=== PATIENT | male | born 1965 | race Caucasian/White ===

== ENCOUNTER 2020-10-09 08:16 | Outpatient (CLI) | payer OTHER, SELFPAY ==
--- NOTE | ~2020-10-09 | CT_ITS ---
EXAMINATION: CT chest w con DATE: 10/09/2020 08:52 INDICATION: Pulmonary nodule TECHNIQUE: Computed tomography (CT) of the chest was performed with 75 cc Omnipaque 350 intravenous c ontrast. Automated exposure control and iterative reconstruction technique were employed. Exam dose: 146.05 mGy-cm total exam DLP. COMPARISON: None FINDINGS: No pulmonary infiltrate or consolidation or pulmonary mass lesion is detected. Normal size and homogeneous enhancement of the thyroid gland. No thoracic aortic aneurysm or dissection. No hilar or mediastinal mass lesion or lymphadenopathy. No pericardial or pleural effusion. Adrenal glands and included upper abdominal structures are unremarkable. Included skeletal structures are unremarkable. IMPRESSION: No significant abnormality Reviewed, dictated and finalized at [facility]. Reviewed, dictated and finalized at [facility]. [facility] [employer]ISU[employer] IMPA[employer] IMPRESSION: No significant abnormality
[2020-10-09 08:44] LABS: Estimated Glomerular Filt Rate > 60
[2020-10-09 09:12] LABS: Basophils Absolute Auto 0.1 K/mm3 (0.0-0.1); Basophils Percent Auto 1.2 % (0.2-1.2); Eosinophils Absolute Auto 0.2 K/mm3 (0-0.3); Eosinophils Percent Auto 1.8 % (0-4.4); Hematocrit 43.4 % (42.0-52.0); Hemoglobin 14.4 g/dL (14.0-18.0); Immature Granulocyte Absolute 0.03 K/mm3 (0.00-0.031); Immature Granulocyte Percent A 0.3 % (0-0.5); Lymphocytes Absolute Auto 1.69 K/mm3 (0.9-3.2); Lymphocytes Percent Auto 19.5 % (18.3-44.2); Mean Corpuscular HGB Conc 33.2 g/dl (32-36); Mean Corpuscular Hemoglobin 30.4 pg (26-34); Mean Corpuscular Volume 91.8 fl (80-100); Mean Platelet Volume 10.2 fl (7.4-10.4); Monocytes Absolute Auto 0.5 K/mm3 (0.1-0.6); Neutrophils Absolute Auto 6.2 K/mm3 (1.3-6.7); Neutrophils Percent Auto 71.2 % (45.5-73.1); Platelet Count Result 247 k/mm3 (150-375); Red Blood Count 4.73 M/mm3 (4.6-6.20); White Blood Count 8.7 K/mm3 (4.5-10.0)
[2020-10-09 09:25] LABS: Alanine Aminotransferase 13 U/L (4-50); Albumin Level 3.7 g/dL (3.5-5.1); Alkaline Phosphatase 59 U/L (38-126); Anion Gap 3 mmol/L (8-16); Aspartate Amino Transferase 20 U/L (17-59); Bilirubin,Total 0.5 mg/dL (0.2-1.3); Blood Urea Nitrogen 13 mg/dL (9-20); Carbon Dioxide 34 mmol/L (22-30); Chloride 101 mmol/L (98-107); Cholesterol 146 mg/dL (0-200); Estimated Glomerular Filt Rate > 60; Glucose 100 mg/dL (75-110); HDL Direct 33 mg/dL; Potassium 4.1 mmol/L (3.4-5.0); Sodium 138 mmol/L (137-145); Triglycerides 109 mg/dL (<150)
[2020-10-09 09:36] LABS: LDL Cholesterol Direct 83 mg/dL
[2020-10-09 09:56] LABS: Prostate Specific Antigen 0.4 ng/mL (< OR = 4.0); Total Triiodothyronine (T3) 1.07 NG/ML (0.97-1.69)
[2020-10-09 10:19] LABS: Vitamin D 25 Hydroxy 53.4 ng/mL
== END 2020-10-09 08:17 | disposition home or self-care (01) ==
LOC: ANHIMG 08:25
PROVIDERS: PCP Nurse Practitioner; Visit Provider Nurse Practitioner
DX: Z00.01 Encounter for general adult medical examination with abnormal findings (principal); R91.1 Solitary pulmonary nodule; R07.9 Chest pain, unspecified; F17.200 Nicotine dependence, unspecified, uncomplicated; I10 Essential (primary) hypertension; G47.00 Insomnia, unspecified
CPT/HCPCS: 71260; 80053; 80061; 82306; 84153; 84439; 84443; 84480; 85025; G0103; Q9967

== ENCOUNTER 2020-10-14 12:21 | Observation (INO) | payer OTHER, SELFPAY ==
[2020-10-14] VITALS (37 sets, daily range): BP systolic 106–173; BP diastolic 66–116; PULSE 45–91; RESP 12–122; TEMP 36.6–37.8; O2SAT 95–99; BMI 17.4
--- NOTE | ~2020-10-14 | XR_ITS ---
EXAMINATION: XR chest 2V EXAM DATE: 10/14/2020 12:50 INDICATION: Left-sided chest pain radiating down left arm. TECHNIQUE: Frontal and lateral projections of the chest obtained and reviewed. There is no prior hugh dy for comparison. FINDINGS: The lungs are clear. There are no pleural effusions. The cardiomediastinal silhouette is within normal limits. There is no pneumothorax suspected. The bones and soft tissues are unremarkab le. IMPRESSION: No acute cardiopulmonary findings. Reviewed, dictated and finalized at location [facility]. [employer]
--- NOTE | 2020-10-14 12:30 | ECG_ITS ---
Measurements Intervals [place] Rate: 54 P: 29 IN: 130 QRS: -53 QRSD: 119 T: -5 QT: 410 QTc: 390 Interpretive Statements SINUS BRADYCARDIA INCOMPLETE RIGHT BUNDLE BRANCH BLOCK LEFT ANTERIOR FASCICULAR BLOCK BORDERLINE T WAVE ABNORMALITY- INFERIOR LEADS BASELINE ARTIFACT- I ,II, AVR, V3 ABNORMAL ECG Electronically Signed On 10-14-2020 12:59:57 [employer] by Luis Fernando Fletcher D.O.
[2020-10-14 12:43] LABS: Basophils Absolute Auto 0.1 K/mm3 (0.0-0.1); Basophils Percent Auto 0.7 % (0.2-1.2); Eosinophils Percent Auto 0.3 % (0-4.4); Hematocrit 46.1 % (42.0-52.0); Hemoglobin 15.5 g/dL (14.0-18.0); Immature Granulocyte Absolute 0.05 K/mm3 (0.00-0.031); Immature Granulocyte Percent A 0.4 % (0-0.5); Lymphocytes Absolute Auto 1.37 K/mm3 (0.9-3.2); Lymphocytes Percent Auto 12.1 % (18.3-44.2); Mean Corpuscular HGB Conc 33.6 g/dl (32-36); Mean Corpuscular Hemoglobin 30.6 pg (26-34); Mean Corpuscular Volume 90.9 fl (80-100); Mean Platelet Volume 10.1 fl (7.4-10.4); Monocytes Absolute Auto 0.4 K/mm3 (0.1-0.6); Monocytes Percent Auto 3.8 % (2.6-8.5); Neutrophils Absolute Auto 9.4 K/mm3 (1.3-6.7); Neutrophils Percent Auto 82.7 % (45.5-73.1); Platelet Count Result 237 k/mm3 (150-375); Red Blood Count 5.07 M/mm3 (4.6-6.20); Red Cell Distribution Width 13.2 % (11.5-14.5); White Blood Count 11.3 K/mm3 (4.5-10.0)
--- NOTE | 2020-10-14 12:48 | ED.CHESTPAIN ---
HPI - Chest Pain General Chief Complaint: Chest Pain Stated Complaint: chest hurting Time Seen by Provider: 10/14/20 12:34 Source: patient Mode of arrival: ambulatory Limitations: no limitations History of Present Illness HPI narrative: Patient is a 52-year-old male complaining of chest pain, left chest, radiating to left arm and jaw, 8 out of 10, pressure, started approximately 2 days ago. Patient states that he has a cardiac stress test scheduled today but was able to make it due to the chest pain. Patient denies any shortness of breath, nausea, vomiting, diaphoresis, fever or chills. Related Data Allergies Allergy/AdvReac Type Severity Reaction Status Date / Time No Known Allergies Allergy Verified 03/10/17 08:47 Review of Systems Review of Systems: All systems reviewed & are unremarkable except as noted in HPI and below Constitutional: Constitutional: Denies body ache(s), Denies chills, Denies excessive sweating, Denies fatigue, Denies fever(s), Denies headache(s), Denies lethargy, Denies malaise, Denies weakness and Denies weight loss Eyes: Eyes: Denies blurry vision, Denies change in vision and Denies loss of vision ENT: Denies dizziness, Denies ear discharge, Denies headache(s), Denies lip swelling, Denies epistaxis, Denies nasal congestion, Denies neck pain, Denies throat swelling and Denies tongue swelling Cardiovascular: Cardiovascular: Denies diaphoresis, Denies rapid heart rate, Denies edema, Denies irregular heart rhythm, Denies lightheadedness, Denies palpitations, Denies dyspnea and Denies dyspnea on exertion Respiratory: Respiratory: Denies chest congestion, Denies cough, Denies hemoptysis, Denies dyspnea and Denies dyspnea on exertion Gastrointestinal: Gastrointestinal: Denies abdominal pain, Denies melena, Denies hematochezia, Denies diarrhea, Denies nausea, Denies vomiting and Denies hematemesis Musculoskeletal: Musculoskeletal: Denies abnormal gait, Denies deformity, Denies joint swelling, Denies limited range of motion, Denies neck pain and Denies numbness Neurologic: Denies Abnormal speech present, Denies abnormal gait, Denies confusion, Denies dizziness, Denies headache(s), Denies focal weakness, Denies loss of vision, Denies numbness, Denies Other visual disturbances, Denies Sensory deficit (Neuro) and Denies weakness Psychiatric: Psychiatric: Denies confusion, Denies depression, Denies auditory hallucinations, Denies homicidal ideation and Denies suicidal ideation Endocrine: Endocrine: Denies cold intolerance, Denies excessive sweating, Denies fatigue, Denies heat intolerance and Denies palpitations Hematologic/Lymphatic: Hematologic/Lymphatic: Denies easy bleeding and Denies easy bruising Allergic/Immunologic: Allergic/Immunologic: Denies lip swelling, Denies throat swelling and Denies tongue swelling Exam Const: General: cooperative, healthy appearing, comfortable, no acute distress, well developed, alert and awake; No confusion Orientation/consciousness: oriented to person, oriented to place, oriented to time, patient oriented x3 and No confusion Limitations: no limitations HENMT: Head: normal to inspection, normocephalic and atraumatic Ears: hearing grossly normal bilaterally, TM normal on the right and TM normal on the left General nose exam: Normal external nose present, Normal nares present and No nasal discharge present Face and sinus: normal facial exam Mouth: Yes Normal oral and palatal mucosa present, Yes lip normal, Yes tongue normal and Yes oropharynx normal Throat: posterior oropharynx normal, tonsils normal and uvula midline Eyes: General: appearance normal, both eyes and all related structures Pupils: Equal, round and reactive pupils present EOM: EOMs intact bilaterally Neck: Neck: normal visual inspection, full ROM, no lymphadenopathy and no meningeal signs Chest: Chest palpation & inspection: normal inspection of the chest Resp: Effort & Inspection: normal respiratory effort, able
[2020-10-14 12:55] LABS: Anion Gap 3 mmol/L (8-16); Blood Urea Nitrogen 10 mg/dL (9-20); Calcium 9.2 mg/dL (8.4-10.2); Carbon Dioxide 32 mmol/L (22-30); Chloride 103 mmol/L (98-107); Estimated CRCL calculation 80 ml/min; Estimated Glomerular Filt Rate > 60; Glucose 158 mg/dL (75-110); Potassium 4.6 mmol/L (3.4-5.0); Prothrombin Time 13.5 Seconds (11.1-14.7); Sodium 138 mmol/L (137-145)
[2020-10-14 12:58] LABS: Partial Thromboplastin Time 28.3 SECONDS (22.3-36.8)
[2020-10-14 13:06] LABS: Troponin I < 0.012 ng/mL (0.000-0.034)
[2020-10-14] MEDS: ASPIRIN 81 MG CHEWABLE TABLET 324 MG PO (13:41)
[2020-10-14] MEDS: NITROGLYCERIN SL 0.4 MG TABLET SUBLINGUAL (14:09)
[2020-10-14] MEDS: PROMETHAZINE HCL 25 MG/ML AMPUL (14:09)
[2020-10-14] MEDS: SODIUM CHLORIDE 0.9% IV 1,000 ML 999 ML IV CONT (14:09)
--- NOTE | 2020-10-14 14:40 | PC.NURSE ---
Addendum entered by Taye Guo RN 10/14/20 15:00: 1inch of nitro paste* per verbal order readback Original Note: After 3 nitro SL tablets approx 5mins apart, Pt. chest pain went from 7 to a 4. BP sustaining. ERP notified. ERP wants 0.5 inch of nitro paste.
[2020-10-14] MEDS: NITROGLYCERIN OINTMENT 1 INCH DOSE TRANSDERM (14:47)
[2020-10-14 15:44] LABS: Troponin I < 0.012 ng/mL (0.000-0.034)
--- NOTE | 2020-10-14 17:45 | PM.IMHP ---
H&P: HPI History of Present Illness Date/Time: 10/14/20 17:45 Chief Complaint: Chest pain. Narrative: This is a 55-year-old male smoker with hypertension who presented to the emergency department earlier today via private vehicle from home with complaints of left-sided chest pain. He was scheduled for cardiac stress test today however he had recurrent chest pain and presented to the emergency department instead. He describes a pressure-like sensation, occasionally sharp, that was present in his far left lateral chest and axillary region, radiating to the left upper arm and jaw when he woke this morning. The pain was rated 8/10 on arrival but did improve with nitroglycerin x3. With further questioning he does admit that he will sometimes lay on that side and that it seems to be worse with palpation of the area. He also reports feeling unwell for the past couple of days with generalized malaise, fatigue, and decrease in energy. He has occasional lightheadedness and nausea and began to have a decreased in taste yesterday with hot flashes, sweats, and chills over the last 12 hours. He also has mild shortness of breath and dry cough the last 24 hours. No known exposure to those positive for COVID-19. No vomiting or diarrhea. No significant sinus congestion, rhinorrhea, otalgia, or odynophagia. Review of Systems Review of Systems: Narrative: 12 systems were reviewed with pertinent positives and negatives as per HPI. Weight has remained stable. He has chronic right knee pain and was on narcotics for sometime but is now on Suboxone. Suffers from anxiety and he was on Ativan for quite some time but is Dr. recently switched him to buspirone. Except as documented, all other systems were reviewed and are negative. COUNT INCLUDES THE [facility] Past Medical History Medical History (Updated 10/15/20 @ 14:32 by Pushpa Franco PA-C) Benign prostatic hyperplasia Chronic pain syndrome History of kidney stones Hypertension Tobacco dependence Surgical History Surgical History (Updated 10/15/20 @ 14:30 by Pushpa Franco PA-C) History of lithotripsy Family History Family History Father H/O heart artery stent Hypertension Leukemia Lung cancer Mother Hypertension Multiple sclerosis Mother No problems noted. Social History Social History (Updated 10/15/20 @ 14:31 by Pushpa Franco PA-C) Social History: The patient lives in [place] with his . They have 3 adult children. 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 Smokes about a pack of cigarettes per day and has for 25 years or so. He denies alcohol abuse. Occasional marijuana use. he designates his Paola as his surrogate decision makers and she wishes to be a full code. Smoking packs per day: 1 Smoking cigarettes per day: 20.0 Years smoked: 25 Smoking pack-years: 25.00 Smoking status: Heavy tobacco smoker Tobacco type: cigarettes Second hand tobacco smoke exposure: No Alcohol intake: never Substance use: never Gender identity (if verbalized by the patient): Male Spiritual care concerns: No Meds Home Medications and Allergies Home Medications Medication Instructions Recorded Confirmed Type buprenorphine-naloxone 1 film SUBLINGUAL BID 10/14/20 10/14/20 History buspirone 15 mg PO DAILY 10/14/20 10/14/20 History lisinopril 10 mg PO DAILY 10/14/20 10/14/20 History famotidine 20 mg PO Q12HR #30 tablet 10/15/20 Rx Allergies Allergy/AdvReac Type Severity Reaction Status Date / Time No Known Allergies Allergy Verified 03/10/17 08:47 Vital Signs Vital Signs - 24 hr 10/14/20 12:30 10/14/20 12:31 10/14/20 12:40 Temperature 98.1 F Pulse Rate 78 Respiratory Rate 12 Blood Pressure 173/102 H 173/105 H Pulse Oximetry 98 97 99 10/14/20 12:42 10/14/20 12:49 10/14/20 12:50 Temperature Pulse Rate 78 56 L 56 L Respiratory Rate 13 19 Blood Pressure 142/92 H Pulse Oximetry 96 98 0
[2020-10-14 18:50] LABS: Hemoglobin A1C 5.3 % (<5.7)
[2020-10-14 18:51] LABS: Alanine Aminotransferase 12 U/L (4-50); Albumin Level 3.7 g/dL (3.5-5.1); Alkaline Phosphatase 66 U/L (38-126); Aspartate Amino Transferase 19 U/L (17-59); Bilirubin,Total 0.4 mg/dL (0.2-1.3); Magnesium 1.7 mg/dL (1.6-2.3)
[2020-10-14 19:03] LABS: Troponin I < 0.012 ng/mL (0.000-0.034)
--- NOTE | 2020-10-14 20:35 | PM.CNCAR ---
Assessment and Plan Assessment and plan (1) Chest pain: Qualifiers: Chest pain type: unspecified Qualified Code(s): R07.9 - Chest pain, unspecified Code(s): R07.9 - Chest pain, unspecified Status: Acute Assessment and Plan: 3 sets of CE negative no acute EKG changes symptoms appear atypical will arrange for stress test in AM to r/o ischemia. cont meds (2) Hypertension: Code(s): I10 - Essential (primary) hypertension Status: Acute Assessment and Plan: initiallty elevated in ER (173/105) now well controlled cont meds (3) Tobacco dependence: Code(s): F17.200 - Nicotine dependence, unspecified, uncomplicated Status: Acute Assessment and Plan: Cessation recommended. Thank you for consult. Fortino cortez. History of Present Illness History of Present Illness Consult date/time: 10/14/20 Mr. Smart is a pleasant 55 y/o WM with PMH of HTN who presented today to [facility] complaining for chest discomfort. Pt states that he does have episodes of sharp L side of chest and arm discomfort. He states that when he presses his arm he feels pain. Sometimes when he is in bed and sleeps on L or R side then he has numbness and pain of arm which is similar. Symptoms are not related to physical activity. He states that was supposed to have stress test done today on outpatient basis but was not able to have it completed due to N/V. Pt denies cardiac problems. He does have hx of smoking. Pt was seen and examined, chart was reviewed, case was d/w pt's nurse. Reason For Visit: CHEST PAIN Review of Systems Review of Systems: All systems reviewed & are unremarkable except as noted in HPI and below Constitutional: Constitutional: Reports as per HPI Eyes: Eyes: Reports as per HPI ENT: Reports system reviewed and no additional complaints, except as documented and Reports as per HPI Cardiovascular: Cardiovascular: Reports as per HPI Respiratory: Respiratory: Reports as per HPI Gastrointestinal: Gastrointestinal: Reports as per HPI Genitourinary: Genitourinary: Reports as per HPI Musculoskeletal: Musculoskeletal: Reports as per HPI [facility] Past Medical History Medical History (Updated 10/14/20 @ 17:56 by Pushpa Franco PA-C) Benign prostatic hyperplasia Hypertension Tobacco dependence Family History Family History (Updated 10/14/20 @ 20:34 by Yamileth Estrada RN) Father H/O heart artery stent Hypertension Leukemia Lung cancer Mother Hypertension Multiple sclerosis Mother No problems noted. Social History Social History (Updated 10/14/20 @ 17:42 by Pushpa Franco PA-C) Social History: The patient lives in [place]. Smoking packs per day: 1 Smoking cigarettes per day: 20.0 Years smoked: 25 Smoking pack-years: 25.00 Smoking status: Heavy tobacco smoker Tobacco type: cigarettes Second hand tobacco smoke exposure: No Alcohol intake: never Substance use: never Gender identity (if verbalized by the patient): Male Spiritual care concerns: No Meds Home Medications and Allergies Home Medications Medication Instructions Recorded Confirmed Type buprenorphine-naloxone 1 film SUBLINGUAL BID 10/14/20 10/14/20 History buspirone 15 mg PO DAILY 10/14/20 10/14/20 History lisinopril 10 mg PO DAILY 10/14/20 10/14/20 History Allergies Allergy/AdvReac Type Severity Reaction Status Date / Time No Known Allergies Allergy Verified 03/10/17 08:47 Vital Signs Vital Signs - 24 hr 10/14/20 12:30 10/14/20 12:31 10/14/20 12:40 Temperature 36.7 C Pulse Rate 78 Respiratory Rate 12 Blood Pressure 173/102 H 173/105 H Pulse Oximetry 98 97 99 10/14/20 12:42 10/14/20 12:49 10/14/20 12:50 Temperature Pulse Rate 78 56 L 56 L Respiratory Rate 13 19 Blood Pressure 142/92 H Pulse Oximetry 96 98 10/14/20 13:00 10/14/20 13:01 10/14/20 13:15 Temperature Pulse Rate 55
[2020-10-14 22:36] LABS: Troponin I < 0.012 ng/mL (0.000-0.034)
[2020-10-14] MEDS: NICOTINE (*PBKC) 21 MG PATCH 1 PATCH TRANSDERM (23:25)
[2020-10-15] VITALS (9 sets, daily range): BP systolic 110–155; BP diastolic 45–92; PULSE 46–85; RESP 17–22; TEMP 36.6–37.4; O2SAT 97–99
--- NOTE | 2020-10-15 00:56 | PC.NURSE ---
Pt. transferred to IMU 202 for pending COVID-19 test. Report given to MAYDA Loco. Pt. transported to IMU in bed with monitor worker in place. Pt. in no apparent distress upon transport. Pt. transported with one bag of belongings.
[2020-10-15] MEDS: ONDANSETRON INJ 4 MG/2 ML VIAL IV PUSH ×2 (04:59→11:03)
[2020-10-15 05:09] LABS: Hemoglobin 14.5 g/dL (14.0-18.0); Mean Corpuscular HGB Conc 33.7 g/dl (32-36); Mean Platelet Volume 10.5 fl (7.4-10.4); Platelet Count Result 233 k/mm3 (150-375); Red Blood Count 4.83 M/mm3 (4.6-6.20); White Blood Count 11.3 K/mm3 (4.5-10.0)
[2020-10-15] MEDS: NITROGLYCERIN SL 0.4 MG TABLET SUBLINGUAL ×3 (05:18→05:30)
[2020-10-15 05:22] LABS: Anion Gap 1 mmol/L (8-16); Blood Urea Nitrogen 10 mg/dL (9-20); Calcium 8.8 mg/dL (8.4-10.2); Carbon Dioxide 30 mmol/L (22-30); Chloride 107 mmol/L (98-107); Cholesterol 145 mg/dL (0-200); Estimated CRCL calculation 72 ml/min; Estimated Glomerular Filt Rate > 60; Glucose 106 mg/dL (75-110); HDL Direct 31 mg/dL; Potassium 4.2 mmol/L (3.4-5.0); Sodium 138 mmol/L (137-145); Triglycerides 130 mg/dL (<150)
[2020-10-15] MEDS: busPIRone HCL 5 MG TABLET 15 MG PO (05:22)
[2020-10-15 05:33] LABS: LDL Cholesterol Direct 86 mg/dL
--- NOTE | 2020-10-15 08:06 | PC.NURSE ---
0518 c/o chest pain 10/10 - nitro SL administered 0524 c/o chest pain 8/10 - nitro SL administered 0530 c/o chest pain 4/10 - nitro SL administered, reports continues to improve 0545 decreased HR 32 bpm - quickly resolved 0550 decreased HR 39 bpm - quickly resolved. Denies increased SOB, chest pain, lightheadedness, nausea/vomiting.
[2020-10-15] MEDS: ASPIRIN 81 MG ENTERIC TABLET PO (08:40)
[2020-10-15] MEDS: lisinopriL 10 MG TABLET PO (08:40)
--- NOTE | 2020-10-15 08:47 | ECG_ITS ---
Measurements Intervals [place] Rate: 28 P: 66 WI: 137 QRS: -49 QRSD: 121 T: -7 QT: 445 QTc: 304 Interpretive Statements SINUS BRADYCARDIA INCOMPLETE RIGHT BUNDLE BRANCH BLOCK LEFT ANTERIOR FASCICULAR BLOCK BORDERLINE T WAVE ABNORMALITY- INFERIOR LEADS BASELINE ARTIFACT- I, II, III, AVR, AVL, AVF ABNORMAL ECG Electronically Signed On 10-15-2020 9:18:38 [employer] by Luis Fernando Fletcher D.O.
--- NOTE | 2020-10-15 08:57 | PC.NURSE ---
0045 received report from MAYDA Carson
--- NOTE | 2020-10-15 09:11 | PM.PNCARD ---
Progress Note: A&P Assessment and Plan (1) Chest pain: Qualifiers: Chest pain type: unspecified Qualified Code(s): R07.9 - Chest pain, unspecified Code(s): R07.9 - Chest pain, unspecified Status: Acute Assessment and Plan: Symptoms mostly driven by anxiety 3 sets of CE negative EKG with non specific ST changes COVID test is pending hence can't do stress echo this am. Will discharge patient and he may scheduled stress echo in outpatient settings. I discussed that with patient and he is agreeable Smoking cessation counseling Continue antihypertensives as at home (2) Hypertension: Code(s): I10 - Essential (primary) hypertension Status: Acute Assessment and Plan: initiallty elevated in ER (173/105) now well controlled cont meds (3) Tobacco dependence: Code(s): F17.200 - Nicotine dependence, unspecified, uncomplicated Status: Acute Assessment and Plan: Cessation recommended. Subjective Date/time seen: 10/15/20 09:11 He denies chest pain this am. He contributes his symptoms to anxiety. Since Vicodin and Xanax stopped his symptoms started Review of Systems Review of Systems: All systems reviewed & are unremarkable except as noted in HPI and below Constitutional: Constitutional: Reports as per HPI Eyes: Eyes: Reports as per HPI ENT: Reports system reviewed and no additional complaints, except as documented and Reports as per HPI Cardiovascular: Cardiovascular: Reports as per HPI Respiratory: Respiratory: Reports as per HPI Gastrointestinal: Gastrointestinal: Reports as per HPI Genitourinary: Genitourinary: Reports as per HPI Musculoskeletal: Musculoskeletal: Reports as per HPI Exam Const: General: alert and awake; No acute distress HENMT: Head: normal to inspection and atraumatic Ears: hearing grossly normal bilaterally Face and sinus: normal facial exam Eyes: General: appearance normal, both eyes and all related structures Pupils: Equal, round and reactive pupils present EOM: EOMs intact bilaterally Neck: Neck: normal visual inspection and no JVD Chest: Chest palpation & inspection: normal inspection of the chest Resp: Effort & Inspection: normal respiratory effort and no respiratory distress Auscultation: clear to auscultation bilaterally Cardio: Jugular venous distension: no JVD Rate: regular rate Heart sounds: S1 normal heart sound present, S2 normal heart sound present and no murmurs GI: Inspection: normal to inspection Auscultation: normal bowel sounds Skin: General skin exam: normal color Neuro: Cranial nerves: Yes Equal, round and reactive pupils present Extrem: General: normal to inspection and no clubbing, cyanosis or edema Objective Data Vital Signs Vital Signs: Vital Signs - 24 hr 10/14/20 12:30 10/14/20 12:31 10/14/20 12:40 Temperature 36.7 C Pulse Rate 78 Respiratory Rate 12 Blood Pressure 173/102 H 173/105 H Pulse Oximetry 98 97 99 10/14/20 12:42 10/14/20 12:49 10/14/20 12:50 Temperature Pulse Rate 78 56 L 56 L Respiratory Rate 13 19 Blood Pressure 142/92 H Pulse Oximetry 96 98 10/14/20 13:00 10/14/20 13:01 10/14/20 13:15 Temperature Pulse Rate 55 L 57 L 52 L Respiratory Rate 15 18 17 Blood Pressure 144/96 H Pulse Oximetry 96 96 97 10/14/20 13:16 10/14/20 13:30 10/14/20 13:31 Temperature Pulse Rate 52 L 53 L 51 L Respiratory Rate 15 Blood Pressure 142/96 H 140/96 H Pulse Oximetry 97 97 97 10/14/20 13:45 10/14/20 13:46 10/14/20 14:00 Temperature Pulse Rate 61 61 91 Respiratory Rate Blood Pressure 155/116 H Pulse Oximetry 97 98 10/14/20 14:09 10/14/20 14:15 10/14/20 14:16 Temperature Pulse Rate 53 L 66 60 Respiratory Rate Blood Pressure 143/88 H 130/87 Pulse Oximetry 97 96 96 10/14/20 14:17 10/14/20 14:30 10/14/20 14:31 Temperature Pulse Rate 55 L 53 L 56 L Respiratory Rate 122 H 12 12 Blo
--- NOTE | 2020-10-15 09:44 | PM.DS ---
DS: Admitting Diagnosis Admitting Diagnosis Admitting Diagnosis: Acute chest pain DS: Discharge Diagnosis Discharge Diagnosis (1) Chronic pain syndrome: Code(s): G89.4 - Chronic pain syndrome Status: Acute Assessment and Plan: follow-up with PCP for medication adjustment (2) Person under investigation for COVID-19: Code(s): Z20.822 - Contact with and (suspected) exposure to COVID-19 Status: Acute Assessment and Plan: pending COVID-19 testing monitor temperature monitor shortness of breath follow-up on the results of COVID-19 (3) Benign prostatic hyperplasia: Code(s): N40.0 - Benign prostatic hyperplasia without lower urinary tract symptoms Status: Acute Assessment and Plan: follow-up with PCP (4) Hypertension: Code(s): I10 - Essential (primary) hypertension Status: Acute Assessment and Plan: continue lisinopril (5) Hyperglycemia: Code(s): R73.9 - Hyperglycemia, unspecified Status: Acute Assessment and Plan: diet and exercise hemoglobin A1c as outpatient follow-up with PCP (6) Tobacco dependence: Code(s): F17.200 - Nicotine dependence, unspecified, uncomplicated Status: Acute Assessment and Plan: counseling (7) Chest pain: Qualifiers: Chest pain type: unspecified Qualified Code(s): R07.9 - Chest pain, unspecified Code(s): R07.9 - Chest pain, unspecified Status: Acute Assessment and Plan: discussed with cardiology plan to follow-up with established emg technician continue with plan for outpatient stress test patient also has epigastric pain most likely gastritis give Pepcid and follow-up with PCP DS: Summary Hospital Course Hospital Course: patient was admitted to the hospital with chest pain epigastric pain cardiology was consulted no evidence of NSTEMI chest pain has resolved probably patient has gastritis patient will be discharged on PPI follow-up with cardiology as outpatient Time Spent with Patient Time attestation: Total time spent providing and/or coordinating discharge services: Exam Narrative: Exam Narrative: Alert Chest no wheeze crackles Abdomen nontender nondistended CVS S1 + S2 Lower extremity edema DS: Data Data Completed and Pending Labs on day of discharge: Labs from last 24 hours 10/15/20 10/15/20 10/14/20 04:25 04:25 23:21 WBC 11.3 H RBC 4.83 Hgb 14.5 Hct 43.0 MCV 89.0 MCH 30.0 MCHC 33.7 RDW 13.0 Plt Count 233 MPV 10.5 H Immature Gran % (Auto) Neut % (Auto) Lymph % (Auto) Donley % (Auto) Eos % (Auto) Baso % (Auto) Lymph # (Auto) [place]ley # (Auto) Eos # (Auto) Baso # (Auto) Abs Immat Gran (auto) Absolute Neuts (auto) Absolute Nucleated RBC Nucleated RBC % PT INR APTT Sodium 138 Potassium 4.2 Chloride 107 Carbon Dioxide 30 Anion Gap 1 L BUN 10 Creatinine 0.80 Estim Creat Clear Calc 72 Estimated GFR > 60 Glucose 106 Hemoglobin A1c Calcium 8.8 Magnesium Total Bilirubin Direct Bilirubin AST ALT Alkaline Phosphatase Troponin I Total Protein Albumin Triglycerides 130 Cholesterol 145 LDL Cholesterol Direct 86 HDL Direct 31 TSH (Reflex) SARS-CoV-2 RNA (RT-PCR) Pending 10/14/20 10/14/20 10/14/20 22:01 18:34 18:33 WBC RBC Hgb Hct MCV MCH MCHC RDW Plt Count MPV Immature Gran % (Auto) Neut % (Auto) Lymph % (Auto) Donley % (Auto) Eos % (Auto) Baso % (Auto) Lymph # (Auto) Donley # (Auto) Eos # (Auto) Baso # (Auto) Abs Immat Gran (auto) Absolute Neuts (auto) Absolute Nucleated RBC Nucleated RBC % PT INR APTT Sodium Potassium Chloride Carbon Dioxide Anion Gap BUN Creatinine Estim Creat Clear Calc Estimated GFR Glucose Hemog
[2020-10-15 18:18] LABS: SARS-CoV-2 RNA PCR Negative
== END 2020-10-15 11:44 | disposition home or self-care (01) ==
LOC: ANHED 15:26 → ANHCPC 17:51 → ANHIMU 10-15 09:44 → ANHCPC 10-17 10:57 → ANHIMU 10-17 10:57
PROVIDERS: Emergency Medicine; Physician Assistant; Admitting Provider Family Medicine; Emergency Provider Emergency Medicine; PCP Nurse Practitioner; Visit Provider Internal Medicine
DX: R07.9 Chest pain, unspecified (principal); Z20.822 Contact with and (suspected) exposure to COVID-19; I10 Essential (primary) hypertension; F17.210 Nicotine dependence, cigarettes, uncomplicated; N40.0 Benign prostatic hyperplasia without lower urinary tract symptoms; G89.4 Chronic pain syndrome; R73.9 Hyperglycemia, unspecified
CPT/HCPCS: 36415; 71046; 80048; 80061; 80076; 83036; 83735; 84443; 84484; 85025; 85027; 85610; 85730; 93005; 96361; 96374; 96376; 99285; A9270; C9803; G0378; G0379; J2405; J2550; J7030; U0003; U0005

== ENCOUNTER 2025-02-06 15:10 | Inpatient (IN) | payer OTHER, SELFPAY ==
--- NOTE | ~2025-02-06 | CT_ITS ---
CT abdomen pelvis wo con Ordering provider: Reginaldo Orozco MD History: 60 years Male with . flank pain hx stones . Comparison: December 02 2005. Technique: CT abdomen and pelvis without IV and without oral contrast. Automated exposure control and iterative reconstruction technique were employed. The dose-length product was 366.22 mGy-cm. Findings: VISUALIZED LOWER CHEST: Normal. UPPER ABDOMINAL ORGANS: Liver: Normal. Gallbladder: Normal. Spleen: Normal. Stomach/duodenum: Normal. Pancreas: Normal. Adrenals: Left adrenal adenomas are seen measuring 1.6 x 1.2 cm which are larger than the previous st udy.. Kidneys: Large stones seen in the right renal pelvis which measures 1.4 cm and 0.9 cm. Right hydronep hrotic changes noted. Tiny stone in the right kidney upper pole. Tiny stone in the left kidney upper pole. Stone in the left kidney lower pole is seen measuring 9 mm. Stone in the left renal pelvis is also noted which measures 9 mm. Left hydronephrotic changes are al so noted PELVIC ORGANS: The bladder is underfilled with thickened wall. Evaluation for cystitis advised. BOWEL AND MESENTERY: Colon: Severe sigmoid diverticulosis without diverticulitis. Fecal Normal appendix. Small Bowel: Normal. No obstruction. Peritoneum/mesentery: No free air or free fluid. No mesenteric lymphadenopathy. RETROPERITONEUM: Mild atheromatous disease of the abdominal aorta. No retroperitoneal lymphadenopat hy. MUSCULOSKELETAL: Superficial soft tissues: The superficial soft tissues are normal. Bones: Age appropriate degenerative changes of the spine. IMPRESSION: 1. Bilateral renal stones with bilateral hydronephrotic changes more on the right side. 2. No evidence of appendicitis, diverticulitis or intestinal obstruction. Reviewed, dictated and finalized at location A. IMPRESSION: 1. Bilateral renal stones with bilateral hydronephrotic changes more on the ri ght side. 2. No evidence of appendicitis, diverticulitis or intestinal obstruction.
--- NOTE | ~2025-02-06 | XR_ITS ---
EXAMINATION: XR retrograde pyelo w/stent BI DATE: 02/07/2025 11:25 INDICATION: Bilateral ureteral stent placement TECHNIQUE: 61 fluoroscopic images of the abdomen and pelvis were obtained during procedure performed by Dr. Hull. Radiologist was not present for the imaging or procedure. The amount of fluoroscopy ti me used during this procedure was 0.5 minutes. Total DAP was 0.474 mGym^2. COMPARISON: CT dated 02/06/2025 FINDINGS: Glove Tagger image demonstrates bilateral calcified renal stones. Subsequent images demonstrate cannulation and retrograde contrast injections first into the right ureter and renal collecting system and subseq uently into the left ureter and renal collecting system. No filling defects or stricture is identifie d in either ureter. Final images demonstrate placement of bilateral internal ureteral stents with loo ps formed in the bilateral renal pelvises. IMPRESSION: 1. Bilateral nephrolithiasis. 2. Placement of bilateral internal ureteral stents with proximal loop was formed in the renal pelvise s. Reviewed, dictated and finalized at location A. IMPRESSION: 1. Bilateral nephrolithiasis. 2. Placement of bilateral internal ureteral stents with proximal loop was forme d in the renal pelvises.
--- OUTSIDE RECORDS SUMMARY | 2025-02-06 15:13 | XMS_ITS | Patient Health Record ---
Author Organization [facility] Address [address] [place] [address] Care Team Providers Care Flat Finisher Name Role Phone Regan Ely Primary Care Provider Jose Neal Unavailable [phone] Wesley Wallace Unavailable [phone] Ophelia Coy Unavailable [phone] Ramesh Kristin Unavailable [phone] Emiliana Xie Unavailable [phone] Allergies No Known Allergies Results Component Value Reference Range Notes Hemoglobin A1c* Reviewed date:12/20/2024 12:22:51 PM Interpretation: Performing Lab: Notes/Report: CBC With Differential/Platel et* Reviewed date:12/20/2024 12:23:44 PM Interpretation: Performing Lab: Notes/Report: CMP 14 Comprehensive Metabol ic Panel* Reviewed date:12/20/2024 12:24:18 PM Interpretation: Performing Lab: Notes/Report: PDF Report Reviewed date:11/26/2024 04:54:50 PM Interpretation: Performing Lab:[facility], [address] [facility], Phone - [phone], Director - Fabrice Notes/Report: ToxAssure, ToxAssure FLEX or MAT drug testing: -Technical component - Data analysis performed at [facility], [address] [place] [address], [address]. [phone]. Park Interpretive Ranger Cristina Garza MD PDF Report1 LCLS Comprehensive Drug Analysis, Urine Reviewed date:11/26/2024 08:59:37 AM Interpretation: Performing Lab:[facility], [address] [facility], Phone - [phone], Director - Fabrice Notes/Report: ToxAssure, ToxAssure FLEX or MAT drug testing: -Technical component - Data analysis performed at [facility], [address] [place] [address], [address]. [phone]. Park Interpretive Ranger Cristina Garza MD Summary Report (Summary) FINAL COMPREHENSIVE DRUG ANALYSIS,UR Test Result Flag Units Drug Present Desmethyldiazepam 32 ng/mg creat Oxazepam 242 ng/mg creat Temazepam 116 ng/mg creat Desmethyldiazepam, oxazepam, and temazepam are benzodiazepine drugs, but may also be present as common metabolites of other benzodiazepine drugs, including diazepam. Buprenorphine >386 ng/mg creat Norbuprenorphine >386 ng/mg creat Source of buprenorphine is a scheduled prescription medication. Norbuprenorphine is an expected metabolite of buprenorphine. Bupropion PRESENT Hydroxybupropion PRESENT Hydroxybupropion is an expected metabolite of bupropion. Paroxetine PRESENT Propranolol PRESENT Test Result Flag Units Ref Range Creatinine 259 mg/dL >=20 For clinical consultation, please call . PDF . 12 Panel Urine Drug Screen Reviewed date:01/15/2025 02:24:45 PM Interpretation: Performing Lab: Notes/Report: THC neg LILLI neg MOP (OPI) neg AMP neg MET neg BAR neg BZO POS MDMA neg MTD neg OXY neg PCP neg BUP POS CMP 14 Comprehensive Metabol ic Panel* Reviewed date:12/11/2024 02:29:04 PM Interpretation: Performing Lab:[facility] [address] [facility], Phone - [phone], Director - Faith Notes/Report: Glucose 128 70-99 mg/dL BUN 11 6-24 mg/dL Creatinine 0.97 0.76-1.27 mg/dL eGFR 91 >59 mL/min/1.73 BUN/Creatinine Ratio 11 9-20 Sodium 136 134-144 mmol/L Potassium 4.6 3.5-5.2 mmol/L Specimen received hemolyzed. Value may be increased by hemolysis. Clinical correlation indicated. Chloride 101 96-106 mmol/L Carbon Dioxide, Total 20 20-29 mmol/L Calcium 9.4 8.7-10.2 mg/dL Protein, Total 6.6 6.0-8.5 g/dL Albumin 4.0 3.8-4.9 g/dL Globulin, Total 2.6 1.5-4.5 g/dL Bilirubin, Total 0.3 0.0-1.2 mg/dL Alkaline Phosphatase 174 44-121 IU/L AST (SGOT) 21 0-40 IU/L ALT (SGPT) 18 0-44 IU/L Lipid Panel* Reviewed date:12/11/2024 02:27:34 PM Interpretation: Performing Lab:[facility] [address] [facility], Phone - [phone], Director - [facility] Notes/Report: Cholesterol, Total 237 100-199 mg/dL Triglycerides 344 0-149 mg/dL HDL Cholesterol 23 >39 mg/dL VLDL Cholesterol Ayden 64 5-40 mg/dL LDL Chol Calc (NIH) 150 0-99 mg/dL TSH+Free T4* Reviewed date:12/11/2024 02:26:46 PM Interpretation: Performing Lab:[facility] [address] [place] [address], Phone - [phone], Director - [facility] Notes/Report: TSH 2.080 0.450-4.500 uIU/mL T4,Free(Direct) 1.28 0.82-1.77 ng/dL Vitamin D, 25-Hydroxy* Reviewed date:12/11/2024 02:26:18 PM Interpretation: Performing Lab:[facility], Phone - [phone], Director - [facility] Notes/Report: Vitamin D, 25-Hydroxy 7.8 30.0-100.0 ng/mL Vitamin D deficiency has been defined by the [place] of Medicine and an Endocrine Society practice guideline as a level of serum 25-OH vitamin D less than 20 ng/mL (1,2). The Endocrine Society went on to further define vitamin D insufficiency as a level between 21 and 29 ng/mL (2). 1. IOM ([place] of Medicine). 2010. Dietary reference intakes for calcium and D. [place]: The National Academies Press. 2. Juaquin MF, Laura [place], Caryn ROMERO, et al. Evaluation, treatment, and prevention of vitamin D deficiency: an Endocrine Society clinical practice guideline. JCEM. 2010; 96(7):1911-30. CBC With Differential/Platel et* Reviewed date:12/11/2024 02:32:21 PM Interpretation: Performing Lab:[address], Phone - [phone], Director - [facility] Notes/Report: WBC TNP Test not performed. Whole blood specimen partially or completely clotted. A common cause is insufficient mixing upon collection. RBC TNP Test not perfor med Hemoglobin TNP Test not perfor med Hematocrit TNP Test not perfor med Platelets TNP Test not perfor med Neutrophils TNP Test not perfor med Lymphs TNP Test not perfor med Monocytes TNP Test not perfor med Eos TNP Test not perfor med Lymphs (Absolute) TNP Test not p erformed Eos (Absolute) TNP Test not perf ormed Baso (Absolute) TNP Test not per formed Folate (Folic Acid), Serum* Reviewed date:12/11/2024 02:28:20 PM Interpretation: Performing Lab:[facility], [address] [place] [address], Phone - [phone], Director - [facility] Notes/Report: Folate (Folic Acid), Serum 15.0 >3.0 ng/mL A serum folate concentration of less than 3.1 ng/mL is considered to represent clinical deficiency. Vitamin B12* Reviewed date:12/11/2024 02:26:32 PM Interpretation: Performing Lab:[facility], [address] [place] [address], Phone - [phone], Director - [facility] Notes/Report: Vitamin B12 390 099-5265 pg/mL Specimen Status Report TNP Test not performed. Whole blood specimen partially or completely clotted. A common cause is insufficient mixing upon collection. TEST: [id number] CBC With Differential/Platelet [id number] Hemoglobin A1c Hemoglobin A1c* Reviewed date:12/11/2024 02:28:07 PM Interpretation: Performing Lab:[facility], [address] [place] [address], Phone - [phone], Director - [facility] Notes/Report: Hemoglobin A1c TNP Test not performed. Whole blood specimen partially or completely clotted. A common cause is insufficient mixing upon collection. . Prediabetes: 5.7 - 6.4 Diabetes: >6.4 Glycemic control for adults with diabetes: <7.0 12 Panel Urine Drug Screen Reviewed date:11/15/2024 01:35:24 PM Interpretation: Performing Lab: Notes/Report: THC neg LILLI neg MOP (OPI) neg AMP neg MET neg BAR neg BZO POS MDMA neg MTD neg OXY POS PCP neg BUP POS 12 Panel Urine Drug Screen Reviewed date:09/11/2024 01:14:14 PM Interpretation: Performing Lab: Notes/Report: THC neg LILLI neg MOP (OPI) neg AMP neg MET neg BAR neg BZO POS MDMA neg MTD neg OXY neg PCP neg BUP POS 12 Panel Urine Drug Screen Reviewed date:12/13/2024 01:25:53 PM Interpretation: Performing Lab: Notes/Report: THC neg LILLI neg MOP (OPI) neg AMP neg MET neg BAR neg BZO POS MDMA neg MTD neg OXY neg PCP neg BUP POS 12 Panel Urine Drug Screen Reviewed date:08/09/2024 02:04:41 PM Interpretation: Performing Lab: Notes/Report: THC neg LILLI neg MOP (OPI) neg AMP neg MET neg BAR neg BZO POS MDMA neg MTD neg OXY neg PCP neg BUP POS 12 Panel Urine Drug Screen Reviewed date:02/29/2024 01:11:54 PM Interpretation: Performing Lab: Notes/Report: THC neg LILLI neg MOP (OPI) neg AMP neg MET neg BAR neg BZO POS MDMA neg MTD neg OXY neg PCP neg BUP POS CMP 14 Comprehensive Metabol ic Panel* Reviewed date:12/25/2024 10:35:38 AM Interpretation: Performing Lab:[facility], [address] [facility], Phone - [phone], Director - Faith Notes/Report: Glucose 118 70-99 mg/dL BUN 9 6-24 mg/dL Creatinine 0.90 0.76-1.27 mg/dL eGFR 100 >59 mL/min/1.73 BUN/Creatinine Ratio 10 9-20 Sodium 141 134-144 mmol/L Potassium 3.8 3.5-5.2 mmol/L Chloride 102 96-106 mmol/L Carbon Dioxide, Total 18 20-29 mmol/L Calcium 9.5 8.7-10.2 mg/dL Protein, Total 6.5 6.0-8.5 g/dL Albumin 4.1 3.8-4.9 g/dL Globulin, Total 2.4 1.5-4.5 g/dL Bilirubin, Total 0.2 0.0-1.2 mg/dL Alkaline Phosphatase 162 44-121 IU/L AST (SGOT) 14 0-40 IU/L ALT (SGPT) 16 0-44 IU/L CBC With Differential/Platel et* Reviewed date:12/25/2024 10:36:08 AM Interpretation: Performing Lab:[facility], [address] [facility], Phone - [phone], Director - Faith Notes/Report: WBC 8.9 3.4-10.8 x10E3/uL RBC 5.28 4.14-5.80 x10E6/uL Hemoglobin 15.0 13.0-17.7 g/dL Hematocrit 45.2 37.5-51.0 % MCV 86 79-97 fL MCH 28.4 26.6-33.0 pg MCHC 33.2 31.5-35.7 g/dL RDW 13.3 11.6-15.4 % Platelets 263 150-450 x10E3/uL Neutrophils 60 Not Estab. % Lymphs 29 Not Estab. % Monocytes 6 Not Estab. % Eos 2 Not Estab. % Basos 2 Not Estab. % Neutrophils (Absolute) 5.4 1.4-7.0 x10E3/uL Lymphs (Absolute) 2.6 0.7-3.1 x10E3/uL Monocytes(Absolute) 0.5 0.1-0.9 x10E3/uL Eos (Absolute) 0.2 0.0-0.4 x10E3/uL Baso (Absolute) 0.1 0.0-0.2 x10E3/uL Immature Granulocytes 1 Not Estab. % Immature Grans (Abs) 0.1 0.0-0.1 x10E3/uL Hemoglobin A1c* Reviewed date:12/25/2024 10:35:08 AM Interpretation: Performing Lab:[facility], [address] [facility], [facility] - [phone], Director - Ricbessie Notes/Report: Hemoglobin A1c 5.8 4.8-5.6 % . Prediabetes: 5.7 - 6.4 Diabetes: >6.4 Glycemic control for adults with diabetes: <7.0 12 Panel Urine Drug Screen Reviewed date:10/15/2024 02:23:22 PM Interpretation: Performing Lab: Notes/Report: THC neg LILLI neg MOP (OPI) neg AMP neg MET neg BAR neg BZO POS MDMA neg MTD neg OXY neg PCP neg BUP POS 12 Panel Urine Drug Screen Reviewed date:07/06/2024 10:13:57 AM Interpretation: Performing Lab: Notes/Report: THC neg LILLI neg MOP (OPI) neg AMP neg MET neg BAR neg BZO POS MDMA neg MTD neg OXY neg PCP neg BUP POS 12 Panel Urine Drug Screen Reviewed date:04/27/2024 01:28:57 PM Interpretation: Performing Lab: Notes/Report: THC neg LILLI neg MOP (OPI) neg AMP neg MET neg BAR neg BZO POS MDMA neg MTD neg OXY neg PCP neg BUP POS Medication Assisted Treatmen t (MAT) Buprenorphine, Norbuprenorphine, and Naloxone MS Confirmation, Urine Reviewed date:06/11/2024 12:58:08 PM Interpretation: Performing Lab:[facility], [address] [facility], Phone - [phone], Director - Fabrice Notes/Report: ToxAssure, ToxAssure FLEX or MAT drug testing: -Technical component - Result certification performed at [facility], [address] [place] [address] [address], [place] [address]. [phone] Park Interpretive Ranger Atul Davies MD. Creatinine 161 Testing Threshold: buprenorphine, 1.0 ng/mL norbuprenorphine, 5.0 ng/mL naloxone, 10 ng/mL This test was developed and its performance characteristics determined by [facility]. It has not been cleared or approved by the Food and Drug Administration. REFERENCE RANGE: Ref Range>=20 BUPRENORPHINE ++POSITIVE++ Buprenorphine 288 Norbuprenorphine >621 N/B Ratio >2.16 >=0.3 OPIATE ANTAGONIST ++POSITIVE++ Naloxone >621 12 Panel Urine Drug Screen Reviewed date:06/05/2024 01:25:48 PM Interpretation: Performing Lab: Notes/Report: THC neg LILLI neg MOP (OPI) neg AMP neg MET neg BAR neg BZO POS MDMA neg MTD neg OXY neg PCP neg BUP POS 12 Panel Urine Drug Screen Reviewed date:03/30/2024 10:10:25 AM Interpretation: Performing Lab: Notes/Report: THC neg LILLI neg MOP (OPI) neg AMP neg MET neg BAR neg BZO POS MDMA neg MTD neg OXY neg PCP neg BUP POS Reason For Referral No Information Medications Medication SIG (Take, Route, Frequency, Duration) Notes Start Date End Date Status buPROPion HCl ER (XL) 150 MG 1 tablet in the morning Orally Once a day - take with bupropion 300mg for TOTAL 450mg daily for 30 days Active Lisinopril 10 MG 1 tablet Orally once daily for 30 days Active Zubsolv 8.6-2.1 MG 1 tablet under the tongue and allow to dissolve Sublingual three times daily 01/15/2025 Active Ergocalciferol 1.25 MG (38244 UT) 1 capsule Orally once weekly for 30 days Active diazePAM 10 mg TAKE 1 TABLET BY KORY TH DAILY IF NEEDED FOR ANXIETY for 30 days 01/15/2025 Active Wellbutrin XL 300 MG 1 tablet in the mor lianet Orally Once a day - take with bupropion 150mg for TOTAL 450mg daily for 30 days Active Prazosin HCl 5 MG 2 capsules Orally on ce daily at bedtime for 30 days Active Propranolol HCl ER 160 MG 1 capsule Oral ly Once a day for 30 days Active PARoxetine HCl 40 mg Take 2 tablets (80m g) once daily by oral route for 30 days Active Prazosin HCl 2 MG 2 capsules once camilla y in the MORNING Orally for 30 days Active OLANZapine 10 mg 1 tablet twice daily for 30 days Active Immunizations Vaccine Route Administration Date Status Comme nts Influenza, virus vaccine, trivalent, preservative free IM Intramuscular 10/15/2024 Administered Imelda Piedad OHARA 10/15/2024 02:36:01 PM HOME HEALTH CARE COORDINATOR >pt tolerated well. Social History Tobacco Use: Social History Observation Description Date Details (start date - stop date) Current Smoker NA - NA Sex Assigned At : Social History Observation Description Sex Assigned At Male Alcohol Screen (Audit-C) Question Answer Notes Did you have a drink containing alcohol in the p ast year? No Points 0 Interpretation Negative PRAPARE Question Answer Notes Date Completed/Updated: 04/27/2024 What is your current housing situation? I have h ousing Are you worried about losing your housing? No What is the highest level of school that you have finished? 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 Check all that apply Medicine or any health care (medical, dental, mental health or vision) Has lack of transportation k ept you from medical appointments, meetings, work or from getting things needed for daily living? No How often do you see or talk to people that you care about and feel close to? (For example: talking to friends on the phone, visiting friends or family, going to alevism or club meetings) More than 5 times a week How stressed are you? Stress is when someone feels tense, nervous, anxious, or can\\t sleep at night because their mind is troubled Very much In the past year have you sp ent more than 2 nights in a row in a prison, senior care, fci center, or juvenile correctional facility? No Are you a refugee? No What country are you from? [place] Do you feel physically and e motionally safe where you currently live? Yes In the past year, have you b een afraid of your partner or ex-partner? No PRAPARE Score: 6 Tobacco Control (Standard) Question Answer Notes Tobacco use: Current smoker Section Notes: [id number] 07/22/2021 07/22/2021 Zubsolv 60 30 8.6 MG-2.1 MG NA Heavemigue, Regan Hair - [id number] [facility] [id number] 07/22/2021 07/22/2021 Zubsolv 30 30 5.7-1.4 MG NA Heavemigue, Regan Hair - [id number] [facility] 1 [id number] 07/08/2021 06/09/2021 diazePAM 30 30 10MG NA Tahmina Rudd L, Msn, [facility] - [id number] [facility] 1 [id number] 06/17/2021 06/17/2021 Zubsolv 30 30 5.7-1.4 MG NA Heavemigue, Regan Hair - [id number] [facility] 1 [id number] 06/17/2021 06/17/2021 Zubsolv 60 30 8.6 MG-2.1 MG NA Heavemigue, Regan Hair - [id number] [facility] 1 [id number] 06/09/2021 06/09/2021 diazePAM 30 30 10MG NA Tahmina Rudd L, Msn, [facility] - [id number] [facility] 1 [id number] 05/05/2021 05/05/2021 Zubsolv 60 30 8.6 MG-2.1 MG NA [id number] 07/22/2021 07/22/2021 Zubsolv 60 30 8.6 MG-2.1 MG NA Heavens, Regan Hair - [id number] [employer] [place], [place] 1 [id number] 07/22/2021 07/22/2021 Zubsolv 30 30 5.7-1.4 MG NA Heavens, Regan Hair - [id number] [employer] [place], [place] 1 [id number] 07/08/2021 06/09/2021 diazePAM 30 30 10MG NA Tahmina Rudd L, Msn, [facility] - [id number] [employer] [place], [place] 1 [id number] 06/17/2021 06/17/2021 Zubsolv 30 30 5.7-1.4 MG NA Heavens, Regan Hair - [id number] [employer] [place], [place] 1 [id number] 06/17/2021 06/17/2021 Zubsolv 60 30 8.6 MG-2.1 MG NA Heavens, Regan Hair - [id number] [employer] [place], [place] 1 [id number] 06/09/2021 06/09/2021 diazePAM 30 30 10MG NA Tahmina Rudd L, Msn, [facility] - [id number] [employer] [place], [place] 1 [id number] 05/05/2021 05/05/2021 Zubsolv 60 30 8.6 MG-2.1 MG NA [id number] 07/22/2021 07/22/2021 Zubsolv 60 30 8.6 MG-2.1 MG NA Heavens, Regan Hair - [id number] [employer] [place], [place] 1 [id number] 07/22/2021 07/22/2021 Zubsolv 30 30 5.7-1.4 MG NA Heavens, Regan Hair - [id number] [employer] [place], [place] 1 [id number] 07/08/2021 06/09/2021 diazePAM 30 30 10MG NA Tahmina Rudd L, Msn, [facility] - [id number] [employer] [place], [place] 1 [id number] 06/17/2021 06/17/2021 Zubsolv 30 30 5.7-1.4 MG NA Heavens, Regan Hair - [id number] [facility], [place] [id number] 06/17/2021 06/17/2021 Zubsolv 60 30 8.6 MG-2.1 MG NA Heavens, Regan Hair - [id number] [employer] [place], [place] 1 [id number] 06/09/2021 06/09/2021 diazePAM 30 30 10MG NA Tahmina Rudd L, Msn, [facility] - [id number] [employer] [place], [place] 1 [id number] 05/05/2021 05/05/2021 Zubsolv 60 30 8.6 MG-2.1 MG NA [id number] 07/22/2021 07/22/2021 Zubsolv 60 30 8.6 MG-2.1 MG NA Heavens, Regan Hair - [id number] [employer] [place], [place] 1 [id number] 07/22/2021 07/22/2021 Zubsolv 30 30 5.7-1.4 MG NA Heavens, Regan Hair - [id number] [employer] [place], [place] 1 [id number] 07/08/2021 06/09/2021 diazePAM 30 30 10MG NA Tahmina Rudd L, Msn, [facility] - [id number] [employer] [place], [place] 1 [id number] 06/17/2021 06/17/2021 Zubsolv 30 30 5.7-1.4 MG NA Heavens, Regan Hair - [id number] [employer] [place], [place] 1 [id number] 06/17/2021 06/17/2021 Zubsolv 60 30 8.6 MG-2.1 MG NA Heavens, Regan Cuenca [id number] [employer] [place], [place] 1 [id number] 06/09/2021 06/09/2021 diazePAM 30 30 10MG NA Tahmina Rudd L, Msn, [facility] - [id number] [employer] [place], [place] 1 [id number] 05/05/2021 05/05/2021 Zubsolv 60 30 8.6 MG-2.1 MG NA [id number] 07/22/2021 07/22/2021 Zubsolv 60 30 8.6 MG-2.1 MG NA Heavens, Regan Hair - [id number] [employer] [place], [place] 1 [id number] 07/22/2021 07/22/2021 Zubsolv 30 30 5.7-1.4 MG NA Heavens, Regan Hair - [id number] [employer] [place], [place] 1 [id number] 07/08/2021 06/09/2021 diazePAM 30 30 10MG NA Tahmina Rudd L, Msn, [facility] - [id number] [employer] [place], [place] 1 [id number] 06/17/2021 06/17/2021 Zubsolv 30 30 5.7-1.4 MG NA Heavens, Regan Hair - [id number] [employer] [place], [place] 1 [id number] 06/17/2021 06/17/2021 Zubsolv 60 30 8.6 MG-2.1 MG NA Heavens, Regan Hair - [id number] [employer] [place], [place] 1 [id number] 06/09/2021 06/09/2021 diazePAM 30 30 10MG NA Tahmina Rudd L, Msn, [facility] - [id number] [employer] [place], [place] 1 [id number] 05/05/2021 05/05/2021 Zubsolv 60 30 8.6 MG-2.1 MG NA [id number] 09/02/2021 09/02/2021 Zubsolv 60 30 8.6 MG-2.1 MG NA Heavens, Regan Hair - [id number] [place], [place] 1 [id number] 09/02/2021 09/02/2021 Zubsolv 30 30 5.7-1.4 MG NA Regan Ely [id number] [facility] [place], [place] 1 [id number] 08/26/2021 08/26/2021 Zubsolv 7 7 5.7-1.4 MG NA Fredrick Martinez Md [id number] [employer] [place], [place] 2 [id number] 08/26/2021 08/26/2021 Zubsolv 14 7 8.6 MG-2.1 MG NA Fredrick Martinez Md [id number] [place] [address] [id number] 08/25/2021 08/25/2021 Zubsolv 3 3 8.6 MG-2.1 MG NA Fredrick Martinez Md [id number] [facility] [place], [place] 2 [id number] 08/25/2021 08/25/2021 Zubsolv 1 1 5.7-1.4 MG Fredrick Montelongo Md [id number] [facility] [place], [place] 2 [id number] 08/21/2021 08/21/2021 HYDROcodone BITARTRATE-ACETAMINOPHEN 30 5 325 MG-5 MG 30 Pamela Zamudio B () - [id number] [place], [place] 1 [id number] 08/20/2021 08/10/2021 diazePAM 30 30 [id number] 07/22/2021 07/22/2021 Zubsolv 60 30 8.6 MG-2.1 MG NA Regan Ely [id number] [employer] [place], [place] 1 [id number] 07/22/2021 07/22/2021 Zubsolv 30 30 5.7-1.4 MG NA Regan Ely [id number] [place] 1 [id number] 07/08/2021 06/09/2021 diazePAM 30 30 10MG NA Tahmina Rudd L, Msn, [employer] - [id number] [place] 1 [id number] 06/17/2021 06/17/2021 Zubsolv 30 30 5.7-1.4 MG NA MartellRegan douglas [id number] [facility] [id number] 06/17/2021 06/17/2021 Zubsolv 60 30 8.6 MG-2.1 MG NA Regan Ely - [id number] [facility] [id number] 06/09/2021 06/09/2021 diazePAM 30 30 10MG NA Tahmina Rudd L, Msn, [employer] - [id number] [facility] 1 [id number] 05/05/2021 05/05/2021 Zubsolv 60 30 8.6 MG-2.1 MG NA Problems Problem Type SNOMED Code ICD Code Onset Dates Problem Status W/U Status Risk Notes Problem Tobacco user (284631780) Nicotine dependence, unspecified, uncomplicated (F17.200) Active confirmed Problem Depression (927368448) Depression (F32.9) 2 Active confirmed Problem Mood disorder (97629166) Mood disorder (F39) Active confirmed Problem 63196599 Anxiety (F41.9) Active confirmed Problem Vitamin D deficiency (18199776) Vitamin D deficiency (E55.9) Active confirmed Problem Generalized anxiety disorder (16489325) ROM (generalized anxiety disorder) (F41.1) 2 Active confirmed Problem Alkaline phosphatase raised (780382870) Elevated alkaline phosphatase level (R74.8) Active confirmed Problem Elevated blood pressure (59320705) Elevated blood pressure (I10) Active confirmed Problem Prediabetes (900053679) Prediabetes (R73.09) Active confirmed Problem Colon cancer screening (641550882) Colon cancer screening (Z12.11) Active confirmed Problem Overweight (466776914) Over weight (E66.3) Active confirmed Problem Major depressive disorder (162574267) MDD (major depressive disorder) (F32.9) 2 Active confirmed Problem Malignant tumor of colon (884213385) Colon cancer (C18.9) Active confirmed Problem Drug monitoring done (174268345) Therapeutic drug monitoring (Z51.81) Active confirmed Problem Essential hypertension (63296831) Essential hypertension (I10) Active confirmed Problem Opioid dependence (68505477) Opioid use disorder, severe (F11.20) Active confirmed Problem Tobacco use (319162846) Tobacco use disorder (F17.200) Active confirmed Problem Opioid use disorder (5301089920) Opioid use disorder (F11.99) Active confirmed Problem Sleep dysfunction with arousal disturbance (999302163) Night terror (F51.4) Active confirmed Vital Signs Heart Rate 105 /min 01/15/2025 Temperature 98.6 degrees Fahrenheit 09/11/2024 Respiratory Rate 16 /min 01/15/2025 Oximetry 94 % 01/15/2025 Blood pressure diastolic 102 mm Hg 01/15/2025 Height 70 in 01/15/2025 Blood pressure systolic 150 mm Hg 01/15/2025 Weight 190 lb 0 oz lbs 01/15/2025 BMI 27.26 kg/m2 01/15/2025 Encounters Encounter Location Date Provider Diagnosis [address] [address] 12/21/2024 Neal Garcia ROM (generalized anxiety disorder) F41.1 ; MDD (major depressive disorder) F32.9 ; Therapeutic drug monitoring Z51.81 ; Mood disorder F39 and Essential hypertension I10 [address] [address] 02/29/2024 Ophelia Sheamartita [address] [address] 02/29/2024 Wesley Wallace Opioid use disorder F11.99 and Nicotine dependence, unspecified, uncomplicated F17.[address] [address] 03/30/2024 Regan Ely Opioid use disorder F11.99 ; Overweight (BMI 25.0-29.9) E66.3 and Tobacco use disorder F17.[address] [address] 03/30/[address] [facility] [address] [address] 04/27/2024 Jenia Heavens Opioid use disorder F11.99 ; Overweight (BMI 25.0-29.9) E66.3 and Tobacco use disorder F17.200 [address] [address] 04/27/2024 [address]e [address] [place] [address] 05/04/2024 Kristin Ramesh Nicotine dependence, unspecified, uncomplicated F17.200 ; ROM (generalized anxiety disorder) F41.1 ; MDD (major depressive disorder) F32.9 ; Night terror F51.4 and Opioid use disorder F11.[address] [address] 06/05/2024 Emiliana Xie Opioid use disorder F11.99 ; Overweight (BMI 25.0-29.9) E66.3 ; Nicotine dependence, unspecified, uncomplicated F17.200 and Nutritional counseling Z71.[address] [address] 07/06/2024 Jenia Heavens Opioid use disorder F11.99 ; Overweight (BMI 25.0-29.9) E66.3 and Tobacco use disorder F17.[address] [address] 07/17/2024 Neal Garcia Mood disorder F39 ; ROM (generalized anxiety disorder) F41.1 ; MDD (major depressive disorder) F32.9 ; Night terror F51.4 and Nicotine dependence, unspecified, uncomplicated F17.[address] [address] 08/09/2024 Wesley Wallace Opioid use disorder F11.99 ; Overweight (BMI 25.0-29.9) E66.3 ; Nutritional counseling Z71.3 and Nicotine dependence, unspecified, uncomplicated F17.[address] [place] [address] 08/23/2024 Neal Garcia Mood disorder F39 ; ROM (generalized anxiety disorder) F41.1 ; MDD (major depressive disorder) F32.9 ; Night terror F51.4 and Nicotine dependence, unspecified, uncomplicated F17.200 [facility] [address] [place] [address] 09/11/2024 Regan Ely Opioid use disorder F11.99 ; Elevated blood pressure I10 ; Overweight (BMI 25.0-29.9) E66.3 and Tobacco use disorder F17.[address] [address] 09/13/2024 Neal Garcia Mood disorder F39 ; ROM (generalized anxiety disorder) F41.1 ; MDD (major depressive disorder) F32.9 ; Night terror F51.4 ; Essential hypertension I10 and Nicotine dependence, unspecified, uncomplicated F17.[address] [address] 10/12/2024 Neal Garcia Mood disorder F39 ; ROM (generalized anxiety disorder) F41.1 ; MDD (major depressive disorder) F32.9 ; Night terror F51.4 ; Essential hypertension I10 and Nicotine dependence, unspecified, uncomplicated F17.[address] [address] 10/15/2024 Emiliana Xie Opioid use disorder F11.99 ; Encounter for immunization Z23 and Nutritional counseling Z71.[address] [address] 11/08/2024 Neal Garcia Mood disorder F39 ; ROM (generalized anxiety disorder) F41.1 ; MDD (major depressive disorder) F32.9 ; Night terror F51.4 ; Essential hypertension I10 and Nicotine dependence, unspecified, uncomplicated F17.[address] [address] 11/15/2024 Emiliana Aguilarfik Opioid use disorder F11.99 [facility] [address] [address] 12/07/2024 Neal Garcia Mood disorder F39 ; ROM (generalized anxiety disorder) F41.1 ; MDD (major depressive disorder) F32.9 ; Essential hypertension I10 ; Nicotine dependence, unspecified, uncomplicated F17.200 ; Opioid use disorder F11.99 and Therapeutic drug monitoring Z51.[address] [address] 12/11/2024 Neal Garcia Mood disorder F39 ; ROM (generalized anxiety disorder) F41.1 ; MDD (major depressive disorder) F32.9 ; Night terror F51.4 ; Essential hypertension I10 ; Vitamin D deficiency E55.9 ; Nicotine dependence, unspecified, uncomplicated F17.200 ; Opioid use disorder F11.99 ; Elevated alkaline phosphatase level R74.8 and Therapeutic drug monitoring Z51.[address] [address] 12/13/2024 Emiliana Aguilarfimaurilio Opioid use disorder F11.[address] [address] 01/15/2025 Neal Garcia Mood disorder F39 ; ROM (generalized anxiety disorder) F41.1 ; MDD (major depressive disorder) F32.9 ; Night terror F51.4 ; Essential hypertension I10 ; Vitamin D deficiency E55.9 ; Nicotine dependence, unspecified, uncomplicated F17.200 ; Opioid use disorder F11.99 ; Elevated alkaline phosphatase level R74.8 and Therapeutic drug monitoring Z51.[address] [address] 01/15/2025 Emiliana Justinlufimaurilio Opioid use disorder F11.99 and Over weight E66.[address] [address] 06/05/2024 Regan Ely Contact with and (suspected) exposure to other communicable diseases Z20.[address] [address] 07/03/2024 Neal Garcia ROM (generalized anxiety disorder) F41.[address] [address] 07/06/2024 Neal Garcia MDD (major depressive disorder) F32.9 ; ROM (generalized anxiety disorder) F41.1 and Night terror F51.[address] [address] 08/17/2024 Neal Garcia Mood disorder F39 [facility] [address] [place] [address] 08/23/2024 Neal Garcia [address] [address] 08/24/2024 Neal Garcia [address] [address] 08/24/2024 Neal Garcia [address] [address] 11/08/2024 Neal Garcia [facility] [address] [place] [address] 11/21/2024 Neal Garcia ROM (generalized anxiety disorder) F41.1 ; Mood disorder F39 ; MDD (major depressive disorder) F32.9 ; Essential hypertension I10 ; Nicotine dependence, unspecified, uncomplicated F17.200 ; Opioid use disorder F11.99 and Therapeutic drug monitoring Z51.81 [facility] [address] [place] [address] 11/28/2024 Neal Garcia [address] [address] 12/11/2024 Neal Garcia [address] [address] 12/11/2024 Neal Garcia [address] [address] 12/20/2024 Neal Garcia ROM (generalized anxiety disorder) F41.1 ; MDD (major depressive disorder) F32.9 ; Therapeutic drug monitoring Z51.81 ; Mood disorder F39 and Essential hypertension I10 [facility] [address] [place] [address] 12/25/2024 Neal Garcia [facility] [address] [place] [address] 01/04/2025 Neal Garcia Assessments Encounter Date Diagnosis (ICD Code) Assessment Notes Treatment Notes Treatment Clinical Notes Section Notes 02/29/2024 Nicotine dependence, unspecified, uncomplicated (ICD-10 - F17.200) 02/29/2024 Opioid use disorder (ICD-10 - F11.99) 03/30/2024 Overweight (BMI 25.0-29.9) (ICD-10 - E66.3) [id number]|2025-02-06 15:13:00|2025-02-06 15:13:00|XMS_ITS|BKG DASRION|External Medical Summaries|[id number]|" Clinical Summary Created on: February 06, 2025 Jose Smart : 1965 Sex: Male Author Organization [facility] Address [address] [place] [address] Phone Care Team Providers Care Flat Finisher Name Role Phone Unavailable Primary Care Provider Unavailabl e Allergies No known active allergies Medications oxybutynin chloride (DITROPAN) 5 mg tabletIndicatio ns:Nephrolithia sis Take 1 Tablet (5 mg) by mouth 3 times daily as needed for Spasm. 30 Tablet 08/21/2021 Active ondansetron (Zofran) 4 mg TabletIndicatio ns:Nephrolithia sis Take 1 Tablet (4 mg) by mouth every 8 hours as needed for Nausea or Nausea/Emesi s. 30 Tablet 08/21/2021 Active HYDROcodone-fitz taminophen (NORCO) 5-325 mg tabletIndicatio ns:Nephrolithia sis Take 1 Tablet by mouth every 4 hours as needed for Pain, Moderate. Max Daily Amount: 6 Tablets 30 Tablet 08/21/2021 Active Active Problems No known active problems Social History Tobacco Use Types Packs/Day Years Used Date Smoking Tobacco: Every Day Cigarettes 1 20 Smokeless Tobacco: Never Tobacco Cessation:Counseling Given: Yes Alcohol Use Standard Drinks/Week Comments Never 0 (1 standard drink = 0.6 oz pur e alcohol) Sex and Gender Information Value Date Recorded Sex Assigned at Not on file Legal Sex Male 2:57 PM HOME HEALTH CARE COORDINATOR Gender Identity Not on file Sexual Orientation Not on file Last Filed Vital Signs Vital Sign Reading Time Taken Comments Blood Pressure 140/82 08/25/2021 8:01 PM HOME HEALTH CARE COORDINATOR Pulse 78 08/25/2021 8:01 PM HOME HEALTH CARE COORDINATOR Temperature 36.5 C (97.7 F) 08/25/2021 8:01 PM HOME HEALTH CARE COORDINATOR Respiratory Rate 18 09/09/2021 9:34 AM HOME HEALTH CARE COORDINATOR Oxygen Saturation 95% 08/25/2021 8:01 PM HOME HEALTH CARE COORDINATOR Inhaled Oxygen Concentration - - Weight 65.8 kg (145 lb) 09/09/2021 9:34 AM HOME HEALTH CARE COORDINATOR Height 177.8 cm (5' 10 ) 09/09/2021 9:34 AM HOME HEALTH CARE COORDINATOR Body Mass Index 20.81 09/09/2021 9:34 AM HOME HEALTH CARE COORDINATOR Plan of Treatment Health Maintenance Due Date Last Done Comments DTAP/TDAP/TD VACCINES (1 - Tdap) 1986 HEPATITIS B VACCINES (1 of 3 - 19+ 3-dose series) 03/1986 COLORECTAL SCREENING 01/07/2012 Colorectal Cancer Screening 01/07/2012 FIT-DNA Q 3 years 01/07/2012 FIT/FOBT Q 1 year 01/07/2012 Flex Sig/CT Colonography Q 5 years 01/07/2012 ZOSTER VACCINE (1 of 2) 2017 INFLUENZA VACCINE (#1) 2024 Medical Devices Implanted Type Area Wood Preserving Plant Laborer Device Identifier Shelf Expiration Date Model / Serial / Lot Stent Polaris Ultra 6fr 26cm [id number] - [id number] Implanted:Qty : 1 on 08/25/2021 by Pamela Zamudio MD at [facility] Stent Left: Ureter [employer]UT[employer] INSPECTOR [id number] 06/10/2024 [id number] Insurance "
--- OUTSIDE RECORDS SUMMARY | 2025-02-06 15:13 | XMS_ITS ---
Author Organization [facility] Address [address] [place] [address] Care Team Providers Care Studio Musician Name Role Phone Regan Ely Primary Care Provider Neal Garcia [phone] REASON FOR VISIT 4 week F/U Social History Sex Assigned At : Social History Observation Description Sex Assigned At Male Encounters Encounter Location Date Provider Diagnosis [address] [address] 01/11/2025 Neal Garcia Plan Of Treatment No Information Progress Notes * Jose AGUILERA NDOB: [birth year] (60 yo M)Acc No.[id number]:01/11/2025 UNLOCKED PROGRESS NOTE Patient: Jose DIXON Provider: Pankaj Garcia APN :1965 A ge:60 Y S ex:Male Date:01/11/2025 Address:[facility] Pcp:Regan Ely Subjective: * Chief Complaints: * 1 . 4 week F/U. * Medical History: Objective: * Vitals: Assessment: Plan: * Treatment: * * Electronic signature of Neal Garcia on 02/06/2025 at 03:13 PM CDT Sign off status: Pending * Provider: Pankaj Garcia APN Date: 0 01/11/2025 Generated for Aamir allison/Lexus/Loli on: 0 02/06/2025 03:13 PM CDT
--- OUTSIDE RECORDS SUMMARY | 2025-02-06 15:13 | XMS_ITS | Clinical Summary ---
Author Organization [facility] Address [address], [address] [address] Phone Care Team Providers Care Liner Man Name Role Phone Provider, None Primary Care Provider Unavailabl e Allergies No known active allergies Medications cyclobenzaprine (FLEXERIL) 10 MG Tablet TAKE 1 TABLET BY MOUTH 3 TIMES DAILY NEEDED FOR MUSCLE SPASMS. 90 Tab 3 01/15/2019 Active lisinopril (PRINIVIL, ZESTRIL) 10 MG Tablet TAKE 1 TAB BY MOUTH DAILY. 30 Tab 5 03/13/2019 Active tamsulosin (FLOMAX) 0.4 MG Capsule Take 1 Cap by mouth daily. 10 Cap 07/02/2019 Active ondansetron (ZOFRAN) 4 MG Tablet Take 1-2 Tabs by mouth every 8 hours as needed for Nausea - 1st line. 10 Tab 07/02/2019 Active famotidine (PEPCID) 20 MG Tablet Take 1 Tab by mouth 2 times daily as needed for Heartburn. 30 Tab 08/26/2019 Active naproxen (NAPROSYN) 500 MG Tablet Take 1 Tab by mouth 2 times daily as needed for Moderate or more severe pain. 20 Tab 12/17/2019 Active HYDROcodone-fitz taminophen (NORCO) 5-325 MG Tablet Take 1 Tab by mouth every 6 hours as needed for Moderate or more severe pain. 10 Tab 01/11/2020 Active oxyCODONE-aceta minophen (PERCOCET) 5-325 MG Tablet Take 1 Tab by mouth every 6 hours as needed for Moderate or more severe pain. 15 Tab 03/13/2020 Active Active Problems Problem Noted Date Diagnosed Date Chronic narcotic use 11/10/2018 Hypertension 08/03/2018 Left ureteral stone 11/02/2017 Anxiety Depression Carpal tunnel syndrome Overview (08/17/2016): bilateral hands Chronic back pain Knee dislocation Overview (08/17/2016): right knee Family History Medical History Relation Name Comments Kidney Stones Mother Relation Name Status Comments Father Mother Alive Social History Tobacco Use Types Packs/Day Years Used Date Smoking Tobacco: Every Day Cigarettes Smokeless Tobacco: Never Tobacco Cessation:Ready to Q uit: No Alcohol Use Standard Drinks/Week Comments No 0 (1 standard drink = 0.6 oz pur e alcohol) PHQ-2 Answer Date Recorded PHQ-2 Score 7 06/18/2019 Sexually Active Control Partners Comments Yes Female Sex and Gender Information Value Date Recorded Sex Assigned at Not on file Legal Sex Male 7:58 PM CDT Gender Identity Not on file Sexual Orientation Not on file Last Filed Vital Signs Vital Sign Reading Time Taken Comments Blood Pressure 135/84 06/06/2020 3:45 PM CDT Pulse 86 06/06/2020 3:45 PM CDT Temperature 36.5 C (97.7 F) 06/06/2020 2:13 PM CDT Respiratory Rate 22 06/06/2020 3:45 PM CDT Oxygen Saturation 97% 06/06/2020 3:45 PM CDT Inhaled Oxygen Concentration - - Weight 63.5 kg (140 lb) 06/06/2020 2:04 PM CDT Height 177.8 cm (5' 10 ) 06/06/2020 2:04 PM CDT Body Mass Index 20.09 06/06/2020 2:04 PM CDT Plan of Treatment Health Maintenance Due Date Last Done Comments Hepatitis C Virus (HCV) Screening 1965 TdaP Immunization 1965 Hepatitis B Immunization (1 of 3 - 19+ 3-dose series) 1986 Colonoscopy 01/07/2012 Colorectal Cancer Screening 01/07/2012 Cologuard 2017 Immunochemical Fecal Occult Blood 2017 Pneumococcal Immunization (5 0+ years) (1 of 1 - PCV) 2017 Zoster Immunization (1 of 2) 2017 PSA Discussion 2022 Influenza Immunization (#1) 2024 SARS-COV-2 Immunization ( season) 2024 03/11/2021, 02/11/2021 Respiratory Syncytial Virus (RSV) Immunization (Adult) (1 - 1-dose 75+ series) 2042 Meningococcal Immunization (ACWY) Aged Out No longer eligible b ased on patient's age to complete this topic Rotavirus Immunization Aged Out No lo nger eligible based on patient's age to complete this topic Medical Devices Implanted Type Area Patient Services Manager Device Identifier Shelf Expiration Date Model / Serial / Lot Stent Ureteral 6fr 2.1fr 26cm 2 Pigtail Curve 2 Durometer Taper Tip Loprfl Graduated Polaris Ultra - [id number] Implanted:Qty : 1 on 04/19/2019 by Pamela Zamudio MD at [facility] IMPLANT Right: Ureter [email or web address] 01/21/2022 [id number] / [id number] / [id number] [employer] Ureteral Stent Implanted:Qty : 1 on 11/02/2017 by Pamela Zamudio MD at [facility] Left: Ureter [employer] 06/08/2021 [id number] / [id number] Additional Health Concerns Infection Onset Date Last Indicated Other 06/06/2020 06/06/2020 Insurance MEDICAID [employer] Care Teams Liner Man Relationship Specialty Start Date End Date Provider, None [place] PCP - General 03/13/20
--- OUTSIDE RECORDS SUMMARY | 2025-02-06 15:13 | XMS_ITS | Clinical Summary ---
Author Organization [facility] Address [address] [address] Care Team Providers Care Java Swing Developer Name Role Phone Gurvinder Lin Md, MD Primary Care Provider Unavailable Source Comments [facility],non-owned Affiliates and Associated Physician Practices is amultiple site organization consisting of ambulatory clinics and hospital sitesin [place], [place] and [place]. This disclosure is being madepursuant to the Care Everywhere program and may not contain all information available regarding this patient. Last updated 18.[facility] Allergies No known active allergies Medications * Be aware that medications may not be up to date on this document. Alwaysverify current medications with the patient. escitalopram (LEXAPRO) 10 MG tablet Take 10 mg by mouth at bedtime Active oxyCODONE-aceta minophen (PERCOCET) 10-325 MG tablet Take 1 Tab by mouth every 4 hours as needed for Pain Active phenazopyridine (PYRIDIUM) 100 MG tablet Take 1 Tab by mouth 3 times daily with meals 6 Tab 0 6 Active Additional Information Patient not taking.Reported on 12/22/2015 hydrocodone-fitz taminophen (NORCO) 5-325 MG tablet Take 1 Tab by mouth every 6 hours as needed for Pain 15 Tab 0 6 Active traMADol (ULTRAM) 50 MG tablet Take 0.5 Tabs by mouth every 6 hours as needed for Pain 15 Tab 0 6 Active Social History Tobacco Use Types Packs/Day Years Used Date Smoking Tobacco: Every Day Cigarettes 1 30 Alcohol Use Standard Drinks/Week Comments No 0 (1 standard drink = 0.6 oz pur e alcohol) Sex and Gender Information Value Date Recorded Sex Assigned at Not on file Legal Sex Male 6:01 AM RETAIL ASSISTANT Gender Identity Not on file Sexual Orientation Not on file Last Filed Vital Signs Vital Sign Reading Time Taken Comments Blood Pressure 115/81 12/22/2015 1:53 PM CDT Pulse 94 12/22/2015 1:53 PM CDT Temperature 36.4 C (97.6 F) 12/12/2015 3:55 PM RETAIL ASSISTANT Respiratory Rate 16 12/12/2015 3:55 PM RETAIL ASSISTANT Oxygen Saturation 100% 12/12/2015 3:55 PM RETAIL ASSISTANT Inhaled Oxygen Concentration - - Weight 65.8 kg (145 lb) 01/12/2017 11:10 AM CDT Height 177.8 cm (5' 10 ) 01/12/2017 11:10 AM CDT Body Mass Index 20.81 01/12/2017 11:10 AM CDT Plan of Treatment Health Maintenance Due Date Last Done Comments COLOGUARD (AGES 45-75) - COL ON CA SCREENING 1965 COLON MONITORING 1967 COLONOSCOPY - COLON CA SCREENING 1967 CT COLONOGRAPHY - COLON CA SCREENING 1965 Colorectal Cancer Screening 1965 FIT - COLON CA SCREENING 1967 FLEX SIG - COLON CA SCREENING 1965 LIPID TESTING 1967 HIV SCREENING 1982 HEPATITIS C SCREENING 01/01/1985 DTAP/TDAP/TD VACCINES (1 - Tdap) 1986 HEPATITIS B VACCINE (1 of 3 - 19+ 3-dose series) 1986 PNEUMOCOCCAL VACCINE 50+ (1 of 2 - PCV) 1986 ZOSTER VACCINE (1 of 2) 2017 COVID-19 VACCINE ( - 2023-2 5 season) 2024 DEPRESSION SCREENING 10/03/2024 INFLUENZA VACCINE (Season Ended) 2025 HIB VACCINE Aged Out No longer eligi ble based on patient's age to complete this topic HPV VACCINE Aged Out No longer eligi ble based on patient's age to complete this topic MENINGOCOCCAL (Group B) VACC INE SHARED DECISION-MAKING Aged Out No longer eligibl e based on patient's age to complete this topic MENINGOCOCCAL GROUPS A/C/Y/W VACCINE Aged Out No longer eligible b ased on patient's age to complete this topic Medical Devices Implanted Type Area Ex Chef Device Identifier Shelf Expiration Date Model / Serial / Lot 5fr X 24cm Polaris Ureteral Stent Implanted:Qty: 1 on 10/31/2015 by Mani Dunbar MD at [facility] Left: Ureter [employer] 06/08/2018 [id number] / / [id number] Polaris 5fr X 24cm Implanted:Qty: 1 on 12/12/2015 by Mani Dunbar MD at [facility] Right: Ureter [id number] / / [id number] Insurance [facility] SELF PAY NO INSURANCE Member Subscriber Plan / Payer (Ef fective 2015-Present) Name:Jose Aguilera Relation to Subscriber:Self Name:Jose Aguilera Payer ID:Not on file Group ID:Not on file Type:Self Pay Address: [place], [place] Care Teams Java Swing Developer Relationship Specialty Start Date End Date Gurvinder Lin MD, MD PCP - General 09/29/18
[2025-02-06 15:17] VITALS: BP 143/100; PULSE 82; RESP 16; TEMP 36.6; O2SAT 100
--- NOTE | 2025-02-06 15:40 | ED_ITS ---
HPI - Male Genitourinary General Chief complaint: Urogenital-Male <Aliyah Meng PA-C - Last Filed: 02/08/25 09:34> Stated complaint: Left side kidney stone-flank pain <Aliyah Meng PA-C - Last Filed: 02/08/25 09:34> Time Seen by Provider: 02/06/25 15:40 <Aliyah Meng PA-C - Last Filed: 02/08/25 09:34> Focused HPI: This is a 60 year old male that presents to the ER for left sided flank pain. Reports ongoing over the last couple of weeks. Reports history of kidney stones. He does not currently have a urologist. Reports vomiting, dysuria, hematuria. Denies fever GENERAL: Well-appearing, well-nourished, and in no acute distress. HEAD: Normocephalic, atraumatic. CHEST: Clear to auscultation. No respiratory distress. HEART: Regular rate and rhythm. NEURO: Alert and oriented x3. Patient screened in triage and initial orders placed. Additional care and disposition to be based upon diagnostic testing and treatment. <Aliyah Meng PA-C - Last Filed: 02/08/25 09:34> History of Present Illness HPI Narrative: Agree with the HPI above <Reginaldo Orozco MD - Last Filed: 02/06/25 19:43> Related Data Home medications: Home Medications Medication Instructions Recorded Confirmed Last Taken Type lisinopril 10 mg tablet 10 mg PO DAILY 10/14/20 02/07/25 02/06/25 History <Aliyah Meng PA-C - Last Filed: 02/08/25 09:34> Allergies/Adverse reactions: Allergies Allergy/AdvReac Type Severity Reaction Status Date / Time No Known Allergies Allergy Verified 02/07/25 09:52 <Aliyah Meng PA-C - Last Filed: 02/08/25 09:34> Review of Systems 2 Review of Systems: as reviewed above in HPI <Reginaldo Orozco MD - Last Filed: 02/06/25 19:43> PMFSH Past Medical History Medical History: Medical History History of kidney stones Chronic pain syndrome Benign prostatic hyperplasia Hypertension Tobacco dependence <Aliyah Meng PA-C - Last Filed: 02/08/25 09:34> Surgical History Surgical History: Surgical History History of lithotripsy <Aliyah Meng PA-C - Last Filed: 02/08/25 09:34> Family History Family History: Family History Father H/O heart artery stent Hypertension Leukemia Mesothelioma of lung Mother Hypertension Multiple sclerosis <Aliyah Meng PA-C - Last Filed: 02/08/25 09:34> Social History Social History: Social History Social History: The patient lives in [place]. He has been 4 times. They have 3 adult children. 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 Smokes about a pack of cigarettes per day and has for 30 years or so. He denies alcohol abuse. Occasional marijuana use. Code status: Full code Surrogate decision maker: Keeley Smart (mother) Smoking packs per day: 1 Smoking cigarettes per day: 20.0 Years smoked: 30 Smoking pack-years: 30.00 Smoking status: Current every day smoker Tobacco type: cigarettes Second hand tobacco smoke exposure: No Alcohol intake: former Substance use: former Substance use type: marijuana Do You Feel Safe in your Home?: Yes Lack of Transportation: YES Lack of Food: Never True Current Housing: I Have Housing Concerned About Future Housing: No Difficulty Paying Gas/Electric Bills: No Difficulty Paying for Meds: No Currently Unemployed: No Education: High School Diploma/GED Difficulty w/ Childcare or Family Care: No Gender identity (if verbalized by the patient): Male Spiritual care concerns: No <Aliyah Meng PA-C - Last Filed: 02/08/25 09:34> Exam 2 Narrative: GENERAL: uncomfortable appearing but not any distress, answering questions appropriately. Awake and alert. HEAD: [Normocephalic, atraumatic.] EYES: [PERRLA and EOMI.] ENT: Nares clear, no rhinorrhea or epistaxis. Mucous membranes moist. NECK: Supple. CHEST: [Clear to auscultation. No respiratory distress.] HEART: [Regular rate and rhythm]. No murmur heard. [Normal peripheral pulses.] ABDOMEN: [Soft, nondistended], [nontender], [No rigidity or guarding] Testicular examination shows no masses or enlargement, no overlying skin changes or tenderness. No epididymal tenderness. No hernias. EXTREMITIES: Normal range of motion. [No edema.] SKIN: Warm, dry, no rash. NEURO: [No focal deficits]. Alert and oriented [x3.] PSYCH: [Normal mood and affect.] <Reginaldo Orozco MD - Last Filed: 02/06/25 19:43> Course Vital Signs Vital signs: Vital Signs Temperature 98 F 02/06/25 15:17 Pulse Rate 82 02/06/25 15:17 Respiratory Rate 16 02/06/25 15:17 Blood Pressure 143/100 H 02/06/25 15:17 Pulse Oximetry 100 02/06/25 15:17 Oxygen Delivery Room Air 02/06/25 15:17 Temperature 98.1 F 02/08/25 06:22 Pulse Rate 76 02/08/25 06:22 Respiratory Rate 16 02/08/25 06:22 Blood Pressure 136/78 02/08/25 06:22 Pulse Oximetry 95 02/08/25 06:22 Oxygen Delivery Room Air 02/07/25 12:25 Oxygen Flow Rate 8 02/07/25 11:55 Fraction of Inspired Oxygen 21 02/06/25 21:48 <Aliyah Meng PA-C - Last Filed: 02/08/25 09:34> Vital Signs Temperature 98 F 02/06/25 15:17 Pulse Rate 82 02/06/25 15:17 Respiratory Rate 16 02/06/25 15:17 Blood Pressure 143/100 H 02/06/25 15:17 Pulse Oximetry 100 02/06/25 15:17 Oxygen Delivery Room Air 02/06/25 15:17 Temperature 98.1 F 02/08/25 06:22 Pulse Rate 76 02/08/25 06:22 Respiratory Rate 16 02/08/25 06:22 Blood Pressure 136/78 02/08/25 06:22 Pulse Oximetry 95 02/08/25 06:22 Oxygen Delivery Room Air 02/07/25 12:25 Oxygen Flow Rate 8 02/07/25 11:55 Fraction of Inspired Oxygen 21 02/06/25 21:48 <Reginaldo Orozco MD - Last Filed: 02/06/25 19:43> MDM - Male Genitourinary MDM Narrative Medical decision making narrative: 60-year-old male with a history of kidney stones presenting to the emergency department for left-sided flank pain that feels very similar to a kidney stone he had recently. Symptoms going on for 2 weeks intermittent in nature and worsening over last few days. Associated fever and chills/ back pain. No urinary complaints. His tested the examination is unremarkable, he is overall uncomfortable but not in any acute distress. Soft nontender nondistended abdomen with no CVA tenderness. Suspicion presently is for a kidney stone, obstructing stone, renal colic, urinary tract infection, pyelonephritis, low suspicion other intra-abdominal process such as diverticulitis or obstruction. CBC, CMP, lipase, urinalysis was ordered he was given Dilaudid and fluids as well as Flomax. CT of the abdomen pelvis without contrast ordered. Workup shows a leukocytosis of 12.7, normal hemoglobin, normal platelet. electrolytes are unremarkable. Normal renal function, normal LFTs and glucose. Urinalysis shows urinary tract infection. CT scan shows bilateral renal stones with hydronephrotic changes worse on the right compared to left but no other intra-abdominal process. Patient was re-evaluated and doing better states his pain is 50% improved but still looks uncomfortable. He was provided additional Dilaudid and rocephin for UTI. Spoke to the on-call urologist Dr. Hull who reviewed the imaging and laboratory studies as well and recommended admission to the hospital service for urinary tract infection and will stent him tomorrow if he is still in pain. Plan for NPO at midnight. Discussed this with the patient and the hospitalist currently being covered by the midlevel provider Melinda Rome who accepted the patient to a med/surg bed. <Reginaldo Orozco MD - Last Filed: 02/06/25 19:43> Medical Records Attestation: I reviewed the patient's medical records. <Reginaldo Orozco MD - Last Filed: 02/06/25 19:43> Lab Data Attestation: I reviewed the patient's lab results. <Reginaldo Orozco MD - Last Filed: 02/06/25 19:43> Result diagrams: 02/06/25 17:20 02/06/25 17:20 <Aliyah Meng PA-C - Last Filed: 02/08/25 09:34> Labs: Lab Results 02/06/25 02/06/25 Range/Units 15:59 17:20 WBC 12.7 H (4.5-10.0) K/mm3 RBC 5.24 (4.6-6.20) M/mm3 Hgb 14.9 (14.0-18.0) g/dL Hct 46.2 (42.0-52.0) % MCV 88.2 (80-100) fl MCH 28.4 (26-34) pg MCHC 32.3 (32-36) g/dl RDW 13.5 (11.5-14.5) % Plt Count 314 (150-375) k/mm3 MPV 10.6 H (7.4-10.4) fl Immature Gran % (Auto) 0.7 H (0-0.5) % Neut % (Auto) 72.9 (45.5-73.1) % Lymph % (Auto) 20.4 (18.3-44.2) % [place] % (Auto) 5.0 (2.6-8.5) % Eos % (Auto) 0.4 (0-4.4) % Baso % (Auto) 0.6 (0.2-1.2) % Lymph # (Auto) 2.59 (0.9-3.2) K/mm3 [place] # (Auto) 0.6 (0.1-0.6) K/mm3 Eos # (Auto) 0.1 (0-0.3) K/mm3 Baso # (Auto) 0.1 (0.0-0.1) K/mm3 Abs Immat Gran (auto) 0.09 H (0.00-0.031) K/mm3 Absolute Neuts (auto) 9.2 H (1.3-6.7) K/mm3 Absolute Nucleated RBC 0.000 (0.0-0.012) K/mm3 Nucleated RBC % 0.0 (0.0-0.2) % Sodium 138 (137-145) mmol/L Potassium 4.4 (3.4-5.0) mmol/L Chloride 106 (98-107) mmol/L Carbon Dioxide 23 (22-30) mmol/L Anion Gap 9 (4-12) mmol/L BUN 21 H D (9-20) mg/dL Creatinine 1.14 (0.7-1.3) mg/dL Estim Creat Clear Calc 65 ml/min Estimated GFR > 60 (59 - ) Glucose 104 (65-110) mg/dL Calcium 9.4 (8.4-10.2) mg/dL Total Bilirubin 0.5 (0.2-1.3) mg/dL AST 17 (17-59) U/L ALT 14 (6-50) U/L Alkaline Phosphatase 112 (38-126) U/L Total Protein 7.0 (6.3-8.2) g/dL Albumin 4.2 (3.5-5.1) g/dL Lipase 240 (23-300) U/L Urine Color Dark yellow (Yellow) Urine Appearance Cloudy H (Clear) Urine pH 5.5 (5.0-9.0) Ur Specific [place] 1.019 (1.001-1.035) Urine Protein 3+ H (Negative) mg/dL Urine Glucose (UA) Negative (Negative) mg/dL Urine Ketones 2+ H (Negative) mg/dL Ur Blood (Man) 3+ H (Negative) Urine Nitrate Negative (Negative) Urine Bilirubin Negative (Negative) Urine Urobilinogen 1.0 (<2.0) mg/dL Leukocyte Esterase Rfl 2+ H (Negative) MOI/UL Urine RBC >100 H (0-2) /hpf Urine WBC >100 H (0-3) /hpf Ur Squamous Epith Cells None seen (Few) /hpf Urine Bacteria None seen /hpf Urine Casts 3-5 <Aliyah Meng PA-C - Last Filed: 02/08/25 09:34> Lab Results 02/06/25 02/06/25 Range/Units 15:59 17:20 WBC 12.7 H (4.5-10.0) K/mm3 RBC 5.24 (4.6-6.20) M/mm3 Hgb 14.9 (14.0-18.0) g/dL Hct 46.2 (42.0-52.0) % MCV 88.2 (80-100) fl MCH 28.4 (26-34) pg MCHC 32.3 (32-36) g/dl RDW 13.5 (11.5-14.5) % Plt Count 314 (150-375) k/mm3 MPV 10.6 H (7.4-10.4) fl Immature Gran % (Auto) 0.7 H (0-0.5) % Neut % (Auto) 72.9 (45.5-73.1) % Lymph % (Auto) 20.4 (18.3-44.2) % [place] % (Auto) 5.0 (2.6-8.5) % Eos % (Auto) 0.4 (0-4.4) % Baso % (Auto) 0.6 (0.2-1.2) % Lymph # (Auto) 2.59 (0.9-3.2) K/mm3 [place] # (Auto) 0.6 (0.1-0.6) K/mm3 Eos # (Auto) 0.1 (0-0.3) K/mm3 Baso # (Auto) 0.1 (0.0-0.1) K/mm3 Abs Immat Gran (auto) 0.09 H (0.00-0.031) K/mm3 Absolute Neuts (auto) 9.2 H (1.3-6.7) K/mm3 Absolute Nucleated RBC 0.000 (0.0-0.012) K/mm3 Nucleated RBC % 0.0 (0.0-0.2) % Sodium 138 (137-145) mmol/L Potassium 4.4 (3.4-5.0) mmol/L Chloride 106 (98-107) mmol/L Carbon Dioxide 23 (22-30) mmol/L Anion Gap 9 (4-12) mmol/L BUN 21 H D (9-20) mg/dL Creatinine 1.14 (0.7-1.3) mg/dL Estim Creat Clear Calc 65 ml/min Estimated GFR > 60 (59 - ) Glucose 104 (65-110) mg/dL Calcium 9.4 (8.4-10.2) mg/dL Total Bilirubin 0.5 (0.2-1.3) mg/dL AST 17 (17-59) U/L ALT 14 (6-50) U/L Alkaline Phosphatase 112 (38-126) U/L Total Protein 7.0 (6.3-8.2) g/dL Albumin 4.2 (3.5-5.1) g/dL Lipase 240 (23-300) U/L Urine Color Dark yellow (Yellow) Urine Appearance Cloudy H (Clear) Urine pH 5.5 (5.0-9.0) Ur Specific [place] 1.019 (1.001-1.035) Urine Protein 3+ H (Negative) mg/dL Urine Glucose (UA) Negative (Negative) mg/dL Urine Ketones 2+ H (Negative) mg/dL Ur Blood (Man) 3+ H (Negative) Urine Nitrate Negative (Negative) Urine Bilirubin Negative (Negative) Urine Urobilinogen 1.0 (<2.0) mg/dL Leukocyte Esterase Rfl 2+ H (Negative) MOI/UL Urine RBC >100 H (0-2) /hpf Urine WBC >100 H (0-3) /hpf Ur Squamous Epith Cells None seen (Few) /hpf Urine Bacteria None seen /hpf Urine Casts 3-5 <Reginaldo Orozco MD - Last Filed: 02/06/25 19:43> Imaging Data Attestation: I personally reviewed and interpreted this imaging study as follows: < Reginaldo Orozco MD - Last Filed: 02/06/25 19:43> My impression: Impressions Abdomen/Pelvis CT 02/06/25 16:35 IMPRESSION: 1. Bilateral renal stones with bilateral hydronephrotic changes more on the right side. 2. No evidence of appendicitis, diverticulitis or intestinal obstruction. <Reginaldo Orozco MD - Last Filed: 02/06/25 19:43> Critical Care Time Critical Care Time Critical Care Time: Yes <Reginaldo Orozco MD - Last Filed: 02/06/25 19:43> Total Critical Care Time: 35 <Reginaldo Orozco MD - Last Filed: 02/06/25 19:43> Discharge Plan Discharge Clinical Impression: Bilateral kidney stones, Acute flank pain Urinary tract infection Qualifiers: Urinary tract infection type: site unspecified Hematuria presence: with hematuria Qualified Code(s): N39.0 - Urinary tract infection, site not specified <Aliyah Meng PA-C - Last Filed: 02/08/25 09:34> Patient Disposition: Still a Patient <Aliyah Meng PA-C - Last Filed: 02/08/25 09:34> Condition: Stable <Aliyah Meng PA-C - Last Filed: 02/08/25 09:34> Time of Disposition: 19:43 <Aliyah Meng PA-C - Last Filed: 02/08/25 09:34> 19:43 <Reginaldo Orozco MD - Last Filed: 02/06/25 19:43>
[2025-02-06 15:52] VITALS: BP 128/103; PULSE 94; RESP 16; O2SAT 98
[2025-02-06 16:17] LABS: Add Urine Microscopic? YES; Appearance Urine Cloudy (Clear); Bacteria Urine None Seen /hpf; Bilirubin Urine Negative (Negative); Blood Urine 3+ (Negative); Color Urine Dark Yellow (Yellow); Glucose Urine UA Negative (Negative); Ketones Urine 2+ mg/dL (Negative); Leukocyte Esterase Ur 2+ LEU/UL (Negative); Nitrate Urine Negative (Negative); Protein Urine 3+ mg/dL (Negative); RBC Urine >100 /hpf (0-2); Specific Grav Ur 1.019 (1.001-1.035); Squamous Epithelial Cell Urine None Seen /hpf (Few); WBC Urine >100 /hpf (0-3); pH Urine 5.5 (5.0-9.0)
--- OUTSIDE RECORDS SUMMARY | 2025-02-06 16:42 | XMS_ITS | Clinical Summary ---
Author Organization [facility] Address [address] [place] [address] Phone Care Team Providers Care Buffer Inflated Pad Name Role Phone Unavailable Primary Care Provider [...] on file Legal Sex Male 2:57 PM MANAGER CODING Gender Identity Not on file Sexual Orientation Not on file Last Filed Vital Signs Vital Sign Reading Time Taken Comments Blood Pressure 140/82 08/25/2021 8:01 PM MANAGER CODING Pulse 78 08/25/2021 8:01 PM MANAGER CODING Temperature 36.5 C (97.7 F) 08/25/2021 8:01 PM MANAGER CODING Respiratory Rate 18 09/09/2021 9:34 AM MANAGER CODING Oxygen Saturation 95% 08/25/2021 8:01 PM MANAGER CODING Inhaled Oxygen Concentration - - Weight 65.8 kg (145 lb) 09/09/2021 9:34 AM MANAGER CODING Height 177.8 cm (5' 10 ) 09/09/2021 9:34 AM MANAGER CODING Body Mass Index 20.81 09/09/2021 9:34 AM MANAGER CODING Plan of Treatment Health Maintenance Due Date [...] (#1) 2024 Medical Devices Implanted Type Area Finance Clerk Device Identifier Shelf Expiration Date Model / Serial / Lot Stent Polaris Ultra 6fr 26cm [id number] - [id number] Implanted:Qty : 1 on 08/25/2021 by Pamela Zamudio MD at [facility] Stent Left: Ureter [employer] L[employer] 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
--- OUTSIDE RECORDS SUMMARY | 2025-02-06 16:42 | XMS_ITS | Clinical Summary ---
Author Organization [facility] Address [address], [address] [address] Phone Care Team Providers Care Luncheonette Manager Name Role Phone Provider, None Primary Care [...] this topic Medical Devices Implanted Type Area Program Director Substance Abuse Device Identifier Shelf Expiration Date Model / Serial / Lot Stent Ureteral 6fr 2.1fr 26cm 2 Pigtail Curve 2 Durometer Taper Tip Loprfl Graduated Polaris Ultra - [id number] Implanted:Qty : 1 on 04/19/2019 by Pamela Zamudio MD at [facility] IMPLANT Right: Ureter [employer] 01/21/2022 [id number] / [id number] / [id number] [employer] In[employer] Ureteral Stent Implanted:Qty : 1 on 11/02/2017 by Pamela Zamudio MD at [facility] Left: Ureter [employer] 06/08/2021 [id number] / [id number] / [id number] Additional Health Concerns Infection Onset Date Last Indicated Other 06/06/2020 06/06/2020 Insurance MEDICAID [facility] [employer] Care Teams Luncheonette Manager Relationship Specialty Start Date End Date Provider, None [place] PCP - General 03/13/20
--- OUTSIDE RECORDS SUMMARY | 2025-02-06 16:42 | XMS_ITS | Clinical Summary ---
Author Organization [facility] Address [address] [place] [address] Care Team Providers Care Mechanic Marine Engine Name Role Phone Gurvinder Lin Md, MD Primary Care Provider Unavailable Source Comments [facility],non-owned Affiliates and Associated Physician Practices is amultiple site organization consisting of ambulatory clinics and hospital sitesin [place], [place], [place] and [place]. This disclosure is being madepursuant to the Care Everywhere program and may not contain all information available regarding this patient. Last updated 18.[employer] [facility] Allergies No known active allergies Medications * [...] on file Legal Sex Male 6:01 AM PROGRAMMER BUSINESS Gender Identity Not on file Sexual Orientation Not on file Last Filed Vital Signs Vital Sign Reading Time Taken Comments Blood Pressure 115/81 12/22/2015 1:53 PM CDT Pulse 94 12/22/2015 1:53 PM CDT Temperature 36.4 C (97.6 F) 12/12/2015 3:55 PM PROGRAMMER BUSINESS Respiratory Rate 16 12/12/2015 3:55 PM PROGRAMMER BUSINESS Oxygen Saturation 100% 12/12/2015 3:55 PM PROGRAMMER BUSINESS Inhaled Oxygen Concentration - - Weight 65.8 [...] this topic Medical Devices Implanted Type Area Shoe Designer Device Identifier Shelf Expiration Date Model / Serial / Lot 5fr X 24cm Polaris Ureteral Stent Implanted:Qty: 1 on 10/31/2015 by Mani Dunbar MD at [facility] Left: Ureter [employer]ly [employer] 06/08/2018 [id number] / / [id number] Polaris 5fr X 24cm Implanted:Qty: 1 on 12/12/2015 by Mani Dunbar MD at [facility] Right: Ureter [id number] / / [id number] Insurance [employer] [facility] SELF PAY NO INSURANCE Member Subscriber Plan / Payer (Ef fective 2015-Present) Name:Jose Aguilera Relation to Subscriber:Self Name:Jose Aguilera Payer ID:Not on file Group ID:Not on file Type:Self Pay Address: [place], [place] Care Teams Mechanic Marine Engine Relationship Specialty Start Date End Date Gurvinder Lin MD, MD PCP - General 09/29/18
[2025-02-06] MEDS: LACTATED RINGERS 1,000 ML 999 ML IV CONT (17:02)
[2025-02-06] MEDS: HYDROmorphone HCL INJ (*CRX) 2 MG/ML VIAL 1 MG IV PUSH (17:02)
[2025-02-06 17:03] VITALS: BP 123/94; PULSE 84; RESP 18; O2SAT 97
[2025-02-06 17:35] LABS: Basophils Absolute Auto 0.1 K/mm3 (0.0-0.1); Basophils Percent Auto 0.6 % (0.2-1.2); Eosinophils Absolute Auto 0.1 K/mm3 (0-0.3); Eosinophils Percent Auto 0.4 % (0-4.4); Hematocrit 46.2 % (42.0-52.0); Hemoglobin 14.9 g/dL (14.0-18.0); Immature Granulocyte Absolute 0.09 K/mm3 (0.00-0.031); Immature Granulocyte Percent A 0.7 % (0-0.5); Lymphocytes Absolute Auto 2.59 K/mm3 (0.9-3.2); Lymphocytes Percent Auto 20.4 % (18.3-44.2); Mean Corpuscular HGB Conc 32.3 g/dl (32-36); Mean Corpuscular Hemoglobin 28.4 pg (26-34); Mean Corpuscular Volume 88.2 fl (80-100); Mean Platelet Volume 10.6 fl (7.4-10.4); Monocytes Absolute Auto 0.6 K/mm3 (0.1-0.6); Neutrophils Absolute Auto 9.2 K/mm3 (1.3-6.7); Neutrophils Percent Auto 72.9 % (45.5-73.1); Platelet Count Result 314 k/mm3 (150-375); Red Blood Count 5.24 M/mm3 (4.6-6.20); Red Cell Distribution Width 13.5 % (11.5-14.5); White Blood Count 12.7 K/mm3 (4.5-10.0)
[2025-02-06 17:47] LABS: Alanine Aminotransferase 14 U/L (6-50); Albumin Level 4.2 g/dL (3.5-5.1); Alkaline Phosphatase 112 U/L (38-126); Anion Gap 9 mmol/L (4-12); Aspartate Amino Transferase 17 U/L (17-59); Bilirubin,Total 0.5 mg/dL (0.2-1.3); Blood Urea Nitrogen 21 mg/dL (9-20); Calcium 9.4 mg/dL (8.4-10.2); Carbon Dioxide 23 mmol/L (22-30); Chloride 106 mmol/L (98-107); Estimated CRCL calculation 65 ml/min; Estimated Glomerular Filt Rate > 60; Glucose 104 mg/dL (65-110); Lipase 240 U/L (23-300); Potassium 4.4 mmol/L (3.4-5.0); Sodium 138 mmol/L (137-145)
--- NOTE | 2025-02-06 18:27 | PC.NURSE ---
per EDP, no blood cultures are needed
[2025-02-06] MEDS: HYDROmorphone HCL INJ (*CRX) 2 MG/ML VIAL 0.5 MG IV PUSH ×2 (18:29→22:18)
[2025-02-06] MEDS: ONDANSETRON INJ 4 MG/2 ML VIAL IV PUSH (18:29)
[2025-02-06 19:25] VITALS: BP 127/83; PULSE 90; RESP 18; O2SAT 96
[2025-02-06 20:00] VITALS: BMI 25.7
[2025-02-06] MEDS: LACTATED RINGERS 1,000 ML 125 ML IV CONT (20:01)
[2025-02-06 20:03] VITALS: BP 134/83; PULSE 95; RESP 16; TEMP 36.6; O2SAT 97
--- NOTE | 2025-02-06 20:03 | ADMGEN ---
This patient, Jose Smart, was admitted to Medical Room 253-01. Patient/family oriented to hospital policies and general routines including ID bracelet, bed and alarms, visiting hours, pain management, procedures, bathroom and other care routines, personal items, smoking policy, room service/diet, and visiting hours. Information on how to activate the Rapid Response Team has been discussed. Patient/Family are encouraged to report perceived risks to care and to ask questions if they do not understand what they are told or what they should do.
[2025-02-06] MEDS: HYDROcodone/acetaminophen (*CRX) 5-325 MG TABLET 1 TAB PO (20:23)
[2025-02-06 21:48] VITALS: PULSE 82; RESP 18; O2SAT 95
--- NOTE | 2025-02-06 22:44 | P.HP_ITS ---
H&P: HPI History of Present Illness Date/Time: 02/06/25 22:44 Chief Complaint: Left flank pain/groin pain for 2 weeks Narrative: 60-year-old male with a past medical history of essential hypertension, anxiety, depression, BPH and kidney stones who presented to the ER with complaints of left flank/groin pain that started 2 weeks ago. Patient reports that his pain initially started in the left lower back he thought he had strained his back at work. But after about 5-7 days of symptoms of pain centered more in the left flank and over the last several days has now proceeded to go down into the left groin. He also developed hematuria about 7 days ago with some mild dysuria. He also developed diaphoresis followed by generalized chills. He thinks he has had a fever but he has not checked his temperature. He did have some associated nausea with a couple of episodes of vomiting. He he reports that his last kidney stone was about 3 years ago. He states that he has had multiple cystoscopies and ureteral stents. He does have a history of BPH but takes an [id number] supplement which is helped him have stronger urine streams. He denies sensation of incomplete bladder emptying. He has not followed up with his urologist since his last stent because his urologist no longer takes his insurance. He reports having normal bowel movements. Review of Systems 2 Review of Systems: 12 systems were reviewed with pertinent positives and negatives per HPI. Except as documented in the HPI, all other systems were reviewed and are negative. [facility] Past Medical History Medical History History of kidney stones Chronic pain syndrome Benign prostatic hyperplasia Hypertension Tobacco dependence Surgical History Surgical History History of lithotripsy Family History Family History (Updated 02/07/25 @ 02:31 by Tati Barlow DO) Father H/O heart artery stent Hypertension Leukemia Mesothelioma of lung Mother Hypertension Multiple sclerosis Social History Social History (Updated 02/07/25 @ 02:32 by Tati Barlow DO) Social History: The patient lives in [place]. He has been 4 times. They have 3 adult children. 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 Smokes about a pack of cigarettes per day and has for 30 years or so. He denies alcohol abuse. Occasional marijuana use. Code status: Full code Surrogate decision maker: Keeley Smart (mother) Smoking packs per day: 1 Smoking cigarettes per day: 20.0 Years smoked: 30 Smoking pack-years: 30.00 Smoking status: Current every day smoker Tobacco type: cigarettes Second hand tobacco smoke exposure: No Alcohol intake: former Substance use: former Substance use type: marijuana Do You Feel Safe in your Home?: Yes Lack of Transportation: YES Lack of Food: Never True Current Housing: I Have Housing Concerned About Future Housing: No Difficulty Paying Gas/Electric Bills: No Difficulty Paying for Meds: No Currently Unemployed: No Education: High School Diploma/GED Difficulty w/ Childcare or Family Care: No Gender identity (if verbalized by the patient): Male Spiritual care concerns: No Meds Home Medications and Allergies Home Medications Medication Instructions Recorded Confirmed Type lisinopril 10 mg tablet 10 mg PO DAILY 10/14/20 02/06/25 History Allergies Allergy/AdvReac Type Severity Reaction Status Date / Time No Known Allergies Allergy Verified 02/06/25 15:52 Vital Signs Vital Signs - 24 hr 02/06/25 15:17 02/06/25 15:52 02/06/25 17:03 Temperature 98 F Pulse Rate 82 94 84 Respiratory Rate 16 16 18 Blood Pressure 143/100 H 128/103 H 123/94 H Pulse Oximetry 100 98 97 Oxygen Delivery Room Air Fraction of Inspired Oxygen 02/06/25 19:25 02/06/25 20:03 02/06/25 21:48 Temperature 97.8 F Pulse Rate 90 95 82 Respiratory Rate 18 16 18 Blood Pressure 127/83 134/83 Pulse Oximetry 96 97 95 Oxygen Delivery Room Air Fraction of Inspired Oxygen 21 Exam 2 Narrative: Weight 81.2 kg BMI 25.7 Const: Other: No acute distress, well-developed well-nourished, appears older than stated age HENMT: Other: Mucous membranes are tacky, no oral pharyngeal erythema, upper dentures in place, poor dentition lower jaw Eyes: Other: Pupils are equal and reactive, no scleral icterus, no conjunctival pallor Neck: Other: No JVD, no lymphadenopathy Resp: Other: Clear to auscultation bilaterally, no increased work of breathing Cardio: Other: Regular rate, regular rhythm, 2+ bilateral radial pedal pulses GI: Other: Soft, nontender, nondistended, positive bowel sounds Back/Spine/Pelvis: Other: Mild CVA tenderness on the left Skin: Other: No jaundice, no pallor, numerous tattoos Neuro: Other: Alert oriented, speech is clear, no facial asymmetry Extrem: Other: No clubbing, cyanosis or edema, moves all extremities equally Psych: Other: Anxious, cooperative, appropriate mood and affect, judgment and insight intact H&P: Results Labs Labs: Laboratory Tests 02/06/25 17:20 02/06/25 17:20 02/06/25 02/06/25 15:59 17:20 WBC 12.7 H RBC 5.24 Hgb 14.9 Hct 46.2 MCV 88.2 MCH 28.4 MCHC 32.3 RDW 13.5 Plt Count 314 MPV 10.6 H Immature Gran % (Auto) 0.7 H Neut % (Auto) 72.9 Lymph % (Auto) 20.4 [place] % (Auto) 5.0 Eos % (Auto) 0.4 Baso % (Auto) 0.6 Lymph # (Auto) 2.59 [place] # (Auto) 0.6 Eos # (Auto) 0.1 Baso # (Auto) 0.1 Abs Immat Gran (auto) 0.09 H Absolute Neuts (auto) 9.2 H Absolute Nucleated RBC 0.000 Nucleated RBC % 0.0 Sodium 138 Potassium 4.4 Chloride 106 Carbon Dioxide 23 Anion Gap 9 BUN 21 H D Creatinine 1.14 Estim Creat Clear Calc 65 Estimated GFR > 60 Glucose 104 Calcium 9.4 Total Bilirubin 0.5 AST 17 ALT 14 Alkaline Phosphatase 112 Total Protein 7.0 Albumin 4.2 Lipase 240 Urine Color Dark yellow Urine Appearance Cloudy H Urine pH 5.5 Ur Specific [place] 1.019 Urine Protein 3+ H Urine Glucose (UA) Negative Urine Ketones 2+ H Ur Blood (Man) 3+ H Urine Nitrate Negative Urine Bilirubin Negative Urine Urobilinogen 1.0 Leukocyte Esterase Rfl 2+ H Urine RBC >100 H Urine WBC >100 H Ur Squamous Epith Cells None seen Urine Bacteria None seen Urine Casts 3-5 Impressions Abdomen/Pelvis CT 02/06/25 16:35 IMPRESSION: 1. Bilateral renal stones with bilateral hydronephrotic changes more on the right side. 2. No evidence of appendicitis, diverticulitis or intestinal obstruction. Assessment and Plan Assessment and plan (1) Acute flank pain: Code(s): R10.9 - Unspecified abdominal pain Status: Acute (2) Bilateral kidney stones: Code(s): N20.0 - Calculus of kidney Status: Acute (3) Urinary tract infection: Qualifiers: Hematuria presence: with hematuria Urinary tract infection type: site unspecified Qualified Code(s): N39.0 - Urinary tract infection, site not specified; R31.9 - Hematuria, unspecified Code(s): N39.0 - Urinary tract infection, site not specified Status: Acute (4) Hypertension: Qualifiers: Hypertension type: primary hypertension Qualified Code(s): I10 - Essential (primary) hypertension Code(s): I10 - Essential (primary) hypertension Status: Acute (5) Tobacco dependence: Code(s): F17.200 - Nicotine dependence, unspecified, uncomplicated Status: Acute Plan Patient has left flank pain and UA suggestive of possible UTI. Urine cultures have been obtained and are pending. Patient also has bilateral nephrolithiasis with bilateral hydronephrosis but no evidence of frankly obstructing ureteral stone. Urology has been consulted and the patient is NPO possible cystoscopy in a.m.. Patient does not have any evidence of a septic stone at this time and remains hemodynamically stable. Will resume patient's home lisinopril. Urine cultures have been obtained and are pending. The patient has been started empiric antibiotic therapy with Rocephin. Will continue IV fluid hydration and monitor strict I&O's. Will monitor for evidence of incomplete bladder emptying given the patient's history of BPH and bilateral hydronephrosis obstructive uropathy from BPH could be a possibility. P.r.n. pain medications have been ordered based on pain intensity. P.r.n. nausea and her pain medications have also been ordered Will provide nicotine patch as needed for symptoms of nicotine withdrawal. Smoking cessation education has been provided. The patient states he has tried to quit several times using nicotine patch without success. He is not motivated to quit smoking at this time. 5 minute spent in smoking cessation education Patient has been admitted as observation status. Quality VTE Prophylaxis VTE prophylaxis: mechanical ordered (SCDs) Hospitalist MIPS Advance Care Plan I have confirmed that the patient's Advanced Care Plan is present, code status is documented, or surrogate decision maker is listed in patient medical record.: Yes Medication Reconciliation I have utilized all available resources to obtain, update and review the patients current medications (includes all prescriptions, OTC, herbals, cannabis, and nutritional supplements).: Yes
[2025-02-07] VITALS (10 sets, daily range): BP systolic 89–136; BP diastolic 68–99; PULSE 78–87; RESP 7–18; TEMP 36.2–37.4; O2SAT 93–98
[2025-02-07] MEDS: HYDROcodone/acetaminophen (*CRX) 5-325 MG TABLET 1 TAB PO ×2 (01:27→18:07)
[2025-02-07] MEDS: LACTATED RINGERS 1,000 ML 125 ML IV CONT ×3 (04:11→23:53)
[2025-02-07] MEDS: HYDROmorphone HCL INJ (*CRX) 2 MG/ML VIAL 0.5 MG IV PUSH ×4 (04:13→20:16)
--- NOTE | 2025-02-07 06:28 | P.CONUR_ITS ---
Assessment and Plan Assessment and plan (1) Bilateral kidney stones: Code(s): N20.0 - Calculus of kidney Status: Acute Assessment and Plan: * Bilateral ureteral stent placement today * Definitive stone management once urinary tract infection has been treated Urology Consult Note HPI Date Seen: 02/07/25 Requesting Physician: Ronald Garrett MD Primary Care Provider: [facility] PHYSICIAN Consult Narrative Narrative: Jose Smart is a 60 year old male who has been seen in the distant past in our practice (December 2015 for orchalgia but reports having had 20+ procedures for kidney stones in the past. For proximally 2 weeks he has had intermittent left flank pain with nausea. He denies fever chills but has noted some scant gross hematuria. Imaging in the ER demonstrates bilateral extrarenal pelves without obvious obstruction. He does, however, have a 9 mm stone in his left renal pelvis with similar size stone in his left lower pole and a smaller stone in his left upper pole. On the right side he has a 1.4 cm stone in his right renal pelvis and a smaller stone also in renal pelvis. Additionally, he has evidence on urinalysis of urinary tract infection although he has been afebrile. Review of Systems 2 Review of Systems: All systems reviewed & are unremarkable except as noted in HPI and below PMFSH Past Medical History Medical History History of kidney stones Chronic pain syndrome Benign prostatic hyperplasia Hypertension Tobacco dependence Surgical History Surgical History History of lithotripsy Family History Family History (Updated 02/07/25 @ 02:31 by Tati Barlow DO) Father H/O heart artery stent Hypertension Leukemia Mesothelioma of lung Mother Hypertension Multiple sclerosis Social History Social History (Updated 02/07/25 @ 02:32 by Tati Barlow DO) Social History: The patient lives in [place]. He has been 4 times. They have 3 adult children. 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 Smokes about a pack of cigarettes per day and has for 30 years or so. He denies alcohol abuse. Occasional marijuana use. Code status: Full code Surrogate decision maker: Keeley Smart (mother) Smoking packs per day: 1 Smoking cigarettes per day: 20.0 Years smoked: 30 Smoking pack-years: 30.00 Smoking status: Current every day smoker Tobacco type: cigarettes Second hand tobacco smoke exposure: No Alcohol intake: former Substance use: former Substance use type: marijuana Do You Feel Safe in your Home?: Yes Lack of Transportation: YES Lack of Food: Never True Current Housing: I Have Housing Concerned About Future Housing: No Difficulty Paying Gas/Electric Bills: No Difficulty Paying for Meds: No Currently Unemployed: No Education: High School Diploma/GED Difficulty w/ Childcare or Family Care: No Gender identity (if verbalized by the patient): Male Spiritual care concerns: No Meds Home Medications and Allergies Home Medications Medication Instructions Recorded Confirmed Type lisinopril 10 mg tablet 10 mg PO DAILY 10/14/20 02/06/25 History Allergies Allergy/AdvReac Type Severity Reaction Status Date / Time No Known Allergies Allergy Verified 02/06/25 15:52 Vital Signs Vital Signs - 24 hr 02/06/25 15:17 02/06/25 15:52 02/06/25 17:03 Temperature 98 F Pulse Rate 82 94 84 Respiratory Rate 16 16 18 Blood Pressure 143/100 H 128/103 H 123/94 H Pulse Oximetry 100 98 97 Oxygen Delivery Room Air Fraction of Inspired Oxygen 02/06/25 19:25 02/06/25 20:03 02/06/25 21:48 Temperature 97.8 F Pulse Rate 90 95 82 Respiratory Rate 18 16 18 Blood Pressure 127/83 134/83 Pulse Oximetry 96 97 95 Oxygen Delivery Room Air Fraction of Inspired Oxygen 21 02/07/25 00:10 02/07/25 05:49 Temperature 97.1 F L 98.6 F Pulse Rate 78 Respiratory Rate 16 Blood Pressure 131/90 Pulse Oximetry 97 Oxygen Delivery Fraction of Inspired Oxygen Exam 2 Const: General: no acute distress Resp: Effort & Inspection: normal respiratory effort GI: Inspection: non-distended GI Palp: No abdominal tenderness and No Guarding due to palpation present (GI) Auscultation: normal bowel sounds Results Labs 02/06/25 17:20 02/06/25 17:20 Labs: Short CBC 02/06/25 Range/Units 17:20 WBC 12.7 H (4.5-10.0) K/mm3 Hgb 14.9 (14.0-18.0) g/dL Hct 46.2 (42.0-52.0) % Plt Count 314 (150-375) k/mm3 BMP 02/06/25 17:20 Sodium 138 Potassium 4.4 Chloride 106 Carbon Dioxide 23 BUN 21 H D Creatinine 1.14 Glucose 104 Calcium 9.4 Liver Function 02/06/25 Range/Units 17:20 Total Bilirubin 0.5 (0.2-1.3) mg/dL AST 17 (17-59) U/L ALT 14 (6-50) U/L Alkaline Phosphatase 112 (38-126) U/L Albumin 4.2 (3.5-5.1) g/dL Urine 02/06/25 Range/Units 15:59 Urine Color Dark yellow (Yellow) Urine Appearance Cloudy H (Clear) Urine pH 5.5 (5.0-9.0) Ur Specific [place] 1.019 (1.001-1.035) Urine Protein 3+ H (Negative) mg/dL Urine Glucose (UA) Negative (Negative) mg/dL
--- NOTE | 2025-02-07 06:33 | WPDHPUPDATE1 ---
History and Physical Update Update Date/Time: 02/07/25 06:33 History and Physical has been reviewed, including an updated exam of the patient. There are NO changes in the patient's condition. Risks, benefits, and alternatives have been discussed and questions answered. Patient agrees to proceed with procedure.
[2025-02-07] MEDS: lisinopriL 10 MG TABLET PO (08:37)
--- NOTE | 2025-02-07 08:58 | P.PNIM_ITS ---
Progress Note: A&P Assessment and Plan (1) Acute flank pain: Code(s): R10.9 - Unspecified abdominal pain Status: Acute (2) Bilateral kidney stones: Code(s): N20.0 - Calculus of kidney Status: Acute (3) Urinary tract infection: Qualifiers: Hematuria presence: with hematuria Urinary tract infection type: site unspecified Qualified Code(s): N39.0 - Urinary tract infection, site not specified; R31.9 - Hematuria, unspecified Code(s): N39.0 - Urinary tract infection, site not specified Status: Acute (4) Hypertension: Qualifiers: Hypertension type: primary hypertension Qualified Code(s): I10 - Essential (primary) hypertension Code(s): I10 - Essential (primary) hypertension Status: Acute (5) Tobacco dependence: Code(s): F17.200 - Nicotine dependence, unspecified, uncomplicated Status: Acute Plan Patient has left flank pain and UA suggestive of possible UTI. Urine cultures have been obtained and are pending. Patient also has bilateral nephrolithiasis with bilateral hydronephrosis but no evidence of frankly obstructing ureteral stone. Urology has been consulted and the patient is NPO possible cystoscopy in a.m.. Patient does not have any evidence of a septic stone at this time and remains hemodynamically stable. Urine cultures have been obtained and are pending. The patient has been started empiric antibiotic therapy with Rocephin. Will continue IV fluid hydration and monitor strict I&O's. 02/07 Urology was consulted-DR Hull saw pt- plan for Bilateral ureteral stent placement today. Stone management once urinary tract infection has been treated - pain and nausea med prn - nicotine patch as needed for symptoms of nicotine withdrawal. - Smoking cessation education completed. The patient states he has tried to quit several times using nicotine patch without success. He is not motivated to quit smoking at this time. - 5 minute spent in smoking cessation education HTN-resume home med Time Spent With Patient Time with patient: 25 - 35 minutes Subjective Date/time seen: 02/07/25 08:58 Interval history: 60-year-old male with a past medical history of essential hypertension, anxiety, depression, BPH and kidney stones who presented to the ER with complaints of left flank/groin pain that started 2 weeks ago. He denies fever chills but reports scant gross hematuria. Imaging in the ER demonstrates bilateral extrarenal pelves without obvious obstruction. He has a 9 mm stone in his left renal pelvis with similar size stone in his left lower pole and a smaller stone in his left upper pole. On the right side - 1.4 cm stone in his right renal pelvis and a smaller stone also in renal pelvis. Evidence of UTI on UA although he has been afebrile. Urology was consulted-DR Hull saw pt- plan for Bilateral ureteral stent placement today. Stone management once urinary tract infection has been treated. Continue ceftriaxone. Review of Systems Review of Systems: 12 systems were reviewed with pertinent positives and negatives per HPI. Except as documented in the HPI, all other systems were reviewed and are negative. Exam Narrative: Weight 81.2 kg BMI 25.7 Const: Other: No acute distress, well-developed well-nourished, appears older than stated age HENMT: Other: Mucous membranes are tacky, no oral pharyngeal erythema, upper dentures in place, poor dentition lower jaw Eyes: Other: Pupils are equal and reactive, no scleral icterus, no conjunctival pallor Neck: Other: No JVD, no lymphadenopathy Resp: Other: Clear to auscultation bilaterally, no increased work of breathing Cardio: Other: Regular rate, regular rhythm, 2+ bilateral radial pedal pulses GI: Other: Soft, nontender, nondistended, positive bowel sounds Back/Spine/Pelvis: Other: Mild CVA tenderness on the left Skin: Other: No jaundice, no pallor, numerous tattoos Neuro: Other: Alert oriented, speech is clear, no facial asymmetry Extrem: Other: No clubbing, cyanosis or edema, moves all extremities equally Psych: Other: Anxious, cooperative, appropriate mood and affect, judgment and insight intact Objective Data Vital Signs Vital Signs: Vital Signs - 24 hr 02/06/25 15:17 02/06/25 15:52 02/06/25 17:03 Temperature 98 F Pulse Rate 82 94 84 Respiratory Rate 16 16 18 Blood Pressure 143/100 H 128/103 H 123/94 H Pulse Oximetry 100 98 97 Oxygen Delivery Room Air Fraction of Inspired Oxygen 02/06/25 19:25 02/06/25 20:03 02/06/25 21:48 Temperature 97.8 F Pulse Rate 90 95 82 Respiratory Rate 18 16 18 Blood Pressure 127/83 134/83 Pulse Oximetry 96 97 95 Oxygen Delivery Room Air Fraction of Inspired Oxygen 21 02/07/25 00:10 02/07/25 05:49 Temperature 97.1 F L 98.6 F Pulse Rate 78 Respiratory Rate 16 Blood Pressure 131/90 Pulse Oximetry 97 Oxygen Delivery Fraction of Inspired Oxygen Intake/Output Intake/Output: Intake & Output 02/04/25 02/05/25 02/06/25 02/07/25 23:59 23:59 23:59 23:59 Intake Total 1050 1240 Balance 1050 1240 Meds/Results Medications: Active Medications Generic Name Dose Route Start Last Admin Trade Name Freq PRN Reason Stop Dose Admin Acetaminophen 650 mg 02/06/25 18:35 Acetaminophen 325 Mg Tablet PO Q4H PRN Mild Pain (1-3) or Fever Hydrocodone Bitart/Acetaminophen 1 tab 02/06/25 18:35 02/07/25 01:27 Hydrocodone/Acetaminophen (*Crx) 5-325 Mg Tablet PO 1 tab Q4H PRN Administration Pain Rated 4-6 Calcium Carbonate 200 mg 02/06/25 22:50 Calcium Carbonate (Tums) 500 Mg (200 Mg Elemental) PO Q6H PRN Indigestion Hydromorphone HCl 0.5 mg 02/06/25 18:35 02/07/25 08:36 Hydromorphone Hcl Inj (*Crx) 2 Mg/Ml Vial IV PUSH 0.5 mg Q4H PRN Administration Pain Rated 7-10 Lactated Ringer's 1,000 mls @ 125 mls/hr 02/06/25 18:35 02/07/25 04:11 Lr - Lactated Ringers Iv IV CONT 125 mls/hr .Q8H YULI Administration Ceftriaxone Sodium 1 gm in 50 mls @ 100 mls/hr 02/07/25 19:00 Rocephin 1 Gm/Ns 50 Ml IVPB Q24H YULI Lisinopril 10 mg 02/07/25 09:00 02/07/25 08:37 Lisinopril 10 Mg Tablet PO 10 mg DAILY YULI Administration Nicotine 1 patch 02/06/25 22:49 Nicotine (*Pbkc) 21 Mg Patch TRANSDERM DAILY PRN Nicotine withdrawal Ondansetron HCl 4 mg 02/06/25 18:35 Ondansetron Inj 4 Mg/2 Ml Vial IV PUSH Q4H PRN Nausea Radiology Results: ITS Impressions Abdomen/Pelvis CT 02/06/25 16:35 IMPRESSION: 1. Bilateral renal stones with bilateral hydronephrotic changes more on the right side. 2. No evidence of appendicitis, diverticulitis or intestinal obstruction. Labs Labs: Laboratory Results - last 24 hr 02/06/25 02/06/25 15:59 17:20 WBC 12.7 H RBC 5.24 Hgb 14.9 Hct 46.2 MCV 88.2 MCH 28.4 MCHC 32.3 RDW 13.5 Plt Count 314 MPV 10.6 H Immature Gran % (Auto) 0.7 H Neut % (Auto) 72.9 Lymph % (Auto) 20.4 [place] % (Auto) 5.0 Eos % (Auto) 0.4 Baso % (Auto) 0.6 Lymph # (Auto) 2.59 [place] # (Auto) 0.6 Eos # (Auto) 0.1 Baso # (Auto) 0.1 Abs Immat Gran (auto) 0.09 H Absolute Neuts (auto) 9.2 H Absolute Nucleated RBC 0.000 Nucleated RBC % 0.0 Sodium 138 Potassium 4.4 Chloride 106 Carbon Dioxide 23 Anion Gap 9 BUN 21 H D Creatinine 1.14 Estim Creat Clear Calc 65 Estimated GFR > 60 Glucose 104 Calcium 9.4 Total Bilirubin 0.5 AST 17 ALT 14 Alkaline Phosphatase 112 Total Protein 7.0 Albumin 4.2 Lipase 240 Urine Color Dark yellow Urine Appearance Cloudy H Urine pH 5.5 Ur Specific [place] 1.019 Urine Protein 3+ H Urine Glucose (UA) Negative Urine Ketones 2+ H Ur Blood (Man) 3+ H Urine Nitrate Negative Urine Bilirubin Negative Urine Urobilinogen 1.0 Leukocyte Esterase Rfl 2+ H Urine RBC >100 H Urine WBC >100 H Ur Squamous Epith Cells None seen Urine Bacteria None seen Urine Casts 3-5 Quality VTE Prophylaxis VTE prophylaxis: mechanical ordered (SCDs)
--- NOTE | 2025-02-07 10:53 | WPDANESEPPF ---
Anes - Initial Pre Proc Eval Procedure: Operation Date: 02/07/25 13:00 Proposed Procedures p Cystoscopy, Left Stent Placement, Possible Retrograde Pyleogram(Left) - Luis Miguel Hull MD Date/Time: 02/07/25 10:53 Surgeon: Ronald Garrett MD Pre Op Diagnosis: Kidney stones, Urinary tract infection Patient Data Age: 60 Gender: M Height: 1.78 m Weight: 81.2 kg Last Vital Signs Temp 97.7 F 02/07/25 09:54 Pulse 81 02/07/25 09:54 Resp 16 02/07/25 05:49 BP 135/86 02/07/25 09:54 Pulse Ox 94 02/07/25 09:54 O2 Del Method Room Air 02/07/25 09:54 FiO2 21 02/06/25 21:48 Allergies Allergy/AdvReac Type Severity Reaction Status Date / Time No Known Allergies Allergy Verified 02/07/25 09:52 Home Medications Medication Instructions Recorded Confirmed Type lisinopril 10 mg tablet 10 mg PO DAILY 10/14/20 02/07/25 History Laboratory Tests 02/06/25 02/06/25 15:59 17:20 WBC 12.7 H K/mm3 (4.5-10.0) RBC 5.24 M/mm3 (4.6-6.20) Hgb 14.9 g/dL (14.0-18.0) Hct 46.2 % (42.0-52.0) MCV 88.2 fl (80-100) MCH 28.4 pg (26-34) MCHC 32.3 g/dl (32-36) RDW 13.5 % (11.5-14.5) Plt Count 314 k/mm3 (150-375) MPV 10.6 H fl (7.4-10.4) Immature Gran % (Auto) 0.7 H % (0-0.5) Neut % (Auto) 72.9 % (45.5-73.1) Lymph % (Auto) 20.4 % (18.3-44.2) [place] % (Auto) 5.0 % (2.6-8.5) Eos % (Auto) 0.4 % (0-4.4) Baso % (Auto) 0.6 % (0.2-1.2) Lymph # (Auto) 2.59 K/mm3 (0.9-3.2) [place] # (Auto) 0.6 K/mm3 (0.1-0.6) Eos # (Auto) 0.1 K/mm3 (0-0.3) Baso # (Auto) 0.1 K/mm3 (0.0-0.1) Abs Immat Gran (auto) 0.09 H K/mm3 (0.00-0.031) Absolute Neuts (auto) 9.2 H K/mm3 (1.3-6.7) Absolute Nucleated RBC 0.000 K/mm3 (0.0-0.012) Nucleated RBC % 0.0 % (0.0-0.2) Sodium 138 mmol/L (137-145) Potassium 4.4 mmol/L (3.4-5.0) Chloride 106 mmol/L (98-107) Carbon Dioxide 23 mmol/L (22-30) Anion Gap 9 mmol/L (4-12) BUN 21 H D mg/dL (9-20) Creatinine 1.14 mg/dL (0.7-1.3) Estim Creat Clear Calc 65 ml/min Estimated GFR > 60 (59 - ) Glucose 104 mg/dL (65-110) Calcium 9.4 mg/dL (8.4-10.2) Total Bilirubin 0.5 mg/dL (0.2-1.3) AST 17 U/L (17-59) ALT 14 U/L (6-50) Alkaline Phosphatase 112 U/L (38-126) Total Protein 7.0 g/dL (6.3-8.2) Albumin 4.2 g/dL (3.5-5.1) Lipase 240 U/L (23-300) Urine Color Dark yellow (Yellow) Urine Appearance Cloudy H (Clear) Urine pH 5.5 (5.0-9.0) Ur Specific [place] 1.019 (1.001-1.035) Urine Protein 3+ H mg/dL (Negative) Urine Glucose (UA) Negative mg/dL (Negative) Urine Ketones 2+ H mg/dL (Negative) Ur Blood (Man) 3+ H (Negative) Urine Nitrate Negative (Negative) Urine Bilirubin Negative (Negative) Urine Urobilinogen 1.0 mg/dL (<2.0) Leukocyte Esterase Rfl 2+ H MOI/UL (Negative) Urine RBC >100 H /hpf (0-2) Urine WBC >100 H /hpf (0-3) Ur Squamous Epith Cells None seen /hpf (Few) Urine Bacteria None seen /hpf Urine Casts 3-5 Patient hx anesthesia problems: none Family hx anesthesia problems: none Results Review: All pre-operative results and documents have been reviewed as part of the pre-operative evaluation. [facility] Past Medical History Medical History History of kidney stones Chronic pain syndrome Benign prostatic hyperplasia Hypertension Tobacco dependence Surgical History Surgical History History of lithotripsy Family History Family History Father H/O heart artery stent Hypertension Leukemia Mesothelioma of lung Mother Hypertension Multiple sclerosis Social History Social History Social History: The patient lives in [place]. He has been 4 times. They have 3 adult children. 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 Smokes about a pack of cigarettes per day and has for 30 years or so. He denies alcohol abuse. Occasional marijuana use. Code status: Full code Surrogate decision maker: Keeley Smart (mother) Smoking packs per day: 1 Smoking cigarettes per day: 20.0 Years smoked: 30 Smoking pack-years: 30.00 Smoking status: Current every day smoker Tobacco type: cigarettes Second hand tobacco smoke exposure: No Alcohol intake: former Substance use: former Substance use type: marijuana Do You Feel Safe in your Home?: Yes Lack of Transportation: YES Lack of Food: Never True Current Housing: I Have Housing Concerned About Future Housing: No Difficulty Paying Gas/Electric Bills: No Difficulty Paying for Meds: No Currently Unemployed: No Education: High School Diploma/GED Difficulty w/ Childcare or Family Care: No Gender identity (if verbalized by the patient): Male Spiritual care concerns: No Anes - Eval Final PreProcedure Day of Procedure 02/07/25 10:53 Patient weight: normal Lungs: normal air movement Airway: Mallampati scale class II and special considerations (Upper dentures, lower teeth in poor condition, none loose. ) Neurological: alert and oriented Last oral intake: >/= 8 hours ASA classification: II Emergent: no Anesthetic plan: proceed Anesthesia type and monitoring: general LMA and standard monitoring Results Review: All pre-operative results and documents have been reviewed as part of the pre-operative evaluation. HTN. Informed Consent: The patient's anesthetic plan and its attendant risks and benefits were discussed with the patient/family/POA. Questions were solicited and answers provided to the satisfaction of the patient/family/POA.
[2025-02-07] MEDS: LIDOCAINE 2% GEL UROJET 10 ML PKG MUCOUS MEM (11:15)
[2025-02-07] MEDS: LACTATED RINGERS 1,000 ML 30 ML IV CONT (11:25)
--- NOTE | 2025-02-07 11:35 | W.PM.PROC2 ---
Procedure Note - Detailed Date of Procedure 02/07/25 Pre-op Diagnosis Bilateral kidney stones, Urinary tract infection Post-op Diagnosis Same Procedure Performed Cystoscopy, bilateral retrograde pyelography, bilateral ureteral stent placement Surgeon Luis Miguel Hull MD Anesthesia General Description of Procedure Patient is brought the operative suite was prepped draped in routine sterile fashion while in a dorsal lithotomy position after the uneventful induction of a general LMA anesthetic. Cystoscopy was undertaken with a 21 F rigid cystoscope. Urethra is without strictures and there was very modest lateral lobe hyperplasia of the prostate without a median lobe. The bladder shows slight trabeculation. There was no intravesical foreign body or neoplasm. He has a single orthotopic ureteral orifice bilaterally. Bilateral retrograde pyelograms were obtained with a 8 F bulb-tipped catheter. Bilateral 4.8 F variable length ureteral stents were appropriately positioned over a 0.035 in glidewire. Scopes wires removed and he was taken to the recovery room good condition. Once his infection has been thoroughly treated we can turn our attention to treating these calcified stones. Drains Yes Packing No Pathology None sent Complications No immediate complications Condition Stable
[2025-02-07] MEDS: PHENAZOPYRIDINE HCL 100 MG TABLET 200 MG PO ×2 (12:42→16:35)
[2025-02-07] MEDS: TAMSULOSIN HCL 0.4 MG CAPSULE PO (12:42)
[2025-02-07] MEDS: NICOTINE (*PBKC) 21 MG PATCH 1 PATCH TRANSDERM (14:17)
[2025-02-07] MEDS: HYOSCYAMINE SULFATE 0.125 MG TABLET SUBLINGUAL (15:42)
[2025-02-07] MEDS: ONDANSETRON INJ 4 MG/2 ML VIAL IV PUSH (20:29)
[2025-02-08] MEDS: HYDROmorphone HCL INJ (*CRX) 2 MG/ML VIAL 0.5 MG IV PUSH ×5 (00:13→21:20)
[2025-02-08 01:36] VITALS: BP 133/82; PULSE 77; RESP 16; TEMP 36.8; O2SAT 95
[2025-02-08 06:22] VITALS: BP 136/78; PULSE 76; RESP 16; TEMP 36.7; O2SAT 95
--- NOTE | 2025-02-08 06:55 | P.PNUR_ITS ---
Progress Note: A&P Assessment and Plan (1) Bilateral kidney stones: Code(s): N20.0 - Calculus of kidney Status: Acute (2) Urinary tract infection: Qualifiers: Hematuria presence: with hematuria Urinary tract infection type: site unspecified Qualified Code(s): N39.0 - Urinary tract infection, site not specified; R31.9 - Hematuria, unspecified Code(s): N39.0 - Urinary tract infection, site not specified Status: Acute Assessment and Plan: * As expected, patient is having stent irritation. Actually it is not quite is debilitating as I had anticipated based on his prior experience * I am doing all I can to minimize his stent irritation. He is Flomax, Levsin for bladder spasms and hydrocodone. Will add hydroxyzine to help sleep at night and put Levsin on a regular schedule (as opposed to p.r.n.) * Ultimately he will need bilateral ESWL for his kidney stone. We have to wait for his urinary tract infection to be treated first. I will go ahead and get ESWL scheduled. He is aware that we cannot treat both sides simultaneously Subjective Subjective Date/Time Seen: 02/08/25 06:55 Interval history: Slept poorly due to mild/moderate stent irritation -as expected based on previous experience Review of Systems Review of Systems: All systems reviewed & are unremarkable except as noted in HPI and below Cardiovascular: Cardiovascular: Denies chest pain, Denies lightheadedness, Denies palpitations and Denies dyspnea Respiratory: Respiratory: Denies dyspnea Gastrointestinal: Gastrointestinal: Denies diarrhea, Denies nausea and Denies vomiting Genitourinary: Genitourinary: Denies hematuria and Denies dysuria Endocrine: Endocrine: Denies palpitations Exam Const: General: no acute distress Resp: Effort & Inspection: normal respiratory effort GI: Inspection: non-distended GI Palp: No abdominal tenderness and No Guarding due to palpation present (GI) Auscultation: normal bowel sounds Objective Data Vital Signs Vital Signs: Vital Signs - 24 hr 02/07/25 09:54 02/07/25 11:25 02/07/25 11:40 Temperature 97.7 F 99.3 F Pulse Rate 81 81 79 Respiratory Rate 7 L 14 Blood Pressure 135/86 89/68 L 100/74 Pulse Oximetry 94 96 98 Oxygen Delivery Room Air Simple Face Mask Simple Face Mask Oxygen Flow Rate 8 8 02/07/25 11:55 02/07/25 12:10 02/07/25 12:25 Temperature Pulse Rate 80 86 78 Respiratory Rate 12 18 14 Blood Pressure 112/87 109/99 H 132/90 Pulse Oximetry 98 95 94 Oxygen Delivery Simple Face Mask Room Air Room Air Oxygen Flow Rate 8 02/07/25 13:59 02/07/25 20:47 02/08/25 01:36 Temperature 97.1 F L 98.3 F 98.3 F Pulse Rate 87 86 77 Respiratory Rate 16 16 16 Blood Pressure 136/85 117/73 133/82 Pulse Oximetry 93 93 95 Oxygen Delivery Oxygen Flow Rate 02/08/25 06:22 Temperature 98.1 F Pulse Rate 76 Respiratory Rate 16 Blood Pressure 136/78 Pulse Oximetry 95 Oxygen Delivery Oxygen Flow Rate Intake/Output Intake/Output: Intake & Output 02/05/25 02/06/25 02/07/25 02/08/25 23:59 23:59 23:59 23:59 Intake Total 1050 3680 Output Total 600 600 Balance 1050 3080 -600 Meds/Results Medications: Active Medications Generic Name Dose Route Start Last Admin Trade Name Freq PRN Reason Stop Dose Admin Acetaminophen 650 mg 02/06/25 18:35 Acetaminophen 325 Mg Tablet PO Q4H PRN Mild Pain (1-3) or Fever Hydrocodone Bitart/Acetaminophen 1 tab 02/06/25 18:35 02/07/25 18:07 Hydrocodone/Acetaminophen (*Crx) 5-325 Mg Tablet PO 1 tab Q4H PRN Administration Pain Rated 4-6 Calcium Carbonate 200 mg 02/06/25 22:50 Calcium Carbonate (Tums) 500 Mg (200 Mg Elemental) PO Q6H PRN Indigestion Hydromorphone HCl 0.5 mg 02/06/25 18:35 02/08/25 06:15 Hydromorphone Hcl Inj (*Crx) 2 Mg/Ml Vial IV PUSH 0.5 mg Q4H PRN Administration Pain Rated 7-10 Hydroxyzine HCl 25 mg 02/08/25 21:00 Hydroxyzine Hcl 25 Mg Tablet PO HS YULI Hyoscyamine 0.125 mg 02/08/25 06:30 Hyoscyamine Sulfate 0.125 Mg Tablet SUBLINGUAL Q6HR YULI Lactated Ringer's 1,000 mls @ 125 mls/hr 02/06/25 18:35 02/07/25 23:53 Lr - Lactated Ringers Iv IV CONT 125 mls/hr .Q8H YULI Administration Ceftriaxone Sodium 1 gm in 50 mls @ 100 mls/hr 02/07/25 19:00 02/07/25 18:08 Rocephin 1 Gm/Ns 50 Ml IVPB 100 mls/hr Q24H YULI Administration Lisinopril 10 mg 02/07/25 09:00 02/07/25 08:37 Lisinopril 10 Mg Tablet PO 10 mg DAILY YULI Administration Nicotine 1 patch 02/06/25 22:49 02/07/25 14:17 Nicotine (*Pbkc) 21 Mg Patch TRANSDERM 1 patch DAILY PRN Administration Nicotine withdrawal Ondansetron HCl 4 mg 02/06/25 18:35 02/07/25 20:29 Ondansetron Inj 4 Mg/2 Ml Vial IV PUSH 4 mg Q4H PRN Administration Nausea Phenazopyridine HCl 200 mg 02/07/25 12:00 02/07/25 16:35 Phenazopyridine Hcl 100 Mg Tablet PO 200 mg TIDWM [facility] Administration Tamsulosin HCl 0.4 mg 02/08/25 09:00 Tamsulosin Hcl 0.4 Mg Capsule PO QAM [facility] Radiology Results: ITS Impressions Abdomen/Pelvis CT 02/06/25 16:35 IMPRESSION: 1. Bilateral renal stones with bilateral hydronephrotic changes more on the right side. 2. No evidence of appendicitis, diverticulitis or intestinal obstruction. Retrograde Pyelogram 02/07/25 12:14 IMPRESSION: 1. Bilateral nephrolithiasis. 2. Placement of bilateral internal ureteral stents with proximal loop was formed in the renal pelvises.
[2025-02-08] MEDS: PHENAZOPYRIDINE HCL 100 MG TABLET 200 MG PO ×3 (08:08→16:04)
[2025-02-08] MEDS: TAMSULOSIN HCL 0.4 MG CAPSULE PO (08:08)
[2025-02-08] MEDS: lisinopriL 10 MG TABLET PO (08:09)
[2025-02-08] MEDS: LACTATED RINGERS 1,000 ML 125 ML IV CONT ×2 (08:09→16:03)
[2025-02-08] MEDS: HYOSCYAMINE SULFATE 0.125 MG TABLET SUBLINGUAL ×4 (08:09→23:45)
--- NOTE | 2025-02-08 09:34 | PM.IMPN ---
Progress Note: A&P Assessment and Plan (1) Acute flank pain: Code(s): R10.9 - Unspecified abdominal pain Status: Acute (2) Bilateral kidney stones: Code(s): N20.0 - Calculus of kidney Status: Acute (3) Urinary tract infection: Qualifiers: Hematuria presence: with hematuria Urinary tract infection type: site unspecified Qualified Code(s): N39.0 - Urinary tract infection, site not specified; R31.9 - Hematuria, unspecified Code(s): N39.0 - Urinary tract infection, site not specified Status: Acute (4) Hypertension: Qualifiers: Hypertension type: primary hypertension Qualified Code(s): I10 - Essential (primary) hypertension Code(s): I10 - Essential (primary) hypertension Status: Acute (5) Tobacco dependence: Code(s): F17.200 - Nicotine dependence, unspecified, uncomplicated Status: Acute Plan Patient has left flank pain and UA suggestive of possible UTI. Urine cultures have been obtained and are pending. Patient also has bilateral nephrolithiasis with bilateral hydronephrosis but no evidence of frankly obstructing ureteral stone. Urology has been consulted and the patient is NPO possible cystoscopy in a.m.. Patient does not have any evidence of a septic stone at this time and remains hemodynamically stable. Urine cultures have been obtained and are pending. The patient has been started empiric antibiotic therapy with Rocephin. Will continue IV fluid hydration and monitor strict I&O's. 02/07 Urology was consulted-DR Hull saw pt- plan for Bilateral ureteral stent placement today. Stone management once urinary tract infection has been treated - pain and nausea med prn - nicotine patch as needed for symptoms of nicotine withdrawal. - Smoking cessation education completed. The patient states he has tried to quit several times using nicotine patch without success. He is not motivated to quit smoking at this time. - 5 minute spent in smoking cessation education HTN-resume home med 02/08 notes from urology reviewed: He is Flomax, Levsin for bladder spasms and hydrocodone. Will add hydroxyzine to help sleep at night and put Levsin on a regular schedule (as opposed to p.r.n.). Ultimately he will need bilateral ESWL for his kidney stone. We have to wait for his urinary tract infection to be treated first. I will go ahead and get ESWL scheduled. Time Spent With Patient Time with patient: 25 - 35 minutes Subjective Date/time seen: 02/08/25 09:34 Interval history: Pain is an issue. no nausea. continue with iv antibiotics. Review of Systems Review of Systems: 12 systems were reviewed with pertinent positives and negatives per HPI. Except as documented in the HPI, all other systems were reviewed and are negative. Exam Narrative: Weight 81.2 kg BMI 25.7 Const: General: comfortable Other: No acute distress, well-developed well-nourished, appears older than stated age HENMT: Other: Mucous membranes are tacky, no oral pharyngeal erythema, upper dentures in place, poor dentition lower jaw Eyes: Other: Pupils are equal and reactive, no scleral icterus, no conjunctival pallor Neck: Other: No JVD, no lymphadenopathy Resp: Other: Clear to auscultation bilaterally, no increased work of breathing Cardio: Other: Regular rate, regular rhythm, 2+ bilateral radial pedal pulses GI: Other: Soft, nontender, nondistended, positive bowel sounds Back/Spine/Pelvis: Other: Mild CVA tenderness on the left Skin: Other: No jaundice, no pallor, numerous tattoos Neuro: Other: Alert oriented, speech is clear, no facial asymmetry Extrem: Other: No clubbing, cyanosis or edema, moves all extremities equally Psych: Other: Anxious, cooperative, appropriate mood and affect, judgment and insight intact Objective Data Vital Signs Vital Signs: Vital Signs - 24 hr 02/07/25 09:54 02/07/25 11:25 02/07/25 11:40 Temperature 97.7 F 99.3 F Pulse Rate 81 81 79 Respiratory Rate 7 L 14 Blood Pressure 135/86 89/68 L 100/74 Pulse Oximetry 94 96 98 Oxygen Delivery Room Air Simple Face Mask Simple Face Mask Oxygen Flow Rate 8 8 02/07/25 11:55 02/07/25 12:10 02/07/25 12:25 Temperature Pulse Rate 80 86 78 Respiratory Rate 12 18 14 Blood Pressure 112/87 109/99 H 132/90 Pulse Oximetry 98 95 94 Oxygen Delivery Simple Face Mask Room Air Room Air Oxygen Flow Rate 8 02/07/25 13:59 02/07/25 20:47 02/08/25 01:36 Temperature 97.1 F L 98.3 F 98.3 F Pulse Rate 87 86 77 Respiratory Rate 16 16 16 Blood Pressure 136/85 117/73 133/82 Pulse Oximetry 93 93 95 Oxygen Delivery Oxygen Flow Rate 02/08/25 06:22 Temperature 98.1 F Pulse Rate 76 Respiratory Rate 16 Blood Pressure 136/78 Pulse Oximetry 95 Oxygen Delivery Oxygen Flow Rate Intake/Output Intake/Output: Intake & Output 02/05/25 02/06/25 02/07/25 02/08/25 23:59 23:59 23:59 23:59 Intake Total 1050 3730 1240 Output Total 600 600 Balance 1050 3130 640 Meds/Results Medications: Active Medications Generic Name Dose Route Start Last Admin Trade Name Freq PRN Reason Stop Dose Admin Acetaminophen 650 mg 02/06/25 18:35 Acetaminophen 325 Mg Tablet PO Q4H PRN Mild Pain (1-3) or Fever Hydrocodone Bitart/Acetaminophen 1 tab 02/06/25 18:35 02/07/25 18:07 Hydrocodone/Acetaminophen (*Crx) 5-325 Mg Tablet PO 1 tab Q4H PRN Administration Pain Rated 4-6 Calcium Carbonate 200 mg 02/06/25 22:50 Calcium Carbonate (Tums) 500 Mg (200 Mg Elemental) PO Q6H PRN Indigestion Hydromorphone HCl 0.5 mg 02/06/25 18:35 02/08/25 06:15 Hydromorphone Hcl Inj (*Crx) 2 Mg/Ml Vial IV PUSH 0.5 mg Q4H PRN Administration Pain Rated 7-10 Hydroxyzine HCl 25 mg 02/08/25 21:00 Hydroxyzine Hcl 25 Mg Tablet PO HS YULI Hyoscyamine 0.125 mg 02/08/25 06:30 02/08/25 08:09 Hyoscyamine Sulfate 0.125 Mg Tablet SUBLINGUAL 0.125 mg Q6HR YULI Administration Lactated Ringer's 1,000 mls @ 125 mls/hr 02/06/25 18:35 02/08/25 08:09 Lr - Lactated Ringers Iv IV CONT 125 mls/hr .Q8H YULI Administration Ceftriaxone Sodium 1 gm in 50 mls @ 100 mls/hr 02/07/25 19:00 02/07/25 18:38 Rocephin 1 Gm/Ns 50 Ml IVPB Infused Q24H YULI Infusion Lisinopril 10 mg 02/07/25 09:00 02/08/25 08:09 Lisinopril 10 Mg Tablet PO 10 mg DAILY YULI Administration Nicotine 1 patch 02/06/25 22:49 02/07/25 14:17 Nicotine (*Pbkc) 21 Mg Patch TRANSDERM 1 patch DAILY PRN Administration Nicotine withdrawal Ondansetron HCl 4 mg 02/06/25 18:35 02/07/25 20:29 Ondansetron Inj 4 Mg/2 Ml Vial IV PUSH 4 mg Q4H PRN Administration Nausea Phenazopyridine HCl 200 mg 02/07/25 12:00 02/08/25 08:08 Phenazopyridine Hcl 100 Mg Tablet PO 200 mg TIDWM YULI Administration Tamsulosin HCl 0.4 mg 02/08/25 09:00 02/08/25 08:08 Tamsulosin Hcl 0.4 Mg Capsule PO 0.4 mg QAM YULI Administration Radiology Results: ITS Impressions Abdomen/Pelvis CT 02/06/25 16:35 IMPRESSION: 1. Bilateral renal stones with bilateral hydronephrotic changes more on the right side. 2. No evidence of appendicitis, diverticulitis or intestinal obstruction. Retrograde Pyelogram 02/07/25 12:14 IMPRESSION: 1. Bilateral nephrolithiasis. 2. Placement of bilateral internal ureteral stents with proximal loop was formed in the renal pelvises. Quality VTE Prophylaxis VTE prophylaxis: mechanical ordered (SCDs)
[2025-02-08] MEDS: HYDROcodone/acetaminophen (*CRX) 5-325 MG TABLET 1 TAB PO (10:25)
[2025-02-08 14:05] VITALS: BP 140/89; PULSE 99; RESP 18; O2SAT 99
[2025-02-08 20:00] VITALS: PULSE 80; RESP 16; O2SAT 94
[2025-02-08 20:59] VITALS: BP 149/88; PULSE 80; RESP 16; TEMP 36.4; O2SAT 94
[2025-02-08] MEDS: hydrOXYzine HCL 25 MG TABLET PO (21:14)
[2025-02-09] MEDS: LACTATED RINGERS 1,000 ML 125 ML IV CONT ×2 (01:05→09:11)
[2025-02-09] MEDS: HYDROmorphone HCL INJ (*CRX) 2 MG/ML VIAL 0.5 MG IV PUSH ×4 (02:00→17:49)
[2025-02-09] MEDS: HYOSCYAMINE SULFATE 0.125 MG TABLET SUBLINGUAL ×4 (05:44→23:57)
[2025-02-09 06:29] VITALS: BP 146/87; PULSE 64; RESP 16; TEMP 36.4; O2SAT 93
[2025-02-09] MEDS: lisinopriL 10 MG TABLET PO (08:19)
[2025-02-09 08:20] VITALS: RESP 16; O2SAT 93
[2025-02-09] MEDS: PHENAZOPYRIDINE HCL 100 MG TABLET 200 MG PO ×3 (08:20→16:30)
[2025-02-09] MEDS: TAMSULOSIN HCL 0.4 MG CAPSULE PO (08:20)
--- NOTE | 2025-02-09 08:30 | P.PNIM_ITS ---
Progress Note: A&P Assessment and Plan (1) Acute flank pain: Code(s): R10.9 - Unspecified abdominal pain Status: Acute (2) Bilateral kidney stones: Code(s): N20.0 - Calculus of kidney Status: Acute (3) Urinary tract infection: Qualifiers: Hematuria presence: with hematuria Urinary tract infection type: site unspecified Qualified Code(s): N39.0 - Urinary tract infection, site not specified; R31.9 - Hematuria, unspecified Code(s): N39.0 - Urinary tract infection, site not specified Status: Acute (4) Hypertension: Qualifiers: Hypertension type: primary hypertension Qualified Code(s): I10 - Essential (primary) hypertension Code(s): I10 - Essential (primary) hypertension Status: Acute (5) Tobacco dependence: Code(s): F17.200 - Nicotine dependence, unspecified, uncomplicated Status: Acute Plan Patient has left flank pain and UA suggestive of possible UTI. Urine cultures have been obtained and are pending. Patient also has bilateral nephrolithiasis with bilateral hydronephrosis but no evidence of frankly obstructing ureteral stone. Urology has been consulted and the patient is NPO possible cystoscopy in a.m.. Patient does not have any evidence of a septic stone at this time and remains hemodynamically stable. Urine cultures have been obtained and are pending. The patient has been started empiric antibiotic therapy with Rocephin. Will continue IV fluid hydration and monitor strict I&O's. 02/07 Urology was consulted-DR Hull saw pt- plan for Bilateral ureteral stent placement today. Stone management once urinary tract infection has been treated - pain and nausea med prn - nicotine patch as needed for symptoms of nicotine withdrawal. - Smoking cessation education completed. The patient states he has tried to quit several times using nicotine patch without success. He is not motivated to quit smoking at this time. - 5 minute spent in smoking cessation education HTN-resume home med 02/08 notes from urology reviewed: He is Flomax, Levsin for bladder spasms and hydrocodone. Will add hydroxyzine to help sleep at night and put Levsin on a regular schedule (as opposed to p.r.n.). Ultimately he will need bilateral ESWL for his kidney stone. We have to wait for his urinary tract infection to be treated first. I will go ahead and get ESWL scheduled. 02/09 labs ordered. continue with iv ceftriaxone. pain control with po meds today and if does ok- anticipate discharge with cefdinir 300 mg bid x 10 days Time Spent With Patient Time with patient: 25 - 35 minutes Subjective Date/time seen: 02/09/25 08:30 Interval history: 60-year-old male with a past medical history of essential hypertension, anxiety, depression, BPH and kidney stones who admitted with complaints of left flank/ groin pain that started 2 weeks ago. Imaging in the ER demonstrates bilateral extrarenal pelves without obvious obstruction. He has a 9 mm stone in his left renal pelvis with similar size stone in his left lower pole and a smaller stone in his left upper pole. On the right side - 1.4 cm stone in his right renal pelvis and a smaller stone also in renal pelvis. Evidence of UTI on UA although he has been afebrile. Urology was consulted-DR Hull saw pt- plan for Bilateral ureteral stent placement on 02/07. Stone management once urinary tract infection has been treated. ON IV ceftriaxone. pt is seen and examined today during morning rounds. pain still an issue but somewhat better. If we can control his pain with po pain meds, DR Hull ok with him going home- will monitor pain level today and if stable over night- possible discharge in am. NO bm in couple of days, does not complain of abd pain or bloating, passing gas, eating and drinking ok. Review of Systems Review of Systems: 12 systems were reviewed with pertinent positives and negatives per HPI. Except as documented in the HPI, all other systems were reviewed and are negative. Exam Narrative: Weight 81.2 kg BMI 25.7 Const: General: comfortable Other: No acute distress, well-developed well-nourished, appears older than stated age HENMT: Other: Mucous membranes are tacky, no oral pharyngeal erythema, upper dentures in place, poor dentition lower jaw Eyes: Other: Pupils are equal and reactive, no scleral icterus, no conjunctival pallor Neck: Other: No JVD, no lymphadenopathy Resp: Other: Clear to auscultation bilaterally, no increased work of breathing Cardio: Other: Regular rate, regular rhythm, 2+ bilateral radial pedal pulses GI: Other: Soft, nontender, nondistended, positive bowel sounds Back/Spine/Pelvis: Other: Mild CVA tenderness on the left Skin: Other: No jaundice, no pallor, numerous tattoos Neuro: Other: Alert oriented, speech is clear, no facial asymmetry Extrem: Other: No clubbing, cyanosis or edema, moves all extremities equally Psych: Other: Anxious, cooperative, appropriate mood and affect, judgment and insight intact Objective Data Vital Signs Vital Signs: Vital Signs - 24 hr 02/08/25 14:05 02/08/25 20:00 02/08/25 20:59 Temperature 97.6 F Pulse Rate 99 80 80 Respiratory Rate 18 16 16 Blood Pressure 140/89 149/88 H Pulse Oximetry 99 94 94 Oxygen Delivery Room Air Fraction of Inspired Oxygen 21 02/09/25 06:29 Temperature 97.6 F Pulse Rate 64 Respiratory Rate 16 Blood Pressure 146/87 H Pulse Oximetry 93 Oxygen Delivery Fraction of Inspired Oxygen Intake/Output Intake/Output: Intake & Output 02/06/25 02/07/25 02/08/25 02/09/25 23:59 23:59 23:59 23:59 Intake Total 1050 3730 2937.5 1590 Output Total 650 616 9669 Balance 1050 3130 1987.5 -460 Meds/Results Medications: Active Medications Generic Name Dose Route Start Last Admin Trade Name Freq PRN Reason Stop Dose Admin Acetaminophen 650 mg 02/06/25 18:35 Acetaminophen 325 Mg Tablet PO Q4H PRN Mild Pain (1-3) or Fever Hydrocodone Bitart/Acetaminophen 1 tab 02/06/25 18:35 02/08/25 10:25 Hydrocodone/Acetaminophen (*Crx) 5-325 Mg Tablet PO 1 tab Q4H PRN Administration Pain Rated 4-6 Calcium Carbonate 200 mg 02/06/25 22:50 Calcium Carbonate (Tums) 500 Mg (200 Mg Elemental) PO Q6H PRN Indigestion Hydromorphone HCl 0.5 mg 02/06/25 18:35 02/09/25 06:25 Hydromorphone Hcl Inj (*Crx) 2 Mg/Ml Vial IV PUSH 0.5 mg Q4H PRN Administration Pain Rated 7-10 Hydroxyzine HCl 25 mg 02/08/25 21:00 02/08/25 21:14 Hydroxyzine Hcl 25 Mg Tablet PO 25 mg HS YULI Administration Hyoscyamine 0.125 mg 02/08/25 06:30 02/09/25 05:44 Hyoscyamine Sulfate 0.125 Mg Tablet SUBLINGUAL 0.125 mg Q6HR YULI Administration Lactated Ringer's 1,000 mls @ 125 mls/hr 02/06/25 18:35 02/09/25 01:05 Lr - Lactated Ringers Iv IV CONT 125 mls/hr .Q8H YULI Administration Ceftriaxone Sodium 1 gm in 50 mls @ 100 mls/hr 02/07/25 19:00 02/08/25 19:18 Rocephin 1 Gm/Ns 50 Ml IVPB Infused Q24H YULI Infusion Lisinopril 10 mg 02/07/25 09:00 02/09/25 08:19 Lisinopril 10 Mg Tablet PO 10 mg DAILY YULI Administration Nicotine 1 patch 02/06/25 22:49 02/07/25 14:17 Nicotine (*Pbkc) 21 Mg Patch TRANSDERM 1 patch DAILY PRN Administration Nicotine withdrawal Ondansetron HCl 4 mg 02/06/25 18:35 02/07/25 20:29 Ondansetron Inj 4 Mg/2 Ml Vial IV PUSH 4 mg Q4H PRN Administration Nausea Phenazopyridine HCl 200 mg 02/07/25 12:00 02/09/25 08:20 Phenazopyridine Hcl 100 Mg Tablet PO 200 mg TIDWM YULI Administration Tamsulosin HCl 0.4 mg 02/08/25 09:00 02/09/25 08:20 Tamsulosin Hcl 0.4 Mg Capsule PO 0.4 mg QAM YULI Administration Radiology Results: ITS Impressions Abdomen/Pelvis CT 02/06/25 16:35 IMPRESSION: 1. Bilateral renal stones with bilateral hydronephrotic changes more on the right side. 2. No evidence of appendicitis, diverticulitis or intestinal obstruction. Retrograde Pyelogram 02/07/25 12:14 IMPRESSION: 1. Bilateral nephrolithiasis. 2. Placement of bilateral internal ureteral stents with proximal loop was formed in the renal pelvises. Quality VTE Prophylaxis VTE prophylaxis: mechanical ordered (SCDs)
[2025-02-09 08:54] LABS: Hematocrit 38.8 % (42.0-52.0); Hemoglobin 12.5 g/dL (14.0-18.0); Mean Corpuscular HGB Conc 32.2 g/dl (32-36); Mean Corpuscular Hemoglobin 28.9 pg (26-34); Mean Corpuscular Volume 89.8 fl (80-100); Mean Platelet Volume 10.3 fl (7.4-10.4); Platelet Count Result 293 k/mm3 (150-375); Red Blood Count 4.32 M/mm3 (4.6-6.20); Red Cell Distribution Width 13.3 % (11.5-14.5); White Blood Count 13.2 K/mm3 (4.5-10.0)
[2025-02-09] MEDS: NICOTINE (*PBKC) 21 MG PATCH 1 PATCH TRANSDERM (09:18)
[2025-02-09 09:21] LABS: Anion Gap 3 mmol/L (4-12); Blood Urea Nitrogen 10 mg/dL (9-20); Calcium 8.6 mg/dL (8.4-10.2); Carbon Dioxide 30 mmol/L (22-30); Chloride 106 mmol/L (98-107); Estimated CRCL calculation 98 ml/min; Estimated Glomerular Filt Rate > 60; Glucose 114 mg/dL (65-110); Potassium 3.3 mmol/L (3.4-5.0); Sodium 139 mmol/L (137-145)
[2025-02-09] MEDS: POTASSIUM CHLORIDE 20 MEQ PACKET (FOR LIQUID) 40 MEQ PO (09:55)
--- NOTE | 2025-02-09 10:06 | P.PNUR_ITS ---
Progress Note: A&P Assessment and Plan (1) Bilateral kidney stones: Code(s): N20.0 - Calculus of kidney Status: Acute Assessment and Plan: * Moderate stent pain persist. Will make an attempt to control stent pain with oral analgesics (oxycodone) * Urine culture on admission was negative. * If stent main can be controlled with oral analgesics I am comfortable with him being discharged on cefdinir 300 mg b.i.d. for 10 days * Will make arrangements for outpatient ESWL Subjective Subjective Date/Time Seen: 02/09/25 10:06 Interval history: Moderate stent pain persist Review of Systems Review of Systems: All systems reviewed & are unremarkable except as noted in HPI and below Exam Const: General: no acute distress Resp: Effort & Inspection: normal respiratory effort GI: Inspection: non-distended GI Palp: No abdominal tenderness and No Guarding due to palpation present (GI) Auscultation: normal bowel sounds Objective Data Vital Signs Vital Signs: Vital Signs - 24 hr 02/08/25 14:05 02/08/25 20:00 02/08/25 20:59 Temperature 97.6 F Pulse Rate 99 80 80 Respiratory Rate 18 16 16 Blood Pressure 140/89 149/88 H Pulse Oximetry 99 94 94 Oxygen Delivery Room Air Fraction of Inspired Oxygen 21 02/09/25 06:29 Temperature 97.6 F Pulse Rate 64 Respiratory Rate 16 Blood Pressure 146/87 H Pulse Oximetry 93 Oxygen Delivery Fraction of Inspired Oxygen Intake/Output Intake/Output: Intake & Output 02/06/25 02/07/25 02/08/25 02/09/25 23:59 23:59 23:59 23:59 Intake Total 1050 3730 2937.5 2590 Output Total 016 644 0893 Balance 1050 3130 1987.5 -60 Meds/Results Medications: Active Medications Generic Name Dose Route Start Last Admin Trade Name Freq PRN Reason Stop Dose Admin Acetaminophen 650 mg 02/06/25 18:35 Acetaminophen 325 Mg Tablet PO Q4H PRN Mild Pain (1-3) or Fever Hydrocodone Bitart/Acetaminophen 1 tab 02/06/25 18:35 02/08/25 10:25 Hydrocodone/Acetaminophen (*Crx) 5-325 Mg Tablet PO 1 tab Q4H PRN Administration Pain Rated 4-6 Calcium Carbonate 200 mg 02/06/25 22:50 Calcium Carbonate (Tums) 500 Mg (200 Mg Elemental) PO Q6H PRN Indigestion Hydromorphone HCl 0.5 mg 02/06/25 18:35 02/09/25 06:25 Hydromorphone Hcl Inj (*Crx) 2 Mg/Ml Vial IV PUSH 0.5 mg Q4H PRN Administration Pain Rated 7-10 Hydroxyzine HCl 25 mg 02/08/25 21:00 02/08/25 21:14 Hydroxyzine Hcl 25 Mg Tablet PO 25 mg HS YULI Administration Hyoscyamine 0.125 mg 02/08/25 06:30 02/09/25 05:44 Hyoscyamine Sulfate 0.125 Mg Tablet SUBLINGUAL 0.125 mg Q6HR YULI Administration Lactated Ringer's 1,000 mls @ 125 mls/hr 02/06/25 18:35 02/09/25 09:11 Lr - Lactated Ringers Iv IV CONT 125 mls/hr .Q8H YULI Administration Ceftriaxone Sodium 1 gm in 50 mls @ 100 mls/hr 02/07/25 19:00 02/08/25 19:18 Rocephin 1 Gm/Ns 50 Ml IVPB Infused Q24H YULI Infusion Lisinopril 10 mg 02/07/25 09:00 02/09/25 08:19 Lisinopril 10 Mg Tablet PO 10 mg DAILY YULI Administration Nicotine 1 patch 02/06/25 22:49 02/09/25 09:18 Nicotine (*Pbkc) 21 Mg Patch TRANSDERM 1 patch DAILY PRN Administration Nicotine withdrawal Ondansetron HCl 4 mg 02/06/25 18:35 02/07/25 20:29 Ondansetron Inj 4 Mg/2 Ml Vial IV PUSH 4 mg Q4H PRN Administration Nausea Phenazopyridine HCl 200 mg 02/07/25 12:00 02/09/25 08:20 Phenazopyridine Hcl 100 Mg Tablet PO 200 mg TIDWM YULI Administration Potassium Chloride 40 meq 02/09/25 09:30 02/09/25 09:55 Potassium Chloride 20 Meq Packet (For Liquid) PO 40 meq DAILY YULI Administration Tamsulosin HCl 0.4 mg 02/08/25 09:00 02/09/25 08:20 Tamsulosin Hcl 0.4 Mg Capsule PO 0.4 mg QAM YULI Administration Radiology Results: ITS Impressions Abdomen/Pelvis CT 02/06/25 16:35 IMPRESSION: 1. Bilateral renal stones with bilateral hydronephrotic changes more on the right side. 2. No evidence of appendicitis, diverticulitis or intestinal obstruction. Retrograde Pyelogram 02/07/25 12:14 IMPRESSION: 1. Bilateral nephrolithiasis. 2. Placement of bilateral internal ureteral stents with proximal loop was formed in the renal pelvises. Labs Labs: Laboratory Results - last 24 hr 02/09/25 08:47 WBC 13.2 H RBC 4.32 L Hgb 12.5 L Hct 38.8 L MCV 89.8 MCH 28.9 MCHC 32.2 RDW 13.3 Plt Count 293 MPV 10.3 Sodium 139 Potassium 3.3 L Chloride 106 Carbon Dioxide 30 Anion Gap 3 L BUN 10 D Creatinine 0.73 Estim Creat Clear Calc 98 Estimated GFR > 60 Glucose 114 H Calcium 8.6
[2025-02-09 14:00] VITALS: BP 151/86; PULSE 77; RESP 16; TEMP 36.4; O2SAT 94
[2025-02-09] MEDS: oxyCODONE/ACETAMINOPHEN (*CRX) 5-325 MG TABLET PO ×2 (15:48→21:55)
[2025-02-09 20:00] VITALS: PULSE 76; RESP 18; O2SAT 93
[2025-02-09] MEDS: hydrOXYzine HCL 25 MG TABLET PO (21:13)
[2025-02-09 22:00] VITALS: BP 158/85; PULSE 76; RESP 18; TEMP 37.1; O2SAT 93
[2025-02-10] MEDS: HYDROmorphone HCL INJ (*CRX) 2 MG/ML VIAL 0.5 MG IV PUSH ×2 (02:59→11:07)
[2025-02-10 05:18] LABS: Potassium 2.9 mmol/L (3.4-5.0)
[2025-02-10] MEDS: oxyCODONE/ACETAMINOPHEN (*CRX) 5-325 MG TABLET PO (05:52)
[2025-02-10] MEDS: HYOSCYAMINE SULFATE 0.125 MG TABLET SUBLINGUAL ×2 (05:53→11:03)
[2025-02-10 06:00] VITALS: BP 154/96; PULSE 64; RESP 18; TEMP 36.7; O2SAT 92
[2025-02-10 08:24] VITALS: BP 152/94; PULSE 74; RESP 18; TEMP 36.4; O2SAT 93
[2025-02-10] MEDS: NICOTINE (*PBKC) 21 MG PATCH 1 PATCH TRANSDERM (08:25)
[2025-02-10] MEDS: POTASSIUM CHLORIDE 20 MEQ PACKET (FOR LIQUID) 40 MEQ PO (08:26)
[2025-02-10 08:27] VITALS: PULSE 74; RESP 18; O2SAT 93
[2025-02-10] MEDS: TAMSULOSIN HCL 0.4 MG CAPSULE PO (08:27)
[2025-02-10] MEDS: lisinopriL 10 MG TABLET PO (08:27)
[2025-02-10] MEDS: PHENAZOPYRIDINE HCL 100 MG TABLET 200 MG PO ×2 (08:27→11:03)
[2025-02-10] MEDS: POTASSIUM CHLORIDE INJ 40 MEQ in SODIUM CHLORIDE 0.9% IV 500 ML 130 MEQ IVPB (08:52)
[2025-02-10 13:18] LABS: Potassium 3.9 mmol/L (3.4-5.0)
--- NOTE | 2025-02-10 13:21 | PM.DS ---
DS: Admitting Diagnosis Discharge Date 02/10 Admitting Diagnosis acute flank pain DS: Discharge Diagnosis Discharge Diagnosis (1) Acute flank pain: Code(s): R10.9 - Unspecified abdominal pain Status: Acute (2) Bilateral kidney stones: Code(s): N20.0 - Calculus of kidney Status: Acute (3) Urinary tract infection: Qualifiers: Hematuria presence: with hematuria Urinary tract infection type: site unspecified Qualified Code(s): N39.0 - Urinary tract infection, site not specified; R31.9 - Hematuria, unspecified Code(s): N39.0 - Urinary tract infection, site not specified Status: Acute (4) Hypertension: Qualifiers: Hypertension type: primary hypertension Qualified Code(s): I10 - Essential (primary) hypertension Code(s): I10 - Essential (primary) hypertension Status: Acute (5) Tobacco dependence: Code(s): F17.200 - Nicotine dependence, unspecified, uncomplicated Status: Acute (6) Hypokalemia: Code(s): E87.6 - Hypokalemia Status: Acute DS: Summary Hospital Course Hospital Course: 60-year-old male with a past medical history of essential hypertension, anxiety, depression, BPH and kidney stones who admitted with complaints of left flank/groin pain that started 2 weeks ago. Imaging in the ER demonstrates bilateral extrarenal pelves without obvious obstruction. He has a 9 mm stone in his left renal pelvis with similar size stone in his left lower pole and a smaller stone in his left upper pole. On the right side - 1.4 cm stone in his right renal pelvis and a smaller stone also in renal pelvis. Evidence of UTI on UA although he has been afebrile. Urology was consulted-DR Hull saw pt- plan for Bilateral ureteral stent placement on 02/07. Stone management once urinary tract infection has been treated. ON IV ceftriaxone. Urology was consulted-DR Hull saw pt- plan for Bilateral ureteral stent placement 02/07. Stone management once urinary tract infection has been treated - He is on Flomax, Levsin for bladder spasms and hydrocodone. Will add hydroxyzine to help sleep at night and put Levsin on a regular schedule (as opposed to p.r.n.). Ultimately he will need bilateral ESWL for his kidney stone. We have to wait for his urinary tract infection to be treated first. ESWL was scheduled per DR Hull. Per urology note if pain is controlled with oral med- ok to be discharged with total 10 days of ceftriazone 300 mg bid Of note, k was 2.9- replaced per IV- repeated 3.9. will order repeat labs to be done within a week to ensure k level stable. Time spent discussing smoking cessation with patient: 3 to 10 minutes Status at Discharge Functional status at discharge: independent ambulation Overall status at discharge: patient is progressing back to baseline Time Spent with Patient Time attestation: Total time spent providing and/or coordinating discharge services: Time spent: Greater than 30 minutes Exam Narrative: Weight 81.2 kg BMI 25.7 Const: General: comfortable Other: No acute distress, well-developed well-nourished, appears older than stated age HENMT: Other: Mucous membranes are tacky, no oral pharyngeal erythema, upper dentures in place, poor dentition lower jaw Eyes: Other: Pupils are equal and reactive, no scleral icterus, no conjunctival pallor Neck: Other: No JVD, no lymphadenopathy Resp: Other: Clear to auscultation bilaterally, no increased work of breathing Cardio: Other: Regular rate, regular rhythm, 2+ bilateral radial pedal pulses GI: Other: Soft, nontender, nondistended, positive bowel sounds Back/Spine/Pelvis: Other: Mild CVA tenderness on the left Skin: Other: No jaundice, no pallor, numerous tattoos Neuro: Other: Alert oriented, speech is clear, no facial asymmetry Extrem: Other: No clubbing, cyanosis or edema, moves all extremities equally Psych: Other: Anxious, cooperative, appropriate mood and affect, judgment and insight intact DS: Data Data Completed and Pending Completed studies during hospitalization: retragrade pyelogram, abd/pelvis ct Labs on day of discharge: Labs from last 24 hours 02/10/25 02/10/25 13:05 05:03 Potassium 3.9 2.9 L Discharge Plan Discharge Attending physician on discharge: Ronald Garrett Consulting providers: Ludwin Obregon; Luis Miguel Hull Discharging Clinician: Kathy Bae Patient Disposition: Home Activity: january shower Diet: regular Discharge Instructions: YOu were admitted for uti and kidney stone. Urology was consulted-DR Hull - you had Bilateral ureteral stent placement on 02/07. Stone management once urinary tract infection has been treated Have to wait for urinary tract infection to be treated first. ESWL was scheduled per DR Hull. OK to discharge per urology with total 10 days of ceftriazone 300 mg twice a day. Of note, potasium was 2.9- replaced per IV- repeated 3.9. will order repeat labs to be done within a week to ensure k level stable. Patient Instructions: Antibiotic Form Patient Language: Chinese Stand Alone Forms: General Discharge Information Follow-up/Referrals: PHYSICIAN,TAR PROCESSING TECHNICIAN [Primary Care Provider] - 1 Week Luis Miguel Hull MD [Physician] - 2 Weeks Discharge Medications: New oxycodone-acetaminophen 5-325 mg Tablet 1 - 2 tablet PO Q6H PRN (Reason: Pain Rated 7-10) Qty: 12 0RF tamsulosin 0.4 mg Capsule 0.4 mg PO QAM Qty: 30 0RF hydroxyzine HCl 25 mg Tablet 25 mg PO HS Qty: 12 0RF cefdinir 300 mg capsule 300 mg PO Q12H 10 Days Qty: 20 0RF Continued lisinopril 10 mg tablet 10 mg PO DAILY Other Ambulatory Orders: Comprehensive Metabolic Panel (Routine) Timeframe: 1 Week Location: Determined by Patient Ordered By: Kathy Bae Date of admission: 02/08/25 13:32 Primary Care Provider: PHYSICIAN,TAR PROCESSING TECHNICIAN Admitting Provider: Ronald Garrett Attending physician on admission: Ronald Garrett Condition: Stable Quality VTE Prophylaxis VTE prophylaxis: mechanical ordered (SCDs) Hospitalist MIPS Heart Failure (Exclusion) Patient has history of Heart Transplant or Left Ventricular Assistive Device?: No IF YES, STOP HERE Heart Failure (Qualifier) Patient has current or prior documentation of LVEF less than or equal to 40%, or mod/servere depressed LVSF?: No IF NO, STOP HERE
[2025-02-10 13:58] VITALS: BP 156/92; PULSE 74; RESP 16; TEMP 36.2; O2SAT 96
== END 2025-02-10 15:07 | disposition home or self-care (01) | DRG 465 ==
LOC: ANHED 16:40 → ANH2MED 19:02
PROVIDERS: Physician Assistant; Urology; Admitting Provider General Practice; Emergency Provider Student in an Organized Health Care Education/Training Program; Visit Provider Nurse Practitioner
PROC: BT14ZZZ Fluoroscopy of Kidneys, Ureters and Bladder (ICD-10-PCS; CPT 52352; principal; 2025-02-07 13:00)
DX: N13.2 Hydronephrosis with renal and ureteral calculous obstruction (principal); N39.0 Urinary tract infection, site not specified; F41.9 Anxiety disorder, unspecified; F32.A Depression, unspecified; F17.210 Nicotine dependence, cigarettes, uncomplicated; G89.4 Chronic pain syndrome; I10 Essential (primary) hypertension; N40.0 Benign prostatic hyperplasia without lower urinary tract symptoms; R31.9 Hematuria, unspecified; Z95.1 Presence of aortocoronary bypass graft
CPT/HCPCS: 36415; 74176; 74420; 80048; 80053; 81001; 83690; 84132; 85025; 85027; 87086; 96361; 96365; 96375; 96376; 99285; A9270; C1758; C1769; C2617; G0378; G0379; J0696; J1171; J2405; J3010; J3480; J7040; J7120; Q9966

== ENCOUNTER 2025-03-04 16:38 | Emergency (ER) | payer OTHER, SELFPAY ==
--- NOTE | ~2025-03-04 | CT_ITS ---
EXAMINATION: CT abdomen pelvis wo con DATE: 03/04/2025 18:14 INDICATION: L flank, LLQ pain, stones w/ stent in place TECHNIQUE: Computed tomography (CT) of the abdomen and pelvis was performed 02/06/2025 intravenous cont rast. Automated exposure control and iterative reconstruction technique were employed. The dose-lengt h product was 215.23 mGy-cm. COMPARISON: None. FINDINGS: Lower thorax: Coronary artery calcification. Minimal basilar scar/atelectasis. Liver: Normal. Biliary/Gallbladder: Mild gallbladder distention without inflammatory changes or stones. No bile duct dilation. Pancreas: No mass or duct dilation. Spleen: Normal. Adrenals: Left adrenal adenomas. Kidneys: Bilateral ureteral stents, in good position. Mild left and moderate right caliectasis and pe lviectasis. Nonobstructing bilateral nephroliths. A stone previously seen in the left renal pelvis is now displaced into a lower pole calyx. GI tract: No small or large bowel dilation. Normal appendix. Mesentery/Peritoneum: No ascites, mass, or free air. Retroperitoneum: No mass. Atherosclerotic calcifications of intra-abdominal arterial vessels. Pelvis: Pelvic organs are within normal limits. Soft Tissues: Small uncomplicated fat-containing umbilical hernia Bones: No acute osseous finding. IMPRESSION: Gallbladder hydrops. Correlate with biliary labs and symptoms of right upper quadrant pain. Mild left and moderate right pelviectasis/caliectasis, increased since the prior study despite the pr esence of bilateral ureteral stents. Bilateral nephrolithiasis. No stones detected in the distal mandi ecting system or bladder. Reviewed, dictated and finalized at location K. IMPRESSION: Gallbladder hydrops. Correlate with biliary labs and symptoms of right upper qu adrant pain. Mild left and moderate right pelviectasis/caliectasis, increased since the prio r study despite the presence of bilateral ureteral stents. Bilateral nephrolith iasis. No stones detected in the distal collecting system or bladder.
--- NOTE | ~2025-03-04 | US_ITS ---
EXAMINATION: US scrotum doppler DATE: 03/04/2025 18:24 INDICATION: L testiclar pain . TECHNIQUE: Grayscale and Doppler ultrasound images of the testes were obtained. COMPARISON: None. FINDINGS: The right testis measures 4.3 x 1.7 x 2.8 cm. The left testis measures 4.9 x 1.5 x 2.3 cm. No testicular mass. There is normal vascular flow to both testes. The right epididymis is normal with normal vascular flow. The left epididymis is normal with normal vascular flow. There is no varicocel e or hydrocele. IMPRESSION: Unremarkable ultrasound scrotum findings. Reviewed, dictated and finalized at location K.
--- OUTSIDE RECORDS SUMMARY | 2025-03-04 16:42 | XMS_ITS | Patient Health Record ---
Author Organization [facility] Address [address] [place] [address] Care Team Providers Care Denture Model Maker Name Role Phone Regan Ely Primary Care Provider [phone] Garcia Neal Unavailable [phone] Wesley Wallace Unavailable [phone] Ophelia Coy Unavailable [phone] Ramesh Kristin Unavailable [phone] Emiliana Xie Unavailable [phone] Allergies No Known Allergies Results Component Value Reference Range Notes 12 Panel Urine Drug Screen Reviewed date:06/05/2024 01:25:48 PM Interpretation: Performing Lab: Notes/Report: THC neg LILLI neg MOP (OPI) neg AMP neg MET neg BAR neg BZO POS MDMA neg MTD neg OXY neg PCP neg BUP POS Hemoglobin A1c* Reviewed date:12/20/2024 12:22:51 PM Interpretation: Performing Lab: Notes/Report: CBC With Differential/Platel et* Reviewed date:12/20/2024 12:23:44 PM Interpretation: Performing Lab: Notes/Report: CMP 14 Comprehensive Metabol ic Panel* Reviewed date:12/20/2024 12:24:18 PM Interpretation: Performing Lab: Notes/Report: Medication Assisted Treatmen t (MAT) Buprenorphine, Norbuprenorphine, and Naloxone MS Confirmation, Urine Reviewed date:06/11/2024 12:58:08 PM Interpretation: Performing Lab:[facility], [address] [facility], Phone - [phone], Director - Fabrice Notes/Report: ToxAssure, ToxAssure FLEX or MAT drug testing: -Technical component - Result certification performed at [facility], [address] [place] [address]. [phone] Beef Tagger Atul Davies MD. Creatinine 161 Testing Threshold: buprenorphine, 1.0 ng/mL norbuprenorphine, 5.0 ng/mL naloxone, 10 ng/mL This test was developed and its performance characteristics determined by [facility]. It has not been cleared or approved by the Food and Drug Administration. REFERENCE RANGE: Ref Range>=20 BUPRENORPHINE ++POSITIVE++ Buprenorphine 288 Norbuprenorphine >621 N/B Ratio >2.16 >=0.3 OPIATE ANTAGONIST ++POSITIVE++ Naloxone >621 12 Panel Urine Drug Screen Reviewed date:09/11/2024 01:14:14 PM Interpretation: Performing Lab: Notes/Report: THC neg LILLI neg MOP (OPI) neg AMP neg MET neg BAR neg BZO POS MDMA neg MTD neg OXY neg PCP neg BUP POS Hemoglobin A1c* Reviewed date:12/25/2024 10:35:08 AM Interpretation: Performing Lab:[facility], [address] [place] [address], Phone - [phone], Director - Faith Notes/Report: Hemoglobin A1c 5.8 4.8-5.6 % . Prediabetes: 5.7 - 6.4 Diabetes: >6.4 Glycemic control for adults with diabetes: <7.0 CBC With Differential/Platel et* Reviewed date:12/25/2024 10:36:08 AM Interpretation: Performing Lab:[facility], [address] [place] [address], Phone - [phone], Director - [facility] Notes/Report: WBC 8.9 3.4-10.8 x10E3/uL RBC 5.28 [...] % Immature Grans (Abs) 0.1 0.0-0.1 x10E3/uL CMP 14 Comprehensive Metabol ic Panel* Reviewed date:12/25/2024 10:35:38 AM Interpretation: Performing Lab:[facility], [address] [facility], Phone - [phone], Director - Faith Notes/Report: Glucose 118 70-99 [...] 0-40 IU/L ALT (SGPT) 16 0-44 IU/L 12 Panel Urine Drug Screen Reviewed date:04/27/2024 [...] POS 12 Panel Urine Drug Screen Reviewed date:11/15/2024 01:35:24 PM Interpretation: Performing Lab: Notes/Report: THC neg LILLI neg MOP (OPI) neg AMP neg MET neg BAR neg BZO POS MDMA neg MTD neg OXY POS PCP neg BUP POS Hemoglobin A1c* Reviewed date:12/11/2024 02:28:07 PM Interpretation: Performing Lab:[facility] [employer] [facility], Phone - [phone], Director - [facility] Notes/Report: Hemoglobin A1c TNP Test not performed. Whole blood specimen partially or completely clotted. A common cause is insufficient mixing upon collection. . Prediabetes: 5.7 - 6.4 Diabetes: >6.4 Glycemic control for adults with diabetes: <7.0 Vitamin B12* Reviewed date:12/11/2024 02:26:32 PM Interpretation: Performing Lab:[facility] [employer] [facility], Phone - [phone], Director - [facility] Notes/Report: Vitamin B12 516 246-4410 pg/mL Specimen Status Report TNP Test not performed. Whole blood specimen partially or completely clotted. A common cause is insufficient mixing upon collection. TEST: [id number] CBC With Differential/Platelet [id number] Hemoglobin A1c Folate (Folic Acid), Serum* Reviewed date:12/11/2024 02:28:20 PM Interpretation: Performing Lab:[facility], [employer] [facility], Phone - [phone], Director - [facility] Notes/Report: Folate (Folic Acid), Serum 15.0 >3.0 ng/mL A serum folate concentration of less than 3.1 ng/mL is considered to represent clinical deficiency. CBC With Differential/Platel et* Reviewed date:12/11/2024 02:32:21 PM Interpretation: Performing Lab:[facility], [address] [facility], Phone - [phone], Director - [facility] Notes/Report: WBC TNP Test not performed. Whole [...] Baso (Absolute) TNP Test not per formed Vitamin D, 25-Hydroxy* Reviewed date:12/11/2024 02:26:18 PM Interpretation: Performing Lab:[facility] [place] [id number] [facility], Phone - [phone], Director - [facility] Notes/Report: Vitamin D, 25-Hydroxy 7.8 30.0-100.0 ng/mL Vitamin D deficiency has been defined by the [place] of Medicine and an Endocrine Society practice guideline as a level of serum 25-OH vitamin D less than 20 ng/mL (1,2). The Endocrine Society went on to further define vitamin D insufficiency as a level between 21 and 29 ng/mL (2). 1. IOM ([place] of Medicine). 2010. Dietary reference intakes for calcium and D. [place]: The National Academies Press. 2. Juaquin MF, Laura NC, Caryn ROMERO, et al. Evaluation, treatment, and prevention of vitamin D deficiency: an Endocrine Society clinical practice guideline. JCEM. 2010; 96(7):1911-30. TSH+Free T4* Reviewed date:12/11/2024 02:26:46 PM Interpretation: Performing Lab:[facility] [address] [facility], Phone - [phone], [facility] - [facility] Notes/Report: TSH 2.080 0.450-4.500 uIU/mL T4,Free(Direct) 1.28 0.82-1.77 ng/dL Lipid Panel* Reviewed date:12/11/2024 02:27:34 PM Interpretation: Performing Lab:[facility] [address] [facility], Phone - [phone], Director - [facility] Notes/Report: Cholesterol, Total 237 100-199 mg/dL Triglycerides 344 0-149 mg/dL HDL Cholesterol 23 >39 mg/dL VLDL Cholesterol Ayden 64 5-40 mg/dL LDL Chol Calc (NIH) 150 0-99 mg/dL CMP 14 Comprehensive Metabol ic Panel* Reviewed date:12/11/2024 02:29:04 PM Interpretation: Performing Lab:[facility], [address] [facility], Phone - [phone], Director - [facility] Notes/Report: Glucose 128 70-99 mg/dL BUN 11 [...] 0-40 IU/L ALT (SGPT) 18 0-44 IU/L 12 Panel Urine Drug Screen Reviewed date:01/15/2025 [...] neg OXY neg PCP neg BUP POS PDF Report Reviewed date:11/26/2024 04:54:50 PM Interpretation: Performing Lab:[facility], [address] [facility], Phone - [phone], Director - Fabrice Notes/Report: ToxAssure, ToxAssure FLEX or MAT drug testing: -Technical component - Data analysis performed at [address], [address]. [phone]. Beef Tagger Cristina Garza MD PDF Report1 [facility] Comprehensive Drug Analysis, Urine Reviewed date:11/26/2024 08:59:37 AM Interpretation: Performing Lab:[facility], [address] [place] [address], [facility] - [phone], Director - Fabrice Notes/Report: ToxAssure, ToxAssure FLEX or MAT drug testing: -Technical component - Data analysis performed at [facility], [address] [place] [address], [address]. [phone]. Beef Tagger Cristina Garza MD Summary Report (Summary) FINAL [...] . 12 Panel Urine Drug Screen Reviewed date:10/15/2024 [...] Duration) Notes Start Date End Date Status Propranolol HCl ER 160 MG 1 capsule Oral ly Once a day for 30 days Active diazePAM 10 mg TAKE 1 TABLET BY KORY TH DAILY IF NEEDED FOR ANXIETY for 30 days 02/12/2025 Active Wellbutrin XL 300 MG 1 tablet in the mor lianet Orally Once a day - take with bupropion 150mg for TOTAL 450mg daily for 30 days Active Prazosin HCl 2 MG 2 capsules once camilla y in the MORNING Orally for 30 days Active Ergocalciferol 1.25 MG (63418 UT) 1 capsule Orally once weekly for 30 days Active buPROPion HCl ER (XL) 150 MG 1 tablet in the morning Orally Once a day - take with bupropion 300mg for TOTAL 450mg daily for 30 days Active Lisinopril 10 MG 1 tablet Orally once daily for 30 days Active Prazosin HCl 5 MG 2 capsules Orally on ce daily at bedtime for 30 days Active OLANZapine 10 mg 1 tablet twice daily for 30 days Active PARoxetine HCl 40 mg Take 2 tablets (80m g) once daily by oral route for 30 days Active Zubsolv 8.6-2.1 MG 1 tablet under the tongue and allow to dissolve Sublingual three times daily 01/15/2025 Active Immunizations Vaccine Route Administration Date Status Comme nts Influenza, virus vaccine, trivalent, preservative free IM Intramuscular 10/15/2024 Administered Imelda Piedad OHARA 10/15/2024 02:36:01 PM SEO COORDINATOR >pt tolerated well. 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 Stress is when someone feels tense, nervous, anxious, or can\t sleep at night because their mind is troubled Very much In the past year have you sp ent more than 2 nights in a row in a penitentiary, intermediate, alf center, or juvenile correctional facility? No Are you a refugee? No What country are you from? [place] Do you feel physically and e motionally safe where you currently live? Yes In the past year, have you b een afraid of your partner or ex-partner? No PRAPARE Score: 6 Tobacco Control (Standard) Question Answer Notes Tobacco use: Current smoker Section Notes: [id number] 07/22/2021 07/22/2021 Zubsolv 60 30 8.6 MG-2.1 MG NA Heavens, Regan Hair - [id number] [place] [address] 175[address] 07/22/2021 07/22/2021 Zubsolv 30 30 5.7-1.4 MG NA Heavens, Regan Hair - [id number] [facility] 792123 07/08/2021 06/09/2021 diazePAM 30 30 10MG NA Tahmina Rudd L, Msn, Aircraft Systems Technician-bc - [id number] [facility] [id number] 06/17/2021 06/17/2021 Zubsolv 30 30 5.7-1.4 MG NA Heavens, Regan Hair - [id number] [facility] 1 [id number] 06/17/2021 06/17/2021 Zubsolv 60 30 8.6 MG-2.1 MG NA Heavens, Regan Hair - [id number] [facility] 1 256938 06/09/2021 06/09/2021 diazePAM 30 30 10MG NA Tahmina Rudd L, Msn, [facility] - [id number] [facility] 1 [id number] 05/05/2021 05/05/2021 Zubsolv 60 30 8.6 MG-2.1 MG NA [id number] 07/22/2021 07/22/2021 Zubsolv 60 30 8.6 MG-2.1 MG NA Heavens, Regan Hair - [id number] [place] [address] 335493 07/22/2021 07/22/2021 Zubsolv 30 30 5.7-1.4 MG NA Heavens, Regan Cuenca [id number] [place] [address] 630406 07/08/2021 06/09/2021 diazePAM 30 30 10MG NA Tahmina Rudd L, Msn, [facility] - [id number] [place], [place] [address] 500133 06/17/2021 06/17/2021 Zubsolv 30 30 5.7-1.4 MG NA Heavens, Regan Cuenca [id number] [facility] [place], [place] [address] 352748 06/17/2021 06/17/2021 Zubsolv 60 30 8.6 MG-2.1 MG NA Heavens, Regan Cuenca [id number] [facility] [place], [place] [address] 225214 06/09/2021 06/09/2021 diazePAM 30 30 10MG NA Tahmina Rudd L, Msn, [facility] [id number] [place], [place] 1 [id number] 05/05/2021 05/05/2021 Zubsolv 60 30 8.6 MG-2.1 MG NA [id number] 07/22/2021 07/22/2021 Zubsolv 60 30 8.6 MG-2.1 MG NA Heavens, Regan Hair - [id number] [place], [place] [address] 645014 07/22/2021 07/22/2021 Zubsolv 30 30 5.7-1.4 MG NA Heavens, Regan Cuenca [id number] [facility] [place], [place] 1 687481 07/08/2021 06/09/2021 diazePAM 30 30 10MG NA Tahmina Rudd L, Msn, [facility] - [id number] [place], [place] 1 [id number] 06/17/2021 06/17/2021 Zubsolv 30 30 5.7-1.4 MG NA Heavens, Regan Cuenca [id number] [facility] [place], [place] 1 929198 06/17/2021 06/17/2021 Zubsolv 60 30 8.6 MG-2.1 MG NA Heavens, Regan Cuenca [id number] [facility] [place], [place] 1 243172 06/09/2021 06/09/2021 diazePAM 30 30 10MG NA Tahmina Rudd L, Msn, [facility] - [id number] [place], [place] 1 [id number] 05/05/2021 05/05/2021 Zubsolv 60 30 8.6 MG-2.1 MG NA [id number] 07/22/2021 07/22/2021 Zubsolv 60 30 8.6 MG-2.1 MG NA Heavens, Regan Cuenca [id number] [facility] [place], [place] 1 764335 07/22/2021 07/22/2021 Zubsolv 30 30 5.7-1.4 MG NA Heavemigue, Regan Hair - [id number] [facility] [place], [place] 1 329372 07/08/2021 06/09/2021 diazePAM 30 30 10MG NA Tahmina Rudd L, Msn, [facility] - [id number] [place], [place] 1 278478 06/17/2021 06/17/2021 Zubsolv 30 30 5.7-1.4 MG NA Heavemigue, Regan Cuenca [id number] [facility] [place] [address] 291119 06/17/2021 06/17/2021 Zubsolv 60 30 8.6 MG-2.1 MG NA Heavens, Regan Cuenca [id number] [facility] [place], [place] 1 607129 06/09/2021 06/09/2021 diazePAM 30 30 10MG NA Tahmina Rudd L, Msn, [facility] - [id number] [place], [place] 1 [id number] 05/05/2021 05/05/2021 Zubsolv 60 30 8.6 MG-2.1 MG NA [id number] 07/22/2021 07/22/2021 Zubsolv 60 30 8.6 MG-2.1 MG NA Heavens, Regan Hair - [id number] [place] 1 914655 07/22/2021 07/22/2021 Zubsolv 30 30 5.7-1.4 MG NA Heavens, Regan Hair - [id number] [facility] [place], [place] 1 434711 07/08/2021 06/09/2021 diazePAM 30 30 10MG NA Tahmina Rudd L, Msn, [facility] - [id number] [place], [place] 1 929248 06/17/2021 06/17/2021 Zubsolv 30 30 5.7-1.4 MG NA Heavens, Regan Hair - [id number] [place], [place] 1 602129 06/17/2021 06/17/2021 Zubsolv 60 30 8.6 MG-2.1 MG NA Heavens, Regan Hair - [id number] [facility] [place], [place] 1 033164 06/09/2021 06/09/2021 diazePAM 30 30 10MG NA Tahmina Rudd L, Msn, [facility] - [id number] [place] 1 [id number] 05/05/2021 05/05/2021 Zubsolv 60 30 8.6 MG-2.1 MG NA [id number] 09/02/2021 09/02/2021 Zubsolv 60 30 8.6 MG-2.1 MG NA Heavens, Regan Hair - [id number] [facility] [place], [place] 1 [id number] 09/02/2021 09/02/2021 Zubsolv 30 30 5.7-1.4 MG NA Heavens, Regan Hair - [id number] [facility] [place], [place] 1 870132 08/26/2021 08/26/2021 Zubsolv 7 7 5.7-1.4 MG NA Fredrick Martinez Md [id number] [place], [place] 2 602173 08/26/2021 08/26/2021 Zubsolv 14 7 8.6 MG-2.1 MG NA Fredrick Martinez Md [id number] [place], [place] [address] 842208 08/25/2021 08/25/2021 Zubsolv 3 3 8.6 MG-2.1 MG NA Fredrick Martinez Md [id number] [place], [place] [address] 686265 08/25/2021 08/25/2021 Zubsolv 1 1 5.7-1.4 MG NA Fredrick Martinez Md [id number] [place], [place] 2 [id number] 08/21/2021 08/21/2021 HYDROcodone BITARTRATE-ACETAMINOPHEN 30 5 325 MG-5 MG 30 Pamela Zamudio B, () - [id number] [place], [place] 1 040921 08/20/2021 08/10/2021 diazePAM 30 30 [id number] 07/22/2021 07/22/2021 Zubsolv 60 30 8.6 MG-2.1 MG NA Regan Ely [id number] [place], [place] 1 228208 07/22/2021 07/22/2021 Zubsolv 30 30 5.7-1.4 MG NA Regan Ely [id number] [place], [place] 1 273947 07/08/2021 06/09/2021 diazePAM 30 30 10MG NA Tahmina Rudd L, Msn, Aircraft Systems Technician[employer] - [id number] [place], [place] 1 414855 06/17/2021 06/17/2021 Zubsolv 30 30 5.7-1.4 MG NA Regan Ely [id number] [place], [place] 1 820787 06/17/2021 06/17/2021 Zubsolv 60 30 8.6 MG-2.1 MG NA Regan Ely - [id number] [facility] [place], [place] 1 812667 06/09/2021 06/09/2021 diazePAM 30 30 10MG NA Tahmina Rudd L, Msn, Aircraft Systems Technician-bc - [id number] [facility] 1 [id number] 05/05/2021 05/05/2021 Zubsolv 60 30 8.6 MG-2.1 MG NA Problems Problem Type SNOMED Code ICD Code Onset Dates Problem Status W/U Status Risk Notes Problem Tobacco user (595019252) Nicotine dependence, unspecified, uncomplicated (F17.200) Active confirmed Problem Depression (390399925) Depression (F32.9) 2 Active confirmed Problem Mood disorder (32147374) Mood disorder (F39) Active confirmed Problem 84637417 Anxiety (F41.9) Active confirmed Problem Vitamin D deficiency (14524692) Vitamin D deficiency (E55.9) Active confirmed Problem Generalized anxiety disorder (66036947) ROM (generalized anxiety disorder) (F41.1) 2 Active confirmed Problem Alkaline phosphatase raised (432120669) Elevated alkaline phosphatase level (R74.8) Active confirmed Problem Elevated blood pressure (07019201) Elevated blood pressure (I10) Active confirmed Problem Prediabetes (279856901) Prediabetes (R73.09) Active confirmed Problem Colon cancer screening (909282895) Colon cancer screening (Z12.11) Active confirmed Problem Overweight (302883862) Over weight (E66.3) Active confirmed Problem Major depressive disorder (312696245) MDD (major depressive disorder) (F32.9) 2 Active confirmed Problem Malignant tumor of colon (850337204) Colon cancer (C18.9) Active confirmed Problem Drug monitoring done (655667314) Therapeutic drug monitoring (Z51.81) Active confirmed Problem Essential hypertension (29912013) Essential hypertension (I10) Active confirmed Problem Opioid dependence (04672449) Opioid use disorder, severe (F11.20) Active confirmed Problem Tobacco use (485529781) Tobacco use disorder (F17.200) Active confirmed Problem Opioid use disorder (1023488375) Opioid use disorder (F11.99) Active confirmed Problem Sleep dysfunction with arousal disturbance (964231321) Night terror (F51.4) Active confirmed Vital Signs Heart Rate 105 /min 01/15/2025 Temperature 98.6 degrees Fahrenheit 09/11/2024 Respiratory Rate 16 /min 01/15/2025 Oximetry 94 % 01/15/2025 Blood pressure diastolic 102 mm Hg 01/15/2025 Height 70 in 02/12/2025 Blood pressure systolic 150 mm Hg 01/15/2025 Weight 190 lbs 02/12/2025 BMI 27.26 kg/m2 02/12/2025 Encounters Encounter Location Date Provider Diagnosis [address] [address] 12/21/2024 Neal Garcia ROM (generalized anxiety disorder) F41.1 ; MDD (major depressive disorder) F32.9 ; Therapeutic drug monitoring Z51.81 ; Mood disorder F39 and Essential hypertension I10 [address] [address] 03/30/2024 Jenia Heavens Opioid use disorder F11.99 ; Overweight (BMI 25.0-29.9) E66.3 and Tobacco use disorder F17.[address] [address] 03/30/[address] [address] 04/27/2024 Jenia Heavens Opioid use disorder F11.99 ; Overweight (BMI 25.0-29.9) E66.3 and Tobacco use disorder F17.[address] [address] 04/27/[address] [address] 05/04/2024 Kristin Ramesh Nicotine dependence, unspecified, uncomplicated F17.200 ; ROM (generalized anxiety disorder) F41.1 ; MDD (major depressive disorder) F32.9 ; Night terror F51.4 and Opioid use disorder F11.[address] [address] 06/05/2024 Emiliana Xie Opioid use disorder F11.99 ; Overweight (BMI 25.0-29.9) E66.3 ; Nicotine dependence, unspecified, uncomplicated F17.200 and Nutritional counseling Z71.[address] [address] 07/06/2024 Jenia Heavens Opioid use disorder F11.99 ; Overweight (BMI 25.0-29.9) E66.3 and Tobacco use disorder F17.[address] [address] 07/17/2024 Neal Garcia Mood disorder F39 ; ROM (generalized anxiety disorder) F41.1 ; MDD (major depressive disorder) F32.9 ; Night terror F51.4 and Nicotine dependence, unspecified, uncomplicated F17.[address] [address] 08/09/2024 Wesley Wallace Opioid use disorder F11.99 ; Overweight (BMI 25.0-29.9) E66.3 ; Nutritional counseling Z71.3 and Nicotine dependence, unspecified, uncomplicated F17.[address] [address] 08/23/2024 Neal Garcia Mood disorder F39 ; ROM (generalized anxiety disorder) F41.1 ; MDD (major depressive disorder) F32.9 ; Night terror F51.4 and Nicotine dependence, unspecified, uncomplicated F17.200 [place] [address] [place] [address] 09/11/2024 Jenia Heavemigue Opioid use disorder F11.99 ; Elevated blood pressure I10 ; Overweight (BMI 25.0-29.9) E66.3 and Tobacco use disorder F17.[address] [address] 09/13/2024 Neal Garcia Mood disorder F39 ; ROM (generalized anxiety disorder) F41.1 ; MDD (major depressive disorder) F32.9 ; Night terror F51.4 ; Essential hypertension I10 and Nicotine dependence, unspecified, uncomplicated F17.[address] [address] 10/12/2024 Neal Garcia Mood disorder F39 ; ROM (generalized anxiety disorder) F41.1 ; MDD (major depressive disorder) F32.9 ; Night terror F51.4 ; Essential hypertension I10 and Nicotine dependence, unspecified, uncomplicated F17.[address] [address] 10/15/2024 Emiliana Xie Opioid use disorder F11.99 ; Encounter for immunization Z23 and Nutritional counseling Z71.[address] [address] 11/08/2024 Neal Garcia Mood disorder F39 ; ROM (generalized anxiety disorder) F41.1 ; MDD (major depressive disorder) F32.9 ; Night terror F51.4 ; Essential hypertension I10 and Nicotine dependence, unspecified, uncomplicated F17.[address] [address] 11/15/2024 Emiliana Xie Opioid use disorder F11.[address] [address] 12/07/2024 Neal Garcia Mood disorder F39 ; ROM (generalized anxiety disorder) F41.1 ; MDD (major depressive disorder) F32.9 ; Essential hypertension I10 ; Nicotine dependence, unspecified, uncomplicated F17.200 ; Opioid use disorder F11.99 and Therapeutic drug monitoring Z51.[address] [address] 12/11/2024 Neal Garcia Mood disorder F39 ; ROM (generalized anxiety disorder) F41.1 ; MDD (major depressive disorder) F32.9 ; Night terror F51.4 ; Essential hypertension I10 ; Vitamin D deficiency E55.9 ; Nicotine dependence, unspecified, uncomplicated F17.200 ; Opioid use disorder F11.99 ; Elevated alkaline phosphatase level R74.8 and Therapeutic drug monitoring Z51.[address] [address] 12/13/2024 Emiliana Justinlufimaurilio Opioid use disorder F11.[address] [address] 01/15/2025 Neal Garcia Mood disorder F39 ; ROM (generalized anxiety disorder) F41.1 ; MDD (major depressive disorder) F32.9 ; Night terror F51.4 ; Essential hypertension I10 ; Vitamin D deficiency E55.9 ; Nicotine dependence, unspecified, uncomplicated F17.200 ; Opioid use disorder F11.99 ; Elevated alkaline phosphatase level R74.8 and Therapeutic drug monitoring Z51.[address] [address] 01/15/2025 Emiliana Justinlufimaurilio Opioid use disorder F11.99 and Over weight E66.[address] [address] 02/12/2025 Neal Garcia Mood disorder F39 ; ROM (generalized anxiety disorder) F41.1 ; MDD (major depressive disorder) F32.9 ; Night terror F51.4 ; Essential hypertension I10 ; Vitamin D deficiency E55.9 ; Nicotine dependence, unspecified, uncomplicated F17.200 ; Opioid use disorder F11.99 and Elevated alkaline phosphatase level R74.[address] [address] 06/05/2024 Regan Ely Contact with and (suspected) exposure to other communicable diseases Z20.[address] [address] 07/03/2024 Neal Garcia ROM (generalized anxiety disorder) F41.[address] [address] 07/06/2024 Neal Garcia MDD (major depressive disorder) F32.9 ; ROM (generalized anxiety disorder) F41.1 and Night terror F51.[address] [place] [address] 08/17/2024 Neal Garcia Mood disorder F39 [facility] [address] [place] [address] 08/23/2024 Neal Garcia [address] [address] 08/24/2024 Neal Garcia [address] [address] 08/24/2024 Neal Garcia [address] [address] 11/08/2024 Neal Garcia [facility] [address] [place] [address] 11/21/2024 Neal Garcia ROM (generalized anxiety disorder) F41.1 ; Mood disorder F39 ; MDD (major depressive disorder) F32.9 ; Essential hypertension I10 ; Nicotine dependence, unspecified, uncomplicated F17.200 ; Opioid use disorder F11.99 and Therapeutic drug monitoring Z51.81 [facility] [address] [place] [address] [place] [address] 11/28/2024 Neal Garcia [address] [place] [address] 12/11/2024 Neal Garcia [address] [id number] 12/11/2024 Neal Garcia [address] [address] 12/20/2024 Neal Garcia ROM (generalized anxiety disorder) F41.1 ; MDD (major depressive disorder) F32.9 ; Therapeutic drug monitoring Z51.81 ; Mood disorder F39 and Essential hypertension I10 [address] [place] [address] 12/25/2024 Neal Garcia [facility] [address] [place] [address] 01/04/2025 Neal Garcia Assessments Encounter Date Diagnosis (ICD Code) Assessment Notes Treatment Notes Treatment Clinical Notes Section Notes 03/30/2024 Overweight (BMI 25.0-29.9) (ICD-10 - E66.3) 03/30/2024 Opioid use disorder (ICD-10 - F11.99) 04/27/2024 Overweight (BMI 25.0-29.9) (ICD-10 - E66.3) 04/27/2024 Opioid use disorder (ICD-10 - F11.99) 05/04/2024 Nicotine dependence, unspecified, uncomplicated (ICD-10 - F17.200) 06/05/2024 Overweight (BMI 25.0-29.9) (ICD-10 - E66.3) 06/05/2024 Opioid use disorder (ICD-10 - F11.99) 06/05/2024 Contact with and (suspected) exposure to other communicable diseases (ICD-10 - Z20.89) Patient Educated with: Colon Cancer Screening Care Instructions.pdf (Colon Cancer Screening Care Instructions.pdf) Patient Educated with: Colonoscopy - Learning about.pdf (Colonoscopy - Learning about.pdf) Patient Educated with: HIV testing Care Instructions.pdf (HIV testing Care Instructions.pdf) 07/03/2024 ROM (generalized anxiety disorder) (ICD-10 - F41.1) 07/06/2024 Overweight (BMI 25.0-29.9) (ICD-10 - E66.3) 07/06/2024 Opioid use disorder (ICD-10 - F11.99) 07/06/2024 MDD (major depressive disorder) (ICD-10 - F32.9) 07/17/2024 Mood disorder (ICD-10 - F39) Duration (acute/chronic), stability (controlled/uncontrol led): Chronic, uncontrolled since patient ran out of medications 2 weeks ago, reportedly well controlled previously while on medications Current medications/efficacy: Yes, before patient ran out of medications 2 weeks ago Previous medication trials: Celexa, Duloxetine, Lexapro, Wellbutrin, Buspar Current/previous therapies: Not in therapy Examination as documented - see pertinent aspects of office visit documentation. Pertinent diagnostics: PATIENT WANTING TO ESTABLISH CARE WITH PCP AT [facility] - PATIENT TO CALL AND SCHEDULE APPOINTMENT Differential diagnoses: suspect possible bipolar II disorder given history and efficacy of given medication regimen RECOMMENDATIONS: INCREASE prozosin to 4mg nightly to assist with nightmares/night terrors - educated patient/guardian on adverse effects, risks and benefits, as well as alternative treatments RESTART other medications as prescribed - educated patient/guardian on adverse effects, risks and benefits, as well as alternative treatments Consume well balanced diet, preferably low in saturated fats (solid at room temperature, such as butter, margarine, Crisco, etc) and low in sodium (<2,000mg per day). Consume plenty of fruits/vegetables, healthy grains/whole grains, unsaturated/healthy fats (liquid at room temperature, such as olive oil, sunflower seed oil, canola, vegetable, etc.). Exercise regularly - Develop an exercise routine. 30 minutes of moderate exercise (walking at a brisk pace) 5 times per week is recommended. You should work hard enough to cause a sweat but still be able to talk with others while exercising. Exercise improves overall health - improves blood pressure and blood sugar, helps control weight, reduces stress, and improves mood. Practice stress reduction techniques, such as guided imagery, journaling, aromatherapy, acupuncture/acupressu re, deep breathing, etc. Practice healthy sleep hygiene - maintain regular routine, no caffeine after 1PM, no exercise 1-2 hours prior to bedtime, keep bedroom dark and cool, no TV or electronics while in bed. Consider melatonin as needed. Consider cognitive behavioral therapy for insomnia (CBT-I). Consider/Continue therapy. Consider/Continue substance cessation therapy as needed - contact office if desiring medication assisted therapy. Manage co-morbid conditions. Continue monitoring symptoms - report persistent or worsening/concerning symptoms to the office or go to the ER. For mental health CRISIS, please reach out to [phone] (National Suicide and Crisis Lifeline), 911, go to the emergency department, or contact the [facility] Crisis Unit/Team. Follow up as scheduled in 4 weeks or sooner if necessary. Follow up with PCP and/or other specialists as advised. NEXT STEP: Consider increasing prazosin again. Consider other medication adjustments pending symptomology after patient restarts previous medication regimen. 07/17/2024 ROM (generalized anxiety disorder) (ICD-10 - F41.1) See assessment and plan for mood disorder 08/09/2024 Overweight (BMI 25.0-29.9) (ICD-10 - E66.3) 08/09/2024 Opioid use disorder (ICD-10 - F11.99) 08/17/2024 Mood disorder (ICD-10 - F39) 08/23/2024 Mood disorder (ICD-10 - F39) Duration (acute/chronic), stability (controlled/uncontrol led): Chronic, uncontrolled since patient ran out of medications 2 weeks ago, reportedly well controlled previously while on medications Current medications/efficacy: Yes, before patient ran out of medications 2 weeks ago Previous medication trials: Celexa, Duloxetine, Lexapro, Wellbutrin, Buspar Current/previous therapies: Not in therapy Examination as documented - see pertinent aspects of office visit documentation. Pertinent diagnostics: PATIENT WANTING TO ESTABLISH CARE WITH PCP AT [facility] - PATIENT TO CALL AND SCHEDULE APPOINTMENT Differential diagnoses: suspect possible bipolar II disorder given history and efficacy of given medication regimen Provider and patient discussed need to optimize maintenance medications to manage anxiety/mood to decrease need for diazepam - patient verbalized understanding RECOMMENDATIONS: INCREASE prozosin as prescribed assist with nightmares/night terrors - educated patient/guardian on adverse effects, risks and benefits, as well as alternative treatments INCREASE paroxetine as prescribed - educated patient/guardian on adverse effects, risks and benefits, as well as alternative treatments INCREASE propranolol as prescribed - educated patient/guardian on adverse effects, risks and benefits, as well as alternative treatments CONTINUE other medications as prescribed - educated patient/guardian on adverse effects, risks and benefits, as well as alternative treatments Consume well balanced diet, preferably low in saturated fats (solid at room temperature, such as butter, margarine, Crisco, etc) and low in sodium (<2,000mg per day). Consume plenty of fruits/vegetables, healthy grains/whole grains, unsaturated/healthy fats (liquid at room temperature, such as olive oil, sunflower seed oil, canola, vegetable, etc.). Exercise regularly - Develop an exercise routine. 30 minutes of moderate exercise (walking at a brisk pace) 5 times per week is recommended. You should work hard enough to cause a sweat but still be able to talk with others while exercising. Exercise improves overall health - improves blood pressure and blood sugar, helps control weight, reduces stress, and improves mood. Practice stress reduction techniques, such as guided imagery, journaling, aromatherapy, acupuncture/acupressu re, deep breathing, etc. Practice healthy sleep hygiene - maintain regular routine, no caffeine after 1PM, no exercise 1-2 hours prior to bedtime, keep bedroom dark and cool, no TV or electronics while in bed. Consider melatonin as needed. Consider cognitive behavioral therapy for insomnia (CBT-I). Consider/Continue therapy. Consider/Continue substance cessation therapy as needed - contact office if desiring medication assisted therapy. Manage co-morbid conditions. Continue monitoring symptoms - report persistent or worsening/concerning symptoms to the office or go to the ER. For mental health CRISIS, please reach out to [phone] ([place] Suicide and Crisis Lifeline), 911, go to the emergency department, or contact the [facility] Crisis Unit/Team. Follow up as scheduled in 4 weeks or sooner if necessary. Follow up with PCP and/or other specialists as advised. NEXT STEP: Consider increasing prazosin again. Consider other medication adjustments pending symptomology after patient restarts previous medication regimen. TAPER diazepam when appropriate/as needed. 09/11/2024 Elevated blood pressure (ICD-10 - I10) Encouraged to f/u with PCP for further treatment. Discussed dangers of uncontrolled hypertension. 09/11/2024 Opioid use disorder (ICD-10 - F11.99) 09/13/2024 Mood disorder (ICD-10 - F39) Duration (acute/chronic), stability (controlled/uncontrol led): Chronic, improving with recent medication changes, still room for further improvement, see HPI Current medications/efficacy: Somewhat, room for improvement Previous medication trials: Celexa, Duloxetine, Lexapro, Wellbutrin, Buspar Current/previous therapies: Not in therapy Examination as documented - see pertinent aspects of office visit documentation. Pertinent diagnostics: LABS TO BE COLLECTED AT FOLLOW UP IN 4 WEEKS IN PERSON Differential diagnoses: suspect possible bipolar II disorder given history and efficacy of given medication regimen Provider and patient discussed need to optimize maintenance medications to manage anxiety/mood to decrease need for diazepam - patient verbalized understanding RECOMMENDATIONS: INCREASE prozosin as prescribed assist with nightmares/night terrors - educated patient/guardian on adverse effects, risks and benefits, as well as alternative treatments INCREASE olanzapine as prescribed - educated patient/guardian on adverse effects, risks and benefits, as well as alternative treatments INCREASE propranolol as prescribed - educated patient/guardian on adverse effects, risks and benefits, as well as alternative treatments CONTINUE other medications as prescribed - educated patient/guardian on adverse effects, risks and benefits, as well as alternative treatments Consume well balanced diet, preferably low in saturated fats (solid at room temperature, such as butter, margarine, Crisco, etc) and low in sodium (<2,000mg per day). Consume plenty of fruits/vegetables, healthy grains/whole grains, unsaturated/healthy fats (liquid at room temperature, such as olive oil, sunflower seed oil, canola, vegetable, etc.). Exercise regularly - Develop an exercise routine. 30 minutes of moderate exercise (walking at a brisk pace) 5 times per week is recommended. You should work hard enough to cause a sweat but still be able to talk with others while exercising. Exercise improves overall health - improves blood pressure and blood sugar, helps control weight, reduces stress, and improves mood. Practice stress reduction techniques, such as guided imagery, journaling, aromatherapy, acupuncture/acupressu re, deep breathing, etc. Practice healthy sleep hygiene - maintain regular routine, no caffeine after 1PM, no exercise 1-2 hours prior to bedtime, keep bedroom dark and cool, no TV or electronics while in bed. Consider melatonin as needed. Consider cognitive behavioral therapy for insomnia (CBT-I). Consider/Continue therapy. Consider/Continue substance cessation therapy as needed - contact office if desiring medication assisted therapy. Manage co-morbid conditions. Continue monitoring symptoms - report persistent or worsening/concerning symptoms to the office or go to the ER. For mental health CRISIS, please reach out to [phone] (National Suicide and Crisis Lifeline), 911, go to the emergency department, or contact the [facility] Crisis Unit/Team. Follow up as scheduled in 4 weeks IN PERSON or sooner if necessary. Follow up with PCP and/or other specialists as advised. NEXT STEP: Consider increasing prazosin again. Consider other medication adjustments pending symptomology after patient restarts previous medication regimen. TAPER diazepam when appropriate/as needed. 09/13/2024 ROM (generalized anxiety disorder) (ICD-10 - F41.1) See assessment and plan for mood disorder 10/12/2024 Mood disorder (ICD-10 - F39) Duration (acute/chronic), stability (controlled/uncontrol led): Chronic, no significant change with recent medication adjustments, still room for further improvement, see HPI Current medications/efficacy: Somewhat, room for improvement Previous medication trials: Celexa, Duloxetine, Lexapro, Wellbutrin, Buspar Current/previous therapies: Not currently or prevoiusly Examination as documented - see pertinent aspects of office visit documentation. Pertinent diagnostics: LABS TO BE COLLECTED AT FOLLOW UP IN 4 WEEKS IN PERSON Differential diagnoses: suspect possible bipolar II disorder given history and efficacy of given medication regimen Provider and patient discussed need to optimize maintenance medications to manage anxiety/mood to decrease need for diazepam - patient verbalized understanding RECOMMENDATIONS: INCREASE prazosin as prescribed assist with nightmares/night terrors - educated patient/guardian on adverse effects, risks and benefits, as well as alternative treatments DECREASE olanzapine as prescribed/discussed (due to no change in symptoms with recent increase, see HPI) - educated patient/guardian on adverse effects, risks and benefits, as well as alternative treatments INCREASE bupropion as prescribed - educated patient/guardian on adverse effects, risks and benefits, as well as alternative treatments CONTINUE other medications as prescribed - educated patient/guardian on adverse effects, risks and benefits, as well as alternative treatments Consume well balanced diet, preferably low in saturated fats (solid at room temperature, such as butter, margarine, Crisco, etc) and low in sodium (<2,000mg per day). Consume plenty of fruits/vegetables, healthy grains/whole grains, unsaturated/healthy fats (liquid at room temperature, such as olive oil, sunflower seed oil, canola, vegetable, etc.). Exercise regularly - Develop an exercise routine. 30 minutes of moderate exercise (walking at a brisk pace) 5 times per week is recommended. You should work hard enough to cause a sweat but still be able to talk with others while exercising. Exercise improves overall health - improves blood pressure and blood sugar, helps control weight, reduces stress, and improves mood. Practice stress reduction techniques, such as guided imagery, journaling, aromatherapy, acupuncture/acupressu re, deep breathing, etc. Practice healthy sleep hygiene - maintain regular routine, no caffeine after 1PM, no exercise 1-2 hours prior to bedtime, keep bedroom dark and cool, no TV or electronics while in bed. Consider melatonin as needed. Consider cognitive behavioral therapy for insomnia (CBT-I). Consider/Continue therapy. Consider/Continue substance cessation therapy as needed - contact office if desiring medication assisted therapy. Manage co-morbid conditions. Continue monitoring symptoms - report persistent or worsening/concerning symptoms to the office or go to the ER. For mental health CRISIS, please reach out to [phone] ([place] Suicide and Crisis Lifeline), 911, go to the emergency department, or contact the [facility] Crisis Unit/Team. Follow up as scheduled in 4 weeks IN PERSON or sooner if necessary. Follow up with PCP and/or other specialists as advised. NEXT STEP: Consider increasing prazosin again. Consider other medication adjustments pending symptomology after patient restarts previous medication regimen. TAPER diazepam when appropriate/as needed. 10/15/2024 Encounter for immunization (ICD-10 - Z23) Ordered per standing orders for administering influenza vaccine to adults. 10/15/2024 Opioid use disorder (ICD-10 - F11.99) 11/08/2024 Mood disorder (ICD-10 - F39) Duration (acute/chronic), stability (controlled/uncontrol led): Chronic, some improvement with recent medication adjustments, still room for further improvement, see HPI Current medications/efficacy: Somewhat, room for improvement Previous medication trials: Celexa, Duloxetine, Lexapro, Wellbutrin, Buspar Current/previous therapies: Not currently or prevoiusly Examination as documented - see pertinent aspects of office visit documentation. Pertinent diagnostics: LABS TO BE COLLECTED AT FOLLOW VISIT - NEED TO COORDINATE IN PERSON VISIT OR HAVE PATIENT SCHEDULE LAB VISIT Differential diagnoses: suspect possible bipolar II disorder given history and efficacy of given medication regimen Provider will have office staff reach out to patient regarding scheduling lab visit for following up in person in 4 weeks for lab collection. DISCUSSION DURING PREVIOUS VISIT: Provider and patient discussed need to optimize maintenance medications to manage anxiety/mood to decrease need for diazepam - patient verbalized understanding RECOMMENDATIONS: INCREASE prazosin as prescribed assist with PTSD - educated patient/guardian on adverse effects, risks and benefits, as well as alternative treatments INCREASE bupropion as prescribed to assist with depression - educated patient/guardian on adverse effects, risks and benefits, as well as alternative treatments INCREASE propranolol as prescribed to assist with anxiety/panic - educated patient/guardian on adverse effects, risks and benefits, as well as alternative treatments CONTINUE other medications as prescribed - educated patient/guardian on adverse effects, risks and benefits, as well as alternative treatments Consume well balanced diet, preferably low in saturated fats (solid at room temperature, such as butter, margarine, Crisco, etc) and low in sodium (<2,000mg per day). Consume plenty of fruits/vegetables, healthy grains/whole grains, unsaturated/healthy fats (liquid at room temperature, such as olive oil, sunflower seed oil, canola, vegetable, etc.). Exercise regularly - Develop an exercise routine. 30 minutes of moderate exercise (walking at a brisk pace) 5 times per week is recommended. You should work hard enough to cause a sweat but still be able to talk with others while exercising. Exercise improves overall health - improves blood pressure and blood sugar, helps control weight, reduces stress, and improves mood. Practice stress reduction techniques, such as guided imagery, journaling, aromatherapy, acupuncture/acupressu re, deep breathing, etc. Practice healthy sleep hygiene - maintain regular routine, no caffeine after 1PM, no exercise 1-2 hours prior to bedtime, keep bedroom dark and cool, no TV or electronics while in bed. Consider melatonin as needed. Consider cognitive behavioral therapy for insomnia (CBT-I). Consider/Continue therapy. Consider/Continue substance cessation therapy as needed - contact office if desiring medication assisted therapy. Manage co-morbid conditions. Continue monitoring symptoms - report persistent or worsening/concerning symptoms to the office or go to the ER. For mental health CRISIS, please reach out to [phone] (National Suicide and Crisis Lifeline), 911, go to the emergency department, or contact the [facility] Crisis Unit/Team. Follow up as scheduled in 4 weeks or sooner if necessary. Follow up with PCP and/or other specialists as advised. NEXT STEP: Consider increasing prazosin again. Consider other medication adjustments pending symptomology after patient restarts previous medication regimen. TAPER diazepam when appropriate/as needed. 11/21/2024 Mood disorder (ICD-10 - F39) 11/21/2024 ROM (generalized anxiety disorder) (ICD-10 - F41.1) 11/15/2024 Opioid use disorder (ICD-10 - F11.99) 12/07/2024 Mood disorder (ICD-10 - F39) 12/11/2024 Mood disorder (ICD-10 - F39) Duration (acute/chronic), stability (controlled/uncontrol led): Chronic, some improvement with recent medication adjustments, still room for further improvement, see HPI Current medications/efficacy: Somewhat, room for improvement Previous medication trials: Celexa, Duloxetine, Lexapro, Wellbutrin, Buspar Current/previous therapies: Not currently or prevoiusly Examination as documented - see pertinent aspects of office visit documentation. Pertinent diagnostics: RECENT LAB RESULTS REVIEWED WITH PATIENT, SEE CHART - NEED TO REPEAT A FEW LABS, PATIENT AGREEABLE TO COLLECTION, WILL ORDER LABS TODAY AND HAVE STAFF SCHEDULE LAB VISIT Differential diagnoses: suspect possible bipolar II disorder given history and efficacy of given medication regimen DISCUSSION DURING PREVIOUS VISIT: Provider and patient discussed need to optimize maintenance medications to manage anxiety/mood to decrease need for diazepam - patient verbalized understanding RECOMMENDATIONS: ADJUST prazosin as prescribed/discussed assist with PTSD - educated patient/guardian on adverse effects, risks and benefits, as well as alternative treatments INCREASE paroxetine as prescribed to assist with anxiety/depression - educated patient/guardian on adverse effects, risks and benefits, as well as alternative treatments CONTINUE other medications as prescribed - educated patient/guardian on adverse effects, risks and benefits, as well as alternative treatments Consume well balanced diet, preferably low in saturated fats (solid at room temperature, such as butter, margarine, Crisco, etc) and low in sodium (<2,000mg per day). Consume plenty of fruits/vegetables, healthy grains/whole grains, unsaturated/healthy fats (liquid at room temperature, such as olive oil, sunflower seed oil, canola, vegetable, etc.). Exercise regularly - Develop an exercise routine. 30 minutes of moderate exercise (walking at a brisk pace) 5 times per week is recommended. You should work hard enough to cause a sweat but still be able to talk with others while exercising. Exercise improves overall health - improves blood pressure and blood sugar, helps control weight, reduces stress, and improves mood. Practice stress reduction techniques, such as guided imagery, journaling, aromatherapy, acupuncture/acupressu re, deep breathing, etc. Practice healthy sleep hygiene - maintain regular routine, no caffeine after 1PM, no exercise 1-2 hours prior to bedtime, keep bedroom dark and cool, no TV or electronics while in bed. Consider melatonin as needed. Consider cognitive behavioral therapy for insomnia (CBT-I). Consider/Continue therapy. Consider/Continue substance cessation therapy as needed - contact office if desiring medication assisted therapy. Manage co-morbid conditions. Continue monitoring symptoms - report persistent or worsening/concerning symptoms to the office or go to the ER. For mental health CRISIS, please reach out to [phone] ([place] [facility]icide and Crisis Lifeline), 911, go to the emergency department, or contact the [facility] Crisis Unit/Team. Follow up as scheduled in 4 weeks or sooner if necessary. Follow up with PCP and/or other specialists as advised. NEXT STEP: Consider increasing prazosin again. Consider alternative medications adjustments as needed. TAPER diazepam when appropriate/as needed. 12/20/2024 ROM (generalized anxiety disorder) (ICD-10 - F41.1) 12/20/2024 MDD (major depressive disorder) (ICD-10 - F32.9) 12/21/2024 ROM (generalized anxiety disorder) (ICD-10 - F41.1) 12/13/2024 Opioid use disorder (ICD-10 - F11.99) 01/15/2025 Mood disorder (ICD-10 - F39) Duration (acute/chronic), stability (controlled/uncontrol led): Chronic, some improvement with recent medication adjustments, still room for further improvement, patient not wanting to make medication adjustments at this time, see HPI Current medications/efficacy: Somewhat, room for improvement Previous medication trials: Celexa, Duloxetine, Lexapro, Wellbutrin, Buspar (ineffective), gabapentin (weight gain), guanfacine (GI upset), clonidine Current/previous therapies: Not currently or prevoiusly Examination as documented - see pertinent aspects of office visit documentation. Pertinent diagnostics: LABS COMPLETED IN 12/2024, SEE CHART Differential diagnoses: suspect possible bipolar II disorder given history and efficacy of given medication regimen Provider and patient discussed need to optimize maintenance medications to manage anxiety/mood to decrease need for diazepam - patient verbalized understanding but doesn't wish to make medication adjustments at this time. RECOMMENDATIONS: CONTINUE medications as prescribed - educated patient/guardian on adverse effects, risks and benefits, as well as alternative treatments Consume well balanced diet, preferably low in saturated fats (solid at room temperature, such as butter, margarine, Crisco, etc) and low in sodium (<2,000mg per day). Consume plenty of fruits/vegetables, healthy grains/whole grains, unsaturated/healthy fats (liquid at room temperature, such as olive oil, sunflower seed oil, canola, vegetable, etc.). Exercise regularly - Develop an exercise routine. 30 minutes of moderate exercise (walking at a brisk pace) 5 times per week is recommended. You should work hard enough to cause a sweat but still be able to talk with others while exercising. Exercise improves overall health - improves blood pressure and blood sugar, helps control weight, reduces stress, and improves mood. Practice stress reduction techniques, such as guided imagery, journaling, aromatherapy, acupuncture/acupressu re, deep breathing, etc. Practice healthy sleep hygiene - maintain regular routine, no caffeine after 1PM, no exercise 1-2 hours prior to bedtime, keep bedroom dark and cool, no TV or electronics while in bed. Consider melatonin as needed. Consider cognitive behavioral therapy for insomnia (CBT-I). Consider/Continue therapy. Consider/Continue substance cessation therapy as needed - contact office if desiring medication assisted therapy. Manage co-morbid conditions. Continue monitoring symptoms - report persistent or worsening/concerning symptoms to the office or go to the ER. For mental health CRISIS, please reach out to [phone] (National Suicide and Crisis Lifeline), 911, go to the emergency department, or contact the [facility] Crisis Unit/Team. Follow up as scheduled in 4 weeks or sooner if necessary. Follow up with PCP and/or other specialists as advised. NEXT STEP: Consider medications adjustments as needed. TAPER diazepam when appropriate/as needed. 01/15/2025 Opioid use disorder (ICD-10 - F11.99) 02/12/2025 Mood disorder (ICD-10 - F39) Duration (acute/chronic), stability (controlled/uncontrol led): Chronic, subjectively stable on current medication regimen despite kidney stones and uncontrolled pain, patient not wanting to make medication adjustments at this time, see HPI Current medications/efficacy: Somewhat, room for improvement Previous medication trials: Celexa, Duloxetine, Lexapro, Wellbutrin, Buspar (ineffective), gabapentin (weight gain), guanfacine (GI upset), clonidine Current/previous therapies: Not currently or prevoiusly Examination as documented - see pertinent aspects of office visit documentation. Pertinent diagnostics: LABS COMPLETED IN 12/2024, SEE CHART Differential diagnoses: suspect possible bipolar II disorder given history and efficacy of given medication regimen Provider and patient discussed need to optimize maintenance medications to manage anxiety/mood to decrease need for diazepam - patient verbalized understanding but doesn't wish to make medication adjustments at this time. RECOMMENDATIONS: CONTINUE medications as prescribed - educated patient/guardian on adverse effects, risks and benefits, as well as alternative treatments Consume well balanced diet, preferably low in saturated fats (solid at room temperature, such as butter, margarine, Crisco, etc) and low in sodium (<2,000mg per day). Consume plenty of fruits/vegetables, healthy grains/whole grains, unsaturated/healthy fats (liquid at room temperature, such as olive oil, sunflower seed oil, canola, vegetable, etc.). Exercise regularly - Develop an exercise routine. 30 minutes of moderate exercise (walking at a brisk pace) 5 times per week is recommended. You should work hard enough to cause a sweat but still be able to talk with others while exercising. Exercise improves overall health - improves blood pressure and blood sugar, helps control weight, reduces stress, and improves mood. Practice stress reduction techniques, such as guided imagery, journaling, aromatherapy, acupuncture/acupressu re, deep breathing, etc. Practice healthy sleep hygiene - maintain regular routine, no caffeine after 1PM, no exercise 1-2 hours prior to bedtime, keep bedroom dark and cool, no TV or electronics while in bed. Consider melatonin as needed. Consider cognitive behavioral therapy for insomnia (CBT-I). Consider/Continue therapy. Consider/Continue substance cessation therapy as needed - contact office if desiring medication assisted therapy. Manage co-morbid conditions. Continue monitoring symptoms - report persistent or worsening/concerning symptoms to the office or go to the ER. For mental health CRISIS, please reach out to [phone] (National Suicide and Crisis Lifeline), 911, go to the emergency department, or contact the [facility] Crisis Unit/Team. Follow up as scheduled in 4 weeks or sooner if necessary. Follow up with PCP and/or other specialists as advised. NEXT STEP: Consider medications adjustments as needed. TAPER diazepam when appropriate/as needed. 01/15/2025 Over weight (ICD-10 - E66.3) 02/12/2025 ROM (generalized anxiety disorder) (ICD-10 - F41.1) See assessment and plan for mood disorder 01/15/2025 ROM (generalized anxiety disorder) (ICD-10 - F41.1) See assessment and plan for mood disorder 12/21/2024 MDD (major depressive disorder) (ICD-10 - F32.9) 12/20/2024 Therapeutic drug monitoring (ICD-10 - Z51.81) 12/07/2024 ROM (generalized anxiety disorder) (ICD-10 - F41.1) 12/11/2024 ROM (generalized anxiety disorder) (ICD-10 - F41.1) See assessment and plan for mood disorder 11/21/2024 MDD (major depressive disorder) (ICD-10 - F32.9) 11/08/2024 ROM (generalized anxiety disorder) (ICD-10 - F41.1) See assessment and plan for mood disorder 10/15/2024 Nutritional counseling (ICD-10 - Z71.3) 10/12/2024 ROM (generalized anxiety disorder) (ICD-10 - F41.1) See assessment and plan for mood disorder 06/05/2024 Nicotine dependence, unspecified, uncomplicated (ICD-10 - F17.200) 09/13/2024 MDD (major depressive disorder) (ICD-10 - F32.9) See assessment and plan for mood disorder 09/11/2024 Overweight (BMI 25.0-29.9) (ICD-10 - E66.3) 08/23/2024 ROM (generalized anxiety disorder) (ICD-10 - F41.1) See assessment and plan for mood disorder 08/09/2024 Nutritional counseling (ICD-10 - Z71.3) 07/17/2024 MDD (major depressive disorder) (ICD-10 - F32.9) See assessment and plan for mood disorder 07/06/2024 ROM (generalized anxiety disorder) (ICD-10 - F41.1) 07/06/2024 Tobacco use disorder (ICD-10 - F17.200) 05/04/2024 ROM (generalized anxiety disorder) (ICD-10 - F41.1) Ilpmp reviewed. Pt reports that he is doing well on meds. Denies side effects at this time. Pt reports that he takes the Propranolol daily for anxiety. Encouraged pt not to take it at the same time as the Diazepam or Prazosin. B/P was normal in office at his last appt. Wellbutrin was added at last visit and pt reports that he is doing well on meds prior to running out 04/27/2024 Tobacco use disorder (ICD-10 - F17.200) 03/30/2024 Tobacco use disorder (ICD-10 - F17.200) 05/04/2024 MDD (major depressive disorder) (ICD-10 - F32.9) Pt denies SI/Hi at this time. \Will refill AM Olanzapine 5mg and PM Olanzapine 10mg. Pt denies side effects to meds at this time. Encouraged pt to call for therapy appt. Pt denies SI/HI at this time. Pt was referred to therapy at past appt, but pt did not get scheduled. 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) See assessment and plan for mood disorder 10/12/2024 MDD (major depressive disorder) (ICD-10 - F32.9) See assessment and plan for mood disorder 11/08/2024 MDD (major depressive disorder) (ICD-10 - F32.9) See assessment and plan for mood disorder 11/21/2024 Essential hypertension (ICD-10 - I10) 12/11/2024 MDD (major depressive disorder) (ICD-10 - F32.9) See assessment and plan for mood disorder 12/07/2024 MDD (major depressive disorder) (ICD-10 - F32.9) 12/21/2024 Therapeutic drug monitoring (ICD-10 - Z51.81) 01/15/2025 MDD (major depressive disorder) (ICD-10 - F32.9) See assessment and plan for mood disorder 12/20/2024 Mood disorder (ICD-10 - F39) 02/12/2025 MDD (major depressive disorder) (ICD-10 - F32.9) See assessment and plan for mood disorder 02/12/2025 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) See assessment and plan for mood disorder 01/15/2025 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) See assessment and plan for mood disorder 12/20/2024 Essential hypertension (ICD-10 - I10) 12/21/2024 Mood disorder (ICD-10 - F39) 12/07/2024 Essential hypertension (ICD-10 - I10) 11/08/2024 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) See assessment and plan for mood disorder 12/11/2024 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) See assessment and plan for mood disorder 11/21/2024 Nicotine dependence, unspecified, uncomplicated (ICD-10 - F17.200) 10/12/2024 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 Pertinent diagnostics: LABS TO BE COLLECTED AT FOLLOW UP IN 4 WEEKS IN PERSON Differential diagnoses: RECOMMENDATIONS: START lisinopril as prescribed - educated patient/guardian on adverse effects, risks and benefits, as well as alternative treatments INCREASE propranolol as prescribed - educated patient/guardian on adverse effects, risks and benefits, as well as alternative treatments Continue/modify other medications as prescribed - educated patient/guardian on adverse effects, risks and benefits, as well as alternative treatments Consume well balanced diet, preferably low in saturated fats (solid at room temperature, such as butter, margarine, Crisco, etc) and low in sodium (<2,000mg per day). Consume plenty of fruits/vegetables, healthy grains/whole grains, unsaturated/healthy fats (liquid at room temperature, such as olive oil, sunflower seed oil, canola, vegetable, etc.). Exercise regularly - Develop an exercise routine. 30 minutes of moderate exercise (walking at a brisk pace) 5 times per week is recommended. You should work hard enough to cause a sweat but still be able to talk with others while exercising. Exercise improves overall health - improves blood pressure and blood sugar, helps control weight, reduces stress, and improves mood. Practice stress reduction techniques, such as guided imagery, journaling, aromatherapy, acupuncture/acupressu re, deep breathing, etc. Practice healthy sleep hygiene - maintain regular routine, no caffeine after 1PM, no exercise 1-2 hours prior to bedtime, keep bedroom dark and cool, no TV or electronics while in bed. Consider melatonin as needed. Consider cognitive behavioral therapy for insomnia (CBT-I). Consider/Continue therapy. Consider/Continue substance cessation therapy as needed - contact office if desiring medication assisted therapy. Manage co-morbid conditions. Continue monitoring symptoms - report persistent or worsening/concerning symptoms to the office or go to the ER. For mental health CRISIS, please reach out to [phone] ([place] Suicide and Crisis Lifeline), 911, go to the emergency department, or contact the [facility] Crisis Unit/Team. Follow up as scheduled in 4 weeks IN PERSON or sooner if necessary. Follow up with PCP and/or other specialists as advised. NEXT STEP: Blood pressure check at follow up. LABS at follow up. Consider incresing lisinopril pending response/tolerability . Consider increasing propranolol as needed. Consider adding other medications as needed. 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 Manage co-morbid conditions. Continue monitoring symptoms - report persistent or worsening/concerning symptoms to the office or go to the ER. For mental health CRISIS, please reach out to [phone] ([place] Suicide and Crisis Lifeline), 911, go to the emergency department, or contact the [facility] Crisis Unit/Team. Follow up as scheduled or sooner if necessary. Follow up with PCP and/or other specialists as advised. NEXT STEP: Consider medication therapy as needed. 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 Pt reports that night terrors have improved since dose was increased at last visit. 05/04/2024 Opioid use disorder (ICD-10 - F11.99) 08/23/2024 Nicotine dependence, unspecified, uncomplicated (ICD-10 - F17.200) Duration (acute/chronic), stability (controlled/uncontrol led): Chronic, not currently on medications for this specific diagnosis, verbalized no intention to quit at this time Current medications/efficacy: N/A Previous medication trials: N/A RECOMMENDATIONS: Consider/Continue substance cessation therapy as needed - contact office if desiring medication assisted therapy. Manage co-morbid conditions. Continue monitoring symptoms - report persistent or worsening/concerning symptoms to the office or go to the ER. For mental health CRISIS, please reach out to [phone] (National Suicide and Crisis Lifeline), 911, go to the emergency department, or contact the [facility] Crisis Unit/Team. Follow up as scheduled or sooner if necessary. Follow up with PCP and/or other specialists as advised. NEXT STEP: Consider medication therapy as needed. 09/13/2024 Nicotine dependence, unspecified, uncomplicated (ICD-10 - F17.200) Duration (acute/chronic), stability (controlled/uncontrol led): Chronic, not currently on medications for this specific diagnosis, verbalized no intention to quit at this time Current medications/efficacy: N/A Previous medication trials: N/A RECOMMENDATIONS: Consider/Continue substance cessation therapy as needed - contact office if desiring medication assisted therapy. Manage co-morbid conditions. Continue monitoring symptoms - report persistent or worsening/concerning symptoms to the office or go to the ER. For mental health CRISIS, please reach out to [phone] (National Suicide and Crisis Lifeline), 911, go to the emergency department, or contact the [facility] Crisis Unit/Team. Follow up as scheduled or sooner if necessary. Follow up with PCP and/or other specialists as advised. NEXT STEP: Consider medication therapy as needed. 10/12/2024 Essential hypertension (ICD-10 - I10) Duration (acute/chronic), stability (controlled/uncontrol led): Chronic, patient not currently following up with PCP for management, taking propranollol and lisinopril as prescribed by this provider - reports blood pressure was recently measured, was told it was good, unsure of actual measurement Current medications/efficacy: Blood pressure recently reportedly good Previous medication trials: Unknown Current/previous therapies: N/A Examination as documented - see pertinent aspects of office visit documentation. Pertinent diagnostics: LABS TO BE COLLECTED AT FOLLOW UP IN 4 WEEKS IN PERSON Differential diagnoses: RECOMMENDATIONS: CONTINUE lisinopril as prescribed - educated patient/guardian on adverse effects, risks and benefits, as well as alternative treatments CONTINUE propranolol as prescribed - educated patient/guardian on adverse effects, risks and benefits, as well as alternative treatments Continue/modify other medications as prescribed - educated patient/guardian on adverse effects, risks and benefits, as well as alternative treatments Consume well balanced diet, preferably low in saturated fats (solid at room temperature, such as butter, margarine, Crisco, etc) and low in sodium (<2,000mg per day). Consume plenty of fruits/vegetables, healthy grains/whole grains, unsaturated/healthy fats (liquid at room temperature, such as olive oil, sunflower seed oil, canola, vegetable, etc.). Exercise regularly - Develop an exercise routine. 30 minutes of moderate exercise (walking at a brisk pace) 5 times per week is recommended. You should work hard enough to cause a sweat but still be able to talk with others while exercising. Exercise improves overall health - improves blood pressure and blood sugar, helps control weight, reduces stress, and improves mood. Practice stress reduction techniques, such as guided imagery, journaling, aromatherapy, acupuncture/acupressu re, deep breathing, etc. Practice healthy sleep hygiene - maintain regular routine, no caffeine after 1PM, no exercise 1-2 hours prior to bedtime, keep bedroom dark and cool, no TV or electronics while in bed. Consider melatonin as needed. Consider cognitive behavioral therapy for insomnia (CBT-I). Consider/Continue therapy. Consider/Continue substance cessation therapy as needed - contact office if desiring medication assisted therapy. Manage co-morbid conditions. Continue monitoring symptoms - report persistent or worsening/concerning symptoms to the office or go to the ER. For mental health CRISIS, please reach out to [phone] (National Suicide and Crisis Lifeline), 911, go to the emergency department, or contact the [facility] Crisis Unit/Team. Follow up as scheduled in 4 weeks IN PERSON or sooner if necessary. Follow up with PCP and/or other specialists as advised. NEXT STEP: Blood pressure check at follow up. LABS at follow up. Consider incresing lisinopril pending response/tolerability . Consider increasing propranolol as needed. Consider adding other medications as needed. 11/21/2024 Opioid use disorder (ICD-10 - F11.99) 12/07/2024 Nicotine dependence, unspecified, uncomplicated (ICD-10 - F17.200) 11/08/2024 Essential hypertension (ICD-10 - I10) Duration (acute/chronic), stability (controlled/uncontrol led): Chronic, patient not currently following up with PCP for management, taking propranollol and lisinopril as prescribed by this provider - reports blood pressure was recently measured, was told it was good, unsure of actual measurement Current medications/efficacy: Blood pressure recently reportedly good Previous medication trials: Unknown Current/previous therapies: N/A Examination as documented - see pertinent aspects of office visit documentation. Pertinent diagnostics: LABS TO BE COLLECTED AT FOLLOW VISIT - NEED TO COORDINATE IN PERSON VISIT OR HAVE PATIENT SCHEDULE LAB VISIT Differential diagnoses: Provider will have office staff reach out to patient regarding scheduling lab visit for following up in person in 4 weeks for lab collection. RECOMMENDATIONS: CONTINUE lisinopril as prescribed - educated patient/guardian on adverse effects, risks and benefits, as well as alternative treatments INCREASE propranolol as prescribed - educated patient/guardian on adverse effects, risks and benefits, as well as alternative treatments Continue/modify other medications as prescribed - educated patient/guardian on adverse effects, risks and benefits, as well as alternative treatments Consume well balanced diet, preferably low in saturated fats (solid at room temperature, such as butter, margarine, Crisco, etc) and low in sodium (<2,000mg per day). Consume plenty of fruits/vegetables, healthy grains/whole grains, unsaturated/healthy fats (liquid at room temperature, such as olive oil, sunflower seed oil, canola, vegetable, etc.). Exercise regularly - Develop an exercise routine. 30 minutes of moderate exercise (walking at a brisk pace) 5 times per week is recommended. You should work hard enough to cause a sweat but still be able to talk with others while exercising. Exercise improves overall health - improves blood pressure and blood sugar, helps control weight, reduces stress, and improves mood. Practice stress reduction techniques, such as guided imagery, journaling, aromatherapy, acupuncture/acupressu re, deep breathing, etc. Practice healthy sleep hygiene - maintain regular routine, no caffeine after 1PM, no exercise 1-2 hours prior to bedtime, keep bedroom dark and cool, no TV or electronics while in bed. Consider melatonin as needed. Consider cognitive behavioral therapy for insomnia (CBT-I). Consider/Continue therapy. Consider/Continue substance cessation therapy as needed - contact office if desiring medication assisted therapy. Manage co-morbid conditions. Continue monitoring symptoms - report persistent or worsening/concerning symptoms to the office or go to the ER. For mental health CRISIS, please reach out to [phone] ([place] Suicide and Crisis Lifeline), 911, go to the emergency department, or contact the [facility] Crisis Unit/Team. Follow up as scheduled in 4 weeks IN PERSON or sooner if necessary. Follow up with PCP and/or other specialists as advised. NEXT STEP: Blood pressure check at follow up. LABS at follow up. Consider incresing lisinopril pending response/tolerability . Consider increasing propranolol as needed. Consider adding other medications as needed. 12/11/2024 Essential hypertension (ICD-10 - I10) Duration (acute/chronic), stability (controlled/uncontrol led): Chronic, patient not currently following up with PCP for management, taking propranollol and lisinopril as prescribed by this provider - reports blood pressure was recently measured, well controlled based on recent blood pressure reading documented in chart, see chart Current medications/efficacy: Yes Previous medication trials: Unknown Current/previous therapies: N/A Examination as documented - see pertinent aspects of office visit documentation. Pertinent diagnostics: RECENT LAB RESULTS REVIEWED WITH PATIENT, SEE CHART - NEED TO REPEAT A FEW LABS, PATIENT AGREEABLE TO COLLECTION, WILL ORDER LABS TODAY AND HAVE STAFF SCHEDULE LAB VISIT Differential diagnoses: RECOMMENDATIONS: CONTINUE lisinopril as prescribed - educated patient/guardian on adverse effects, risks and benefits, as well as alternative treatments CONTINUE propranolol as prescribed - educated patient/guardian on adverse effects, risks and benefits, as well as alternative treatments Continue/modify other medications as prescribed - educated patient/guardian on adverse effects, risks and benefits, as well as alternative treatments Consume well balanced diet, preferably low in saturated fats (solid at room temperature, such as butter, margarine, Crisco, etc) and low in sodium (<2,000mg per day). Consume plenty of fruits/vegetables, healthy grains/whole grains, unsaturated/healthy fats (liquid at room temperature, such as olive oil, sunflower seed oil, canola, vegetable, etc.). Exercise regularly - Develop an exercise routine. 30 minutes of moderate exercise (walking at a brisk pace) 5 times per week is recommended. You should work hard enough to cause a sweat but still be able to talk with others while exercising. Exercise improves overall health - improves blood pressure and blood sugar, helps control weight, reduces stress, and improves mood. Practice stress reduction techniques, such as guided imagery, journaling, aromatherapy, acupuncture/acupressu re, deep breathing, etc. Practice healthy sleep hygiene - maintain regular routine, no caffeine after 1PM, no exercise 1-2 hours prior to bedtime, keep bedroom dark and cool, no TV or electronics while in bed. Consider melatonin as needed. Consider cognitive behavioral therapy for insomnia (CBT-I). Consider/Continue therapy. Consider/Continue substance cessation therapy as needed - contact office if desiring medication assisted therapy. Manage co-morbid conditions. Continue monitoring symptoms - report persistent or worsening/concerning symptoms to the office or go to the ER. For mental health CRISIS, please reach out to [phone] (National Suicide and Crisis Lifeline), 911, go to the emergency department, or contact the [facility] Crisis Unit/Team. Follow up as scheduled in 4 weeks or sooner if necessary. Follow up with PCP and/or other specialists as advised. NEXT STEP: Consider incresing lisinopril as needed. Consider increasing propranolol as needed. Consider adding other medications as needed. 12/21/2024 Essential hypertension (ICD-10 - I10) 01/15/2025 Essential hypertension (ICD-10 - I10) Duration (acute/chronic), stability (controlled/uncontrol led): Chronic, patient not currently following up with PCP for management, taking propranollol and lisinopril as prescribed by this provider - reports blood pressure was recently measured, well controlled based on recent blood pressure reading documented in chart, see chart Current medications/efficacy: Yes Previous medication trials: Unknown Current/previous therapies: N/A Examination as documented - see pertinent aspects of office visit documentation. Pertinent diagnostics: LABS COMPLETED IN 12/2024, SEE CHART Differential diagnoses: RECOMMENDATIONS: CONTINUE lisinopril as prescribed - educated patient/guardian on adverse effects, risks and benefits, as well as alternative treatments CONTINUE propranolol as prescribed - educated patient/guardian on adverse effects, risks and benefits, as well as alternative treatments Continue/modify other medications as prescribed - educated patient/guardian on adverse effects, risks and benefits, as well as alternative treatments Consume well balanced diet, preferably low in saturated fats (solid at room temperature, such as butter, margarine, Crisco, etc) and low in sodium (<2,000mg per day). Consume plenty of fruits/vegetables, healthy grains/whole grains, unsaturated/healthy fats (liquid at room temperature, such as olive oil, sunflower seed oil, canola, vegetable, etc.). Exercise regularly - Develop an exercise routine. 30 minutes of moderate exercise (walking at a brisk pace) 5 times per week is recommended. You should work hard enough to cause a sweat but still be able to talk with others while exercising. Exercise improves overall health - improves blood pressure and blood sugar, helps control weight, reduces stress, and improves mood. Practice stress reduction techniques, such as guided imagery, journaling, aromatherapy, acupuncture/acupressu re, deep breathing, etc. Practice healthy sleep hygiene - maintain regular routine, no caffeine after 1PM, no exercise 1-2 hours prior to bedtime, keep bedroom dark and cool, no TV or electronics while in bed. Consider melatonin as needed. Consider cognitive behavioral therapy for insomnia (CBT-I). Consider/Continue therapy. Consider/Continue substance cessation therapy as needed - contact office if desiring medication assisted therapy. Manage co-morbid conditions. Continue monitoring symptoms - report persistent or worsening/concerning symptoms to the office or go to the ER. For mental health CRISIS, please reach out to [phone] ([place] Suicide and Crisis Lifeline), 911, go to the emergency department, or contact the [facility] Crisis Unit/Team. Follow up as scheduled in 4 weeks or sooner if necessary. Follow up with PCP and/or other specialists as advised. NEXT STEP: Consider incresing lisinopril as needed. Consider increasing propranolol as needed. Consider adding other medications as needed. 02/12/2025 Essential hypertension (ICD-10 - I10) Duration (acute/chronic), stability (controlled/uncontrol led): Chronic, patient not currently following up with PCP for management, taking propranollol and lisinopril as prescribed by this provider - reports blood pressure was recently measured, well controlled based on recent blood pressure reading documented in chart, see chart Current medications/efficacy: Yes Previous medication trials: Unknown Current/previous therapies: N/A Examination as documented - see pertinent aspects of office visit documentation. Pertinent diagnostics: LABS COMPLETED IN 12/2024, SEE CHART Differential diagnoses: RECOMMENDATIONS: CONTINUE lisinopril as prescribed - educated patient/guardian on adverse effects, risks and benefits, as well as alternative treatments CONTINUE propranolol as prescribed - educated patient/guardian on adverse effects, risks and benefits, as well as alternative treatments Continue/modify other medications as prescribed - educated patient/guardian on adverse effects, risks and benefits, as well as alternative treatments Consume well balanced diet, preferably low in saturated fats (solid at room temperature, such as butter, margarine, Crisco, etc) and low in sodium (<2,000mg per day). Consume plenty of fruits/vegetables, healthy grains/whole grains, unsaturated/healthy fats (liquid at room temperature, such as olive oil, sunflower seed oil, canola, vegetable, etc.). Exercise regularly - Develop an exercise routine. 30 minutes of moderate exercise (walking at a brisk pace) 5 times per week is recommended. You should work hard enough to cause a sweat but still be able to talk with others while exercising. Exercise improves overall health - improves blood pressure and blood sugar, helps control weight, reduces stress, and improves mood. Practice stress reduction techniques, such as guided imagery, journaling, aromatherapy, acupuncture/acupressu re, deep breathing, etc. Practice healthy sleep hygiene - maintain regular routine, no caffeine after 1PM, no exercise 1-2 hours prior to bedtime, keep bedroom dark and cool, no TV or electronics while in bed. Consider melatonin as needed. Consider cognitive behavioral therapy for insomnia (CBT-I). Consider/Continue therapy. Consider/Continue substance cessation therapy as needed - contact office if desiring medication assisted therapy. Manage co-morbid conditions. Continue monitoring symptoms - report persistent or worsening/concerning symptoms to the office or go to the ER. For mental health CRISIS, please reach out to [phone] ([employer] Suicide and Crisis Lifeline), 911, go to the emergency department, or contact the [facility] Crisis Unit/Team. Follow up as scheduled in 4 weeks or sooner if necessary. Follow up with PCP and/or other specialists as advised. NEXT STEP: Consider incresing lisinopril as needed. Consider increasing propranolol as needed. Consider adding other medications as needed. 02/12/2025 Vitamin D deficiency (ICD-10 - E55.9) Duration (acute/chronic), stability (controlled/uncontrol led): Noted on recent labs, taking supplementation as recently prescribed, tolerating well without complication or complaint Current medications/efficacy: Unknown until labs are repeated Previous medication trials: vitamin D supplementation Current/previous therapies: N/A Examination as documented - see pertinent aspects of office visit documentation. Pertinent diagnostics: LABS COMPLETED IN 12/2024, SEE CHART Differential diagnoses: RECOMMENDATIONS: CONTINUE vitamin D supplementation as prescribed - educated patient/guardian on adverse effects, risks and benefits, as well as alternative treatments Continue/modify other medications as prescribed - educated patient/guardian on adverse effects, risks and benefits, as well as alternative treatments Consume well balanced diet, preferably low in saturated fats (solid at room temperature, such as butter, margarine, Crisco, etc) and low in sodium (<2,000mg per day). Consume plenty of fruits/vegetables, healthy grains/whole grains, unsaturated/healthy fats (liquid at room temperature, such as olive oil, sunflower seed oil, canola, vegetable, etc.). Exercise regularly - Develop an exercise routine. 30 minutes of moderate exercise (walking at a brisk pace) 5 times per week is recommended. You should work hard enough to cause a sweat but still be able to talk with others while exercising. Exercise improves overall health - improves blood pressure and blood sugar, helps control weight, reduces stress, and improves mood. Practice stress reduction techniques, such as guided imagery, journaling, aromatherapy, acupuncture/acupressu re, deep breathing, etc. Practice healthy sleep hygiene - maintain regular routine, no caffeine after 1PM, no exercise 1-2 hours prior to bedtime, keep bedroom dark and cool, no TV or electronics while in bed. Consider melatonin as needed. Consider cognitive behavioral therapy for insomnia (CBT-I). Consider/Continue therapy. Consider/Continue substance cessation therapy as needed - contact office if desiring medication assisted therapy. Manage co-morbid conditions. Continue monitoring symptoms - report persistent or worsening/concerning symptoms to the office or go to the ER. For mental health CRISIS, please reach out to [phone] ([place] Suicide and Crisis Lif[facility]), 911, go to the emergency department, or contact the [facility] Crisis Unit/Team. Follow up as scheduled or sooner if necessary. Follow up with PCP and/or other specialists as advised. NEXT STEP: Repeat vitamin D level 2-3 months following most recent result 01/15/2025 Vitamin D deficiency (ICD-10 - E55.9) Duration (acute/chronic), stability (controlled/uncontrol led): Noted on recent labs, taking supplementation as recently prescribed, tolerating well without complication or complaint Current medications/efficacy: Unknown until labs are repeated Previous medication trials: vitamin D supplementation Current/previous therapies: N/A Examination as documented - see pertinent aspects of office visit documentation. Pertinent diagnostics: LABS COMPLETED IN 12/2024, SEE CHART Differential diagnoses: RECOMMENDATIONS: CONTINUE vitamin D supplementation as prescribed - educated patient/guardian on adverse effects, risks and benefits, as well as alternative treatments Continue/modify other medications as prescribed - educated patient/guardian on adverse effects, risks and benefits, as well as alternative treatments Consume well balanced diet, preferably low in saturated fats (solid at room temperature, such as butter, margarine, Crisco, etc) and low in sodium (<2,000mg per day). Consume plenty of fruits/vegetables, healthy grains/whole grains, unsaturated/healthy fats (liquid at room temperature, such as olive oil, sunflower seed oil, canola, vegetable, etc.). Exercise regularly - Develop an exercise routine. 30 minutes of moderate exercise (walking at a brisk pace) 5 times per week is recommended. You should work hard enough to cause a sweat but still be able to talk with others while exercising. Exercise improves overall health - improves blood pressure and blood sugar, helps control weight, reduces stress, and improves mood. Practice stress reduction techniques, such as guided imagery, journaling, aromatherapy, acupuncture/acupressu re, deep breathing, etc. Practice healthy sleep hygiene - maintain regular routine, no caffeine after 1PM, no exercise 1-2 hours prior to bedtime, keep bedroom dark and cool, no TV or electronics while in bed. Consider melatonin as needed. Consider cognitive behavioral therapy for insomnia (CBT-I). Consider/Continue therapy. Consider/Continue substance cessation therapy as needed - contact office if desiring medication assisted therapy. Manage co-morbid conditions. Continue monitoring symptoms - report persistent or worsening/concerning symptoms to the office or go to the ER. For mental health CRISIS, please reach out to [phone] ([place] Suicide and Crisis Lif[facility]), 911, go to the emergency department, or contact the [facility] Crisis Unit/Team. Follow up as scheduled or sooner if necessary. Follow up with PCP and/or other specialists as advised. NEXT STEP: Repeat vitamin D level 2-3 months following most recent result 12/07/2024 Opioid use disorder (ICD-10 - F11.99) 12/11/2024 Vitamin D deficiency (ICD-10 - E55.9) Duration (acute/chronic), stability (controlled/uncontrol led): Noted on recent labs, not currently taking supplementation Current medications/efficacy: N/A Previous medication trials: N/A Current/previous therapies: N/A Examination as documented - see pertinent aspects of office visit documentation. Pertinent diagnostics: RECENT LAB RESULTS REVIEWED WITH PATIENT, SEE CHART - NEED TO REPEAT A FEW LABS, PATIENT AGREEABLE TO COLLECTION, WILL ORDER LABS TODAY AND HAVE STAFF SCHEDULE LAB VISIT Differential diagnoses: RECOMMENDATIONS: START vitamin D supplementation as prescribed - educated patient/guardian on adverse effects, risks and benefits, as well as alternative treatments Continue/modify other medications as prescribed - educated patient/guardian on adverse effects, risks and benefits, as well as alternative treatments Consume well balanced diet, preferably low in saturated fats (solid at room temperature, such as butter, margarine, Crisco, etc) and low in sodium (<2,000mg per day). Consume plenty of fruits/vegetables, healthy grains/whole grains, unsaturated/healthy fats (liquid at room temperature, such as olive oil, sunflower seed oil, canola, vegetable, etc.). Exercise regularly - Develop an exercise routine. 30 minutes of moderate exercise (walking at a brisk pace) 5 times per week is recommended. You should work hard enough to cause a sweat but still be able to talk with others while exercising. Exercise improves overall health - improves blood pressure and blood sugar, helps control weight, reduces stress, and improves mood. Practice stress reduction techniques, such as guided imagery, journaling, aromatherapy, acupuncture/acupressu re, deep breathing, etc. Practice healthy sleep hygiene - maintain regular routine, no caffeine after 1PM, no exercise 1-2 hours prior to bedtime, keep bedroom dark and cool, no TV or electronics while in bed. Consider melatonin as needed. Consider cognitive behavioral therapy for insomnia (CBT-I). Consider/Continue therapy. Consider/Continue substance cessation therapy as needed - contact office if desiring medication assisted therapy. Manage co-morbid conditions. Continue monitoring symptoms - report persistent or worsening/concerning symptoms to the office or go to the ER. For mental health CRISIS, please reach out to [phone] ([place] [facility]icide [facility] Crisis [facility]), 911, go to the emergency department, or contact the [facility] Crisis Unit/Team. Follow up as scheduled or sooner if necessary. Follow up with PCP and/or other specialists as advised. NEXT STEP: Repeat vitamin D level 2-3 months following most recent result 11/08/2024 Nicotine dependence, unspecified, uncomplicated (ICD-10 - F17.200) Duration (acute/chronic), stability (controlled/uncontrol led): Chronic, not currently on medications for this specific diagnosis, verbalized no intention to quit at this time Current medications/efficacy: N/A Previous medication trials: N/A RECOMMENDATIONS: Consider/Continue substance cessation therapy as needed - contact office if desiring medication assisted therapy. Manage co-morbid conditions. Continue monitoring symptoms - report persistent or worsening/concerning symptoms to the office or go to the ER. For mental health CRISIS, please reach out to [phone] ([place] [facility]icide [facility] Crisis [facility]), 911, go to the emergency department, or contact the [facility] Crisis Unit/Team. Follow up as scheduled or sooner if necessary. Follow up with PCP and/or other specialists as advised. NEXT STEP: Consider medication therapy as needed. 11/21/2024 Therapeutic drug monitoring (ICD-10 - Z51.81) 10/12/2024 Nicotine dependence, unspecified, uncomplicated (ICD-10 - F17.200) Duration (acute/chronic), stability (controlled/uncontrol led): Chronic, not currently on medications for this specific diagnosis, verbalized no intention to quit at this time Current medications/efficacy: N/A Previous medication trials: N/A RECOMMENDATIONS: Consider/Continue substance cessation therapy as needed - contact office if desiring medication assisted therapy. Manage co-morbid conditions. Continue monitoring symptoms - report persistent or worsening/concerning symptoms to the office or go to the ER. For mental health CRISIS, please reach out to [phone] ([place] [facility]icide [facility] Crisis [facility]), 911, go to the emergency department, or contact the [facility] Crisis Unit/Team. Follow up as scheduled or sooner if necessary. Follow up with PCP and/or other specialists as advised. NEXT STEP: Consider medication therapy as needed. 12/11/2024 Nicotine dependence, unspecified, uncomplicated (ICD-10 - F17.200) Duration (acute/chronic), stability (controlled/uncontrol led): Chronic, not currently on medications for this specific diagnosis, verbalized no intention to quit at this time Current medications/efficacy: N/A Previous medication trials: N/A RECOMMENDATIONS: Consider/Continue substance cessation therapy as needed - contact office if desiring medication assisted therapy. Manage co-morbid conditions. Continue monitoring symptoms - report persistent or worsening/concerning symptoms to the office or go to the ER. For mental health CRISIS, please reach out to [phone] ([place] [facility]), 911, go to the emergency department, or contact the [facility] Crisis Unit/Team. Follow up as scheduled or sooner if necessary. Follow up with PCP and/or other specialists as advised. NEXT STEP: Consider medication therapy as needed. 12/07/2024 Therapeutic drug monitoring (ICD-10 - Z51.81) 01/15/2025 Nicotine dependence, unspecified, uncomplicated (ICD-10 - F17.200) Duration (acute/chronic), stability (controlled/uncontrol led): Chronic, not currently on medications for this specific diagnosis, verbalized no intention to quit at this time Current medications/efficacy: N/A Previous medication trials: N/A RECOMMENDATIONS: Consider/Continue substance cessation therapy as needed - contact office if desiring medication assisted therapy. Manage co-morbid conditions. Continue monitoring symptoms - report persistent or worsening/concerning symptoms to the office or go to the ER. For mental health CRISIS, please reach out to [phone] ([place] [facility]), 911, go to the emergency department, or contact the [facility] Crisis Unit/Team. Follow up as scheduled or sooner if necessary. Follow up with PCP and/or other specialists as advised. NEXT STEP: Consider medication therapy as needed. 02/12/2025 Nicotine dependence, unspecified, uncomplicated (ICD-10 - F17.200) Duration (acute/chronic), stability (controlled/uncontrol led): Chronic, not currently on medications for this specific diagnosis, verbalized no intention to quit at this time Current medications/efficacy: N/A Previous medication trials: N/A RECOMMENDATIONS: Consider/Continue substance cessation therapy as needed - contact office if desiring medication assisted therapy. Manage co-morbid conditions. Continue monitoring symptoms - report persistent or worsening/concerning symptoms to the office or go to the ER. For mental health CRISIS, please reach out to [phone] ([place] [facility] Crisis [facility]), 911, go to the emergency department, or contact the [facility] Crisis Unit/Team. Follow up as scheduled or sooner if necessary. Follow up with PCP and/or other specialists as advised. NEXT STEP: Consider medication therapy as needed. 01/15/2025 Opioid use disorder (ICD-10 - F11.99) Following up with [facility] clinic for this despite patient having previously denied other current/previou substance use, see HPI 02/12/2025 Opioid use disorder (ICD-10 - F11.99) Following up with [facility] clinic for this despite patient having previously denied other current/previou substance use, see HPI 12/11/2024 Opioid use disorder (ICD-10 - F11.99) Following up with [facility] clinic for this despite patient having previously denied other current/previou substance use, see HPI 12/11/2024 Elevated alkaline phosphatase level (ICD-10 - R74.8) Noted on recent labs, patient agreeable to repeating CMP to assess trend/resolution - patient also agreeable to estabishing care with a PCP for continued management/recommenda tions 02/12/2025 Elevated alkaline phosphatase level (ICD-10 - R74.8) Noted on recent labs, recent repeat labs indicate downward trend - will plan to repeat labs - patient also agreeable to estabishing care with a PCP for continued management/recommenda tions 01/15/2025 Elevated alkaline phosphatase level (ICD-10 - R74.8) Noted on recent labs, recent repeat labs indicate downward trend - will plan to repeat labs - patient also agreeable to estabishing care with a PCP for continued management/recommenda tions 01/15/2025 Therapeutic drug monitoring (ICD-10 - Z51.81) 12/11/2024 Therapeutic drug monitoring (ICD-10 - Z51.81) 03/30/2024 Other Client agrees to take medication as prescribed. Discussed medication side effects, adverse effects, risks, benefits, as well as interactions. Encouraged non-use of opioids. Has naloxone. Recommended participation in recovery groups/counseling services. May contact office with questions or concerns. 03/30/2024 Other Provided case management services to address social determinants of health needs and reduce barriers to health care services. 04/27/2024 Other Client agrees to take medication as prescribed. Discussed medication side effects, adverse effects, risks, benefits, as well as interactions. Encouraged non-use of opioids. Has naloxone. Recommended participation in recovery groups/counseling services. Agrees to contact office with questions or concerns. 04/27/2024 Other Provided case management services to address social determinants of health needs and reduce barriers to health care services. 05/04/2024 Other Discussed treat ment planDiscussed sleep hygiene and caffeine intakeReturn to clinic 8 weeksObtain lab work at next visit Encouraged counselingDiscussed treatment plan; patient is agreeable and accepting of treatment plan. Patient denies further questions or concerns at this time. The Patient/Guardian asked appropriate questions, appeared to understand the answers, and decided to accept the treatment and continue being followed.The Patient/Guardian is aware of the need to contact the office or return for an earlier appointment if any problems or concerns arise. May also contact the 24-hour crisis hotline (R), refer to the closest emergency room or call 911 if new symptoms arise of existing symptoms worsen; the Patient/Guardian is aware that this would apply to symptoms such as: suicidal ideation, homicidal ideation, high risk behaviors, manic symptoms, psychotic symptoms, physical symptoms, or any other symptoms that may be dangerous to self or others.Benzodiazepine s are not recommended for long-term use due to potent and dangerous side effects that include increased drowsiness, memory impairment, increased irritability, mood changes, and worsening of PTSD symptoms. Benzodiazepines increase respiratory depression which can aggravate conditions such as sleep apnea and COPD leading to possible . They should also never be combined with alcohol, pain medications (especially opioids), or street drugs because this can lead to overdose and possible . 06/05/2024 Other Client agrees to take medication as prescribed. Discussed medication side effects, adverse effects, risks, benefits, as well as interactions. Encouraged non-use of opioids and other illicit substances. Has naloxone. Understand that discontinuing buprenorphine increases the risk of overdose upon return to illicit opioid use. Know that that use of alcohol or benzodiazepines with buprenorphine increases the risk of overdose and . Education provided about safe storage of medications. Encourage participation in recovery groups/counseling services. Patient understands that all treating providers/physicians should be informed of buprenorphine use as part of a Medication Assisted Recovery program. Contact office with questions or concerns. 07/06/2024 Other Patient agrees to take medication as prescribed. Discussed medication side effects, adverse effects, risks, benefits, as well as interactions. Encouraged non-use of opioids. Has naloxone. Recommended participation in recovery groups and/or counseling services. May contact office with questions or concerns. 09/11/2024 Other Patient agrees to take medication as prescribed. Discussed medication side effects, adverse effects, risks, benefits, as well as interactions. Encouraged non-use of opioids. Has naloxone. Recommended participation in recovery groups and/or counseling services. May contact office with questions or concerns. 10/15/2024 Other Patient agrees to take medication as prescribed. Discussed medication side effects, adverse effects, risks, benefits, as well as interactions. Encouraged non-use of opioids and other illicit substances. Has naloxone. Discontinuing buprenorphine increases the risk of overdose upon return to illicit opioid use. Use of alcohol or benzodiazepines with buprenorphine increases the risk of overdose and . Education provided about safe storage of medications. Encouraged participation in recovery groups/counseling services. Contact office with questions or concerns. 11/15/2024 Other Patient agrees to take medication as prescribed. Discussed medication side effects, adverse effects, risks, benefits, as well as interactions. Encouraged non-use of opioids and other illicit substances. Has naloxone. Discontinuing buprenorphine increases the risk of overdose upon return to illicit opioid use. Use of alcohol or benzodiazepines with buprenorphine increases the risk of overdose and . Education provided about safe storage of medications. Encouraged participation in recovery groups/counseling services. Contact office with questions or concerns. 12/13/2024 Other Patient agrees to take medication as prescribed. Discussed medication side effects, adverse effects, risks, benefits, as well as interactions. Encouraged non-use of opioids and other illicit substances. Has naloxone. Discontinuing buprenorphine increases the risk of overdose upon return to illicit opioid use. Use of alcohol or benzodiazepines with buprenorphine increases the risk of overdose and . Education provided about safe storage of medications. Encouraged participation in recovery groups/counseling services. Contact office with questions or concerns. Patient may self-administer their own medications or may self-administer their own oral medications per [place] Protocol. 01/15/2025 Other BP elevated during appointment. Patient states he forgot to take his BP meds this morning and will take them when he gets home. Patient agrees to take medication as prescribed. Discussed medication side effects, adverse effects, risks, benefits, as well as interactions. Encouraged non-use of opioids and other illicit substances. Has naloxone. Discontinuing buprenorphine increases the risk of overdose upon return to illicit opioid use. Use of alcohol or benzodiazepines with buprenorphine increases the risk of overdose and . Education provided about safe storage of medications. Encouraged participation in recovery groups/counseling services. Contact office with questions or concerns. Patient may self-administer their own medications or may self-administer their own oral medications per [place] Protocol. Plan Of Treatment No Information Insurance Providers Payer Name Payer Address Payer Phone Subscriber Number Group Number Insured Name Patient Relationship to Insured Coverage Start Date Coverage End Date [facility] Attn Claims Department [address] [place] [phone] [id number] Jose Smart Self - patient is the insured 0 [employer] Attn Claims Department [address] [place] [phone] [id number] Berry Jose Self - patient is the insured 0 [employer] Attn Claims Department [address] [place] [phone] [id number] Berry Jose Self - patient is the insured 0 Medical (General) History Medical History History ICD Code Opioid use disorder HTN Surgical History Surgery Date(Month/Year) kidney stones 2019 Hospitalization History Reason Date(Month/Year)
--- OUTSIDE RECORDS SUMMARY | 2025-03-04 16:42 | XMS_ITS | Clinical Summary ---
Author Organization [facility] Address [address], [address] [address] Phone Care Team Providers Care Day Care Home Provider Name Role Phone Provider, None Primary Care Provider Unavailabl e Allergies No known active allergies Medications cyclobenzaprine (FLEXERIL) 10 MG Tablet TAKE 1 TABLET BY MOUTH 3 TIMES DAILY NEEDED FOR MUSCLE SPASMS. 90 Tab 3 9 Active lisinopril (PRINIVIL, ZESTRIL) 10 MG Tablet TAKE 1 TAB BY MOUTH DAILY. 30 Tab 5 9 Active tamsulosin (FLOMAX) 0.4 MG Capsule Take 1 Cap by mouth daily. 10 Cap 9 Active ondansetron (ZOFRAN) 4 MG Tablet Take 1-2 Tabs by mouth every 8 hours as needed for Nausea - 1st line. 10 Tab 9 Active famotidine (PEPCID) 20 MG Tablet Take 1 Tab by mouth 2 times daily as needed for Heartburn. 30 Tab 9 Active naproxen (NAPROSYN) 500 MG Tablet Take 1 Tab by mouth 2 times daily as needed for Moderate or more severe pain. 20 Tab 0 Active HYDROcodone-acet aminophen (NORCO) 5-325 MG Tablet Take 1 Tab by mouth every 6 hours as needed for Moderate or more severe pain. 10 Tab 0 Active oxyCODONE-acetam inophen (PERCOCET) 5-325 MG Tablet Take 1 Tab by mouth every 6 hours as needed for Moderate or more severe pain. 15 Tab 0 Active cyclobenzaprine (FLEXERIL) 10 MG Tablet Take 1 Tablet by mouth 3 times daily as needed (pain) for up to 14 days. 30 Tablet 5 03/04/20 25 Active naproxen (NAPROSYN) 500 MG Tablet Take 1 Tablet by mouth 2 times daily as needed for Moderate or more severe pain. 20 Tablet 5 Active ondansetron (ZOFRAN-ODT) 4 MG TABLET DISPERSIBLE Take 1 Tablet by mouth every 8 hours as needed for Nausea - 1st line. 20 Tablet 5 Active cefdinir (OMNICEF) 300 MG Capsule Take 1 Capsule by mouth 2 times daily for 6 days. 12 Capsule 5 02/25/20 25 Active Problems Problem Noted Date Diagnosed Date Chronic narcotic use 11/10/2018 Hypertension 08/03/2018 Left ureteral stone 11/02/2017 Anxiety Depression Carpal tunnel syndrome Overview (08/17/2016): bilateral hands Chronic back pain Knee dislocation Overview (08/17/2016): right knee Encounters Date Type Department Care Team Description 02/18/2025 12:30 PM CDT - 02/18/2025 3:55 PM CDT Emergency [facility] [address] [place] [address] Trey Angel, Renal colic Discharge Disposition: Discharged to home or Selfcare 02/18/2025 Travel 02/11/2025 Telephone [facility] [address] [place] [address] Herman Roberts MD from Last 3 Months Family History Medical History Relation Name Comments [...] Sign Reading Time Taken Comments Blood Pressure 167/104 02/18/2025 3:45 PM CDT Pulse 86 02/18/2025 3:45 PM CDT Temperature 37.1 C (98.7 F) 02/18/2025 12:24 PM CDT Respiratory Rate 16 02/18/2025 3:00 PM CDT Oxygen Saturation 93% 02/18/2025 3:45 PM CDT Inhaled Oxygen Concentration - - Weight 81.6 kg (180 lb) 02/18/2025 12:24 PM CDT Height 177.8 cm (5' 10) 02/18/2025 12:24 PM CDT Body Mass Index 25.83 02/18/2025 12:24 PM CDT Plan of Treatment Upcoming Encounters Date Type Department Care Team (Late st Contact Info) Description 03/13/2025 8:45 AM CDT Office Visit [facility] [address] [place] [address] Ervin Rao MD [address] [address] Health Maintenance Due Date Last Done Comments Hepatitis C Virus (HCV) Screening 1967 TdaP Immunization 1967 Hepatitis B Immunization (1 of 3 - 19+ 3-dose series) 1986 Colonoscopy 01/07/2012 Colorectal Cancer Screening 01/07/2012 Cologuard 2017 Immunochemical Fecal Occult Blood 2017 Pneumococcal Immunization (5 0+ years) (1 of 1 - PCV) 2017 Zoster Immunization (1 of 2) 2017 PSA Discussion 2022 SARS-COV-2 Immunization (3 - 2023- season) 2024 03/11/2021, 02/11/2021 Respiratory Syncytial Virus (RSV) Immunization (Adult) (1 - 1-dose 75+ series) 2042 Influenza Immunization Completed 10/15/2024 Human Papillomavirus (HPV) Immunization Aged Out No longer eligible b ased on patient's age to complete this topic Meningococcal Immunization (ACWY) Aged Out No longer eligible b ased on patient's age to complete this topic Rotavirus Immunization Aged Out No lo nger eligible based on patient's age to complete this topic Medical Devices Implanted Type Area Multiple Launch Rocket System Crewmember Device Identifier Shelf Expiration Date Model / Serial / Lot Stent Ureteral 6fr 2.1fr 26cm 2 Pigtail Curve 2 Durometer Taper Tip Loprfl Graduated Polaris Ultra - [id number] Implanted:Qty : 1 on 04/19/2019 by Pamela Zamudio MD at [facility] IMPLANT Right: Ureter I Just Shared 01/21/2022 [id number] / [id number] / [id number] Bard Inlay Ureteral Stent Implanted:Qty : 1 on 11/02/2017 by Pamela Zamudio MD at [facility] Left: Ureter [employer] 06/08/2021 [id number] / [id number] Procedures Procedure Name Priority Date/Time Associated Diagnosis Comments XR ABDOMEN KUB FLAT PLATE STAT 02/18/2025 1:58 PM CDT CBC WITH AUTO DIFFERENTIAL STAT 02/18/2025 1:12 PM CDT COMPLETE BLOOD COUNT (CBC) WITH DIFF STAT 02/18/2025 1:12 PM CDT CMP (COMPREHENSIVE METABOLIC PANEL) STAT 02/18/2025 1:12 PM CDT URINALYSIS REFLEX IF INDICATED BY ABNORMAL RESULTS STAT 02/18/2025 12:34 PM CDT CULTURE, URINE STAT 02/18/2025 12:34 PM CDT from Last 3 Months Results * XR ABDOMEN KUB FLAT PLATE (02/18/2025 1:58 PM CDT) Anatomical Region Laterality Modality Abdomen N/A Digital Radiogra phy 02/18/2025 3:46 PM CDT Impressions 02/18/2025 3:48 PM CDT IMPRESSION: Bilateral nephroureteral stents. Bilateral renal calculi. Narrative 02/18/2025 3:48 PM CDT EXAM DESCRIPTION: XR ABDOMEN KUB FLAT PLATE REASON FOR STUDY: pt c/o testicle pain after having stent placed 3 weeks ago for kidney sones. TECHNIQUE: Single AP radiographic view of the abdomen. COMPARISON: CT abdomen and pelvis 03/13/2020 FINDINGS: There is a nonobstructive bowel gas pattern. Evaluation for free intraperitoneal air is suboptimally performed on supine radiograph. There are bilateral nephroureteral stents. There are bilateral renal calculi measuring up to 12 mm on the left and 2 cm on the right. THIS IS AN ELECTRONICALLY VERIFIED FINAL REPORT 02/18/2025 3:46 PM - Electronically signed by Isauro Glez M.D., JR: Report ID: [id number] Reading Location: [id number] Procedure Note Isauro Glez MD - 02/18/2025 EXAM DESCRIPTION: XR ABDOMEN KUB FLAT PLATE REASON FOR STUDY: pt c/o testicle pain after having stent placed 3 weeks ago for kidney sones. TECHNIQUE: Single AP radiographic view of the abdomen. COMPARISON: CT abdomen and pelvis 03/13/2020 FINDINGS: There is a nonobstructive bowel gas pattern. Evaluation for free intraperitoneal air is suboptimally performed on supine radiograph. There are bilateral nephroureteral stents. There are bilateral renal calculi measuring up to 12 mm on the left and 2 cm on the right. THIS IS AN ELECTRONICALLY VERIFIED FINAL REPORT 02/18/2025 3:46 PM - Electronically signed by Isauro Glez M.D. JR: Report ID: [id number] Reading Location: [id number] IMPRESSION: Bilateral nephroureteral stents. Bilateral renal calculi. us Trey Angel DO IMG DIAGNOSTIC ORDERABL ES Final Result * (ABNORMAL) CBC with Auto Differential (02/18/2025 1:12 PM CDT) [facility] WBC 15.82(H) 4.00 - 12.00 10(3)/mcL 02/18/2025 2:02 PM CDT [facility] RBC 4.70 4.40 - 5.80 10(6)/mcL 02/18/2025 2:02 PM [facility] HEMOGLOBIN (HGB) 13.7 13.0 - 16.5 g/dL 02/18/2025 2:02 PM [facility] HEMATOCRIT (HCT) 42.8 38.0 - 50.0 % 02/18/2025 2:02 PM [facility] MCV 91.1 82.0 - 96.0 fL 02/18/2025 2:02 PM [facility] MCH 29.1 26.0 - 32.0 pg 02/18/2025 2:02 PM [facility] MCHC 32.0 31.0 - 36.0 g/dL 02/18/2025 2:02 PM [facility] PLATELET COUNT 364 140 - 440 10(3)/[facility] 02/18/2025 2:02 PM [facility] RDW 14.0 11.8 - 15.5 % 02/18/2025 2:02 PM [facility] MPV 10.9 8.0 - 12.6 fL 02/18/2025 2:02 PM [facility] NEUTROPHILS 83.5(H) 40.0 - 68.0 % 02/18/2025 2:02 PM [facility] LYMPHOCYTES 13.1(L) 19.0 - 49.0 % 02/18/2025 2:02 PM [facility] MONOCYTES 2.5(L) 3.0 - 13.0 % 02/18/2025 2:02 PM [facility] EOSINOPHILS 0.1 0.0 - 8.0 % 02/18/2025 2:02 PM [facility] BASOPHILS 0.8 0.0 - 1.0 % 02/18/2025 2:02 PM CDT [facility] ABSOLUTE NEUTROPHILS 13.22(H) 1.40 - 5.30 10(3)/[facility] 02/18/2025 2:02 PM CDT [facility] ABSOLUTE LYMPHOCYTES 2.07 0.90 - 3.30 10(3)/[facility] 02/18/2025 2:02 PM CDT [facility] ABSOLUTE MONOCYTES 0.39 0.10 - 0.90 10(3)/[facility] 02/18/2025 2:02 PM CDT [facility] ABSOLUTE EOSINOPHIL 0.01 0.00 - 0.50 10(3)/[facility] 02/18/2025 2:02 PM CDT [facility] ABSOLUTE BASOPHILS 0.13(H) 0.00 - 0.10 10(3)/[facility] 02/18/2025 2:02 PM CDT [facility] NRBC PER 100 WBC 0 02/19/20 25 2:02 PM CDT [facility] Blood Venipuncture / Unknown 02/18/2025 1:12 PM CDT 02/18/2025 1:58 PM CDT us rTey Angel DO HEMATOLOGY ORDERABLES F inal Result [facility] [address] [place] [address] * (ABNORMAL) CMP (Comprehensive Metabolic Panel) (02/18/2025 1:12 PM CDT) SODIUM 144 136 - 145 mmol/L 02/18/2025 2:23 PM CDT [facility] POTASSIUM 4.6 3.5 - 5.1 mmol/L 02/18/2025 2:23 PM CDT [facility] Comment: Specimen is hemolyzed. In vitro hemolysis could affect results. Clinical correlation advised. CHLORIDE 113(H) 98 - 107 mmol/L 02/18/2025 2:23 PM CDT [facility] CO2, VENOUS 19(L) 22 - 30 mmol/L 02/18/2025 2:23 PM CDT [facility] ANION GAP 16.6 <18.0 mmol/L 02/18/2025 2:23 PM CDT [facility] GLUCOSE 117(H) 70 - 99 mg/dL 02/18/2025 2:23 PM CDT [facility] BUN 18 8 - 26 mg/dL 02/18/2025 2:23 PM CDT [facility] CREATININE, BLOOD 1.07 0.70 - 1.30 mg/dL 02/18/2025 2:23 PM CDT [facility] BUN/CREATININE RATIO 17 12 - 20 ratio 02/18/2025 2:23 PM T [facility] TOTAL PROTEIN 7.6 6.0 - 8.0 g/dL 02/18/2025 2:23 PM T [facility] Comment: Specimen is hemolyzed. In vitro hemolysis could affect results. Clinical correlation advised. ALBUMIN 4.0 3.5 - 5.0 g/dL 02/18/2025 2:23 PM CDT [facility] A/G RATIO 1.1 1.0 - 2.2 02/18/2025 2:23 PM CDT [facility] CALCIUM 9.0 8.7 - 10.5 mg/dL 02/18/2025 2:23 PM CDT [facility] T BILI 0.3 0.2 - 1.2 mg/dL 02/18/2025 2:23 PM CDT [facility] SGOT (AST) 30 <43 U/L 02/18/2025 2:23 PM CDT [facility] Comment: Specimen is hemolyzed. In vitro hemolysis could affect results. Clinical correlation advised. SGPT (ALT) 12 <56 U/L 02/18/2025 2:23 PM CDT [facility] ALKALINE PHOSPHATASE 105 40 - 150 U/L 02/18/2025 2:23 PM CDT [facility] GFR, ESTIMATED >60 >=60 02/18/2025 2:23 PM CDT [facility] Comment: Creatinine Clearance is the preferred criteria for selecting drug dose adjustments in renally impaired patients. The GFR is provided as additional pertinent clinical information. GFR is reported in mL/min/1.73 sq m. Calculation based on the Chronic Kidney Disease Epidemiology Collaboration (CKD- EPI) equation refit without adjustment for race. GFR, EST. >60 >=60 025 2:23 PM CDT [facility] GFR, EST. NONAFRICAN >60 >=60 02/18/2025 2:23 PM CDT [facility] Blood Venipuncture / Unknown 02/18/2025 1:12 PM CDT 02/18/2025 1:57 PM CDT us Trey Angel DO CHEMISTRY ORDERABLES Fi nal Result [facility] [address] [place] [address] * (ABNORMAL) URINALYSIS REFLEX IF INDICATED BY ABNORMAL RESULTS (02/18/2025 12:34 PM CDT) SPECIFIC GRAVITY 1.015 1.003 - 1.030 02/18/2025 1:15 PM CDT [facility] URINE PH 6.5 5.0 - 9.0 02/18/2025 1:15 PM CDT [facility] WBC ESTERASE 500 /uL(A) Negative 02/18/2025 1:15 PM CDT [facility] NITRITE Negative Negative 02/18/2025 1:15 PM CDT [facility] PROTEIN, RANDOM URINE 500 mg/dL(A) Negative 02/18/2025 1:15 PM CDT [facility] URINE GLUCOSE, QUAL 50 mg/dL(A) Negative 02/18/2025 1:15 PM CDT [facility] URINE KETONES 50 mg/dL(A) Negative 02/18/2025 1:15 PM CDT [facility] UROBILINOGEN Normal Normal mg/dL 02/18/2025 1:15 PM CDT [facility] URINE BLOOD 250 /uL(A) Negative nydia/ul 02/18/2025 1:15 PM CDT [facility] URINALYSIS COLOR Red 02/18/2025 1:15 PM CDT [facility] URINALYSIS CLARITY Bloody 02/18/2025 1:15 PM CDT [facility] WBC (Urine) 21-50(A) Negative, 0-5 /hpf 02/18/2025 1:15 PM CDT [facility] URINE RBC'S Packed(A) Negative, 0-2 /hpf 02/18/2025 1:15 PM CDT [facility] EPITHELIAL CELLS Occasional /lpf 02/18/2025 1:15 PM CDT [facility] BACTERIA, URINE Few(A) Negative /hpf 02/18/2025 1:15 PM CDT [facility] Urine URINE SPECIMEN OBTAINED BY CLEAN CATCH PROCEDURE / Unknown Non-Phlebotomy Collection / Unknown 02/18/2025 12:34 PM CDT 02/18/2025 12:51 PM CDT us Trey Angel DO URINE ORDERABLES Final Result [facility] [address] [place] [address] * Culture, Urine (02/18/2025 12:34 PM CDT) CULTURE RESULTS No growth final 02/19/2025 9:34 PM CDT [facility] Urine URINE SPECIMEN OBTAINED BY CLEAN CATCH PROCEDURE / Unknown Non-Phlebotomy Collection / Unknown 02/18/2025 12:34 PM CDT 02/18/2025 12:51 PM CDT us Trey Dominique Rapoff DO MICROBIOLOGY - GENERAL ORDERABLES Final Result [facility] [address] [place] [address], from Last 3 Months Additional Health Concerns Infection Onset Date Last Indicated Other 06/06/2020 06/06/2020 Insurance MEDICAID [employer] Care Teams Day Care Home Provider Relationship Specialty Start Date End Date Provider, None [place] PCP - General 03/13/20
[2025-03-04 16:45] VITALS: BP 173/124; PULSE 112; RESP 18; TEMP 36.6; O2SAT 99
--- OUTSIDE RECORDS SUMMARY | 2025-03-04 17:40 | XMS_ITS | Clinical Summary ---
Author Organization [facility] Address [address], [address] [address] Phone Care Team Providers Care Health And Safety Advisor Name Role Phone Provider, None Primary Care [...] 02/18/2025 3:55 PM CDT Emergency [facility] Emergency [address] [place] [address] Trey Angel, Renal colic Discharge Disposition: Discharged to home or Selfcare 02/18/2025 Travel 02/11/2025 Telephone [facility] [address] [place] [address] Herman Roberts MD from Last [...] Description 03/13/2025 8:45 AM CDT Office Visit [facility] [address] [place] [address] Ervin Rao MD [address] [address] Health Maintenance Due Date Last Done Comments [...] this topic Medical Devices Implanted Type Area Animal Rides Manager Device Identifier Shelf Expiration Date Model / Serial / Lot Stent Ureteral 6fr 2.1fr 26cm 2 Pigtail Curve 2 Durometer Taper Tip Loprfl Graduated Polaris Ultra - [id number] Implanted:Qty : 1 on 04/19/2019 by Pamela Zamudio MD at [facility] IMPLANT Right: Ureter Pryv 01/21/2022 [id number] / [id number] / [id number] Bard Inlay Ureteral Stent Implanted:Qty : 1 on 11/02/2017 by Pamela Zamudio MD at [facility] Left: Ureter [employer] 06/08/2021 [id number] / [id number] / [id number] Procedures Procedure Name Priority Date/Time Associated Diagnosis [...] by Isauro Glez M.D., JR: Report ID: [id number] Reading Location: [id number] Procedure Note Isauro Glez MD - 02/18/2025 [...] by Isauro Glez M.D. JR: Report ID: [id number] Reading Location: [id number] IMPRESSION: Bilateral nephroureteral stents. Bilateral renal calculi. us Trey Angel DO IMG DIAGNOSTIC ORDERABL ES Final Result * (ABNORMAL) CBC with Auto Differential (02/18/2025 1:12 PM CDT) [facility] WBC 15.82(H) 4.00 - 12.00 10(3)/mcL 02/18/2025 2:[address] [facility] RBC 4.70 4.40 - 5.80 10(6)/mcL 02/18/2025 2:02 PM [facility] HEMOGLOBIN (HGB) 13.7 13.0 - 16.5 g/dL 02/18/2025 2:02 PM [facility] HEMATOCRIT (HCT) 42.8 38.0 - 50.0 % 02/18/2025 2:02 PM [facility] MCV 91.1 82.0 - 96.0 fL 02/18/2025 2:02 PM [facility] MCH 29.1 26.0 - 32.0 pg 02/18/2025 2:02 PM [facility] MCHC 32.0 31.0 - 36.0 g/dL 02/18/2025 2:02 PM [facility] PLATELET COUNT 364 140 - 440 10(3)/[facility] 02/18/2025 2:02 PM [facility] RDW 14.0 11.8 - 15.5 % 02/18/2025 2:02 PM [facility] MPV 10.9 8.0 - 12.6 fL 02/18/2025 2:02 PM [facility] NEUTROPHILS 83.5(H) 40.0 - 68.0 % 02/18/2025 2:02 PM [facility] LYMPHOCYTES 13.1(L) 19.0 - 49.0 % 02/18/2025 2:02 PM [facility] MONOCYTES 2.5(L) 3.0 - 13.0 % 02/18/2025 2:02 PM [facility] EOSINOPHILS 0.1 0.0 - 8.0 % 02/18/2025 2:02 PM [facility] BASOPHILS 0.8 0.0 - 1.0 % 02/18/2025 2:02 PM CDT [facility] ABSOLUTE NEUTROPHILS 13.22(H) 1.40 - 5.30 10(3)/[facility] 02/18/2025 2:02 PM CDT [facility] ABSOLUTE LYMPHOCYTES 2.07 0.90 - 3.30 10(3)/[facility] 02/18/2025 2:02 PM CDT [facility] ABSOLUTE MONOCYTES 0.39 0.10 - 0.90 10(3)/[facility] 02/18/2025 2:02 PM CDT [facility] ABSOLUTE EOSINOPHIL 0.01 0.00 - 0.50 10(3)/[facility] 02/18/2025 2:02 PM CDT [facility] ABSOLUTE BASOPHILS 0.13(H) 0.00 - 0.10 10(3)/[facility] 02/18/2025 2:[address] [facility] NRBC PER 100 WBC 0 02/19/20 25 2:[address] [facility] Blood Venipuncture / Unknown 02/18/2025 1:12 PM CDT 02/18/2025 1:58 PM CDT us Trey Angel DO HEMATOLOGY ORDERABLES F inal Result [facility] [address] [place] [address] * (ABNORMAL) CMP (Comprehensive Metabolic Panel) (02/18/2025 1:12 PM CDT) SODIUM 144 136 - 145 mmol/L 02/18/2025 2:[address] [facility] POTASSIUM 4.6 3.5 - 5.1 mmol/L 02/18/2025 2:23 PM CDT [facility] Comment: Specimen is hemolyzed. In vitro hemolysis could affect results. Clinical correlation advised. CHLORIDE 113(H) 98 - 107 mmol/L 02/18/2025 2:[address] [facility] CO2, VENOUS 19(L) 22 - 30 mmol/L 02/18/2025 2:[address] [facility] ANION GAP 16.6 <18.0 mmol/L 02/18/2025 2:[address] [facility] GLUCOSE 117(H) 70 - 99 mg/dL 02/18/2025 2:[address] [facility] BUN 18 8 - 26 mg/dL 02/18/2025 2:[address] [facility] CREATININE, BLOOD 1.07 0.70 - 1.30 mg/dL 02/18/2025 2:[address] [facility] BUN/CREATININE RATIO 17 12 - 20 ratio 02/18/2025 2:[address] [facility] TOTAL PROTEIN 7.6 6.0 - 8.0 g/dL 02/18/2025 2:[address] [facility] Comment: Specimen is hemolyzed. In vitro hemolysis could affect results. Clinical correlation advised. ALBUMIN 4.0 3.5 - 5.0 g/dL 02/18/2025 2:[address] [facility] A/G RATIO 1.1 1.0 - 2.2 02/18/2025 2:[address] [facility] CALCIUM 9.0 8.7 - 10.5 mg/dL 02/18/2025 2:[address] [facility] T BILI 0.3 0.2 - 1.2 mg/dL 02/18/2025 2:[address] [facility] SGOT (AST) 30 <43 U/L 02/18/2025 2:[address] [facility] Comment: Specimen is hemolyzed. In vitro hemolysis could affect results. Clinical correlation advised. SGPT (ALT) 12 <56 U/L 02/18/2025 2:[address] [facility] ALKALINE PHOSPHATASE 105 40 - 150 U/L 02/18/2025 2:[address] [facility] GFR, ESTIMATED >60 >=60 02/18/2025 2:[address] [facility] Comment: Creatinine Clearance is the preferred criteria for selecting drug dose adjustments in renally impaired patients. The GFR is provided as additional pertinent clinical information. GFR is reported in mL/min/1.73 sq m. Calculation based on the Chronic Kidney Disease Epidemiology Collaboration (CKD- EPI) equation refit without adjustment for race. GFR, EST. >60 >=60 025 2:23 PM CDT [facility] GFR, EST. NONAFRICAN >60 >=60 02/18/2025 2:23 PM CDT [facility] Blood Venipuncture / Unknown 02/18/2025 1:12 PM CDT 02/18/2025 1:57 PM CDT us Trey Angel DO CHEMISTRY ORDERABLES Fi nal Result [facility] [address] [place] [address] * (ABNORMAL) URINALYSIS REFLEX IF INDICATED BY ABNORMAL RESULTS (02/18/2025 12:34 PM CDT) SPECIFIC GRAVITY 1.015 1.003 - 1.030 02/18/2025 1:[address] [facility] URINE PH 6.5 5.0 - 9.0 02/18/2025 1:[address] [facility] WBC ESTERASE 500 /uL(A) Negative 02/18/2025 1:[address] [facility] NITRITE Negative Negative 02/18/2025 1:[address] [facility] PROTEIN, RANDOM URINE 500 mg/dL(A) Negative 02/18/2025 1:[address] [facility] URINE GLUCOSE, QUAL 50 mg/dL(A) Negative 02/18/2025 1:15 PM CDT [facility] URINE KETONES 50 mg/dL(A) Negative 02/18/2025 1:15 PM CDT [facility] UROBILINOGEN Normal Normal mg/dL 02/18/2025 1:15 PM CDT [facility] URINE BLOOD 250 /uL(A) Negative nydia/ul 02/18/2025 1:15 PM CDT [facility] URINALYSIS COLOR Red 02/18/2025 1:15 PM CDT [facility] URINALYSIS CLARITY Bloody 02/18/2025 1:15 PM CDT [facility] WBC (Urine) 21-50(A) Negative, 0-5 /hpf 02/18/2025 1:15 PM CDT [facility] URINE RBC'S Packed(A) Negative, 0-2 /hpf 02/18/2025 1:15 PM CDT [facility] EPITHELIAL CELLS Occasional /lpf 02/18/2025 1:15 PM CDT [facility] BACTERIA, URINE Few(A) Negative /hpf 02/18/2025 1:15 PM CDT [facility] Urine URINE SPECIMEN OBTAINED BY CLEAN CATCH PROCEDURE / Unknown Non-Phlebotomy Collection / Unknown 02/18/2025 12:34 PM CDT 02/18/2025 12:51 PM CDT us Trey Angel DO URINE ORDERABLES Final Result [facility] [address] [place] [address] * Culture, Urine (02/18/2025 12:34 PM CDT) CULTURE RESULTS No growth final 02/19/2025 9:34 PM CDT [facility]rine URINE SPECIMEN OBTAINED BY CLEAN CATCH PROCEDURE / Unknown Non-Phlebotomy Collection / Unknown 02/18/2025 12:34 PM CDT 02/18/2025 12:51 PM CDT us Trey Dominique Rapoff DO MICROBIOLOGY - GENERAL ORDERABLES Final Result [facility] [address] [place] [address], from Last 3 Months Additional Health Concerns Infection Onset Date Last Indicated Other 06/06/2020 06/06/2020 Insurance MEDICAID [employer] Care Teams Health And Safety Advisor Relationship Specialty Start Date End Date Provider, None [place] PCP - General 03/13/20
--- NOTE | 2025-03-04 17:50 | ED.MALEGU ---
HPI - Male Genitourinary General Chief complaint: Urogenital-Male Stated complaint: Kidney stone-L testicular pain Time Seen by Provider: 03/04/25 17:32 Source: patient and old records reviewed Mode of arrival: ambulatory Limitations: no limitations History of Present Illness HPI Narrative: Patient is a 60 y/o male who presents to the ED with c/o left flank and testicular pain. Patient reports he has history of kidney stones and has previously seen Dr. Hull. Had shahnaz ureteral stents placed on 02/07/25. States he is scheduled to see a urologist in [place] on 03/13/25 for outpatient surgery. States he ran out of his pain medication today and was unable to tolerate the pain any longer. C/o pain to L flank, L sided abdomen, into his L testicle. Is able to urinate, but reports gross hematuria with clots, N/V related to pain, hot/cold sensation. Denies known fevers. Related Data Home Medications ?Medication ?Instructions ?Recorded ?Confirmed ?Last Taken ?Type lisinopril 10 mg tablet 10 mg PO DAILY 10/14/20 02/07/25 02/06/25 History Allergies Allergy/AdvReac Type Severity Reaction Status Date / Time No Known Allergies Allergy Verified 02/07/25 09:52 Review of Systems Review of Systems: All systems reviewed & are unremarkable except as noted in HPI. All systems reviewed & are unremarkable except as noted in HPI and below PMFSH Past Medical History Medical History History of kidney stones Chronic pain syndrome Benign prostatic hyperplasia Hypertension Tobacco dependence Surgical History Surgical History History of lithotripsy Family History Family History Father H/O heart artery stent Hypertension Leukemia Mesothelioma of lung Mother Hypertension Multiple sclerosis Social History Social History Social History: The patient lives in [place]. He has been 4 times. They have 3 adult children. 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 Smokes about a pack of cigarettes per day and has for 30 years or so. He denies alcohol abuse. Occasional marijuana use. Code status: Full code Surrogate decision maker: Keeley Smart (mother) Smoking packs per day: 1 Smoking cigarettes per day: 20.0 Years smoked: 30 Smoking pack-years: 30.00 Smoking status: Current every day smoker Tobacco type: cigarettes Second hand tobacco smoke exposure: No Alcohol intake: former Substance use: former Substance use type: marijuana Do You Feel Safe in your Home?: Yes Lack of Transportation: YES Lack of Food: Never True Current Housing: I Have Housing Concerned About Future Housing: No Difficulty Paying Gas/Electric Bills: No Difficulty Paying for Meds: No Currently Unemployed: No Education: High School Diploma/GED Difficulty w/ Childcare or Family Care: No Gender identity (if verbalized by the patient): Male Spiritual care concerns: No Exam Narrative: GENERAL: Appears older than stated age, well-nourished, non-toxic, in no acute distress. HEAD: Normocephalic, atraumatic. RESPIRATORY: Airway patent, respirations nonlabored. Clear to auscultation bilaterally, no rales, rhonchi, wheezing. CARDIOVASCULAR: Regular rate and rhythm ABDOMINAL: Soft, mild tenderness to palpation to LLQ, nondistended. Normoactive BS. +CVA on L MUSCULOSKELETAL: Moves all extremities. No gross deformities. SKIN: Warm, dry, normal color. NEURO: A&O X3. Speech clear. PSYCHIATRIC: Appropriate mood and affect. Normal interaction. Course Vital Signs Vital signs: Vital Signs Temperature 97.9 F 03/04/25 16:45 Pulse Rate 112 H 03/04/25 16:45 Respiratory Rate 18 03/04/25 16:45 Blood Pressure 173/124 H 03/04/25 16:45 Pulse Oximetry 99 03/04/25 16:45 Oxygen Delivery Room Air 03/04/25 16:45 Temperature 97.9 F 03/04/25 16:45 Pulse Rate 88 03/04/25 21:30 Respiratory Rate 16 03/04/25 21:30 Blood Pressure 153/97 H 03/04/25 21:30 Pulse Oximetry 96 03/04/25 21:30 Oxygen Delivery Room Air 03/04/25 16:45 MDM - Male Genitourinary MDM Narrative Medical decision making narrative: Patient presented to ED with worsening left flank, left-sided abdominal/testicular pain, history of kidney stones with current bilateral stent placement. Reports he ran out of his pain medication today. Patient tachycardic upon arrival. Likely r/t pain. Afebrile here. Given dose of pain medication in the ED. Fluids initiated. Cbc with blood cell count of 10.0. Stable H&H. Kidney function is stable. Creatinine 1.09. UA with >100 RBC/WBC, otherwise miley and cloudy in color, unable to be analyzed further. Sent for culture. Ultrasound of scrotum was unremarkable. Normal blood flow to bilateral testes. CT scan of abdomen/pelvis was obtained and showing bilateral pelviectasis, worse from previous study. Stents in place. Stones still present. No distal stones. Discussed case with Dr. Ramírez, urology, advised to give Toradol, Flomax, oxybuytin, abx. Reeval in 1 hour, if still uncomfortable, can admit for pain control, but will need outpatient f/u for definitive stone management. On reeval, patient is reporting improvement of pain. States it is much more manageable. Would like to try going home. I feel this is appropriate. Will discharge patient on short course of oxycodone, oxybutyin, flomax, zofran, keflex. Advised to contact Urology office tomorrow to make a sooner follow-up appointment. Given strict return precautions. Patient voiced understanding. Feels comfortable going home. Discharged in stable condition. CT scan did comment on gallbladder hydrops. Patient without any RUQ tenderness on exam. Normal LFTs. Low suspicion for gallbladder etiology. Medical Records Attestation: I reviewed the patient's medical records. Lab Data Attestation: I reviewed the patient's lab results. 03/04/25 18:04 03/04/25 18:04 Labs: Lab Results 03/04/25 03/04/25 Range/Units 18:04 19:41 WBC 10.0 (4.5-10.0) K/mm3 RBC 5.37 (4.6-6.20) M/mm3 Hgb 15.4 (14.0-18.0) g/dL Hct 46.8 (42.0-52.0) % MCV 87.2 (80-100) fl MCH 28.7 (26-34) pg MCHC 32.9 (32-36) g/dl RDW 13.7 (11.5-14.5) % Plt Count 353 (150-375) k/mm3 MPV 9.6 (7.4-10.4) fl Immature Gran % (Auto) 0.6 H (0-0.5) % Neut % (Auto) 75.0 H (45.5-73.1) % Lymph % (Auto) 18.6 (18.3-44.2) % [place] % (Auto) 4.5 (2.6-8.5) % Eos % (Auto) 0.3 (0-4.4) % Baso % (Auto) 1.0 (0.2-1.2) % Lymph # (Auto) 1.87 (0.9-3.2) K/mm3 [place] # (Auto) 0.5 (0.1-0.6) K/mm3 Eos # (Auto) 0.0 (0-0.3) K/mm3 Baso # (Auto) 0.1 (0.0-0.1) K/mm3 Abs Immat Gran (auto) 0.06 H (0.00-0.031) K/mm3 Absolute Neuts (auto) 7.5 H (1.3-6.7) K/mm3 Absolute Nucleated RBC 0.000 (0.0-0.012) K/mm3 Nucleated RBC % 0.0 (0.0-0.2) % PT 14.0 (11.1-14.7) Seconds INR 1.1 APTT 27.4 (22.3-36.8) Seconds Sodium 139 (137-145) mmol/L Potassium 3.9 (3.4-5.0) mmol/L Chloride 106 (98-107) mmol/L Carbon Dioxide 22 (22-30) mmol/L Anion Gap 11 (4-12) mmol/L BUN 17 (9-20) mg/dL Creatinine 1.09 (0.7-1.3) mg/dL Estim Creat Clear Calc 68 ml/min Estimated GFR > 60 (59 - ) Glucose 113 H (65-110) mg/dL Calcium 10.3 H (8.4-10.2) mg/dL Total Bilirubin 0.4 (0.2-1.3) mg/dL AST 23 (17-59) U/L ALT 16 (6-50) U/L Alkaline Phosphatase 116 (38-126) U/L Total Protein 7.0 (6.3-8.2) g/dL Albumin 4.2 (3.5-5.1) g/dL Urine Color Miley (Yellow) Urine Appearance Sl cloudy (Clear) Urine pH TNP Ur Specific Rhodell TNP Urine Protein TNP Urine Glucose (UA) TNP Urine Ketones TNP Ur Blood (Man) TNP Urine Nitrate TNP Urine Bilirubin TNP Urine Urobilinogen TNP Leukocyte Esterase Rfl TNP Urine RBC >100 H (0-2) /hpf Urine WBC >100 H (0-3) /hpf Ur Squamous Epith Cells None seen (Few) /hpf Urine Bacteria None seen /hpf Urine Casts 0-2 Imaging Data Attestation: I personally reviewed and interpreted this imaging study as follows: Radiologist's impression: ITS Impressions Abdomen/Pelvis CT 03/04/25 18:20 IMPRESSION: Gallbladder hydrops. Correlate with biliary labs and symptoms of right upper quadrant pain. Mild left and moderate right pelviectasis/caliectasis, increased since the prior study despite the presence of bilateral ureteral stents. Bilateral nephrolithiasis. No stones detected in the distal collecting system or bladder. Scrotum Ultrasound 03/04/25 18:29 IMPRESSION: Unremarkable ultrasound scrotum findings. Discharge Plan Discharge Clinical Impression: Pelviectasis, Bilateral kidney stones, Abnormal urinalysis Patient Disposition: Home Condition: Stable Instructions: Antibiotic Form, Urinary Tract Infection in Men (ED), Renal Colic (ED), Flank Pain (ED) Additional Instructions: Take antibiotics (Keflex) as prescribed. Take Flomax daily. Take oxybutynin as needed and directed for bladder spasms. Take Tylenol and ibuprofen around the clock as needed for pain. You can take 600mg of Ibuprofen and 1000mg of tylenol every 6 hours. Utilize oxycodone as needed for more severe pain. Utilize Zofran as needed for nausea. Contact urology office tomorrow to discuss pain/ER visit and determine if you can have sooner follow-up appointment. Return to the ED for severe pain, unable to keep down food or drink, fevers of any kind, unable to urinate, or any other symptoms of concern. Patient Language: Citizen Of [place] Prescriptions: New tamsulosin [Flomax] 0.4 mg capsule 0.4 mg PO DAILY Qty: 14 0RF cephalexin 500 mg capsule 500 mg PO Q6H 7 Days Qty: 28 0RF oxybutynin chloride 5 mg tablet 5 mg PO TID PRN (Reason: bladder spasms) Qty: 15 0RF ondansetron 4 mg tablet,disintegrating 4 mg PO Q8H PRN (Reason: nausea and vomiting) Qty: 15 0RF oxycodone 5 mg tablet 5 mg PO Q6H PRN (Reason: pain) Qty: 15 0RF No Action oxycodone-acetaminophen 5-325 mg Tablet 1 - 2 tablet PO Q6H PRN (Reason: Pain Rated 7-10) Qty: 12 0RF tamsulosin 0.4 mg Capsule 0.4 mg PO QAM Qty: 30 0RF hydroxyzine HCl 25 mg Tablet 25 mg PO HS Qty: 12 0RF cefdinir 300 mg capsule 300 mg PO Q12H 10 Days Qty: 20 0RF potassium chloride [Klor-Con M20] 20 mEq tablet,ER particles/crystals 20 meq PO DAILY Qty: 3 0RF lisinopril 10 mg tablet 10 mg PO DAILY Follow-up/Referrals: PHYSICIAN,SENIOR NET DEVELOPER [Primary Care Provider] - Luis Miguel Hull MD [Physician] - (UROLOGY) Time of Disposition: 22:12
[2025-03-04 18:22] LABS: Basophils Absolute Auto 0.1 K/mm3 (0.0-0.1); Eosinophils Percent Auto 0.3 % (0-4.4); Hematocrit 46.8 % (42.0-52.0); Hemoglobin 15.4 g/dL (14.0-18.0); Immature Granulocyte Absolute 0.06 K/mm3 (0.00-0.031); Immature Granulocyte Percent A 0.6 % (0-0.5); Lymphocytes Absolute Auto 1.87 K/mm3 (0.9-3.2); Lymphocytes Percent Auto 18.6 % (18.3-44.2); Mean Corpuscular HGB Conc 32.9 g/dl (32-36); Mean Corpuscular Hemoglobin 28.7 pg (26-34); Mean Corpuscular Volume 87.2 fl (80-100); Mean Platelet Volume 9.6 fl (7.4-10.4); Monocytes Absolute Auto 0.5 K/mm3 (0.1-0.6); Monocytes Percent Auto 4.5 % (2.6-8.5); Neutrophils Absolute Auto 7.5 K/mm3 (1.3-6.7); Platelet Count Result 353 k/mm3 (150-375); Red Blood Count 5.37 M/mm3 (4.6-6.20); Red Cell Distribution Width 13.7 % (11.5-14.5)
[2025-03-04 18:34] LABS: INR 1.1; Partial Thromboplastin Time 27.4 Seconds (22.3-36.8)
[2025-03-04] MEDS: ONDANSETRON INJ 4 MG/2 ML VIAL IV PUSH (18:40)
[2025-03-04] MEDS: MORPHINE SULFATE (*CRX) 4 MG/ML INJ IV PUSH (18:40)
[2025-03-04] MEDS: SODIUM CHLORIDE 0.9% IV 1,000 ML 999 ML IV CONT ×2 (18:40→21:09)
[2025-03-04 18:49] LABS: Alanine Aminotransferase 16 U/L (6-50); Albumin Level 4.2 g/dL (3.5-5.1); Alkaline Phosphatase 116 U/L (38-126); Anion Gap 11 mmol/L (4-12); Aspartate Amino Transferase 23 U/L (17-59); Bilirubin,Total 0.4 mg/dL (0.2-1.3); Blood Urea Nitrogen 17 mg/dL (9-20); Calcium 10.3 mg/dL (8.4-10.2); Carbon Dioxide 22 mmol/L (22-30); Chloride 106 mmol/L (98-107); Estimated CRCL calculation 68 ml/min; Estimated Glomerular Filt Rate > 60; Glucose 113 mg/dL (65-110); Potassium 3.9 mmol/L (3.4-5.0); Sodium 139 mmol/L (137-145)
[2025-03-04 19:45] VITALS: BP 153/76; PULSE 91; RESP 16; O2SAT 98
[2025-03-04] MEDS: HYDROmorphone HCL INJ (*CRX) 2 MG/ML VIAL 0.5 MG IV PUSH (20:04)
[2025-03-04 20:21] LABS: Bacteria Urine None Seen /hpf; Non Pathogenic Casts 0-2; RBC Urine >100 /hpf (0-2); Squamous Epithelial Cell Urine None Seen /hpf (Few); WBC Urine >100 /hpf (0-3)
[2025-03-04 20:22] LABS: Appearance Urine Sl Cloudy (Clear); Color Urine Amber (Yellow)
[2025-03-04 20:25] LABS: Add Urine Microscopic? YES
[2025-03-04] MEDS: KETOROLAC 30 MG/ML VIAL (*BKC) IV PUSH (21:09)
[2025-03-04] MEDS: TAMSULOSIN HCL 0.4 MG CAPSULE PO (21:09)
[2025-03-04] MEDS: oxyBUTYnin CHLORIDE 5 MG TABLET PO (21:26)
[2025-03-04 21:30] VITALS: BP 153/97; PULSE 88; RESP 16; O2SAT 96
== END 2025-03-04 22:26 | disposition home or self-care (01) ==
PROVIDERS: Emergency Provider Physician Assistant
DX: N20.0 Calculus of kidney (principal); R82.998 Other abnormal findings in urine; N28.89 Other specified disorders of kidney and ureter; F17.210 Nicotine dependence, cigarettes, uncomplicated; Z87.442 Personal history of urinary calculi; I10 Essential (primary) hypertension; N40.0 Benign prostatic hyperplasia without lower urinary tract symptoms
CPT/HCPCS: 36415; 74176; 76870; 80053; 81001; 85025; 85610; 85730; 87086; 93976; 96361; 96365; 96375; 99284; A9270; J0696; J1171; J1885; J2270; J2405; J7030

== ENCOUNTER 2025-06-17 18:09 | Emergency (ER) | payer OTHER, SELFPAY ==
--- OUTSIDE RECORDS SUMMARY | 2025-04-11 06:00 | XMS_ITS ---
Author Organization [facility] Address [address] [place] [address] Care Team Providers Care Manager Advanced Name Role Phone Regan Ely Primary Care Provider Monica Garza [phone] REASON FOR VISIT r/s from 04/03 Medications Medication SIG (Take, Route, Frequency, Duration) Notes Start Date End Date Status diazePAM 10 mg TAKE 1 TABLET BY MOUTH DAILY IF NEEDED FOR ANXIETY; Duration: 30 days 02/12/2025 Active Ergocalciferol 1.25 MG (14041 UT) 1 capsule Orally once weekly; Duration: 30 days Active buPROPion HCl ER (XL) 150 MG 1 tablet in the morning Orally Once a day - take with bupropion 300mg for TOTAL 450mg daily; Duration: 30 days Active Prazosin HCl 5 MG 2 capsules Orally once daily at bedtime; Duration: 30 days Active Propranolol HCl ER 160 MG 1 capsule Orally Once a day; Duration: 30 days Active Wellbutrin XL 300 MG 1 tablet in the morning Orally Once a day - take with bupropion 150mg for TOTAL 450mg daily; Duration: 30 days Active Prazosin HCl 2 MG 2 capsules once daily in the MORNING Orally; Duration: 30 days Active OLANZapine 10 mg 1 tablet twice daily; Duration: 30 days Active PARoxetine HCl 40 mg Take 2 tablets (80mg) once daily by oral route; Duration: 30 days Active Lisinopril 10 MG 1 tablet Orally once daily; Duration: 30 days No primary care visits here. He needs to establish primary care within the next 30 days. Active Zlaraolv 8.6-2.1 MG 1 tablet under the tongue and allow to dissolve Sublingual three times daily 01/15/2025 Active Social History Sex Assigned At : Social History Observation Description Sex Assigned At Male Encounters Encounter Location Date Provider Diagnosis [address] [place] [address] 04/11/2025 Monica Garza Plan Of Treatment No Information Progress Notes * Jose AGUILERA NDOB: [birth year] (60 yo M)Acc No.[id number]:04/11/2025 UNLOCKED PROGRESS NOTE Patient: Jose DIXON N Provider: HETAL Brantley :1965 A ge:60 Y S ex:Male Date:04/11/2025 Address:[address] [place], [place] [id number] Pcp:Regan Ely Subjective: * Chief Complaints: * 1 . R/s from 04/03. * Medical History: * Medications: T aking PARoxetine HCl 40 mg Tablet Take 2 tablets (80mg) once daily by oral route , Taking OLANZapine 10 mg Tablet 1 tablet twice daily , Taking Prazosin HCl 2 MG Capsule 2 capsules once daily in the MORNING Orally , Taking Wellbutrin XL 300 MG Tablet Extended Release 24 Hour 1 tablet in the morning Orally Once a day - take with bupropion 150mg for TOTAL 450mg daily , Taking diazePAM 10 mg Tablet TAKE 1 TABLET BY MOUTH DAILY IF NEEDED FOR ANXIETY , Taking Propranolol HCl ER 160 MG Capsule Extended Release 24 Hour 1 capsule Orally Once a day , Taking Prazosin HCl 5 MG Capsule 2 capsules Orally once daily at bedtime , Taking buPROPion HCl ER (XL) 150 MG Tablet Extended Release 24 Hour 1 tablet in the morning Orally Once a day - take with bupropion 300mg for TOTAL 450mg daily , Taking Ergocalciferol 1.25 MG (83420 UT) Capsule 1 capsule Orally once weekly , Taking Zubsolv 8.6-2.1 MG Tablet Sublingual 1 tablet under the tongue and allow to dissolve Sublingual three times daily , Taking Lisinopril 10 MG Tablet 1 tablet Orally once daily , Notes to Pharmacist: No primary care visits here. He needs to establish primary care within the next 30 days. Objective: * Vitals: Assessment: Plan: * Treatment: * * Electronic signature of Marisel Garza on 06/17/2025 at 07:06 PM CDT Sign off status: Pending * Provider: HETAL Brantley Date: 0 04/11/2025 Generated for Aamir allison/Nita on: 0 06/17/2025 07:06 PM CDT
[2025-06-17] VITALS (23 sets, daily range): BP systolic 76–124; BP diastolic 61–85; PULSE 69–77; RESP 11–23; TEMP 36.6; O2SAT 92–99
--- NOTE | ~2025-06-17 | XR_ITS ---
EXAMINATION: XR chest 2V DATE: 06/17/2025 18:46 INDICATION: Syncope. TECHNIQUE: Frontal and lateral views of the chest were obtained. COMPARISON: Chest 2 views 10/14/2020 FINDINGS: There is mild atelectasis at left lung base. No pleural effusion or pneumothorax. The heart size is normal. IMPRESSION: 1. Mild atelectasis at left lung base. Reviewed, dictated and finalized at location K.
--- NOTE | ~2025-06-17 | CT_ITS ---
EXAMINATION: CT brain wo con DATE: 06/17/2025 18:41 INDICATION: Head injury. TECHNIQUE: Computed tomography (CT) of the head was performed without intravenous contrast. The mA was adjusted according to patient size. Iterative reconstruction technique was employed. The dose-length product was 605.33 mGy-cm. COMPARISON: None FINDINGS: There are scattered areas of low attenuation in the cerebral white matter. There is no intracranial hemorrhage, acute infarction, or abnormal intracranial mass lesion. The ventricles are normal in size. There is mild mucosal thickening in the paranasal sinuses. The orbits are normal. There is a small left mastoid effusion. IMPRESSION: 1. Mild nonspecific cerebral white matter disease, which likely represents chronic small vessel ischemic disease. Reviewed, dictated and finalized at location K. IMPRESSION: 1. 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
--- NOTE | 2025-06-17 18:18 | ECG_ITS ---
Test Date: 2025-06-17 18:20:06 Measurements Intervals [place] Rate: 77 P: 45 HI: 140 QRS: -37 QRSD: 118 T: 61 QT: 354 QTc: 403 Interpretive Statements SINUS RHYTHM LEFT AXIS DEVIATION [QRS AXIS < -30] INCOMPLETE RIGHT BUNDLE BRANCH BLOCK [90+ ms QRS DURATION, TERMINAL R IN V1/V2, 40+ ms S IN I/aVL/V4/V5/V6] NONSPECIFIC T-WAVE ABNORMALITY ABNORMAL ECG No previous ECG available for comparison Electronically Signed On 06-18-2025 08:07:46 CDT by Salas Sorto M.D.
[2025-06-17 18:40] LABS: Hematocrit 45.2 % (42.0-52.0); Hemoglobin 14.7 g/dL (14.0-18.0); Immature Granulocyte Percent A 1.2 % (0-0.5); Lymphocytes Absolute Auto 2.89 K/mm3 (0.9-3.2); Mean Corpuscular HGB Conc 32.5 g/dl (32-36); Mean Corpuscular Hemoglobin 29.1 pg (26-34); Mean Corpuscular Volume 89.5 fl (80-100); Nucleated Red Blood Cells Absolute Auto 0.000 K/mm3 (0.0-0.012); Nucleated Red Blood Cells Perc 0.0 % (0.0-0.2); Platelet Count Result 239 k/mm3 (150-375); Red Blood Count 5.05 M/mm3 (4.6-6.20); White Blood Count 10.1 K/mm3 (4.5-10.0)
[2025-06-17 18:55] LABS: Alanine Aminotransferase 40 U/L (6-50); Albumin Level 4.1 g/dL (3.5-5.1); Alkaline Phosphatase 96 U/L (38-126); Anion Gap 7 mmol/L (4-12); Aspartate Amino Transferase 39 U/L (17-59); Bilirubin,Total 0.4 mg/dL (0.2-1.3); Blood Urea Nitrogen 22 mg/dL (9-20); Calcium 9.0 mg/dL (8.4-10.2); Carbon Dioxide 27 mmol/L (22-30); Chloride 105 mmol/L (98-107); Estimated CRCL calculation 59 ml/min; Estimated Glomerular Filt Rate 58; Glucose 118 mg/dL (65-110); Potassium 4.7 mmol/L (3.4-5.0); Sodium 139 mmol/L (137-145); Total Protein 7.1 g/dL (6.3-8.2)
[2025-06-17 18:59] LABS: Troponin I 0.016 ng/mL (0.000-0.034)
[2025-06-17] MEDS: SODIUM CHLORIDE 0.9% IV 1,000 ML 999 ML IV CONT ×2 (19:11→19:39)
--- OUTSIDE RECORDS SUMMARY | 2025-06-17 19:17 | XMS_ITS | Patient Health Record ---
Author Organization [facility] Address [address] [place] [address] Care Team Providers Care Software Engineer Sales Name Role Phone Regan Ely Primary Care Provider Monica Garza Unavailable [phone] Wesley Wallace Unavailable [phone] Lisa Main Unavailable [phone] Emiliana Xie Unavailable [phone] GarciaNeal chatterjee Unavailable [phone] Allergies No Known Allergies Results Component Value Reference Range Notes 14 Panel Urine Drug Screen Reviewed date:05/07/2025 02:42:59 PM Interpretation: Performing Lab: Notes/Report: THC neg LILLI neg MOP (OPI) neg AMP neg MET neg BAR neg BZO POS MDMA neg MTD neg OXY neg PCP neg BUP POS TCA neg FTY neg Buprenorphine and Metabolite (Urine test) Reviewed date:05/14/2025 08:29:38 AM Interpretation: Performing Lab:[facility], [address], [place], Phone - [phone], Director - PhDAbudu Notes/Report: Clinical Information:CCU:[id number] LM Buprenorphine Positive Confirmation p erformed by Mass Spectrometry Buprenorphine Positive Buprenorphine Conf, MS, UR 182 Cutoff=10 ng/m L Norbuprenorphine Positive Norbuprenorphine Conf, MS, UR 853 Cutoff=10 n g/mL Hemoglobin A1c* Reviewed date:12/20/2024 12:22:51 PM Interpretation: Performing Lab: Notes/Report: CBC With Differential/Platel et* Reviewed date:12/20/2024 12:23:44 PM Interpretation: Performing Lab: Notes/Report: CMP 14 Comprehensive Metabol ic Panel* Reviewed date:12/20/2024 12:24:18 PM Interpretation: Performing Lab: Notes/Report: PDF Report Reviewed date:11/26/2024 04:54:50 PM Interpretation: Performing Lab:[facility], [address] [place] [address], Phone - [phone], Director - Fabrice Notes/Report: ToxAssure, T[facility]ure FLEX or MAT drug testing: -Technical component - Data analysis performed at [address], [address]. [phone]. Filling Machine Tender Cristina Garza MD PDF Report1 LS Comprehensive Drug Analysis, Urine Reviewed date:11/26/2024 08:59:37 AM Interpretation: Performing Lab:[facility], [address] [place] [address], Phone - [phone], Director - Fabrice Notes/Report: [facility]ox[facility]ure, T[facility] FLEX or MAT drug testing: -Technical component - Data analysis performed at [facility], [address] [place] [address], [address]. [phone]. Filling Machine Tender Cristina Garza MD Summary Report (Summary) FINAL [...] clinical consultation, please call . PDF . 14 Panel Urine Drug Screen Reviewed date:04/12/2025 01:32:59 PM Interpretation: Performing Lab: Notes/Report: THC neg LILLI neg MOP (OPI) neg AMP neg MET neg BAR neg BZO neg MDMA neg MTD neg OXY neg PCP neg BUP POS TCA neg FTY neg CMP 14 Comprehensive Metabol ic Panel* Reviewed date:12/11/2024 02:29:04 PM Interpretation: Performing Lab:[facility], [address] [facility], [place], Phone - [phone], Director - Faith Notes/Report: Glucose 128 70-99 [...] Panel* Reviewed date:12/11/2024 02:27:34 PM Interpretation: Performing Lab:[facility] [place] [address] [place] [address], Phone - [phone], Director - [facility] Notes/Report: Cholesterol, Total 237 100-199 mg/dL Triglycerides 344 0-149 mg/dL HDL Cholesterol 23 >39 mg/dL VLDL Cholesterol Ayden 64 5-40 mg/dL LDL Chol Calc (NIH) 150 0-99 mg/dL TSH+Free T4* Reviewed date:12/11/2024 02:26:46 PM Interpretation: Performing Lab:[facility] [place] [address] [place] [address], Phone - [phone], Director - [facility] Notes/Report: TSH 2.080 0.450-4.500 uIU/mL T4,Free(Direct) 1.28 0.82-1.77 ng/dL Vitamin D, 25-Hydroxy* Reviewed date:12/11/2024 02:26:18 PM Interpretation: Performing Lab:[facility] [place], [address] [place] [address], Phone - [phone], Director - [facility]Jackson [facility] Notes/Report: Vitamin D, 25-Hydroxy 7.8 30.0-100.0 ng/mL Vitamin D deficiency has been defined by the [place] of [employer] and an Endocrine Society practice guideline as a level of serum 25-OH vitamin D less than 20 ng/mL (1,2). The Endocrine Society went on to further define vitamin D insufficiency as a level between 21 and 29 ng/mL (2). 1. IOM ([place] of [employer]). 2010. Dietary reference intakes for calcium and D. [place]: The National Academies Press. 2. Juaquin MF, Laura NC, Caryn ROMERO, et al. Evaluation, treatment, and prevention of vitamin D deficiency: an Endocrine Society clinical practice guideline. JCEM. 2010; 96(7):1911-30. CBC With Differential/Platel et* Reviewed date:12/11/2024 02:32:21 PM Interpretation: Performing Lab:[facility] [place], [address] [place] [address], Phone - [phone], Director - [facility] Notes/Report: WBC TNP Test not performed. Whole [...] Serum* Reviewed date:12/11/2024 02:28:20 PM Interpretation: Performing Lab:[facility] [place] [address], Phone - [phone], Director - [facility] Notes/Report: Folate (Folic Acid), Serum 15.0 >3.0 ng/mL A serum folate concentration of less than 3.1 ng/mL is considered to represent clinical deficiency. Vitamin B12* Reviewed date:12/11/2024 02:26:32 PM Interpretation: Performing Lab:[facility] [place], [email or web address] [facility], Phone - [phone], Director - PhDJackson [facility] Notes/Report: Vitamin B12 812 675-9337 pg/mL Specimen Status Report TNP Test not performed. Whole blood specimen partially or completely clotted. A common cause is insufficient mixing upon collection. TEST: [id number] CBC With Differential/Platelet [id number] Hemoglobin A1c Hemoglobin A1c* Reviewed date:12/11/2024 02:28:07 PM Interpretation: Performing Lab:[facility] [place], [email or web address] [facility], Phone - [phone], Director - Faith Notes/Report: Hemoglobin A1c TNP Test not performed. [...] A1c* Reviewed date:12/25/2024 10:35:08 AM Interpretation: Performing Lab:[facility] [place], [address] [facility], Phone - [phone], Director - Faith Notes/Report: Hemoglobin A1c 5.8 4.8-5.6 % . Prediabetes: 5.7 - 6.4 Diabetes: >6.4 Glycemic control for adults with diabetes: <7.0 CBC With Differential/Platel et* Reviewed date:12/25/2024 10:36:08 AM Interpretation: Performing [facility], [address] [facility], Phone - [phone], Director - [facility] Notes/Report: WBC 8.9 3.4-10.8 x10E3/uL RBC 5.28 [...] Panel* Reviewed date:12/25/2024 10:35:38 AM Interpretation: Performing Lab:[facility] [place], [address] [facility], Phone - [phone], [facility] - [facility] Notes/Report: Glucose 118 70-99 mg/dL BUN 9 [...] Duration) Notes Start Date End Date Status Lisinopril 10 MG 1 tablet Orally once daily; Duration: 30 days Active OLANZapine 10 mg 1 tablet twice daily ; Duration: 30 days Active PARoxetine HCl 40 mg Take 2 tablets (80m g) once daily by oral route; Duration: 30 days Active buPROPion HCl ER (XL) 150 MG 1 tablet in the morning Orally Once a day; Duration: 14 days Active Prazosin HCl 5 MG 2 capsules Orally on ce daily at bedtime; Duration: 30 days Active Zubsolv 8.6-2.1 MG 1 tablet under the tongue and allow to dissolve Sublingual three times daily 05/07/2025 Active Ergocalciferol 1.25 MG (68681 UT) 1 capsule Orally once weekly; Duration: 30 days Active DULoxetine HCl 30 MG 1 capsule Orally On ce a day; Duration: 30 days 06/11/2025 Active diazePAM 10 mg TAKE 1 TABLET BY KORY TH DAILY IF NEEDED FOR ANXIETY; Duration: 30 days 06/05/2025 Active Propranolol HCl ER 160 MG 1 capsule Oral ly Once a day; Duration: 30 days Active Prazosin HCl 2 MG 2 capsules once camilla y in the MORNING Orally; Duration: 30 days Active Immunizations Vaccine Route Administration Date Status Comme nts Influenza, virus vaccine, trivalent, preservative free IM Intramuscular 10/15/2024 Administered Piedad Segura RN 10/15/2024 02:36:01 PM 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 Stress is when someone feels tense, nervous, anxious, or can\t sleep at night because their mind is troubled Very much In the past year have you sp ent more than 2 nights in a row in a residential, fpc, skilled nursing center, or juvenile correctional facility? No Are you a refugee? No What country are you from? [place] Do you feel physically and e motionally safe where you currently live? Yes In the past year, have you b een afraid of your partner or ex-partner? No PRAPARE Score: 6 Tobacco Control (Standard) Question Answer Notes Tobacco use: Current smoker Section Notes: [id number] 07/22/2021 07/22/2021 Zubsolv 60 30 8.6 MG-2.1 MG NA Regan Ely [id number] [place] [id number] 07/22/2021 07/22/2021 Zubsolv 30 30 5.7-1.4 MG NA Regan Ely [id number] [place] [address]65[address] 07/08/2021 06/09/2021 diazePAM 30 30 10MG NA Tahmina Rudd L, Msn, [employer] - [id number] [facility], [place], [place] [address] 250336 06/17/2021 06/17/2021 Zubsolv 30 30 5.7-1.4 MG NA Heavens, Regan Cuenca [id number] [place] [place], [place] [address] 294558 06/17/2021 06/17/2021 Zubsolv 60 30 8.6 MG-2.1 MG NA Heavens, Regan Cuenca [id number] [facility], [place], [place] [address] 157141 06/09/2021 06/09/2021 diazePAM 30 30 10MG NA Tahmina Rudd L, Msn, [employer] - [id number] [place], [place] 1 [id number] 05/05/2021 05/05/2021 Zubsolv 60 30 8.6 MG-2.1 MG NA [id number] 07/22/2021 07/22/2021 Zubsolv 60 30 8.6 MG-2.1 MG NA Heavens, Regan Cuenca [id number] [place], [place] [address] 893203 07/22/2021 07/22/2021 Zubsolv 30 30 5.7-1.4 MG NA Heavens, Regan Cuenca [id number] [place] [place], [place] [address] 846318 07/08/2021 06/09/2021 diazePAM 30 30 10MG NA Tahmina Rudd L, Msn, [employer] - [id number] [facility], [place], [place] [address] 478472 06/17/2021 06/17/2021 Zubsolv 30 30 5.7-1.4 MG NA Heavens, Regan Cuenca [id number] [facility], [place], [place] [address] 643548 06/17/2021 06/17/2021 Zubsolv 60 30 8.6 MG-2.1 MG NA Heavens, Regan Cuenca [id number] [place], [place] [address] 517869 06/09/2021 06/09/2021 diazePAM 30 30 10MG NA Tahmina Rudd L, Msn, [facility] - [id number] [place], [place] [address] [id number] 05/05/2021 05/05/2021 Zubsolv 60 30 8.6 MG-2.1 MG NA [id number] 07/22/2021 07/22/2021 Zubsolv 60 30 8.6 MG-2.1 MG NA Heavens, Regan Cuenca [id number] [place], [place] [address] 029596 07/22/2021 07/22/2021 Zubsolv 30 30 5.7-1.4 MG NA Heavemigue, Regan Cuenca [id number] [place], [place] 1 836218 07/08/2021 06/09/2021 diazePAM 30 30 10MG NA Tahmina Rudd L, Msn, [facility] - [id number] [place], [place] 1 723627 06/17/2021 06/17/2021 Zubsolv 30 30 5.7-1.4 MG NA Heavemigue, Regan Cuenca [id number] [place], [place] [address] 105878 06/17/2021 06/17/2021 Zubsolv 60 30 8.6 MG-2.1 MG NA Heavens, Regan Cuenca [id number] [place] [place], [place] [address] 197769 06/09/2021 06/09/2021 diazePAM 30 30 10MG NA Tahmina Rudd L, Msn, [facility] - [id number] [facility], [place], [place] 1 [id number] 05/05/2021 05/05/2021 Zubsolv 60 30 8.6 MG-2.1 MG NA [id number] 07/22/2021 07/22/2021 Zubsolv 60 30 8.6 MG-2.1 MG NA Heavens, Regan Cuenca [id number] [place], [place] [address] 272051 07/22/2021 07/22/2021 Zubsolv 30 30 5.7-1.4 MG NA Heavens, Regan Hair - [id number] [place], [place] [address] 340285 07/08/2021 06/09/2021 diazePAM 30 30 10MG NA Tahmina Rudd L, Msn, [facility] - [id number] [place], [place] [address] 629454 06/17/2021 06/17/2021 Zubsolv 30 30 5.7-1.4 MG NA Heavemigue, Regan Cuenca [id number] [place], [place] [address] 007039 06/17/2021 06/17/2021 Zubsolv 60 30 8.6 MG-2.1 MG NA Heavens, Regan Hair - [id number] [place] [place], [place] [address] 532600 06/09/2021 06/09/2021 diazePAM 30 30 10MG NA Tahmina Rudd L, Msn, [facility] - [id number] [place], [place] 1 8056042 05/05/2021 05/05/2021 Zubsolv 60 30 8.6 MG-2.1 MG NA [id number] 07/22/2021 07/22/2021 Zubsolv 60 30 8.6 MG-2.1 MG NA Heavens, Regan Hair - [id number] [place] [place], [place] [address] 739058 07/22/2021 07/22/2021 Zubsolv 30 30 5.7-1.4 MG NA Heavens, Regan Cuenca [id number] [place], [place] [address] 055395 07/08/2021 06/09/2021 diazePAM 30 30 10MG NA Tahmina Rudd L, Msn, [facility] - [id number] [place], [place] [address] 620949 06/17/2021 06/17/2021 Zubsolv 30 30 5.7-1.4 MG NA Regna Ely [id number] [place] [address] 274591 06/17/2021 06/17/2021 Zubsolv 60 30 8.6 MG-2.1 MG NA Regan Ely [id number] [place] [address] 94[address]82 06/09/2021 06/09/2021 diazePAM 30 30 10MG NA Tahmina Rudd L, Msn, [employer] - [id number] [place], [place] 1 9145313 05/05/2021 05/05/2021 Zubsolv 60 30 8.6 MG-2.1 MG NA [id number] 09/02/2021 09/02/2021 Zubsolv 60 30 8.6 MG-2.1 MG NA Regan Ely [id number] [facility] [place], [place] [address] 1372718 09/02/2021 09/02/2021 Zubsolv 30 30 5.7-1.4 MG NA Regan Ely [id number] [place], [place] [address] 129900 08/26/2021 08/26/2021 Zubsolv 7 7 5.7-1.4 MG NA Fredrick Martinez Md [id number] [place] [address] 633941 08/26/2021 08/26/2021 Zubsolv 14 7 8.6 MG-2.1 MG NA Fredrick Martinez Md [id number] [place] [address] 108496 08/25/2021 08/25/2021 Zubsolv 3 3 8.6 MG-2.1 MG NA Fredrick Martinez Md [id number] [place] [address] 680367 08/25/2021 08/25/2021 Zubsolv 1 1 5.7-1.4 MG NA Fredrick Martinez Md - [id number] [place] [address] 2169273 08/21/2021 08/21/2021 HYDROcodone BITARTRATE-ACETAMINOPHEN 30 5 325 MG-5 MG 30 Pamela Zamudio B, () - [id number] [facility] 1 075954 08/20/2021 08/10/2021 diazePAM 30 30 [id number] 07/22/2021 07/22/2021 Zubsolv 60 30 8.6 MG-2.1 MG NA Heavemigue, Regan Hair - [id number] [place] 1 040912 07/22/2021 07/22/2021 Zubsolv 30 30 5.7-1.4 MG NA Heavemigue, Regan Hair - [id number] [place], [place] [address] 636685 07/08/2021 06/09/2021 diazePAM 30 30 10MG NA Tahmina Rudd L, Msn, [employer] [facility] - [id number] [place], [place] [address] 155304 06/17/2021 06/17/2021 Zubsolv 30 30 5.7-1.4 MG NA Heavemigue, Regan Hair - [id number] [place], [place] 1 322767 06/17/2021 06/17/2021 Zubsolv 60 30 8.6 MG-2.1 MG NA Heavens, Regan Hair - [id number] [place], [place] [address] 143886 06/09/2021 06/09/2021 diazePAM 30 30 10MG NA Tahmina Rudd L, Msn, [employer] - [id number] [place] 1 2507120 05/05/2021 05/05/2021 Zubsolv 60 30 8.6 MG-2.1 MG NA Problems Problem Type SNOMED Code ICD Code Onset Dates Problem Status W/U Status Risk Notes Problem Tobacco user (407837838) Nicotine dependence, unspecified, uncomplicated (F17.200) Active confirmed Problem Depression (422361287) Depression (F32.9) 2 Active confirmed Problem Mood disorder (86512003) Mood disorder (F39) Active confirmed Problem Anxiety (29309124) Anxiety (F41.9) Active confirmed Problem Vitamin D deficiency (82516212) Vitamin D deficiency (E55.9) Active confirmed Problem Generalized anxiety disorder (64054100) ROM (generalized anxiety disorder) (F41.1) 2 Active confirmed Problem Alkaline phosphatase raised (839391255) Elevated alkaline phosphatase level (R74.8) Active confirmed Problem Elevated blood pressure (49923162) Elevated blood pressure (I10) Active confirmed Problem Prediabetes (764716835) Prediabetes (R73.09) Active confirmed Problem Colon cancer screening (358621185) Colon cancer screening (Z12.11) Active confirmed Problem Overweight (401086002) Over weight (E66.3) Active confirmed Problem Major depressive disorder (424346898) MDD (major depressive disorder) (F32.9) 2 Active confirmed Problem Malignant tumor of colon (284927302) Colon cancer (C18.9) Active confirmed Problem Drug monitoring done (211610817) Therapeutic drug monitoring (Z51.81) Active confirmed Problem Essential hypertension (27034079) Essential hypertension (I10) Active confirmed Problem Opioid dependence (33887217) Opioid use disorder, severe (F11.20) Active confirmed Problem Tobacco use (180279482) Tobacco use disorder (F17.200) Active confirmed Problem Opioid use disorder (6813231412) Opioid use disorder (F11.99) 2 Active confirmed Problem Sleep dysfunction with arousal disturbance (202662502) Night terror (F51.4) Active confirmed Vital Signs Heart Rate 70 /min 05/07/2025 Temperature 98.6 degrees Fahrenheit 09/11/2024 Respiratory Rate 16 /min 01/15/2025 Oximetry 96 % 05/07/2025 Blood pressure diastolic 84 mm Hg 05/07/2025 Height 70 in 05/07/2025 Blood pressure systolic 118 mm Hg 05/07/2025 Weight 168 lbs 05/07/2025 BMI 24.1 kg/m2 05/07/2025 Encounters Encounter Location Date Provider Diagnosis [address] [address] 12/21/2024 Neal Garcia ROM (generalized anxiety disorder) F41.1 ; MDD (major depressive disorder) F32.9 ; Therapeutic drug monitoring Z51.81 ; Mood disorder F39 and Essential hypertension I10 [address] [address] 07/06/2024 Jenia Heavens Opioid use disorder F11.99 ; Overweight (BMI 25.0-29.9) E66.3 and Tobacco use disorder F17.[address] [address] 07/17/2024 Neal Garcia Mood disorder F39 ; ROM (generalized anxiety disorder) F41.1 ; MDD (major depressive disorder) F32.9 ; Night terror F51.4 and Nicotine dependence, unspecified, uncomplicated F17.[address] [address] 08/09/2024 Wesley Wallace Opioid use disorder F11.99 ; Overweight (BMI 25.0-29.9) E66.3 ; Nutritional counseling Z71.3 and Nicotine dependence, unspecified, uncomplicated F17.[address] [address] 08/23/2024 Neal Garcia Mood disorder F39 ; ROM (generalized anxiety disorder) F41.1 ; MDD (major depressive disorder) F32.9 ; Night terror F51.4 and Nicotine dependence, unspecified, uncomplicated F17.200 [facility] [address] [place] [address] [place] [address] 09/11/2024 Jenia Heavens Opioid use disorder F11.99 ; Elevated blood pressure I10 ; Overweight (BMI 25.0-29.9) E66.3 and Tobacco use disorder F17.[address] [address] 09/13/2024 Neal Garcia Mood disorder F39 ; ROM (generalized anxiety disorder) F41.1 ; MDD (major depressive disorder) F32.9 ; Night terror F51.4 ; Essential hypertension I10 and Nicotine dependence, unspecified, uncomplicated F17.[address] [address] 10/12/2024 Neal Garcia Mood disorder F39 ; ROM (generalized anxiety disorder) F41.1 ; MDD (major depressive disorder) F32.9 ; Night terror F51.4 ; Essential hypertension I10 and Nicotine dependence, unspecified, uncomplicated F17.[address] [address] 10/15/2024 Emiliana Xie Opioid use disorder F11.99 ; Encounter for immunization Z23 and Nutritional counseling Z71.[address] [address] 11/08/2024 Neal Garcia Mood disorder F39 ; ROM (generalized anxiety disorder) F41.1 ; MDD (major depressive disorder) F32.9 ; Night terror F51.4 ; Essential hypertension I10 and Nicotine dependence, unspecified, uncomplicated F17.[address] [address] 11/15/2024 Emiliana Xie Opioid use disorder F11.[address] [address] 12/07/2024 Neal Garcia Mood disorder F39 ; ROM (generalized anxiety disorder) F41.1 ; MDD (major depressive disorder) F32.9 ; Essential hypertension I10 ; Nicotine dependence, unspecified, uncomplicated F17.200 ; Opioid use disorder F11.99 and Therapeutic drug monitoring Z51.[address] [address] 12/11/2024 Neal Garcia Mood disorder F39 ; ROM (generalized anxiety disorder) F41.1 ; MDD (major depressive disorder) F32.9 ; Night terror F51.4 ; Essential hypertension I10 ; Vitamin D deficiency E55.9 ; Nicotine dependence, unspecified, uncomplicated F17.200 ; Opioid use disorder F11.99 ; Elevated alkaline phosphatase level R74.8 and Therapeutic drug monitoring Z51.[address] [address] 12/13/2024 Emiliana Xie Opioid use disorder F11.[address] [address] 01/15/2025 Neal Garcia Mood disorder F39 ; ROM (generalized anxiety disorder) F41.1 ; MDD (major depressive disorder) F32.9 ; Night terror F51.4 ; Essential hypertension I10 ; Vitamin D deficiency E55.9 ; Nicotine dependence, unspecified, uncomplicated F17.200 ; Opioid use disorder F11.99 ; Elevated alkaline phosphatase level R74.8 and Therapeutic drug monitoring Z51.[address] [address] 01/15/2025 Emiliana Xie Opioid use disorder F11.99 and Over weight E66.[address] [address] 02/12/2025 Neal Garcia Mood disorder F39 ; ROM (generalized anxiety disorder) F41.1 ; MDD (major depressive disorder) F32.9 ; Night terror F51.4 ; Essential hypertension I10 ; Vitamin D deficiency E55.9 ; Nicotine dependence, unspecified, uncomplicated F17.200 ; Opioid use disorder F11.99 and Elevated alkaline phosphatase level R74.[address] [address] 04/12/2025 Lisa Main Opioid use disorder F11.99 and Over weight E66.[address] [address] 04/18/2025 Monica Garza Mood disorder F39 ; ROM (generalized anxiety disorder) F41.1 ; MDD (major depressive disorder) F32.9 ; Night terror F51.4 ; Nicotine dependence, unspecified, uncomplicated F17.200 and Opioid use disorder F11.[address] [address] 05/07/2025 Emiliana Xie Opioid use disorder F11.[address] [address] 06/11/2025 Monica Garza ROM (generalized anxiety disorder) F41.1 ; MDD (major depressive disorder) F32.9 ; Night terror F51.4 ; Opioid use disorder F11.99 and Seizure disorder G40.[address] [address] 07/03/2024 Neal Garcia ROM (generalized anxiety disorder) F41.[address] [address] 07/06/2024 Neal Garcia MDD (major depressiv e disorder) F32.9 ; ROM (generalized anxiety disorder) F41.1 and Night terror F51.[address] [address] 08/17/2024 Neal Garcia Mood disorder F39 [facility] [address] [address] 08/23/2024 Neal Garcia [address] [address] 08/24/2024 Neal Garcia [address] [address] 08/24/2024 Neal Garcia [address] [address] 11/08/2024 Neal Garcia [facility] [address] [place] [address] 11/21/2024 Neal Garcia ROM (generalized anxiety disorder) F41.1 ; Mood disorder F39 ; MDD (major depressive disorder) F32.9 ; Essential hypertension I10 ; Nicotine dependence, unspecified, uncomplicated F17.200 ; Opioid use disorder F11.99 and Therapeutic drug monitoring Z51.81 [facility] [address] [facility] [place] [address] 11/28/[address] [place] [address] 12/11/[address] [place] [address] 12/11/[address] [place] [address] [facility] (general[facility] F41.1 ; MDD (major depressive disorder) F32.9 ; Therapeutic drug monitoring Z51.81 ; Mood disorder F39 and Essential hypertension I10 [address] [place] [address] 12/25/2024 [facility] [address] [place] [address] 01/04/[address] [place] [address] 03/28/2025 Monica Garza [address] [address] 04/11/2025 Monica Garza Mood disorder [place] [address] [place] [address] 05/03/2025 Monica Garza Mood disorder F39 [facility] [address] [place] [address] 05/07/2025 Monica Garza Mood disorder [address] [place] [address] 06/05/2025 Monica Garza Mood disorder F39 Assessments Encounter Date Diagnosis (ICD Code) Assessment Notes Treatment Notes Treatment Clinical Notes Section Notes 07/03/2024 ROM (generalized anxiety disorder) (ICD-10 - F41.1) 07/06/2024 Overweight (BMI 25.0-29.9) (ICD-10 - E66.3) 07/06/2024 Opioid use disorder (ICD-10 - F11.99) 07/06/2024 MDD (major depressive disorder) (ICD-10 - F32.9) 07/17/2024 Mood disorder (ICD-10 - F39) Duration (acute/chronic), stability (controlled/uncont rolled): Chronic, uncontrolled since patient ran out of medications 2 weeks ago, reportedly well controlled previously while on medications Current medications/effica cy: Yes, before patient ran out of medications 2 weeks ago Previous medication trials: Celexa, Duloxetine, Lexapro, Wellbutrin, Buspar Current/previous therapies: Not in therapy Examination as documented - see pertinent aspects of office visit documentation. Pertinent diagnostics: PATIENT WANTING TO ESTABLISH CARE WITH PCP AT [facility] - PATIENT TO CALL AND SCHEDULE APPOINTMENT [...] Consume plenty of fruits/vegetables, healthy grains/whole grains, unsaturated/health y fats (liquid at room temperature, such as [...] techniques, such as guided imagery, journaling, aromatherapy, acupuncture/acupre ssure, deep breathing, etc. Practice healthy sleep hygiene [...] Continue monitoring symptoms - report persistent or worsening/concerni ng symptoms to the office or go to the ER. For mental health CRISIS, please reach out to [phone] ([facility] Suicide [facility] Crisis [facility]), 911, go to the emergency department, or contact the [facility] Crisis Unit/Team. Follow up as [...] disorder (ICD-10 - F39) Duration (acute/chronic), stability (controlled/uncont rolled): Chronic, uncontrolled since patient ran out of medications 2 weeks ago, reportedly well controlled previously while on medications Current medications/effica cy: Yes, before patient ran out of medications 2 weeks ago Previous medication trials: Celexa, Duloxetine, Lexapro, Wellbutrin, Buspar Current/previous therapies: Not in therapy Examination as documented - see pertinent aspects of office visit documentation. Pertinent diagnostics: PATIENT WANTING TO ESTABLISH CARE WITH PCP AT [facility] - PATIENT TO CALL AND SCHEDULE APPOINTMENT [...] Consume plenty of fruits/vegetables, healthy grains/whole grains, unsaturated/health y fats (liquid at room temperature, such as [...] techniques, such as guided imagery, journaling, aromatherapy, acupuncture/acupre ssure, deep breathing, etc. Practice healthy sleep hygiene [...] Continue monitoring symptoms - report persistent or worsening/concerni ng symptoms to the office or go to the ER. For mental health CRISIS, please reach out to [phone] ([facility] Suicide [facility] Crisis [facility]), 911, go to the emergency department, or contact the [facility] Crisis Unit/Team. Follow up as [...] disorder (ICD-10 - F39) Duration (acute/chronic), stability (controlled/uncont rolled): Chronic, improving with recent medication changes, still room for further improvement, see HPI Current medications/effica cy: Somewhat, room for improvement Previous medication trials: [...] Consume plenty of fruits/vegetables, healthy grains/whole grains, unsaturated/health y fats (liquid at room temperature, such as [...] techniques, such as guided imagery, journaling, aromatherapy, acupuncture/acupre ssure, deep breathing, etc. Practice healthy sleep hygiene [...] Continue monitoring symptoms - report persistent or worsening/concerni ng symptoms to the office or go to the ER. For mental health CRISIS, please reach out to [phone] ([facility] Suicide [facility] Crisis [facility]), 911, go to the emergency department, or contact the [facility] Crisis Unit/Team. Follow up as [...] disorder (ICD-10 - F39) Duration (acute/chronic), stability (controlled/uncont rolled): Chronic, no significant change with recent medication adjustments, still room for further improvement, see HPI Current medications/effica cy: Somewhat, room for improvement Previous medication trials: [...] well as alternative treatments DECREASE olanzapine as prescribed/discuss ed (due to no change in symptoms with [...] Consume plenty of fruits/vegetables, healthy grains/whole grains, unsaturated/health y fats (liquid at room temperature, such as [...] techniques, such as guided imagery, journaling, aromatherapy, acupuncture/acupre ssure, deep breathing, etc. Practice healthy sleep hygiene [...] Continue monitoring symptoms - report persistent or worsening/concerni ng symptoms to the office or go to the ER. For mental health CRISIS, please reach out to [phone] ([place] [facility]), 911, go to the emergency department, or contact the [facility] Crisis Unit/Team. Follow up as [...] disorder (ICD-10 - F39) Duration (acute/chronic), stability (controlled/uncont rolled): Chronic, some improvement with recent medication adjustments, still room for further improvement, see HPI Current medications/effica cy: Somewhat, room for improvement Previous medication trials: [...] Consume plenty of fruits/vegetables, healthy grains/whole grains, unsaturated/health y fats (liquid at room temperature, such as [...] techniques, such as guided imagery, journaling, aromatherapy, acupuncture/acupre ssure, deep breathing, etc. Practice healthy sleep hygiene [...] Continue monitoring symptoms - report persistent or worsening/concerni ng symptoms to the office or go to the ER. For mental health CRISIS, please reach out to [phone] ([facility] Suicide [facility] Crisis [facility]), 911, go to the emergency department, or contact the [facility] Crisis Unit/Team. Follow up as [...] disorder (ICD-10 - F39) Duration (acute/chronic), stability (controlled/uncont rolled): Chronic, some improvement with recent medication adjustments, still room for further improvement, see HPI Current medications/effica cy: Somewhat, room for improvement Previous medication trials: [...] patient verbalized understanding RECOMMENDATIONS: ADJUST prazosin as prescribed/discuss ed assist with PTSD - educated patient/guardian on [...] Consume plenty of fruits/vegetables, healthy grains/whole grains, unsaturated/health y fats (liquid at room temperature, such as [...] techniques, such as guided imagery, journaling, aromatherapy, acupuncture/acupre ssure, deep breathing, etc. Practice healthy sleep hygiene [...] Continue monitoring symptoms - report persistent or worsening/concerni ng symptoms to the office or go to the ER. For mental health CRISIS, please reach out to [phone] ([place] [facility]), 911, go to the emergency department, or contact the [facility] Crisis Unit/Team. Follow up as [...] disorder (ICD-10 - F39) Duration (acute/chronic), stability (controlled/uncont rolled): Chronic, some improvement with recent medication adjustments, still room for further improvement, patient not wanting to make medication adjustments at this time, see HPI Current medications/effica cy: Somewhat, room for improvement Previous medication trials: [...] Consume plenty of fruits/vegetables, healthy grains/whole grains, unsaturated/health y fats (liquid at room temperature, such as [...] techniques, such as guided imagery, journaling, aromatherapy, acupuncture/acupre ssure, deep breathing, etc. Practice healthy sleep hygiene [...] Continue monitoring symptoms - report persistent or worsening/concerni ng symptoms to the office or go to the ER. For mental health CRISIS, please reach out to [phone] ([facility] Suicide [facility] Crisis [facility]), 911, go to the emergency department, or contact the [facility] Crisis Unit/Team. Follow up as scheduled in 4 weeks or sooner if necessary. Follow up with PCP and/or other specialists as advised. NEXT STEP: Consider medications adjustments as needed. TAPER diazepam when appropriate/as needed. 01/15/2025 Opioid use disorder (ICD-10 - F11.99) 02/12/2025 Mood disorder (ICD-10 - F39) Duration (acute/chronic), stability (controlled/uncont rolled): Chronic, subjectively stable on current medication regimen despite kidney stones and uncontrolled pain, patient not wanting to make medication adjustments at this time, see HPI Current medications/effica cy: Somewhat, room for improvement Previous medication trials: [...] Consume plenty of fruits/vegetables, healthy grains/whole grains, unsaturated/health y fats (liquid at room temperature, such as [...] techniques, such as guided imagery, journaling, aromatherapy, acupuncture/acupre ssure, deep breathing, etc. Practice healthy sleep hygiene [...] Continue monitoring symptoms - report persistent or worsening/concerni ng symptoms to the office or go to the ER. For mental health CRISIS, please reach out to [phone] ([facility] Suicide [facility] Crisis [facility]), 911, go to the emergency department, or contact the [facility] Crisis Unit/Team. Follow up as scheduled in 4 weeks or sooner if necessary. Follow up with PCP and/or other specialists as advised. NEXT STEP: Consider medications adjustments as needed. TAPER diazepam when appropriate/as needed. 04/11/2025 Mood disorder (ICD-10 - F39) 04/12/2025 Opioid use disorder (ICD-10 - F11.99) Patient agrees to take medication as prescribed. Discussed medication side effects, adverse effects, risks, benefits, as well as interactions. Encouraged non-use of opioids. Client to make provider aware of any medication changes that could interact with treatment. Recommended participation in recovery groups/counseling services to help maintain sobriety. May contact the office with any questions or concerns. 04/18/2025 Mood disorder (ICD-10 - F39) Duration (acute/chronic), stability (controlled/uncont rolled): Chronic, subjectively stable on current medication regimen despite kidney stones and uncontrolled pain, patient not wanting to make medication adjustments at this time, see HPI Current medications/effica cy: Somewhat, room for improvement Previous medication trials: [...] Consume plenty of fruits/vegetables, healthy grains/whole grains, unsaturated/health y fats (liquid at room temperature, such as [...] techniques, such as guided imagery, journaling, aromatherapy, acupuncture/acupre ssure, deep breathing, etc. Practice healthy sleep hygiene [...] Continue monitoring symptoms - report persistent or worsening/concerni ng symptoms to the office or go to the ER. For mental health CRISIS, please reach out to [phone] ([facility] Suicide [facility] Crisis [facility]), 911, go to the emergency department, or contact the [facility] Crisis Unit/Team. Follow up as scheduled in 4 weeks or sooner if necessary. Follow up with PCP and/or other specialists as advised. NEXT STEP: Consider medications adjustments as needed. TAPER diazepam when appropriate/as needed. No refills needed at this appointment 04/18/2025. 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) See assessment and plan for mood disorder 04/18/2025 MDD (major depressive disorder) (ICD-10 - F32.9) See assessment and plan for mood disorder 04/12/2025 Over weight (ICD-10 - E66.3) 02/12/2025 ROM (generalized anxiety disorder) (ICD-10 - F41.1) See assessment and plan for mood disorder 01/15/2025 Over weight (ICD-10 - E66.3) 01/15/2025 ROM (generalized anxiety disorder) (ICD-10 - [...] assessment and plan for mood disorder 09/13/2024 MDD (major depressive disorder) (ICD-10 - [...] 07/06/2024 Tobacco use disorder (ICD-10 - F17.200) 07/06/2024 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) 07/17/2024 [...] See assessment and plan for mood disorder 06/11/2025 Opioid use disorder (ICD-10 - F11.99) Following up with [facility] clinic for this despite patient having previously denied other current/previou substance use, see HPI 04/18/2025 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) See assessment and plan for mood disorder 02/12/2025 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 Manage co-morbid conditions. Continue monitoring symptoms - report persistent or worsening/concerni ng symptoms to the office or go to the ER. For mental health CRISIS, please reach out to [phone] ([place] [facility]), 911, go to the emergency department, or contact the [facility] Crisis Unit/Team. Follow up as scheduled or sooner if necessary. Follow up with PCP and/or other specialists as advised. NEXT STEP: Consider medication therapy as needed. 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 Practice healthy sleep hygiene [...] Continue monitoring symptoms - report persistent or worsening/concerni ng symptoms to the office or go to the ER. For mental health CRISIS, please reach out to [phone] ([facility] Suicide [facility] Crisis [facility]), 911, go to the emergency department, or contact the [facility] Crisis Unit/Team. Follow up as scheduled in 4 weeks IN PERSON or sooner if necessary. Follow up with PCP and/or other specialists as advised. NEXT STEP: Blood pressure check at follow up. LABS at follow up. Consider incresing lisinopril pending response/tolerabil ity. Consider increasing propranolol as needed. Consider adding other medications as needed. 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 Manage co-morbid conditions. Continue monitoring symptoms - report persistent or worsening/concerni ng symptoms to the office or go to the ER. For mental health CRISIS, please reach out to [phone] ([place] [facility]), 911, go to the emergency department, or contact the [facility] Crisis Unit/Team. Follow up as scheduled or sooner if necessary. Follow up with PCP and/or other specialists as advised. NEXT STEP: Consider medication therapy as needed. 08/23/2024 Nicotine dependence, unspecified, uncomplicated (ICD-10 - F17.200) Duration (acute/chronic), stability (controlled/uncont rolled): Chronic, not currently on medications for this specific diagnosis, verbalized no intention to quit at this time Current medications/effica cy: N/A Previous medication trials: N/A RECOMMENDATIONS: Consider/Continue substance cessation therapy as needed - contact office if desiring medication assisted therapy. Manage co-morbid conditions. Continue monitoring symptoms - report persistent or worsening/concerni ng symptoms to the office or go to the ER. For mental health CRISIS, please reach out to [phone] ([place] [facility]), 911, go to the emergency department, or contact the [facility] [place] Crisis Unit/Team. Follow up as scheduled or sooner if necessary. Follow up with PCP and/or other specialists as advised. NEXT STEP: Consider medication therapy as needed. 09/13/2024 Nicotine dependence, unspecified, uncomplicated (ICD-10 - F17.200) Duration (acute/chronic), stability (controlled/uncont rolled): Chronic, not currently on medications for this specific diagnosis, verbalized no intention to quit at this time Current medications/effica cy: N/A Previous medication trials: N/A RECOMMENDATIONS: Consider/Continue substance cessation therapy as needed - contact office if desiring medication assisted therapy. Manage co-morbid conditions. Continue monitoring symptoms - report persistent or worsening/concerni ng symptoms to the office or go to the ER. For mental health CRISIS, please reach out to [phone] ([facility]), 911, go to the emergency department, or contact the [facility] Crisis Unit/Team. Follow up as scheduled or sooner if necessary. Follow up with PCP and/or other specialists as advised. NEXT STEP: Consider medication therapy as needed. 10/12/2024 Essential hypertension (ICD-10 - I10) Duration (acute/chronic), stability (controlled/uncont rolled): Chronic, patient not currently following up with PCP for management, taking propranollol and lisinopril as prescribed by this provider - reports blood pressure was recently measured, was told it was good, unsure of actual measurement Current medications/effica cy: Blood pressure recently reportedly good Previous medication [...] Consume plenty of fruits/vegetables, healthy grains/whole grains, unsaturated/health y fats (liquid at room temperature, such as [...] techniques, such as guided imagery, journaling, aromatherapy, acupuncture/acupre ssure, deep breathing, etc. Practice healthy sleep hygiene [...] Continue monitoring symptoms - report persistent or worsening/concerni ng symptoms to the office or go to the ER. For mental health CRISIS, please reach out to [phone] ([place] [facility]), 911, go to the emergency department, or contact the [facility] Crisis Unit/Team. Follow up as scheduled in 4 weeks IN PERSON or sooner if necessary. Follow up with PCP and/or other specialists as advised. NEXT STEP: Blood pressure check at follow up. LABS at follow up. Consider incresing lisinopril pending response/tolerabil ity. Consider increasing propranolol as needed. Consider adding other medications as needed. 11/21/2024 Opioid use disorder (ICD-10 - F11.99) 12/07/2024 Nicotine dependence, unspecified, uncomplicated (ICD-10 - F17.200) 11/08/2024 Essential hypertension (ICD-10 - I10) Duration (acute/chronic), stability (controlled/uncont rolled): Chronic, patient not currently following up with PCP for management, taking propranollol and lisinopril as prescribed by this provider - reports blood pressure was recently measured, was told it was good, unsure of actual measurement Current medications/effica cy: Blood pressure recently reportedly good Previous medication [...] Consume plenty of fruits/vegetables, healthy grains/whole grains, unsaturated/health y fats (liquid at room temperature, such as [...] techniques, such as guided imagery, journaling, aromatherapy, acupuncture/acupre ssure, deep breathing, etc. Practice healthy sleep hygiene [...] Continue monitoring symptoms - report persistent or worsening/concerni ng symptoms to the office or go to the ER. For mental health CRISIS, please reach out to [phone] ([facility]), 911, go to the emergency department, or contact the [facility] Crisis Unit/Team. Follow up as scheduled in 4 weeks IN PERSON or sooner if necessary. Follow up with PCP and/or other specialists as advised. NEXT STEP: Blood pressure check at follow up. LABS at follow up. Consider incresing lisinopril pending response/tolerabil ity. Consider increasing propranolol as needed. Consider adding other medications as needed. 12/11/2024 Essential hypertension (ICD-10 - I10) Duration (acute/chronic), stability (controlled/uncont rolled): Chronic, patient not currently following up with PCP for management, taking propranollol and lisinopril as prescribed by this provider - reports blood pressure was recently measured, well controlled based on recent blood pressure reading documented in chart, see chart Current medications/effica cy: Yes Previous medication trials: Unknown Current/previous therapies: [...] Consume plenty of fruits/vegetables, healthy grains/whole grains, unsaturated/health y fats (liquid at room temperature, such as [...] techniques, such as guided imagery, journaling, aromatherapy, acupuncture/acupre ssure, deep breathing, etc. Practice healthy sleep hygiene [...] Continue monitoring symptoms - report persistent or worsening/concerni ng symptoms to the office or go to the ER. For mental health CRISIS, please reach out to [phone] ([facility]), 911, go to the emergency department, or contact the [facility] Crisis Unit/Team. Follow up as scheduled in 4 weeks or sooner if necessary. Follow up with PCP and/or other specialists as advised. NEXT STEP: Consider incresing lisinopril as needed. Consider increasing propranolol as needed. Consider adding other medications as needed. 12/21/2024 Essential hypertension (ICD-10 - I10) 01/15/2025 Essential hypertension (ICD-10 - I10) Duration (acute/chronic), stability (controlled/uncont rolled): Chronic, patient not currently following up with PCP for management, taking propranollol and lisinopril as prescribed by this provider - reports blood pressure was recently measured, well controlled based on recent blood pressure reading documented in chart, see chart Current medications/effica cy: Yes Previous medication trials: Unknown Current/previous therapies: [...] Consume plenty of fruits/vegetables, healthy grains/whole grains, unsaturated/health y fats (liquid at room temperature, such as [...] techniques, such as guided imagery, journaling, aromatherapy, acupuncture/acupre ssure, deep breathing, etc. Practice healthy sleep hygiene [...] Continue monitoring symptoms - report persistent or worsening/concerni ng symptoms to the office or go to the ER. For mental health CRISIS, please reach out to [phone] ([place] [facility]), 911, go to the emergency department, or contact the [facility] Crisis Unit/Team. Follow up as scheduled in 4 weeks or sooner if necessary. Follow up with PCP and/or other specialists as advised. NEXT STEP: Consider incresing lisinopril as needed. Consider increasing propranolol as needed. Consider adding other medications as needed. 02/12/2025 Essential hypertension (ICD-10 - I10) Duration (acute/chronic), stability (controlled/uncont rolled): Chronic, patient not currently following up with PCP for management, taking propranollol and lisinopril as prescribed by this provider - reports blood pressure was recently measured, well controlled based on recent blood pressure reading documented in chart, see chart Current medications/effica cy: Yes Previous medication trials: Unknown Current/previous therapies: [...] Consume plenty of fruits/vegetables, healthy grains/whole grains, unsaturated/health y fats (liquid at room temperature, such as [...] techniques, such as guided imagery, journaling, aromatherapy, acupuncture/acupre ssure, deep breathing, etc. Practice healthy sleep hygiene [...] Continue monitoring symptoms - report persistent or worsening/concerni ng symptoms to the office or go to the ER. For mental health CRISIS, please reach out to [phone] ([place] [facility]), 911, go to the emergency department, or contact the [facility] Crisis Unit/Team. Follow up as scheduled in 4 weeks or sooner if necessary. Follow up with PCP and/or other specialists as advised. NEXT STEP: Consider incresing lisinopril as needed. Consider increasing propranolol as needed. Consider adding other medications as needed. 04/18/2025 Opioid use disorder (ICD-10 - F11.99) Following up with MAT clinic for this despite patient having previously denied other current/previou substance use, see HPI 02/12/2025 Vitamin D deficiency (ICD-10 - E55.9) Duration (acute/chronic), stability (controlled/uncont rolled): Noted on recent labs, taking supplementation as recently prescribed, tolerating well without complication or complaint Current medications/effica cy: Unknown until labs are repeated Previous medication [...] Consume plenty of fruits/vegetables, healthy grains/whole grains, unsaturated/health y fats (liquid at room temperature, such as [...] techniques, such as guided imagery, journaling, aromatherapy, acupuncture/acupre ssure, deep breathing, etc. Practice healthy sleep hygiene [...] Continue monitoring symptoms - report persistent or worsening/concerni ng symptoms to the office or go to the ER. For mental health CRISIS, please reach out to [phone] (National Suicide and Crisis Lifeline), 911, go to the emergency department, or contact the [facility] Crisis Unit/Team. Follow up as scheduled or sooner if necessary. Follow up with PCP and/or other specialists as advised. NEXT STEP: Repeat vitamin D level 2-3 months following most recent result 01/15/2025 Vitamin D deficiency (ICD-10 - E55.9) Duration (acute/chronic), stability (controlled/uncont rolled): Noted on recent labs, taking supplementation as recently prescribed, tolerating well without complication or complaint Current medications/effica cy: Unknown until labs are repeated Previous medication [...] Consume plenty of fruits/vegetables, healthy grains/whole grains, unsaturated/health y fats (liquid at room temperature, such as [...] techniques, such as guided imagery, journaling, aromatherapy, acupuncture/acupre ssure, deep breathing, etc. Practice healthy sleep hygiene [...] Continue monitoring symptoms - report persistent or worsening/concerni ng symptoms to the office or go to the ER. For mental health CRISIS, please reach out to [phone] (National Suicide and Crisis Lifeline), 911, go to the emergency department, or contact the [facility] Crisis Unit/Team. Follow up as scheduled or sooner if necessary. Follow up with PCP and/or other specialists as advised. NEXT STEP: Repeat vitamin D level 2-3 months following most recent result 12/07/2024 Opioid use disorder (ICD-10 - F11.99) 12/11/2024 Vitamin D deficiency (ICD-10 - E55.9) Duration (acute/chronic), stability (controlled/uncont rolled): Noted on recent labs, not currently taking supplementation Current medications/effica cy: N/A Previous medication trials: N/A Current/previous therapies: [...] Consume plenty of fruits/vegetables, healthy grains/whole grains, unsaturated/health y fats (liquid at room temperature, such as [...] techniques, such as guided imagery, journaling, aromatherapy, acupuncture/acupre ssure, deep breathing, etc. Practice healthy sleep hygiene [...] Continue monitoring symptoms - report persistent or worsening/concerni ng symptoms to the office or go to the ER. For mental health CRISIS, please reach out to [phone] (National Suicide and Crisis Lifeline), 911, go to the emergency department, or contact the [facility] Crisis Unit/Team. Follow up as scheduled or sooner if necessary. Follow up with PCP and/or other specialists as advised. NEXT STEP: Repeat vitamin D level 2-3 months following most recent result 11/08/2024 Nicotine dependence, unspecified, uncomplicated (ICD-10 - F17.200) Duration (acute/chronic), stability (controlled/uncont rolled): Chronic, not currently on medications for this specific diagnosis, verbalized no intention to quit at this time Current medications/effica cy: N/A Previous medication trials: N/A RECOMMENDATIONS: Consider/Continue substance cessation therapy as needed - contact office if desiring medication assisted therapy. Manage co-morbid conditions. Continue monitoring symptoms - report persistent or worsening/concerni ng symptoms to the office or go to the ER. For mental health CRISIS, please reach out to [phone] (National Suicide and Crisis Lifeline), 911, go to the emergency department, or contact the [facility] Crisis Unit/Team. Follow up as scheduled or sooner if necessary. Follow up with PCP and/or other specialists as advised. NEXT STEP: Consider medication therapy as needed. 11/21/2024 Therapeutic drug monitoring (ICD-10 - Z51.81) 10/12/2024 Nicotine dependence, unspecified, uncomplicated (ICD-10 - F17.200) Duration (acute/chronic), stability (controlled/uncont rolled): Chronic, not currently on medications for this specific diagnosis, verbalized no intention to quit at this time Current medications/effica cy: N/A Previous medication trials: N/A RECOMMENDATIONS: Consider/Continue substance cessation therapy as needed - contact office if desiring medication assisted therapy. Manage co-morbid conditions. Continue monitoring symptoms - report persistent or worsening/concerni ng symptoms to the office or go to the ER. For mental health CRISIS, please reach out to [phone] (National Suicide and Crisis Lifeline), 911, go to the emergency department, or contact the [facility] Crisis Unit/Team. Follow up as scheduled or sooner if necessary. Follow up with PCP and/or other specialists as advised. NEXT STEP: Consider medication therapy as needed. 12/11/2024 Nicotine dependence, unspecified, uncomplicated (ICD-10 - F17.200) Duration (acute/chronic), stability (controlled/uncont rolled): Chronic, not currently on medications for this specific diagnosis, verbalized no intention to quit at this time Current medications/effica cy: N/A Previous medication trials: N/A RECOMMENDATIONS: Consider/Continue substance cessation therapy as needed - contact office if desiring medication assisted therapy. Manage co-morbid conditions. Continue monitoring symptoms - report persistent or worsening/concerni ng symptoms to the office or go to the ER. For mental health CRISIS, please reach out to [phone] (National Suicide and Crisis Lifeline), 911, go to the emergency department, or contact the [facility] Crisis Unit/Team. Follow up as scheduled or sooner if necessary. Follow up with PCP and/or other specialists as advised. NEXT STEP: Consider medication therapy as needed. 12/07/2024 Therapeutic drug monitoring (ICD-10 - Z51.81) 01/15/2025 Nicotine dependence, unspecified, uncomplicated (ICD-10 - F17.200) Duration (acute/chronic), stability (controlled/uncont rolled): Chronic, not currently on medications for this specific diagnosis, verbalized no intention to quit at this time Current medications/effica cy: N/A Previous medication trials: N/A RECOMMENDATIONS: Consider/Continue substance cessation therapy as needed - contact office if desiring medication assisted therapy. Manage co-morbid conditions. Continue monitoring symptoms - report persistent or worsening/concerni ng symptoms to the office or go to the ER. For mental health CRISIS, please reach out to [phone] ([place] Suicide and Crisis Lifeline), 911, go to the emergency department, or contact the [facility] [place] Crisis Unit/Team. Follow up as scheduled or sooner if necessary. Follow up with PCP and/or other specialists as advised. NEXT STEP: Consider medication therapy as needed. 02/12/2025 Nicotine dependence, unspecified, uncomplicated (ICD-10 - F17.200) Duration (acute/chronic), stability (controlled/uncont rolled): Chronic, not currently on medications for this specific diagnosis, verbalized no intention to quit at this time Current medications/effica cy: N/A Previous medication trials: N/A RECOMMENDATIONS: Consider/Continue substance cessation therapy as needed - contact office if desiring medication assisted therapy. Manage co-morbid conditions. Continue monitoring symptoms - report persistent or worsening/concerni ng symptoms to the office or go to the ER. For mental health CRISIS, please reach out to [phone] ([place] Suicide and Crisis Lifeline), 911, go to the emergency department, or contact the [facility] [place] Crisis Unit/Team. Follow up as scheduled or [...] estabishing care with a PCP for continued management/recomme ndations 02/12/2025 Elevated alkaline phosphatase level (ICD-10 - R74.8) Noted on recent labs, recent repeat labs indicate downward trend - will plan to repeat labs - patient also agreeable to estabishing care with a PCP for continued management/recomme ndations 01/15/2025 Elevated alkaline phosphatase level (ICD-10 - R74.8) Noted on recent labs, recent repeat labs indicate downward trend - will plan to repeat labs - patient also agreeable to estabishing care with a PCP for continued management/recomme ndations 01/15/2025 Therapeutic drug monitoring (ICD-10 - Z51.81) 12/11/2024 Therapeutic drug monitoring (ICD-10 - Z51.81) 07/06/2024 Other Patient agrees to take medication [...] may self-administer their own oral medications per [place] Protocol. 01/15/2025 Other BP elevated during appointment. [...] may self-administer their own oral medications per [place] Protocol. 05/07/2025 Other Patient agrees to take medication as [...] may self-administer their own oral medications per [place] Protocol. Plan Of Treatment No Information Insurance Providers Payer Name Payer Address Payer Phone Subscriber Number Group Number Insured Name Patient Relationship to Insured Coverage Start Date Coverage End Date [employer] [facility] Attn Claims Department [address] [place] [address] [phone] [id number] Jose Smart Self - patient is the insured 0 [employer] Attn Claims Department [address] [place] [address] [phone] [id number] Jose Smart Self - patient is the insured 0 [employer] Attn Claims Department [address] [address] [phone] [id number] Jose Smart Self - patient is the insured 0 Medical (General) History Medical History History ICD Code Opioid use disorder HTN seizure disorder Surgical History Surgery Date(Month/Year) kidney stones 2019 kidney stone removal 03/2025 Hospitalization History Reason Date(Month/Year) kidney stones- [facility] 03/2025
--- OUTSIDE RECORDS SUMMARY | 2025-06-17 19:17 | XMS_ITS | Clinical Summary ---
Author Organization [facility] Address [address], [address] [address] Phone Care Team Providers Care Senior Management Consultant Name Role Phone Provider, None Primary Care Provider Ervin Valdes MD Unavailable Allergies No known active allergies Medications cyclobenzaprine (FLEXERIL) 10 MG Tablet TAKE 1 TABLET BY MOUTH 3 TIMES DAILY NEEDED FOR MUSCLE SPASMS. 90 Tab 3 9 Active Additional Information Patient not taking.Reported on 03/13/2025 lisinopril (PRINIVIL, ZESTRIL) 10 MG Tablet TAKE 1 TAB BY MOUTH DAILY. 30 Tab 5 9 Active Additional Information Patient taking differently:10 mg OralEVERY MORNING, Reported on 03/18/2025 ondansetron (ZOFRAN) 4 MG Tablet Take 1-2 Tabs by mouth every 8 hours as needed for Nausea - 1st line. 10 Tab 9 Active Additional Information Patient not taking.Reported on 03/13/2025 famotidine (PEPCID) 20 MG Tablet Take 1 Tab by mouth 2 times daily as needed for Heartburn. 30 Tab 9 Active Additional Information Patient not taking.Reported on 03/13/2025 HYDROcodone-acet aminophen (NORCO) 5-325 MG Tablet Take 1 Tab by mouth every 6 hours as needed for Moderate or more severe pain. 10 Tab 0 Active Additional Information Patient not taking.Reported on 03/13/2025 oxyCODONE-acetam inophen (PERCOCET) 5-325 MG Tablet Take 1 Tab by mouth every 6 hours as needed for Moderate or more severe pain. 15 Tab 0 Active Additional Information Patient not taking.Reported on 03/13/2025 ondansetron (ZOFRAN-ODT) 4 MG TABLET DISPERSIBLE Take 1 Tablet by mouth every 8 hours as needed for Nausea - 1st line. 20 Tablet 5 Active Additional Information Patient not taking.Reported on 03/13/2025 ondansetron (ZOFRAN) 4 MG Tablet Take 1 Tablet by mouth every 8 hours as needed for Nausea - 1st line. 10 Tablet 5 Active oxyCODONE-acetam inophen (Percocet) 5-325 MG TabletIndication s:Pain due to ureteral stent, initial encounter ([facility]) Take 1-2 Tablets by mouth every 4 hours as needed for Severe pain (If constant pain, be sure you are taking oxybutynin on regular basis to optimize pain control). 12 Tablet 5 Active oxybutynin (DITROPAN) 5 MG Tablet Take 1 Tablet by mouth 3 times daily as needed for Other (stent pain). 30 Tablet 5 Active tamsulosin (Flomax) 0.4 MG CapsuleIndicatio ns:Urolithiasis Take 1 Capsule by mouth daily. Indications: Urinary Tract Stones 30 Capsule 5 Active Active Problems Problem Noted Date Diagnosed Date Chronic narcotic use 11/10/2018 Hypertension 08/03/2018 Left ureteral stone 11/02/2017 Anxiety Depression Carpal tunnel syndrome Overview (08/17/2016): bilateral hands Chronic back pain Knee dislocation Overview (08/17/2016): right knee Encounters Date Type Department Care Team Description 04/10/2025 9:00 AM CDT - 04/10/2025 11:59 PM CDT Hospital Encounter [facility] Diagnostic Radiology [address] [place] [address] Herman Roberts MD Discharge Disposition: Discharged to home or Selfcare 04/10/2025 8:30 AM CDT Office Visit [facility] [address] [place] [address] Ervin Rao MD Left ureteral stone (Primary Dx) Discharge Disposition: Discharged to home or Selfcare 04/10/2025 Travel 03/21/2025 Telephone [facility] [address] [place] [address] Ervin Rao MD 03/18/2025 2:02 PM CDT [facility] [address] [place] [address] Thanh Rome MD 03/18/2025 1:10 PM CDT - 03/18/2025 2:13 PM CDT [facility] [address] [place] [address] Herman Roberts MD LEFT EXTRACORPOREAL SHOCKWAVE LITHOTRIPSY 03/18/2025 10:38 AM CDT - 03/18/2025 6:27 PM CDT [facility] PACU I [address] [place] [address] Herman Roberts MD Provider, Anesthesiologist Discharge Disposition: Discharged to home or Selfcare 03/18/2025 Travel from Last 3 Months Immunizations Immunization Administration Dates Next Due Influenza,Split Virus,Trivalent,Injectable,PF Family History Medical History Relation Name Comments Cancer Father leukemia,mesoth elioma Kidney Stones Mother Relation Name Status Comments Father Mother Alive Social History Tobacco Use Types Packs/Day Years Used Date Smoking Tobacco: Every Day Cigarettes Smokeless Tobacco: Never Tobacco Cessation:Ready to Q uit: Not Asked; Counseling Given: Not Answered Alcohol Use Standard Drinks/Week Comments No 0 [...] Sign Reading Time Taken Comments Blood Pressure 159/106 04/10/2025 8:14 AM CDT Pulse 71 04/10/2025 8:14 AM CDT Temperature 36.7 C (98.1 F) 03/18/2025 4:30 PM CDT Respiratory Rate 16 04/10/2025 8:14 AM CDT Oxygen Saturation 100% 04/10/2025 8:14 AM CDT Inhaled Oxygen Concentration - - Weight 72.6 kg (160 lb) 04/10/2025 8:14 AM CDT Height 177.8 cm (5' 10) 04/10/2025 8:14 AM CDT Body Mass Index 22.96 04/10/2025 8:14 AM CDT Plan of Treatment Health Maintenance Due Date Last Done Comments Hepatitis C Virus (HCV) Screening 1967 TdaP Immunization 1967 Hepatitis B Immunization (1 of 3 - 19+ 3-dose series) 1986 Pneumococcal Immunization (5 0+ years) (1 of 2 - PCV) 1986 Cologuard 01/07/2012 Colonoscopy 01/07/2012 Colorectal Cancer Screening 01/07/2012 Immunochemical Fecal Occult Blood 01/07/2012 Zoster Immunization (1 of 2) 2017 PSA Discussion 2022 Influenza Immunization (#1) 2025 10/15/2024 SARS-COV-2 Immunization (3 - season) 2025 03/11/2021, 02/11/2021 Respiratory Syncytial Virus (RSV) Immunization (Adult) (1 - 1-dose 75+ series) 2042 Human Papillomavirus (HPV) Immunization Aged Out No longer eligible b ased on patient's age to complete this topic Meningococcal Immunization (ACWY) Aged Out No longer eligible b ased on patient's age to complete this topic Rotavirus Immunization Aged Out No lo nger eligible based on patient's age to complete this topic Medical Devices Explanted Type Area Artist Consultant Device Identifier Shelf Expiration Date Model / Serial / Lot Stent Ureteral 6fr 2.1fr 26cm 2 Pigtail Curve 2 Durometer Taper Tip Loprfl Graduated Polaris Ultra - [id number] Implanted:Qty: 1 on 04/19/2019 by Pamela Zamudio MD at [facility] Explanted:Qty: 1 on 03/18/2025 at [facility] IMPLANT Right: Ureter [employer] 01/21/2022 [id number] 30 / [id number] / [id number] Description:This is being ex planted due to a past surgery with Dr. Zamudio from 2018 Ref # [id number] Lot # [id number] [employer] In[employer] Ureteral Stent Implanted:Qty: 1 on 11/02/2017 by Pamela Zamudio MD at [facility] Explanted:Qty: 1 on 03/18/2025 at [facility] Left: Ureter [employer] 06/08/2021 [id number] / [id number] Description:This is being ex planted by documentation due to a prior surgery with Dr. Zamudio 2017. Ref # [id number] Lot # [id number] Procedures Procedure Name Priority Date/Time Associated Diagnosis Comments XR ABDOMEN KUB FLAT PLATE Routine 04/10/2025 9:14 AM CDT Left ureteral stone CULTURE, URINE Routine 04/10/2025 8:48 AM CDT Left ureteral stone NUZHAT,POST-VOID RES,US,NON-IMAGIN G Routine 04/10/2025 8:30 AM CDT Left ureteral stone POCT UA AUTOMATED W/O MICRO Routine 04/10/2025 8:14 AM CDT Left ureteral stone PATHOLOGY SURGICAL Routine 03/18/2025 2:20 PM CDT LMA Routine 03/18/2025 2:17 PM CDT CYSTO STENT REMOVAL (SINGLE/BILATERAL ) 03/18/2025 1:41 PM CDT LEFT URETERAL STONE Special Needs Hx of chronic back pain 5ft 10in 170lb FRAGMENT KIDNEY STONE/ ESWL 03/18/2025 1:41 PM CDT LEFT URETERAL STONE Special Needs Hx of chronic back pain 5ft 10in 170lb from Last 3 Months Results * XR ABDOMEN KUB FLAT PLATE (04/10/2025 9:14 AM CDT) Anatomical Region Laterality Modality Abdomen N/A Digital Radiogra phy 04/29/2025 6:20 AM CDT Impressions 04/29/2025 6:22 AM CDT IMPRESSION: 1. No definite evidence of a bowel obstruction. 2. No definite evidence of a calcification overlying the bilateral renal shadows to suggest nephrolithiasis. 3. Moderate amount of retained fecal debris in the colon, which is concerning for constipation. Narrative 04/29/2025 6:22 AM CDT EXAM DESCRIPTION: XR ABDOMEN KUB FLAT PLATE REASON FOR STUDY: Left kidney stones 3 weeks ago, with lithotripsy. Patient states he also has kidney stones on right side. Denies pain or urinary symptoms. TECHNIQUE: Single radiographic view of the abdomen. COMPARISON: 02/18/2025 FINDINGS: There is no definite evidence of a bowel obstruction. There is a moderate amount of retained fecal debris in the colon. The bilateral renal shadows are partially obscured by overlying bowel gas. There is no definite evidence of a calcification overlying the bilateral renal shadows to suggest nephrolithiasis. There are multiple phleboliths noted overlying the pelvis. There are degenerative changes of the spine, bilateral sacroiliac joints, and bilateral hips. THIS IS AN ELECTRONICALLY VERIFIED FINAL REPORT 04/29/2025 6:20 AM - Electronically signed by Zia Corcoran D.O. PS: PS Report ID: [id number] Reading Location: [id number] Procedure Note Zia Corcoran DO - 04/29/2025 EXAM DESCRIPTION: XR ABDOMEN KUB FLAT PLATE REASON FOR STUDY: Left kidney stones 3 weeks ago, with lithotripsy. Patient states he also has kidney stones on right side. Denies pain or urinary symptoms. TECHNIQUE: Single radiographic view of the abdomen. COMPARISON: 02/18/2025 FINDINGS: There is no definite evidence of a bowel obstruction. There is a moderate amount of retained fecal debris in the colon. The bilateral renal shadows are partially obscured by overlying bowel gas. There is no definite evidence of a calcification overlying the bilateral renal shadows to suggest nephrolithiasis. There are multiple phleboliths noted overlying the pelvis. There are degenerative changes of the spine, bilateral sacroiliac joints, and bilateral hips. THIS IS AN ELECTRONICALLY VERIFIED FINAL REPORT 04/29/2025 6:20 AM - Electronically signed by Zia Corcoran D.O. PS: PS Report ID: [id number] Reading Location: [id number] IMPRESSION: 1. No definite evidence of a bowel obstruction. 2. No definite evidence of a calcification overlying the bilateral renal shadows to suggest nephrolithiasis. 3. Moderate amount of retained fecal debris in the colon, which is concerning for constipation. us Herman Roberts MD IMG DIAGNOSTIC ORDERABL ES Final Result * CULTURE, URINE (04/10/2025 8:48 AM CDT) CULTURE RESULTS Mixed Growth of One or More Distal Urethral Contaminants 04/11/2025 10:31 PM CDT [facility] Culture URINE SPECIMEN OBTAINED BY CLEAN CATCH PROCEDURE / Unknown Non-Phlebotomy Collection / Unknown 04/10/2025 8:48 AM CDT 04/10/2025 8:48 AM CDT us Ervin Rao MD MICROBIOLOGY - GENERAL ORDERABLE S Final Result [facility] [address] [place] [address], [place] * NUZHAT,POST-VOID RES,US,NON-IMAGING (04/10/2025 8:30 AM CDT) Narrative Kareen Robins - 04/10/2025 8:30 AM CDT Kareen Robins 04/10/2025 11:37 AM POCT Bladder Scan collected per standing order of Dr. Rao on 04/10/2025 PVR= 0 ML us Ervin Rao MD IA - SURGERY Final Result * (ABNORMAL) POCT UA AUTOMATED W/O MICRO (04/10/2025 8:14 AM CDT) POC UA SPECIFIC GRAVITY 1.005 URINE PH 7.0 5.0 - 9.0 POC URINE LEUKOCYTES 75 /uL(A) Negative Devyn/uL POC URINE NITRITE Negative Negative POC URINE PROTEIN Trace(A) Negative mg/dL POC URINE GLUCOSE Norm Negative, Norm mg/dL POC URINE KETONE Negative Negative mg/dL POC URINE UROBILINOGEN Norm Norm, 0.2 E.U./dL (mg/dL), 1 E.U./dL (mg/dL) POC URINE BILIRUBIN Negative Negative mg/dL POC URINE BLOOD INSTRUMENT 50 Evgeny/uL(A) Negative Evgeny/uL POC URINE COLOR Yellow POC URINE CLARITY Clear Urine 04/10/2025 8:14 AM CDT Ervin Rao MD POINT OF CARE TESTING (MANUAL) F inal Result * Pathology Surgical (03/18/2025 2:20 PM CDT) Case Report Surgical Pathology Report Case: [id number] Authorizing Provider: Herman Roberts MD Collected: 03/18/2025 02:20 PM Ordering Location: [facility] Received: 03/19/2025 07:34 AM [facility] Main OR Pathologist: Albin Padilla MD PhD Specimen: Surgical Implant, BILATERAL URETERAL STENTS 03/20/2025 2:48 PM CDT [facility] Bilateral ureteral stents, removal: - As described grossly. 03/20/2025 2:48 PM CDT [facility] at 1447 CDT Pre-Operative Diagnosis LEFT URETERAL STONE 03/20/2025 2:48 PM CDT [facility] Gross Description A. BILATERAL URETERAL STENTS A single specimen is received fresh labeled with the patient's name, Jose Smart, and designated as bilateral ureteral stents. In the specimen container are two blue plastic tubes measuring 44 cm in length and a maximum diameter of 0.1 cm with the words Coubic. There is no soft tissue present within the container or the specimen. This is for gross diagnosis only. MH/sb 03/20/2025 2:48 PM CDT [facility] Other SURGICAL TISSUE IMPLANT / Unknown 03/18/2025 2:20 PM CDT 03/19/2025 7:34 AM CDT us Herman Roberts MD PATHOLOGY/CYTOLOGY ALIREZA GUADALUPE Final Result [facility] [address] [facility] [place] [address] * LMA (03/18/2025 2:17 PM CDT) Narrative Thanh Rome MD - 03/18/2025 2:17 PM CDT Thanh Rome MD 03/18/2025 2:17 PM LMA Staffing Performed: anesthesiologist Performed by: Thanh Rome MD Authorized by: Thanh Rome MD Airway Details Overall Difficulty: Easy Preoxygenated: Yes Ease of Mask Ventilation: Not attempted LMA Type: Disposable LMA Size: 4 Adequate seal established: Yes LMA placement confirmed by: bilateral breath sounds, CO2 detection Atraumatic LMA Placement us Thanh Rome MD ANESTHESIA ORDERABLES Final R esult from Last 3 Months Additional Health Concerns Infection Onset Date Last Indicated Other 06/06/2020 06/06/2020 Insurance MEDICAID [facility] [employer] Care Teams Senior Management Consultant Relationship Specialty Start Date End Date Provider, None [place] PCP - General 03/13/20 Ervin Rao MD [address] [facility] [address] [place] [address] Consulting Physician Urology 03/08/25
--- OUTSIDE RECORDS SUMMARY | 2025-06-17 19:17 | XMS_ITS | Clinical Summary ---
Author Organization [facility] Address [address] [place] [address] Phone Care Team Providers Care Django Developer Name Role Phone Unavailable Primary Care Provider [...] on file Legal Sex Male 2:57 PM CASH ACCOUNTANT Gender Identity Not on file Sexual Orientation Not on file Last Filed Vital Signs Vital Sign Reading Time Taken Comments Blood Pressure 140/82 08/25/2021 8:01 PM CASH ACCOUNTANT Pulse 78 08/25/2021 8:01 PM CASH ACCOUNTANT Temperature 36.5 C (97.7 F) 08/25/2021 8:01 PM CASH ACCOUNTANT Respiratory Rate 18 09/09/2021 9:34 AM CASH ACCOUNTANT Oxygen Saturation 95% 08/25/2021 8:01 PM CASH ACCOUNTANT Inhaled Oxygen Concentration - - Weight 65.8 kg (145 lb) 09/09/2021 9:34 AM CASH ACCOUNTANT Height 177.8 cm (5' 10) 09/09/2021 9:34 AM CASH ACCOUNTANT Body Mass Index 20.81 09/09/2021 9:34 AM CASH ACCOUNTANT Plan of Treatment Health Maintenance Due Date Last Done Comments DTAP/TDAP/TD VACCINES (1 - Tdap) 1986 HEPATITIS B VACCINES (1 of 3 - 19+ 3-dose series) 03/1986 COLORECTAL SCREENING 01/07/2012 Colorectal Cancer Screening 01/07/2012 FIT-DNA Q 3 years 01/07/2012 FIT/FOBT Q 1 year 01/07/2012 Flex Sig/CT Colonography Q 5 years 01/07/2012 ZOSTER VACCINE (1 of 2) 2017 INFLUENZA VACCINE (#1) 2025 Medical Devices Implanted Type Area Pediatric Cns Device Identifier Shelf Expiration Date Model / Serial / Lot Stent Polaris Ultra 6fr 26cm [id number] - [id number] Implanted:Qty : 1 on 08/25/2021 by Pamela Zamudio MD at [facility] Stent Left: Ureter [employer]CHRONIC MANAGER [id number] 06/10/2024 [id number] / / [id number] Insurance [facility] MEDICAID
--- OUTSIDE RECORDS SUMMARY | 2025-06-17 19:17 | XMS_ITS | Clinical Summary ---
Author Organization [facility] Address [address] [place] [address] Care Team Providers Care Cotton Washer Name Role Phone Gurvinder Lin Md, MD Primary Care Provider Unavailable Source Comments [facility],non-owned Affiliates and Associated Physician Practices is amultiple site organization consisting of ambulatory clinics and hospital sitesin [place], [place], [place] and [place]. This disclosure is being madepursuant to the Care Everywhere program and may not contain all information available regarding this patient. 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 Inhaled Oxygen Concentration - - Weight 65.8 kg (145 lb) 01/12/2017 11:10 AM CDT Height 177.8 cm (5' 10) 01/12/2017 11:10 AM CDT Body Mass Index [...] 1986 ZOSTER VACCINE (1 of 2) 2017 DEPRESSION SCREENING 10/03/2024 COVID-19 VACCINE (1 - 2023-2 5 season) 2025 INFLUENZA VACCINE (#1) 2025 HIB VACCINE Aged Out No longer [...] this topic Medical Devices Implanted Type Area Furnace Caretaker Device Identifier Shelf Expiration Date Model / Serial / Lot 5fr X 24cm Polaris Ureteral Stent Implanted:Qty: 1 on 10/31/2015 by Mani Dunbar MD at [facility] Left: Ureter [employer] 06/08/2018 [id number] / / [id number] Polaris 5fr X 24cm Implanted:Qty: 1 on 12/12/2015 by Mani Dunbar MD at [facility] Right: Ureter [id number] / / [id number] Insurance [facility] [employer] [facility] SELF PAY NO INSURANCE Member Subscriber Plan / Payer (Ef fective 2015-Present) Name:Jose Aguilera Gildardo Relation to Subscriber:Self Name:Jose Aguilera Gildardo Payer ID:Not on file Group ID:Not on file Type:Self Pay Address: [place], [place] Care Teams Cotton Washer Relationship Specialty Start Date End Date Gurvinder Lin MD, MD PCP - General 09/29/18
--- NOTE | 2025-06-17 20:22 | ED_ITS ---
HPI - General Adult General Chief complaint: Seizure Stated complaint: syncope/seizure Time Seen by Provider: 06/17/25 18:15 History of Present Illness HPI narrative: Patient is a 52-year-old male who presents ER after having multiple syncopal events at home. He gets up and walk up stairs becomes lightheaded then passes out. He has been told he has shaking after the events. This happened a couple times today and also happen yesterday. No fevers or chills or sweats. Reports normal eating and drinking. Recently started on buprenorphine. Related Data Home Medications ?Medication ?Instructions ?Recorded ?Confirmed ?Last Taken ?Type lisinopril 10 mg tablet 10 mg PO DAILY 10/14/2005/2702/06/25 History Held on 06/17/25. Instructions: Hold until restarted by PCP. Allergies Allergy/AdvReac Type Severity Reaction Status Date / Time No Known Allergies Allergy Verified 06/17/25 18:29 Review of Systems 2 Review of Systems: All systems reviewed & are unremarkable except as noted in HPI and below Constitutional: Constitutional: Reports no additional constitutional complaints ENT: Reports system reviewed and no additional complaints, except as documented Cardiovascular: Cardiovascular: Reports no additional cardiovascular complaints Genitourinary: Genitourinary: Reports no additional male genitourinary complaints Musculoskeletal: Musculoskeletal: Reports no additional musculoskeletal complaints Integumentary/Breasts: Skin/Breast: Reports system reviewed and no additional complaints, except as docu Neurologic: Reports system reviewed and no additional complaints, except as documented PMFSH Past Medical History Medical History History of kidney stones Chronic pain syndrome Benign prostatic hyperplasia Hypertension Tobacco dependence Surgical History Surgical History History of lithotripsy Family History Family History Father H/O heart artery stent Hypertension Leukemia Mesothelioma of lung Mother Hypertension Multiple sclerosis Social History Social History Social History: The patient lives in [place]. He has been 4 times. They have 3 adult children. 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 Smokes about a pack of cigarettes per day and has for 30 years or so. He denies alcohol abuse. Occasional marijuana use. Code status: Full code Surrogate decision maker: Keeley Smart (mother) Smoking packs per day: 1 Smoking cigarettes per day: 20.0 Years smoked: 30 Smoking pack-years: 30.00 Smoking status: Current every day smoker Tobacco type: cigarettes Second hand tobacco smoke exposure: No Alcohol intake: former Substance use: former Substance use type: marijuana Do You Feel Safe in your Home?: Yes Lack of Transportation: YES Lack of Food: Never True Current Housing: I Have Housing Concerned About Future Housing: No Difficulty Paying Gas/Electric Bills: No Difficulty Paying for Meds: No Currently Unemployed: No Education: High School Diploma/GED Difficulty w/ Childcare or Family Care: No Gender identity (if verbalized by the patient): Male Spiritual care concerns: No Exam 2 Narrative: GENERAL: Well-appearing, well-nourished, and in no acute distress. HEAD: Normocephalic, atraumatic. ENT: Mucous membranes moist. CHEST: Clear to auscultation. No respiratory distress. HEART: Regular rate and rhythm. Normal peripheral pulses. ABDOMEN: Soft, nontender, nondistended. EXTREMITIES: Normal range of motion. No edema. SKIN: Warm, dry, no rash. NEURO: Alert and oriented x3. PSYCH: Normal mood and affect. Course Course Emergency Course: Patient resting comfortably. He has had 2 L of IV fluid. Blood pressure is markedly improved from the low 90s and 70s after his orthostatics. Currently 130s systolic. He has been up and ambulatory without dizziness or syncope. He reports he mainly just drinks Andre-Aid for hydration because he does not like the taste of water. Looking at outpatient medication it looks like his propanolol was recently increased. Recommend holding his lisinopril and propranolol and following up with his PCP. Vital Signs Vital signs: Vital Signs Temperature 97.9 F 06/17/25 18:18 Pulse Rate 77 06/17/25 18:18 Respiratory Rate 16 06/17/25 18:18 Blood Pressure 94/73 L 06/17/25 18:18 Pulse Oximetry 95 06/17/25 18:18 Oxygen Delivery Room Air 06/17/25 18:18 Temperature 97.9 F 06/17/25 18:18 Pulse Rate 72 06/17/25 20:19 Respiratory Rate 11 L 06/17/25 19:49 Blood Pressure 105/73 06/17/25 20:21 Pulse Oximetry 95 06/17/25 19:49 Oxygen Delivery Room Air 06/17/25 18:18 Medical Decision Making Vital Signs Vital Signs: Vital Signs Temperature 97.9 F 06/17/25 18:18 Pulse Rate 77 06/17/25 18:18 Respiratory Rate 16 06/17/25 18:18 Blood Pressure 94/73 L 06/17/25 18:18 Pulse Oximetry 95 06/17/25 18:18 Oxygen Delivery Room Air 06/17/25 18:18 Temperature 97.9 F 06/17/25 18:18 Pulse Rate 72 06/17/25 20:19 Respiratory Rate 11 L 06/17/25 19:49 Blood Pressure 105/73 06/17/25 20:21 Pulse Oximetry 95 06/17/25 19:49 Oxygen Delivery Room Air 06/17/25 18:18 Lab Data 06/17/25 18:24 06/17/25 18:24 Labs: Lab Results 06/17/25 06/17/25 Range/Units 18:23 18:24 WBC 10.1 H (4.5-10.0) K/mm3 RBC 5.05 (4.6-6.20) M/mm3 Hgb 14.7 (14.0-18.0) g/dL Hct 45.2 (42.0-52.0) % MCV 89.5 (80-100) fl MCH 29.1 (26-34) pg MCHC 32.5 (32-36) g/dl RDW 13.6 (11.5-14.5) % Plt Count 239 (150-375) k/mm3 MPV 10.7 H (7.4-10.4) fl Immature Gran % (Auto) 1.2 H (0-0.5) % Neut % (Auto) 60.1 (45.5-73.1) % Lymph % (Auto) 28.8 (18.3-44.2) % [place] % (Auto) 6.7 (2.6-8.5) % Eos % (Auto) 2.0 (0-4.4) % Baso % (Auto) 1.2 (0.2-1.2) % Lymph # (Auto) 2.89 (0.9-3.2) K/mm3 [place] # (Auto) 0.7 H (0.1-0.6) K/mm3 Eos # (Auto) 0.2 (0-0.3) K/mm3 Baso # (Auto) 0.1 (0.0-0.1) K/mm3 Abs Immat Gran (auto) 0.12 H (0.00-0.031) K/mm3 Absolute Neuts (auto) 6.1 (1.3-6.7) K/mm3 Absolute Nucleated RBC 0.000 (0.0-0.012) K/mm3 Nucleated RBC % 0.0 (0.0-0.2) % Sodium 139 (137-145) mmol/L Potassium 4.7 (3.4-5.0) mmol/L Chloride 105 (98-107) mmol/L Carbon Dioxide 27 (22-30) mmol/L Anion Gap 7 (4-12) mmol/L BUN 22 H (9-20) mg/dL Creatinine 1.27 (0.7-1.3) mg/dL Estim Creat Clear Calc 59 ml/min Estimated GFR 58 L (59 - ) Glucose 118 H (65-110) mg/dL Calcium 9.0 (8.4-10.2) mg/dL Total Bilirubin 0.4 (0.2-1.3) mg/dL AST 39 (17-59) U/L ALT 40 (6-50) U/L Alkaline Phosphatase 96 (38-126) U/L Troponin I 0.016 (0.000-0.034) ng/mL Total Protein 7.1 (6.3-8.2) g/dL Albumin 4.1 (3.5-5.1) g/dL Imaging Data Radiologist's impression: ITS Impressions Head CT 06/17/25 18:42 IMPRESSION: 1. Mild nonspecific cerebral white matter disease, which likely represents chronic small vessel ischemic disease. Chest X-Ray 06/17/25 18:48 IMPRESSION: 1. Mild atelectasis at left lung base. ECG Data EKG #1: ECG completion date: 06/17/25 ECG completion time: 18:20 EKG Interpretation: normal rate (77), sinus rhythm, normal QRS, RBBB (incomplete) and left axis Discharge Plan Discharge Clinical Impression: Orthostatic syncope Patient Disposition: Home Condition: Stable Instructions: Syncope (ED), Hypotension (ED) Additional Instructions: Your symptoms are felt to be related to low blood pressure. Stop taking your lisinopril and propanolol, follow up with you primary care physician. Make sure you drink plenty of fluid during the day. Water is encouraged but Gatorade is okay. Return the ER if you develop chest pain, you have recurrent loss of consciousness, or you have additional concerns. Patient Language: Greenlandic Prescriptions: Held lisinopril 10 mg tablet 10 mg PO DAILY Hold Instructions: Hold until restarted by PCP. No Action oxycodone-acetaminophen 5-325 mg Tablet 1 - 2 tablet PO Q6H PRN (Reason: Pain Rated 7-10) Qty: 12 0RF tamsulosin 0.4 mg Capsule 0.4 mg PO QAM Qty: 30 0RF hydroxyzine HCl 25 mg Tablet 25 mg PO HS Qty: 12 0RF cefdinir 300 mg capsule 300 mg PO Q12H 10 Days Qty: 20 0RF potassium chloride [Klor-Con M20] 20 mEq tablet,ER particles/crystals 20 meq PO DAILY Qty: 3 0RF tamsulosin [Flomax] 0.4 mg capsule 0.4 mg PO DAILY Qty: 14 0RF cephalexin 500 mg capsule 500 mg PO Q6H 7 Days Qty: 28 0RF oxybutynin chloride 5 mg tablet 5 mg PO TID PRN (Reason: bladder spasms) Qty: 15 0RF ondansetron 4 mg tablet,disintegrating 4 mg PO Q8H PRN (Reason: nausea and vomiting) Qty: 15 0RF oxycodone 5 mg tablet 5 mg PO Q6H PRN (Reason: pain) Qty: 15 0RF Follow-up/Referrals: PHYSICIAN,STEEL SPAR OPERATOR [Primary Care Provider, Internal Medicine]
[2025-06-17 21:42] LABS: Add Urine Microscopic? YES; Appearance Urine Cloudy (Clear); Glucose Urine UA Negative (Negative); Leukocyte Esterase Ur 2+ LEU/UL (Negative); Need Manual Microscopic Reviewed; Nitrate Urine Negative (Negative); Specific Grav Ur 1.020 (1.001-1.035)
== END 2025-06-17 21:33 | disposition home or self-care (01) ==
PROVIDERS: Emergency Provider Emergency Medicine
DX: I95.1 Orthostatic hypotension (principal); I10 Essential (primary) hypertension; F17.210 Nicotine dependence, cigarettes, uncomplicated
CPT/HCPCS: 36415; 70450; 71046; 80053; 81001; 84484; 85025; 87086; 87186; 93005; 96360; 96361; 99284; J7030